=== PATIENT | female | born 1945 ===

== ENCOUNTER 2022-04-18 11:50 | Inpatient (IN) | payer MEDICARE ==
[~2022-04-18] VITALS: Ht 147.3 cm; Wt 54.6 kg
[2022-04-18] MEDS: polyethylene glycoL POWDER 17 GM (MIRALAX) PACK PO SCH ×3 (09:00→21:00)
[2022-04-18 11:50] VITALS: BP 166/75
[~2022-04-18 11:50] MED LIST: ACET-2840 PO; ACETAMINOPHEN 325 MG TABLET PO PRN; ALPRAZolam 0.25 MG (XANAX) TAB PO PRN; ASPI-1238 PO; BETH25TA2 PO; BISACODYL 10 MG SUPP (DULCOLAX) PR PRN; CALCIUM CARBONATE 500 MG (TUMS) TAB.CHEW PO PRN; CHOL20002 PO; DOCUSATE SODIUM 100 MG (COLACE) CAP PO PRN; DOCUSATE SODIUM 100 MG (COLACE) CAP PO SCH; FLEET ENEMA ADULT 1 EA BTL PR PRN; LACTULOSE SYRUP 10GM/15ML (ENULOSE) 30ML UDC PO PRN; LISI20TA26 PO; LOPERAMIDE 2 MG (IMODIUM) TABLET PO PRN; MELATONIN 3 MG TABLET PO PRN; MELO7.5T46 PO; NALO4SPR3 NS; ONDANSETRON 4 MG (ZOFRAN) ORAL DISSOLVE TAB PO PRN; OXYC1TAB87 PO; PANT40TA52 PO; SPIR25TA5 PO; SULF-221 PO; TMSL.4C PO; TRAM50TA3 PO; diphenhydrAMINE 25 MG TAB (BENADRYL) PO PRN; guaiFENesin/CODEINE (ROBITUSSIN AC) 10ML UDC PO PRN
--- NOTE | 2022-04-18 12:26 | Physical Therapy Evaluation ---
PT Evaluation-General Medical Diagnosis Admission Date Apr 18, 2022 at 11:50 Medical Diagnosis: Left BALDEMAR Onset Date: Apr 15, 2022 Therapy Diagnosis Therapy Diagnosis: Gait deficit Precautions Precautions/Isolations: Fall Prevention Weight Bear Status Right Lower Extremity: Right Full Weight Bearing Left Lower Extremity: Left Weight Bearing/Tolerated Referral Physician: Dr. Toro Reason for Referral: Evaluation/Treatment Medical History Reviewed History: Yes Social History Home: Single Level Current Living Status: Children Entry Into Home: Ramp PT Steps Into Home: 0 Prior Prior Level of Function SCALE: Activities may be completed with or without assistive devices. 2-Pvwkcjbbrv-bjnpwjm completes the activity by him/herself with no assistance from a helper. 5-Set-up or Clean-up Assistance-helper sets up or cleans up; patient completes activity. [place] assists only prior to or following the activity. 4-Supervision or Touching Assistance-helper provides verbal cues and/or touching/steadying and/or contact guard assistance as patient completes activity. Assistance may be provided throughout the activity or intermittently. 3-Partial/Moderate Assistance-helper does LESS THAN HALF the effort. [place] lifts, holds or supports trunk or limbs, but provides less than half the effort. 2-Substantial/Maximal Assistance-helper does MORE THAN HALF the effort. [place] lifts or holds trunk or limbs and provides more than half the effort. 2-Jyhulzrnp-qvnktb does ALL the effort. Patient does none of the effort to complete the activity. Or, the assistance of 2 or more helpers is required for the patient to complete the activity. If activity was not attempted, code reason: 7-Patient Refused. 9-Not Applicable-not attempted and the patient did not perform the activity before the current illness, exacerbation or injury. 10-Not Attempted due to Environmental Limitations-(lack of equipment, weather restraints, etc.). 88-Not Attempted due to Medical Conditions or Safety Concerns. Bed Mobility: 6 Transfers (B,C,W/C): 6 Gait: 6 Stairs: 6 Indoor Mobility (Ambulation): Independent Stairs: Independent Prior Devices Use: Walker PT Evaluation-Current Subjective Patient arrives in passenger seat of car driven by granddaughter. Reports pain at 8/10 in left hip. Pain Section J - Health Conditions 1. Rarely or not at all 2. Occasionally 3. Frequently 4. Almost constantly 8. Unable to answer Pain Effect on Sleep: 6 Pain Interference with Therapy: 8 Pain Interference w/Day-to-Day: 6 Objective Patient Orientation: Person, Place, Time, Situation Attachments: Way Catheter ROM/Strength ROM Lower Extremities Left hip and knee limited ~ 50% in all planes. Right LE WFLs all planes. Strength Lower Extremities Right LE- 4-/5 all planes; Left LE - Hip 3-/5 all planes, knee 3-/5 all planes, ankle 4/5 all planes Sensory Vision: Functional Hearing: Functional Sensation Right Lower Extremit: Intact Sensation Left Lower Extremity: Intact Transfers Roll Left & Right (QC): 3 Sit to Lying (QC): 3 Lying to Sitting/Side of Bed(Q: 3 Sit to Stand (QC): 3 Chair/Qlr-px-Gwbjh Xfer(QC): 3 Toilet Transfer (QC): 3 Car Transfer (QC): 3 Gait Does the Patient Walk?: Yes Mode of Locomotion: Walk Anticipated Mode of Locomotion: Walk Walk 10 feet (QC): 3 Walk 50 ft with 2 Turns(QC): 3 Walk 150 ft (QC): 3 Walking 10ft/uneven surface-QC: 88 Distance: 30 feet Gait Assistive Device: FWW Wheelchair Training Does the Pt Use a Wheelchair?: Yes Distance: 50 feet Wheel 50 ft with 2 turns (QC): 4 Wheel 150 ft (QC): 88 Type of Wheelchair: Manual Stairs #of Steps: 0 1 Step (curb) (QC): 88 4 Steps (QC): 88 12 Steps (QC): 88 Balance Sitting Static: Fair Sitting Dynamic: Fair Standing Static: Fair Standing Dynamic: Poor Picking up an Object (QC): 88 Assessment/Needs Patient performs all observed transfers and bed mobility with mod A. She propels the w/c 50 feet with BUEs and minimally with the right LE. Requires frequent verbal cues to stay on task and to avoid obstacles. Patient ambulates 30 feet with FWW, with min/mod A and verbal cues for safety, progression, posture, and motivation. Patient ambulates with forward trunk posture, rounded shoulders, decreased stance time on left LE, narrow JASON and shortened stride length bilaterally with right limited > left. Patient in w/c post treatment with all needs met, nursing notified, call light in reach and family in the room. Rehab Potential: Good Equipment Needs BSC or toilet riser, grab bars in the bathroom, w/c possibly PT Senior Care Goals Federal Aid Coordinator Goals PT Federal Aid Coordinator Goals Time Frame: May 31, 2022 Scoring Section J - Health Conditions 1. Rarely or not at all 2. Occasionally 3. Frequently 4. Almost constantly 8. Unable to answer Pain Effect on Sleep: 2 Pain Interference with Therapy: 2 Pain Interference w/Day-to-Day: 2 Roll Left to Right (QC): 6 Sit to Lying (QC): 6 Lying-Sitting on Side/Bed(QC): 6 Sit to Stand (QC): 6 Chair/Ajj-ol-Utntj Xfer(QC): 6 Car Transfer (QC): 6 Does the Patient Walk: Yes Walk 10 feet (QC): 6 Walk 10ft-Uneven Surface(QC): 6 Walk 50ft with 2 Turns (QC): 4 Walk 150 ft (QC): 4 Gait Assistive Device: FWW Does the Pt use WC or Scooter?: Yes Wheelchair (FIM): 6 Wheel 50 feet with 2 turns (QC: 6 # of Steps: 12 1 Step (curb) (QC): 4 4 Steps (QC): 4 12 Steps (QC): 4 Picking up an Object (QC): 6 Toilet transfer with Galliano W/C 150 feet with Galliano PT Plan Problem List Problem List: Activity Tolerance, Functional Strength, Safety, Balance, Gait, Transfer, Bed Mobility, ROM Treatment/Plan Treatment Plan: Continue Plan of Care Treatment Plan: Bed Mobility, Education, Functional Activity Emma, Functional Strength, Group Therapy, Gait, Safety, Therapeutic Exercise, Transfers Treatment Duration: Jun 01, 2022 Frequency: At least 5 of 7 days/Wk (IRF) Estimated Hrs Per Day: 1.5 hours per day Patient and/or Family Agrees t: Yes Safety Risks/Education Patient Education: Gait Training, Transfer Techniques Teaching Recipient: Patient Teaching Methods: Demonstration, Discussion Response to Teaching: Verbalize Understanding, Return Demonstration Time/GCodes Time In: 1150 Time Out: 1220 Total Billed Treatment Time: 30 Total Billed Treatment Visit, EVm (10), Gait (20) AXEL ORLANDO PT Apr 18, 2022 12:26
--- NOTE | 2022-04-18 12:32 | PM&R Post Admission Assessment ---
PM&R HP Date of Visit: Apr 18, 2022 Time of Visit: 12:40 History of Present Illness CC: Debility following a revision left total hip arthroplasty uncomplicated by Dr Fernandez HPI: This is a 76yoAAF who presents from [facility] following an uncomplicated left hip replacement revision by Dr Fernandez who has had BP elevations since surgery and urinary retention. Currently her daughter, granddaughter and great granddaughter are present in the room. Pain is controlled. No BM since before surgery. Laxatives will be given. Eating and drinking well. PLOF was independent in ADL's and ambulation. Liliana Escobar 76 y/o Female 1945 CC: Rehab after L total hip arthroplasty HPI: Had a L total hip arthroplasty done on 04/16/2022 at [facility]. She states she believes the procedure went well from what she was told. She states she had fractured her hip about 22 years ago and thus they had to have a longer terra placement to replace her femur. She denies any significant pain after her surgery. She has had flatus but has not had a bowel movement yet. She has no questions or concerns for her hip. She did want us to know that she has neck pain and an inability to turn her neck with any range of motion. 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 Because of her neck pain, she is unable to lay flat on her back and requires pillows to help prop up her neck. PMH: HTN Past surg hx: R knee arthroplasty x2, cholestectomy FHx: HTN Allergies: NKDA Meds: Lisinopril 20mg daily, Spironolactone 25mg daily, Meloxican 7.5mg daily, Protonix 40mg daily, Tamusolin 0.4mg BID, Bethanecol Chloride 25mg TID, ASA 81mg daily. Social Hx: 14 children. Lives with a son and his grandson. Denies EtOh, Tobacco use, or other recreational drug use Objective: Vitals T: 36.9 HR: 100 BP: 166/75 RR: 20 SpO2: 96% Labs pending Physical exam: Gen: alert, oriented x4, cooperative, no apparent distress Cardiovascular: tachycardic, normal S1, S2, no murmurs, gallops, or rubs Pulm: LTAB GI: normal active bowel sounds, no tenderness on palpation Extremities: 2+ pitting edema bilateral lower extremities Psych: normal mood and affect Neuro: no gross abnormalities on exam Assessment: Ms. Liliana Escobar is a 76 y/o female with PMH of HTN who presented to the acute rehab unit on 04/18/22 after L total hip arthroplasty on 04/16/22. Plan: 1. s/p L hip arthroplasty > PT/OT ordered > Pain control - Tramadol 50mg q4 PRN for mild pain, Percocet 5/325 q4 hours PRN for mod to sev pain > Silverman catheter present, will maintain for now, on Bactrim DS BID while silverman remains in place 2. Neck pain > PT/OT > Cont Meloxicam 7.5mg daily 3. Hypertension > continue home meds of Lisinopril 20mg daily and SPL 25mg daily Code: Full code Diet: regular diet Dispo: Continue acute rehab unit Pt seen and discussed with Dr. Menjivar. Ty Gaona MS4 Past Ppgddpn-Mcunrk-Jcveox Hx Past Med/Social Hx: Reviewed Nursing Past Med/Soc Hx, Reviewed and Corrections made Patient Social History Marrital Status: single Employed/Student: retired Smoking Status: Never a Smoker Past Medical History Surgeries: Orthopedic Cardiac: High Cholesterol, Hypertension Genitourinary: Bladder Infection Musculoskeletal: Arthritis Prior Level of Function Bed Mobility: 6 Transfers: 6 Gait: 6 Stairs: 6 Indoor Mobility (Ambulation): Independent Stairs: Independent Prior Devices Use: Walker PM&R Allergy/Meds/Data Review Allergies Coded Allergies: No Known Allergies (Verified Allergy, Unknown, 04/18/22) Home Medications Scheduled Aspirin (Aspirin EC), 81 MG PO DAILY, (Reported) Bethanechol Chloride (Bethanechol Chloride), 25 MG PO TIDAC, (Reported) Cholecalciferol (Vitamin D3) (Vitamin D3), 50 MCG PO DAILY, (Reported) Lisinopril (Lisinopril), 20 MG PO DAILY, (Reported) Meloxicam (Meloxicam), 7.5 MG PO DAILY, (Reported) Pantoprazole Sodium (Pantoprazole Sodium), 40 MG PO DAILY, (Reported) Spironolactone (Spironolactone), 25 MG PO DAILY, (Reported) Sulfamethoxazole/Trimethoprim (Bactrim Ds Tablet), 1 EACH PO BID, (Reported) Tamsulosin HCl (Flomax), 0.4 MG PO Q12H, (Reported) Scheduled PRN Acetaminophen (Tylenol 8 Hour), 1,300 MG PO Q6H PRN for PAIN-MILD (1-4), (Reported) Naloxone HCl (Naloxone HCl), 4 MG NS UD PRN for OPOID OVERDOSE, (Reported) Oxycodone HCl/Acetaminophen (Percocet 5-325 mg Tablet), 1 TAB PO Q4H PRN for PAIN-MODERATE (5-7), (Reported) Tramadol HCl (Tramadol HCl), 50 MG PO Q4H PRN for PAIN-MILD (1-4), (Reported) Current Medications Current Medications Reviewed Review of Systems Constitutional: see HPI, malaise, weakness EENTM: no symptoms reported Respiratory: no symptoms reported Cardiovascular: no symptoms reported Gastrointestinal: constipation Genitourinary: other (retention) Musculoskeletal: back pain, joint pain Skin: no symptoms reported Psychiatric/Neurological: No Symptoms Reported All Other Systems Reviewed Negative Unless Noted: Yes Physical Exam Physical Exam Vital Signs Capillary Refill : Height, Weight, BMI Height: '" Weight: lbs. oz. kg; BMI Method: General Appearance: No Apparent Distress, WD/WN, Chronically ill Eyes: Bilateral Eye Normal Inspection, Bilateral Eye PERRL HEENT: PERRL/EOMI, Normal ENT Inspection, Pharynx Normal Neck: Full Range of Motion, Normal Inspection, Non Tender, Supple, Carotid Bruit Respiratory: Chest Non Tender, Lungs Clear, Normal Breath Sounds, No Accessory Muscle Use, No Respiratory Distress Cardiovascular: Regular Rate, Rhythm, No Edema, No Gallop, No JVD, No Murmur, Normal Peripheral Pulses Gastrointestinal: Normal Bowel Sounds, No Organomegaly, No Pulsatile Mass, Non Tender, Soft Back: Normal Inspection, No CVA Tenderness, No Vertebral Tenderness Extremity: Normal Capillary Refill, Normal Inspection, Normal Range of Motion (except left leg), Non Tender, No Calf Tenderness, No Pedal Edema Neurologic/Psychiatric: Alert, Oriented x3, Normal Mood/Affect, pointer helper II-XII Norm as Tested, Abnormal Gait, Motor Weakness (bilateral legs) Skin: Normal Color, Warm/Dry Lymphatic: No Adenopathy PM&R Medical Assessment & Plan REHAB/MEDICAL ASSESSMENT AND PLAN: REHAB IMPAIRMENT GROUP: Right hip replacement revision ETIOLOGIC DIAGNOSIS: Right hip replacement revision The comorbidities that impact the patients function and/or functional outcome by: labile HTN, urinary retention, limited ROM left leg REHAB PLAN: The patient is being admitted to our comprehensive inpatient rehabilitation facility and can tolerate the intensity of service consisting of at least: 180 minutes of therapy a day, 5 out of 7 days a week Rehab treatment will consist of: PT OT will focus on regaining ambulatory skills with use of AD and increase independence in ADL's in order to return home to live alone The patient/family has a good understanding of our discharge process and will benefit from an interdisciplinary inpatient rehabilitation program. The patient has potential to make improvement and is in need of at least two of the following multidisciplinary therapies including but not limited to physical, occupational, speech, and prosthetics and orthotics. Additionally the patient will need services from respiratory, nutritional services, wound care, psychology, etc. (Customize this to each patient). Given the patients complex condition and risk of further medical complications, rehabilitation services cannot be safely or effectively provided at a lower level of care such as a assisted facility. BARRIERS TO DISCHARGE: Pain left leg ESTIMATED LOS: 7 days DISPOSITION: Home RELEVANT CHANGES SINCE PREADMISSION SCREENING: I have compared the patients medical and functional status at the time of the preadmission screening and there are: no changes PROGNOSIS: Good REHABILITATION GOALS: 1. PT OT will focus on regaining ambulatory skills with use of AD and increase independence in ADL's in order to return home to live alone All the above goals were reviewed with the patient and he/she is in agreement. By signing this document, I acknowledge that I have personally performed a full physical examination on this patient within 24 hours of admission to this inpatient rehabilitation facility and have determined the patient to be able to tolerate the above course of treatment at an intensive level for a reasonable period of time. I will be completing a detailed individualized Plan of Care for this patient by day #4 of the patients stay based upon the Preadmission Screen, the Post-Admission Evaluation, and the therapy evaluations. Admission Dx/Comorbidities: (1) S/P total left hip arthroplasty ICD Codes: Z96.642 - Presence of left artificial hip joint Assessment/Plan Assessment and Plan Assess & Plan/Chief Complaint Assessment: s/p uncomplicated left hip arthroplasty by Dr Fernandez HTN labile status Urinary retention Fall risk Plan: Monitor pain Urinary retention management Fall risk Aggressive PT OT NATIVIDAD MENJIVAR DO Apr 18, 2022 12:32
[2022-04-18] MEDS ORDERED: TAMSULOSIN 0.4 MG (FLOMAX) CAP PO SCH (12:45)
--- NOTE | 2022-04-18 13:24 | Occupational Therapy Eval ---
OT Evaluation-General/PLF Medical Diagnosis Admission Date Apr 18, 2022 at 11:50 Medical Diagnosis: Left BALDEMAR Onset Date: Apr 15, 2022 Therapy Diagnosis Therapy Diagnosis: decreased ADL status Precautions Precautions/Isolations: Fall Prevention Comments Direct Lateral hip precautions. No straight leg raises. Pt may shower without covering Aquacel dressing. No submerging incision under water until healed. WBAT Weight Bear Status Weight Bearing Restriction: Weight Bearing/Tolerated Referral Physician: Dr. Toro Referral Reason: Evaluation/Treatment Medical History Additional Medical History HTN, arthritis, L hip surgery, knee replacement. Current History 04/15/22 revision of L femoral terra to total arthroplasty (lateral approach) Social History Home: Single Level Current Living Status: Children Entry Into Home: Ramp Steps Into Home: 0 ADL-Prior Level of Function SCALE: Activities may be completed with or without assistive devices. 9-Aldhbsgpwq-ebyejvp completes the activity by him/herself with no assistance from a helper. 5-Set-up or Clean-up Assistance-helper sets up or cleans up; patient completes activity. [place] assists only prior to or following the activity. 4-Supervision or Touching Assistance-helper provides verbal cues and/or touching/steadying and/or contact guard assistance as patient completes activi ty. Assistance may be provided throughout the activity or intermittently. 3-Partial/Moderate Assistance-helper does LESS THAN HALF the effort. [place] lifts, holds or supports trunk or limbs, but provides less than half the effort. 2-Substantial/Maximal Assistance-helper does MORE THAN HALF the effort. [place] lifts or holds trunk or limbs and provides more than half the effort. 6-Unwxngiwv-okihku does ALL the effort. Patient does none of the effort to complete the activity. Or, the assistance of 2 or more helpers is required for the patient to complete the activity. If activity was not attempted, code reason: 7-Patient Refused. 9-Not Applicable-not attempted and the patient did not perform the activity before the current illness, exacerbation or injury. 10-Not Attempted due to Environmental Limitations-(lack of equipment, weather restraints, etc.). 88-Not Attempted due to Medical Conditions or Safety Concerns. ADL PLOF Comments Pt reports IND with ADLs and functional mobility at PLOF, using walker. She sleeps in a recliner at home, she is unable to lay flat due to limited ROM/pain in her neck. She has an adjustable bed, but she prefers a recliner. She had difficulty with socks at baseline, but opts to wear slip on shoes that she can do herself. She has a walk in shower, no SC. Family indicates pt has a BSC that they can use as a SC at home. Self Care: Independent Functional Cognition: Independent DME/Equipment: Shower OT Current Status Subjective Pt in w/c, agreeable to OT Tx. Pt's daughter, granddaughter and 1 y.o great granddaughter present at start of tx. Family reports pt has limited ROM in neck unable to lay flat in bed (she typically sleeps in recliner). Pt typically rates pain 3/10 but is in more pain, so a visual pain scale is more accurate (facial expressions and hand shakiness). Current Dentures/Partials: Yes Hand Dominance: Right Upper Extremity ROM WFL, RUE shoulder flexion to approx 130 degrees, LUE to approx 110 degrees. WFL at elbow/wrist/hand. Upper Extremity Coordination WFL Upper Extremity Sensation Pt denies tingling/numbness BUEs,. Upper Extremity Strength grossly 4/5 BUEs ADL-Treatment Eating (QC): 5 (set up with lunch, assist opening containers.) Oral Hygiene (QC): 5 (per pt report.) Shower/Bathe Self (QC): 7 (Pt deferred shower until tomorrow) Upper Body Dressing (QC): 7 (Pt deferred dressing until tomorrow) Lower Body Dressing (QC): 7 (Pt deferred dressing until tomorrow) On/Off Footwear (QC): 1 (total assist due to hip precautions.) Toileting Hygiene (QC): 10 (Not tested due to time limitation.) Other Treatments [id number]: OT evaluation complete. Pt decided what meal she would like to eat for lunch and family assisted pt with ordering. Pt participated in BIMs/CAMs, and participated in UE screen. Pt and family educated on rehab process/expectations. Pt educated on hip precautions. Pt's lunch arrived, pt required set up assistance with opening containers and placing butter on potato. Post tx, pt in recliner, call light in reach and all needs met. [id number]: OT/PT cotreat due to skill of 2 clinicians required that a wildlife rehabilitator could not perform in order to coordinate UE/LEs, decrease fall risk, higher level balance tasks, and due to pt's limitations in strength, activity tolerance, pain, mobility/transfers. OT focused on UE placement, cues for sequencing and safety and ADLs, PT focused on LE placement, gross overall movement, transfers/mobility, and balance. Pt seated in w/c, taken to hallway. Pt used FWW to perform functional mobility in [place], and up/down 1 step. Pt had a slow pace. Post tx, pt seated in w/c, all needs met, PT present for continued tx. Mod A with mobility/transfers. Education OT Patient Education: Correct positioning, Energy conservation, Modified ADL techniques, Progress toward Goal/Update tx plan, Purpose of tx/functional activities, Reviewed precautions, Rehab process Teaching Recipient: Patient Teaching Methods: Discussion Response to Teaching: Verbalize Understanding BIMS CAM BIMS Expression of Ideas and Wants: Without Difficulty Understanding Verbal Content: Understands Brief Interview/Mental Status: Yes IRF ELIZABETH BIMS: IRF ELIZABETH BIMS Response (Comments) Value Repitition of Three Words Three 3 Recalls Socks Yes, No Cue Required 2 Recalls Blue Yes, No Cue Required 2 Recalls Bed Yes, No Cue Required 2 Year Correct 3 Month Accurate Within 5 Days 2 Day Correct 1 Total 15 [address] Ass[address] Mental [address] No CAM Mental Status Change/Baseline: 0 Inattention: 0 Disorganized thinkin Altered level of consciousness: 0 OT Short Term Goals Short Term Goals Time Frame: May 01, 2022 Toileting hygiene: 3 Lower body dressin Putting on/taking off footwear: 3 OT Programs Assistant Goals Group Home Goals Time Frame: May 10, 2022 Acute change in mental status: 0 Inattention: 0 Disorganized thinkin Altered level of consciousness: 0 Eating (QC): 6 Oral Hygiene (QC): 6 Toileting Hygiene (QC): 6 Shower/Bathe Self (QC): 5 Upper Body Dressing (QC): 5 Lower Body Dressing (QC): 5 On/Off Footwear (QC): 5 Additional Goals: 1-Demonstrate ADL Tasks, 2-Verbalize Understanding, 3- ImproveStrength/Emma 1=Demonstrate adherence to instructed precautions during ADL tasks. 2=Patient will verbalize/demonstrate understanding of assistive devices/modifications for ADL. 3=Patient will improve strength/tolerance for activity to enable patient to perform ADL's. OT Education/Plan Problem List/Assessment Assessment: Decreased Activ Tolerance, Decreased UE Strength, Impaired Funct Balance, Impaired I ADL's, Impaired Self-Care Skills Discharge Recommendations Plan/Recommendations: Continue POC Equpiment Recommendations-D/C: Bath Chair, Hip Kit Treatment Plan/Plan of Care Patient would benefit from OT for education, treatment and training to promote independence in ADL's, mobility, safety and/or upper extremity function for ADL's. Plan of Care: ADL Retraining, Functional Mobility, Group Exercise/Act as Ind, UE Funct Exercise/Act Treatment Duration: May 10, 2022 Frequency: At least 5 of 7 days/Wk (IRF) Estimated Hrs Per Day: 1.5 hours per day Agreement: Yes Rehab Potential: Good Time/GCodes Start Time: 12:30 ([id number]) Stop Time: 14:15 ([id number]) Total Time Billed (hr/min): 75 Billed Treatment Time [id number] OT eval/tx, [id number] Cotreat 1, EVM (20'), ADL 3 (40') 1, FA (15') DEIRDRE OWEN OT Apr 18, 2022 13:24
--- NOTE | 2022-04-18 13:41 | Progress Note ---
TARI HERRERA 04/18/22 1341: Progress Note Liliana Escobar 76 y/o Female 1945 CC: Rehab after L total hip arthroplasty HPI: Had a L total hip arthroplasty done on 04/16/2022 at [facility]. She states she believes the procedure went well from what she was told. She states she had fractured her hip about 22 years ago and thus they had to have a longer terra placement to replace her femur. She denies any significant pain after her surgery. She has had flatus but has not had a bowel movement yet. She has no questions or concerns for her hip. She did want us to know that she has neck pain and an inability to turn her neck with any range of motion. 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 Because of her neck pain, she is unable to lay flat on her back and requires pillows to help prop up her neck. PMH: HTN Past surg hx: R knee arthroplasty x2, cholestectomy FHx: HTN Allergies: NKDA Meds: Lisinopril 20mg daily, Spironolactone 25mg daily, Meloxican 7.5mg daily, Protonix 40mg daily, Tamusolin 0.4mg BID, Bethanecol Chloride 25mg TID, ASA 81mg daily. Social Hx: 14 children. Lives with a son and his grandson. Denies EtOh, Tobacco use, or other recreational drug use Objective: Vitals T: 36.9 HR: 100 BP: 166/75 RR: 20 SpO2: 96% Labs pending Physical exam: Gen: alert, oriented x4, cooperative, no apparent distress Cardiovascular: tachycardic, normal S1, S2, no murmurs, gallops, or rubs Pulm: LTAB GI: normal active bowel sounds, no tenderness on palpation Extremities: 2+ pitting edema bilateral lower extremities Psych: normal mood and affect Neuro: no gross abnormalities on exam Assessment: Ms. Liliana Escobar is a 76 y/o female with PMH of HTN who presented to the acute rehab unit on 04/18/22 after L total hip arthroplasty on 04/16/22. Plan: 1. s/p L hip arthroplasty > PT/OT ordered > Pain control - Tramadol 50mg q4 PRN for mild pain, Percocet 5/325 q4 hours PRN for mod to sev pain > Silverman catheter present, will maintain for now, on Bactrim DS BID while silverman remains in place 2. Neck pain > PT/OT > Cont Meloxicam 7.5mg daily 3. Hypertension > continue home meds of Lisinopril 20mg daily and SPL 25mg daily Code: Full code Diet: regular diet Dispo: Continue acute rehab unit Pt seen and discussed with Dr. Menjivar. Tari Herrera MS4 AMANDA MENJIVAR DO 04/18/222028: Supervisory-Addendum Brief Verification & Attestation Participated in pt care: history, MDM, physical Personally performed: exam, history, MDM, supervision of care Care discussed with: Medical Student Procedures: n/a Results interpretation: Verified all documentation Verification and Attestation of Medical Student E/M Service A medical student performed and documented this service in my presence. I reviewed and verified all information documented by the medical student and made modifications to such information, when appropriate. I personally performed the physical exam and medical decision making. Amanda Menjivar, Apr 18, 2022,20:28 TARI HERRERA Apr 18, 2022 13:41 AMANDA MENJIVAR DO Apr 18, 2022 20:29
--- NOTE | 2022-04-18 14:01 | ST Cognitive Linguistic Eval ---
Speech Evaluation-General Medical Diagnosis Left BALDEMAR Onset Date: Apr 15, 2022 Therapy Diagnosis Therapy Diagnosis: Intact Cognition Precautions Precautions: Fall, Pressure Ulcer, Hip Precautions/Isolations: Fall Prevention, Standard Precautions, Pressure Ulcer Referral Referring Physician: Dr. Toro Reason for Referral: Evaluation/Treatment Medical History Current History The patient is a 76 year-old female with a past medical history of HTN and arthritis, who presented to ARU on 04/15/22 following a revision of L femoral terra to total arthroplasty (lateral approach). Reviewed History: Yes Social History Current Living Status: Children Speech PLF-Current Status Prior Level of Function The patient denied prior challenges or concerns with her speech, language, or cognition. Subjective The patient was seated upright in her recliner, awake and alert, upon entrance to her room by the clinician. The patient greeted the clinician appropriately and was agreeable to participation in the cognitive linguistic assessment. Language Eval: Auditory Comprehends Simple Yes/No Ques: Functional Indent/Objects Multiple Garay: Functional Ident/Pics in Multiple Garay: Functional Follows 1-Step Commands: Functional Follows General Conversations: Functional Language Eval: Verbal Language Completes Spontaneous Greeting: Functional Produces Auto, Serial Info: Functional Imitates Simple Words/Phrases: Functional Word Finding: Functional Requests Basic Needs: Functional States Basic Personal Info: Functional Language Evaluation: Reading Follows Simple Written Direct: Functional Language Evaluation: Writing Writes to Simple Dictation: Functional Cognitive Patient Orientation The patient was independently oriented to self, location, month, day of the week, date, and year. Objective Cognitive Domain Attention: WNL Memory: WNL Problem Solving: Functional Executive Functions: WNL Visuospatial Skills: WNL Composite Severity Rating: WNL Clock Drawing Severity Rating: WNL Objective Formal/Standardized Tests [facility] Mental Status Exam ([facility]) Results The patient demonstrated a result of +27/30 on the SLUMS correlating to a result of within normal limits. Oral Motor/Speech Production The patient does not demonstrate dysarthria or apraxia of speech. Impression The patient demonstrates cognitive linguistic functions within normal limits. Speech Patient Assess Expression of Ideas/Wants: Expression (4) Understanding Verbal Content: Understands (4) Brief Interview-Mental Status: Yes Repetition of Three Words: Three (3) Temporal Orientation: Year: Correct (3) Temporal Orientation: Month: Accurate within 5 days(2) Temporal Orientation: Day: Correct (1) Recall : Wear to say "Sock": Yes, no cue required (2) Recall : Color: Yes, no cue required (2) Recall : Bed: Yes,after cueing (1) Memory/Recall Ability: Current season, That he or she is in a hsp/hsp unit Speech-Plan Treatment Plan Speech Therapy Treatment Plan: Discontinue ST Treatment Duration: Apr 18, 2022 Frequency: 1 time per week Estimated Hrs Per Day: .5 hour per day Rehab Potential: Good Safety Risks/Education Teaching Recipient: Patient Teaching Methods: Discussion Response to Teaching: Verbalize Understanding Education Topics Provided: Results, Recommendations Time Speech Therapy Time In: 13:30 Speech Therapy Time Out: 14:00 Total Billed Time: 30 Billed Treatment Time 1, ARJUN INGRAM ELIZABETH ST Apr 18, 2022 14:01
[2022-04-18] MEDS: oxyCODONE/APAP 5/325MG (PERCOCET 5) TABLET PO PRN (14:12)
--- NOTE | 2022-04-18 14:54 | Physical Therapy Daily Note ---
PT Daily Note-Current Subjective Patient agrees to PT. Patient educated on importance of pain medication intake to reap the benefit of rehab to return to home. Patient voices understanding and requests a pain pill. RN issued. Pain Numeric Pain Scale: 7 Location: Left Location Body Site: Hip Pain Description: Acute Section J - Health Conditions 1. Rarely or not at all 2. Occasionally 3. Frequently 4. Almost constantly 8. Unable to answer Pain Effect on Sleep: 2 Pain Interference with Therapy: 2 Pain Interference w/Day-to-Day: 2 Mental Status Patient Orientation: Normal For Age Transfers SCALE: Activities may be completed with or without assistive devices. 8-Ciuknctwzq-lmakjxv completes the activity by him/herself with no assistance from a helper. 5-Set-up or Clean-up Assistance-helper sets up or cleans up; patient completes activity. Douglas assists only prior to or following the activity. 4-Supervision or Touching Assistance-helper provides verbal cues and/or touching /steadying and/or contact guard assistance as patient completes activity. Assistance may be provided throughout the activity or intermittently. 3-Partial/Moderate Assistance-helper does LESS THAN HALF the effort. Douglas lifts, holds or supports trunk or limbs, but provides less than half the effort. 2-Substantial/Maximal Assistance-helper does MORE THAN HALF the effort. Douglas lifts or holds trunk or limbs and provides more than half the effort. 2-Yfklzzvcv-buxmzr does ALL the effort. Patient does none of the effort to complete the activity. Or, the assistance of 2 or more helpers is required for the patient to complete the activity. If activity was not attempted, code reason: 7-Patient Refused. 9-Not Applicable-not attempted and the patient did not perform the activity before the current illness, exacerbation or injury. 10-Not Attempted due to Environmental Limitations-(lack of equipment, weather restraints, etc.). 88-Not Attempted due to Medical Conditions or Safety Concerns. Sit to Lying (QC): 2 Sit to Stand (QC): 2 Chair/Cqb-gt-Ixxpf Xfer(QC): 3 Weight Bearing Right Lower Extremity: Right Full Weight Bearing Left Lower Extremity: Left Weight Bearing/Tolerated Gait Training Distance: 40' Walk 10 feet (QC): 4 Gait Assistive Device: FWW very slow, antalgic gait sequence Wheelchair Training Does the Pt Use a Wheelchair?: Yes Wheel 50 ft with 2 turns (QC): 4 Wheel 150 ft (QC): 88 Type of Wheelchair: Manual Stair Training Stair Training: Handrails/: uses walker #of Steps: 1 1 Step (curb) (QC): 3 4 Steps (QC): 9 12 Steps (QC): 9 Stairs: Pattern: Step to Balance Picking up an Object (QC): 88 Exercises Supine Ex: Ankle pumps, Quad Set, Glut sets, Heel Slides Supine Reps: 12 (AAROM left LE) Seated Therapy Exercises: Long arc quads Seated Reps: 12 (AAROM left) Assessment Patient requires recovery periods due to fatigue and weakness. Patient tolerated treatment and is in bed with 4 rails up. Patient required max assist with sit to stand transfers and sit to supine this p.m. PT Skilled Nursing Goals Skilled Nursing Goals PT Colorist Goals Time Frame: May 31, 2022 Roll Left & Right (QC): 6 Sit to Lying (QC): 6 Lying-Sitting on Side/Bed(QC): 6 Sit to Stand (QC): 6 Chair/Vca-pd-Eqwea Xfer(QC): 6 Toilet Transfer (QC): 6 Car Transfer (QC): 6 Does the Patient Walk: Yes Walk 10 feet (QC): 6 Walk 50ft with 2 Turns (QC): 4 Walk 150 ft (QC): 4 Walking 10ft on Uneven Surface: 6 1 Step (curb) (QC): 4 4 Steps (QC): 4 12 Steps (QC): 4 Picking up an Object (QC): 6 Does the Pt use WC or Scooter?: Yes Wheel 50 feet with 2 turns (QC: 6 Type: Manual Wheel 150 feet: 6 Type: Manual PT Plan Treatment/Plan Treatment Plan: Continue Plan of Care Treatment Plan: Bed Mobility, Education, Functional Activity Emma, Functional Strength, Group Therapy, Gait, Safety, Therapeutic Exercise, Transfers Treatment Duration: Jun 01, 2022 Frequency: At least 5 of 7 days/Wk (IRF) Estimated Hrs Per Day: 1.5 hours per day Patient and/or Family Agrees t: Yes Time/GCodes Time In: 1400 Time Out: 1445 Total Billed Treatment Time: 45 Total Billed Treatment 1 visit GT 15 min WCH 15 min EX 15 min FABIAN IZAGUIRRE PT Apr 18, 2022 14:54
[2022-04-18] MEDS: TRIM/SULFAMETH 160/800 (SEPTRA DS) TAB PO SCH (17:32)
[2022-04-18] MEDS: BETHANECHOL 25 MG (URECHOLINE) TAB PO SCH (17:32)
[2022-04-18 20:00] VITALS: BP 128/69
[2022-04-18] MEDS ORDERED: cloNIDine 0.1 MG (CATAPRES) TAB PO PRN (20:30)
[2022-04-18] MEDS: DOCUSATE SODIUM 100 MG (COLACE) CAP PO SCH (20:56)
[2022-04-18] MEDS: SENNA W/DOCUSATE (SENOKOT S) TABLET PO SCH (21:00)
[2022-04-18] MEDS: TAMSULOSIN 0.4 MG (FLOMAX) CAP PO SCH (21:33)
[2022-04-19 05:28] LABS: BASOPHILS % (AUTO) 0 % (0-10); EOSINOPHILS # (AUTO) 0.4 10^3/uL (0.0-0.3); EOSINOPHILS % (AUTO) 7 % (0-10); HEMATOCRIT 24 % (35-52); HEMOGLOBIN 7.7 g/dL (11.5-16.0); LYMPHOCYTES # (AUTO) 0.6 10^3/uL (1.0-4.0); LYMPHOCYTES % (AUTO) 11 % (12-44); MEAN CORPUSCULAR HEMOGLOBIN 30 pg (25-34); MEAN CORPUSCULAR HGB CONC 32 g/dL (32-36); MEAN CORPUSCULAR VOLUME 95 fL (80-99); MEAN PLATELET VOLUME 9.2 fL (9.0-12.2); MONOCYTES # (AUTO) 0.6 10^3/uL (0.0-1.0); MONOCYTES % (AUTO) 11 % (0-12); NEUTROPHILS # (AUTO) 3.9 10^3/uL (1.8-7.8); NEUTROPHILS % (AUTO) 70 % (42-75); PLATELET COUNT 242 10^3/uL (130-400); WHITE BLOOD COUNT 5.5 10^3/uL (4.3-11.0)
[2022-04-19 05:36] LABS: ALBUMIN 2.8 GM/DL (3.2-4.5)
[2022-04-19 05:37] LABS: POTASSIUM 4.7 MMOL/L (3.6-5.0)
[2022-04-19 05:38] LABS: CALCIUM 8.6 MG/DL (8.5-10.1)
[2022-04-19 05:39] LABS: TOTAL PROTEIN 6.2 GM/DL (6.4-8.2)
[2022-04-19 05:41] LABS: BILIRUBIN,TOTAL 0.4 MG/DL (0.1-1.0)
[2022-04-19 05:43] LABS: CREATININE SERUM 1.26 MG/DL (0.60-1.30)
--- NOTE | 2022-04-19 06:15 | Individualized Plan of Care ---
Individualized Plan of Care Rehab Nursing IPOC Order Admission Date Apr 18, 2022 at 11:50 Current Orders Orders Admission Order(Inpt,Obs,Sdc) (04/18/22 05:45) Vital Signs: Per Unit Policy ( 08,16,00 (04/18/22 05:45) Tiburcio Garcia 09,21 (04/18/22 05:45) Sequential Compression Device (04/18/22 05:45) Carpenter-Inpt Rehab Con (04/18/22 05:45) Rehab Nursing Orders-Ipoc (04/18/22 05:45) Physical Therapy Rehab Orders (04/18/22 05:45) Occupational Therapy Rehab Ord (04/18/22 05:45) Speech Therapy Rehab Orders (04/18/22 05:45) Cbc With Automated Diff (04/19/22 06:00) Comprehensive Metabolic Panel (04/19/22 06:00) Precautions (Aru) (04/18/22 05:45) Weekly Weight WEEK (04/18/22 05:45) Rehab-Intensity Of Therapy (04/18/22 05:45) Initiate Admission Nursing Pro .admission (04/18/22 05:45) Alprazolam Tablet (Xanax Tablet) (04/18/22 05:45) Calcium Carbonate Chew Tablet (Antacid C (04/18/22 05:45) Diphenhydramine Tablet (Benadryl Tablet) (04/18/22 05:45) Docusate Sodium Capsule (Colace Capsule) (04/18/22 09:00) Docusate Sodium Capsule (Colace Capsule) (04/18/22 05:45) Bisacodyl Suppository (Dulcolax Supposit (04/18/22 05:45) Lactulose Oral Solution (Enulose Oral So (04/18/22 05:45) Na Phos/Na Biphos Enema (Fleet Enema Jesus (04/18/22 05:45) Guaifenesin/Codeine Syrup (Robitussin Ac (04/18/22 05:45) Loperamide Tablet (Imodium Tablet) (04/18/22 05:45) Melatonin Tablet (Melatonin Tablet) (04/18/22 05:45) Polyethylene Glycol Powder Pkt (Miralax (04/18/22 09:00) Ondansetron Oral Dissolve Tab (Zofran (04/18/22 05:45) Senna S Tablet (Senokot S Tablet) (04/18/22 21:00) Acetaminophen Tablet/Caplet (Tylenol T (04/18/22 05:45) Code/Resuscitation (04/18/22 05:45) Initiate Admission Nursing Pro .admission (04/18/22 05:45) Catheter(Urinary) Insert & Ass 03,15 (04/18/22 10:13) Nursing Communication (Order) (04/18/22 10:13) Request Pt Additional Orders (04/18/22 10:13) Request Ot Additional Orders (04/18/22 10:13) Nursing Communication (Order) (04/18/22 10:13) Follow-Up Appointment D/C (04/18/22 10:13) Admission Arrival Bed Request (04/18/22 12:07) General/Regular (04/18/22 Lunch) Docusate Sodium Capsule (Colace Capsule) (04/18/22 21:00) Acetaminophen Arthritis (Tylenol Arthrit (04/18/22 12:45) Aspirin Enteric Coated Tablet (Ecotrin T (04/19/22 09:00) Bethanechol Tablet (Urecholine Tablet) (04/18/22 17:00) Lisinopril Tablet (Zestril Tablet) (04/19/22 09:00) Meloxicam Tablet (Mobic Tablet) (04/19/22 09:00) Oxycodone/Apap 5/325mg Tablet (Percocet (04/18/22 12:45) Pantoprazole Tablet (Protonix Tablet) (04/19/22 09:00) Spironolactone Tablet (Aldactone Tablet) (04/19/22 09:00) Sulfamethoxazole/Trimet Ds Tab (Bactrim (04/18/22 18:00) Tamsulosin Capsule (Flomax Capsule) (04/18/22 12:45) Rx-Tramadol Hcl (Rx-Ultram) (04/18/22 12:45) (Nf) Cholecalciferol (Vitamin D3) (Vitam (04/19/22 09:00) Cholecalciferol Capsule/Tablet (Vitamin (04/19/22 09:00) Tramadol Tablet (Ultram Tablet) (04/18/22 13:00) Tamsulosin Capsule (Flomax Capsule) (04/18/22 20:00) Patient Visit (04/18/22 ) Speech Sound Lang Comp (04/18/22 ) Treat. Speech/Lang/Voice (04/18/22 ) Clonidine Tablet (Catapres Tablet) (04/18/22 20:30) Patient Visit (04/18/22 ) Pt Eval Moderate Complexity (04/18/22 ) Gait Training, Ea 15 Min (04/18/22 ) Soap Suds Enema Until Clear (04/19/22 11:53) Iron Test (Fe) (04/19/22 11:53) Vitamin B 12 (04/19/22 11:53) Patient Visit (04/19/22 ) Functional Activities, Ea 15 (04/19/22 ) Exercise Therap, Ea 15 Min (04/19/22 ) Gait Training, Ea 15 Min (04/19/22 ) Rehab Nursing Orders: Ongoing Assess. of Function Status, Bladder Management, Bladder Scan, Bladder Training, Bowel Management, Bowel Training, Disease Rina gement & Educaiton, DVT Prophylaxis, Fall Prevention, Fluid/Electrolyte/Nutrition Mgmt, Infection Prevention, Medication Management & Education, Management of Risks & Complications, Management of Skin Intergrity, Nutrition Management, Pain Management, Patient/Family Support, Safety Management, Wound Management Intensity of Therapy to be met Patient to be seen: Min.3h per day/5 of 7d PT IPOC Problem List: Activity Tolerance, Functional Strength, Safety, Balance, Gait, Transfer, Bed Mobility, ROM Treatment Plan: Continue Plan of Care Bed Mobility, Education, Functional Activity Emma, Functional Strength, Group Therapy, Gait, Safety, Therapeutic Exercise, Transfers Treatment Duration: Jun 01, 2022 Frequency: At least 5 of 7 days/Wk (IRF) Estimated Hrs Per Day: 1.5 hours per day OT IPOC Problems: Decreased Activ Tolerance, Decreased UE Strength, Impaired Funct Balance, Impaired I ADL's, Impaired Self-Care Skills OT Treatment, Training and Edu: Yes Plan of Care: ADL Retraining, Functional Mobility, Group Exercise/Act as Ind, UE Funct Exercise/Act Treatment Duration: May 10, 2022 Frequency: At least 5 of 7 days/Wk (IRF) Estimated Hrs Per Day: 1.[address] IPOC Speech Therapy Treatment Plan: Discontinue ST Treatment Duration: Apr 18, 2022 Frequency: 1 time per week Estimated Hrs Per Day: .5 hour per day Carpenter/Case Mgmt Carpenter/Case Managemen: Discharge Planning Dietitian/Right Of Way Man Dietitian/Right Of Way Man to monitor nutritional status and make changes and/or recommendations as needed and work with speech pathology on dietary upgrades as the occur. Physician IPOC Medical Issues being managed closely and that require the 24 hour availability of a physician: Recent revision of hip with post op HTN OOC and urinary retention will require close monitoring of clinical status especially urinary system due to high risk for UTI Medical Issues: Bowel/Bladder Function, DVT Prophylaxis, Falls Precautions, Fluid/Electrolyte/Nutrition Balance, Infection Protection, Pain Management, Wound Care Brief Synthesis of Preadmission Screen, Post-Admission Evaluation, and Therapy Evaluations: PT OT will focus on regaining function with use of AD in order to return home to independent living and help prevent falls Medical Prognosis: Good Anticipated Length of Stay: 7 days NATIVIDAD MENJIVAR DO Apr 19, 2022 06:15
--- NOTE | 2022-04-19 06:15 | PM&R Progress Note ---
Subjective HPI/CC On Admission Date Seen by Provider: Apr 19, 2022 Time Seen by Provider: 12:00 Subjective/Events-last exam 04/19/2022: No major issues Talking on phone during exam No BM yet so ordered SSE if no production after supp Pain controlled BP stable Silverman cath in place Review of Systems General: Fatigue, Malaise Genitourinary: Retention Musculoskeletal: leg pain Objective Exam Vital Signs Vital Signs Date Time Temp Pulse Resp B/P (MAP) Pulse Ox O2 Delivery O2 Flow Rate FiO2 04/19/22 19:39 37.1 93 16 150/67 (94) 96 Room Air Capillary Refill : General Appearance: No Apparent Distress, WD/WN, Chronically ill HEENT: PERRL/EOMI, Normal ENT Inspection, Pharynx Normal Neck: Full Range of Motion, Normal Inspection, Non Tender, Supple, Carotid Bruit Respiratory: Chest Non Tender, Lungs Clear, Normal Breath Sounds, No Accessory Muscle Use, No Respiratory Distress Cardiovascular: Regular Rate, Rhythm, No Edema, No Gallop, No JVD, No Murmur, Normal Peripheral Pulses Gastrointestinal: Normal Bowel Sounds, No Organomegaly, No Pulsatile Mass, Non Tender, Soft Back: Normal Inspection, No CVA Tenderness, No Vertebral Tenderness Extremity: Normal Capillary Refill, Normal Inspection, Normal Range of Motion (except left leg), Non Tender, No Calf Tenderness, No Pedal Edema Neurologic/Psychiatric: Alert, Oriented x3, Normal Mood/Affect, sand caster apprentice II-XII Norm as Tested, Abnormal Gait, Motor Weakness (bilateral legs) Skin: Normal Color, Warm/Dry Lymphatic: No Adenopathy Results/Procedures Lab Laboratory Tests 04/19/22 05:09 Patient resulted labs reviewed. FIM Transfers Therapy Code Descriptions/Definitions Functional Bradley Measure: 0=Not Assessed/NA 4=Minimal Assistance 1=Total Assistance 5=Supervision or Setup 2=Maximal Assistance 6=Modified Bradley 3=Moderate Assistance 7=Complete IndependenceSCALE: Activities may be completed with or without assistive devices. 9-Qushqlutds-cahhgwr completes the activity by him/herself with no assistance from a helper. 5-Set-up or Clean-up Assistance-helper sets up or cleans up; patient completes activity. Hadley assists only prior to or following the activity. 4-Supervision or Touching Assistance-helper provides verbal cues and/or touching/steadying and/or contact guard assistance as patient completes activity. Assistance may be provided throughout the activity or intermittently. 3-Partial/Moderate Assistance-helper does LESS THAN HALF the effort. Hadley lifts, holds or supports trunk or limbs, but provides less than half the effort. 2-Substantial/Maximal Assistance-helper does MORE THAN HALF the effort. Hadley lifts or holds trunk or limbs and provides more than half the effort. 7-Ncqmqsafr-gvkeiv does ALL the effort. Patient does none of the effort to complete the activity. Or, the assistance of 2 or more helpers is required for the patient to complete the activity. If activity was not attempted, code reason: 7-Patient Refused. 9-Not Applicable-not attempted and the patient did not perform the activity before the current illness, exacerbation or injury. 10-Not Attempted due to Environmental Limitations-(lack of equipment, weather restraints, etc.). 88-Not Attempted due to Medical Conditions or Safety Concerns. Roll Left to Right (QC): 3 Sit to Lying (QC): 2 Sit to Stand (QC): 2 Chair/Qhm-kr-Hurhi Xfer(QC): 3 Car Transfer (QC): 3 Gait Training Does the Patient Walk?: Yes Distance: 40' Walk 10 feet (QC): 4 Walk 50 ft with 2 Turns(QC): 3 Walk 150 ft (QC): 3 Walking 10ft/uneven surface-QC: 88 Gait Assistive Device: FWW Wheelchair Training Does the Pt Use a Wheelchair?: Yes Distance: 50 feet Wheel 50 ft with 2 turns (QC): 4 Wheel 150 ft (QC): 88 Type of Wheelchair: Manual Stair Training Stair Training: Handrails/: uses walker #of Steps: 1 1 Step (curb) (QC): 3 4 Steps (QC): 9 12 Steps (QC): 9 Stairs: Pattern: Step to Balance Picking up an Object (QC): 88 ADL-Treatment Eating (QC): 5 (set up with lunch, assist opening containers.) Oral Hygiene (QC): 5 (per pt report.) Shower/Bathe Self (QC): 7 (Pt deferred shower until tomorrow) Upper Body Dressing (QC): 7 (Pt deferred dressing until tomorrow) Lower Body Dressing (QC): 7 (Pt deferred dressing until tomorrow) On/Off Footwear (QC): 1 (total assist due to hip precautions.) Toileting Hygiene (QC): 10 (Not tested due to time limitation.) Assessment/Plan Assessment and Plan Assess & Plan/Chief Complaint Assessment: s/p uncomplicated left hip arthroplasty revision by Dr Fernandez due to pain from hardware placed during hip fracture repair 10 years ago HTN labile status Urinary retention requiring Silverman cath Fall risk Plan: Monitor pain Urinary retention management Fall risk Aggressive PT OT 04/19/2022: Maintain silverman Pain control BM regimen (1) S/P total left hip arthroplasty NATIVIDAD MENJIVAR DO Apr 19, 2022 06:15
[2022-04-19] MEDS: BETHANECHOL 25 MG (URECHOLINE) TAB PO SCH ×3 (06:38→17:35)
[2022-04-19] MEDS: oxyCODONE/APAP 5/325MG (PERCOCET 5) TABLET PO PRN (06:39)
[2022-04-19 07:10] VITALS: BP 118/59
[2022-04-19] MEDS ORDERED: NON-FORMULARY MEDICATION 1 EA EA (Cholecalciferol (Vitamin D3) (Vitamin D3) 50 MCG) PO SCH (09:00)
[2022-04-19] MEDS: ASPIRIN E.C. 81 MG (ECOTRIN) TAB PO SCH (09:51)
[2022-04-19] MEDS: MELOXICAM 7.5 MG (MOBIC) TABLET PO SCH (09:51)
[2022-04-19] MEDS: TRIM/SULFAMETH 160/800 (SEPTRA DS) TAB PO SCH ×2 (09:51→17:35)
[2022-04-19] MEDS: TAMSULOSIN 0.4 MG (FLOMAX) CAP PO SCH ×2 (09:51→21:19)
[2022-04-19] MEDS: SENNA W/DOCUSATE (SENOKOT S) TABLET PO SCH ×2 (09:51→21:30)
[2022-04-19] MEDS: SPIRONOLACTONE 25 MG (ALDACTONE) TAB PO SCH (09:51)
[2022-04-19] MEDS: PANTOPRAZOLE 40 MG (PROTONIX) TAB PO SCH (09:51)
[2022-04-19] MEDS: VITAMIN D3 25 MCG (1,000 UNITS) TABLET PO SCH (09:51)
[2022-04-19] MEDS: lisINopril 20 MG (PRINIVIL) TABLET PO SCH (09:52)
[2022-04-19] MEDS: polyethylene glycoL POWDER 17 GM (MIRALAX) PACK PO SCH ×2 (09:52→21:30)
[2022-04-19] MEDS: DOCUSATE SODIUM 100 MG (COLACE) CAP PO SCH ×2 (09:52→21:19)
--- NOTE | 2022-04-19 09:57 | Occupational Ther Daily Note ---
OT Current Status-Daily Note Subjective Pt in recliner, agreeable to OT Tx. Pt did not verbalize pain rating, but did have facial grimaces during transfers. Mental Status/Objective Patient Orientation: Person, Place, Time, Situation ADL-Treatment Therapy Code Descriptions/Definitions Functional [place] Measure: 0=Not Assessed/NA 4=Minimal Assistance 1=Total Assistance 5=Supervision or Setup 2=Maximal Assistance 6=Modified [place] 3=Moderate Assistance 7=Complete IndependenceSCALE: Activities may be completed with or without assistive devices. 3-Txrcanlhpr-ubrspei completes the activity by him/herself with no assistance from a helper. 5-Set-up or Clean-up Assistance-helper sets up or cleans up; patient completes activity. [place] assists only prior to or following the activity. 4-Supervision or Touching Assistance-helper provides verbal cues and/or touching/steadying and/or contact guard assistance as patient completes activity. Assistance may be provided throughout the activity or intermittently. 3-Partial/Moderate Assistance-helper does LESS THAN HALF the effort. [place] lifts, holds or supports trunk or limbs, but provides less than half the effort. 2-Substantial/Maximal Assistance-helper does MORE THAN HALF the effort. [place] lifts or holds trunk or limbs and provides more than half the effort. 5-Elbzdjlno-zefbvf does ALL the effort. Patient does none of the effort to complete the activity. Or, the assistance of 2 or more helpers is required for the patient to complete the activity. If activity was not attempted, code reason: 7-Patient Refused. 9-Not Applicable-not attempted and the patient did not perform the activity before the current illness, exacerbation or injury. 10-Not Attempted due to Environmental Limitations-(lack of equipment, weather restraints, etc.). 88-Not Attempted due to Medical Conditions or Safety Concerns. Eating (QC): 6 (IND per pt report with breakfast) Oral Hygiene (QC): 5 (set up seated at sink.) Shower/Bathe Self (QC): 3 (Pt able to wash upperbody, periarea/buttocks, t highs. Assist with lower legs/feet.) Upper Body Dressing (QC): 3 (Min A managing shirt down in back.) Lower Body Dressing (QC): 2 (Max A with threading feet. Pt able to perform pant hike) On/Off Footwear: 1 (Total assist donning/doffing gripper socks.) Toileting Hygiene (QC): 3 (Pt requires assistance in stand, pt able to manage clothing and hygiene) Other Treatment Pt in recliner, completed sponge bath and dressing. Pt transferred to w/c, completed oral care at sink, then taken to therapy gym. Pt educated on dressing stick and sock aide, demo'd ability to complete R gripper sock with min A. Pt then completed arm bike, x8 mins, minimal resistance in order to increase BUE Strength and activity tolerance. Pt propelled w/c ~40' using BUEs for increasing functional mobility and UE strength. Pt taken back to room, transferred to recliner. Post tx, pt in recliner, call light in reach and all needs met. Min-Mod A sit to stand transfers, then CGA once standing. Education OT Patient Education: Correct positioning, Energy conservation, Exercise program, Modified ADL techniques, Progress toward Goal/Update tx plan, Purpose of tx/functional activities, Rehab process Teaching Recipient: Patient Teaching Methods: Discussion Response to Teaching: Verbalize Understanding OT Short Term Goals Short Term Goals Time Frame: May 01, 2022 Toileting hygiene: 3 Lower body dressin Putting on/taking off footwear: 3 OT Environmental Inspector Goals Environmental Inspector Goals Time Frame: May 10, 2022 Eating (QC): 6 Oral Hygiene (QC): 6 Toileting Hygiene (QC): 6 Shower/Bathe Self (QC): 5 Upper Body Dressing (QC): 5 Lower Body Dressing (QC): 5 On/Off Footwear (QC): 5 Additional Goals: 1-Demonstrate ADL Tasks, 2-Verbalize Understanding, 3- ImproveStrength/Emma 1=Demonstrate adherence to instructed precautions during ADL tasks. 2=Patient will verbalize/demonstrate understanding of assistive devices/modifications for ADL. 3=Patient will improve strength/tolerance for activity to enable patient to perform ADL's. OT Education/Plan Problem List/Assessment Assessment: Decreased Activ Tolerance, Decreased UE Strength, Impaired Funct Balance, Impaired I ADL's, Impaired Self-Care Skills Discharge Recommendations Plan/Recommendations: Continue POC Treatment Plan/Plan of Care Patient would benefit from OT for education, treatment and training to promote independence in ADL's, mobility, safety and/or upper extremity function for ADL's. Plan of Care: ADL Retraining, Functional Mobility, Group Exercise/Act as Ind, UE Funct Exercise/Act Treatment Duration: May 10, 2022 Frequency: At least 5 of 7 days/Wk (IRF) Estimated Hrs Per Day: 1.5 hours per day Agreement: Yes Rehab Potential: Good Time/GCodes Start Time: 08:45 Stop Time: 10:15 Total Time Billed (hr/min): 90 Billed Treatment Time 1, ADL 5 (80'), EX (10') DEIRDRE OWEN OT Apr 19, 2022 09:57
--- NOTE | 2022-04-19 12:08 | Physical Therapy Daily Note ---
PT Daily Note-Current Subjective Pt. agrees to Rx. Explains her medical history and pertinence to this situation, no c/o pain Pain Location: No Pain Reported Section J - Health Conditions 1. Rarely or not at all 2. Occasionally 3. Frequently 4. Almost constantly 8. Unable to answer Pain Effect on Sleep: 2 Pain Interference with Therapy: 2 Pain Interference w/Day-to-Day: 2 Mental Status Patient Orientation: Normal For Age Transfers SCALE: Activities may be completed with or without assistive devices. 2-Kftqyepcpf-vybnzad completes the activity by him/herself with no assistance from a helper. 5-Set-up or Clean-up Assistance-helper sets up or cleans up; patient completes activity. [place] assists only prior to or following the activity. 4-Supervision or Touching Assistance-helper provides verbal cues and/or touching/steadying and/or contact guard assistance as patient completes activity. Assistance may be provided throughout the activity or intermittently. 3-Partial/Moderate Assistance-helper does LESS THAN HALF the effort. [place] lifts, holds or supports trunk or limbs, but provides less than half the effort. 2-Substantial/Maximal Assistance-helper does MORE THAN HALF the effort. [place] lifts or holds trunk or limbs and provides more than half the effort. 0-Tswzccxbl-xahzrd does ALL the effort. Patient does none of the effort to complete the activity. Or, the assistance of 2 or more helpers is required for the patient to complete the activity. If activity was not attempted, code reason: 7-Patient Refused. 9-Not Applicable-not attempted and the patient did not perform the activity before the current illness, exacerbation or injury. 10-Not Attempted due to Environmental Limitations-(lack of equipment, weather restraints, etc.). 88-Not Attempted due to Medical Conditions or Safety Concerns. Sit to Stand (QC): 4 Chair/Ilk-op-Acpyj Xfer(QC): 4 seat height elevated further with cushioning which assisted pts standing mobility and indep Weight Bearing Right Lower Extremity: Right Full Weight Bearing Left Lower Extremity: Left Weight Bearing/Tolerated Gait Training Does the Patient Walk?: Yes Walk 10 feet (QC): 4 Gait Persons Needed: 1 Gait Assistive Device: FWW 30ft x 3 FWW slow, carefull CGA no LOB, heavy wt bearing on FWW Exercises Supine Ex: Ankle pumps, Quad Set, Glut sets, Heel Slides, Short Arc Quads, Scooting (up in chair), Hip abd/add Supine Reps: 15 Seated Therapy Exercises: Ankle pumps, Sit to stand, Long arc quads, Hip flexion (right only), Hip abd/add Seated Reps: 15 Treatments TRFs, gait, sit to stands, therex, reclined and sit Assessment Current Status: Good Progress gives full effort PT Sales Support Advisor Goals Sales Support Advisor Goals PT Jail Goals Time Frame: May 31, 2022 Roll Left & Right (QC): 6 Sit to Lying (QC): 6 Lying-Sitting on Side/Bed(QC): 6 Sit to Stand (QC): 6 Chair/Zpe-lg-Winbq Xfer(QC): 6 Toilet Transfer (QC): 6 Car Transfer (QC): 6 Does the Patient Walk: Yes Walk 10 feet (QC): 6 Walk 50ft with 2 Turns (QC): 4 Walk 150 ft (QC): 4 Walking 10ft on Uneven Surface: 6 1 Step (curb) (QC): 4 4 Steps (QC): 4 12 Steps (QC): 4 Picking up an Object (QC): 6 Does the Pt use WC or Scooter?: Yes Wheel 50 feet with 2 turns (QC: 6 Type: Manual Wheel 150 feet: 6 Type: Manual PT Plan Treatment/Plan Treatment Plan: Continue Plan of Care Treatment Plan: Bed Mobility, Education, Functional Activity Emma, Functional Strength, Group Therapy, Gait, Safety, Therapeutic Exercise, Transfers Treatment Duration: Jun 01, 2022 Frequency: At least 5 of 7 days/Wk (IRF) Estimated Hrs Per Day: 1.5 hours per day Patient and/or Family Agrees t: Yes Safety Risks/Education Patient Education: Gait Training, Transfer Techniques, Correct Positioning, Disease Process, Safety Issues Teaching Recipient: Patient Teaching Methods: Demonstration, Discussion Response to Teaching: Verbalize Understanding, Return Demonstration, Reinforcement Needed Time/GCodes Time In: 1110 Time Out: 1210 Total Billed Treatment Time: 60 Total Billed Treatment 1,GT20m,FA25m,EX15m NIKOLAS IBARRA PTA Apr 19, 2022 12:08
--- NOTE | 2022-04-19 14:15 | Physical Therapy Daily Note ---
PT Daily Note-Current Subjective Pt. agrees to Rx with encouragement. 5 family members in the room at time of Rx, all supportive and helpful Pain Location: No Pain Reported Section J - Health Conditions 1. Rarely or not at all 2. Occasionally 3. Frequently 4. Almost constantly 8. Unable to answer Pain Effect on Sleep: 2 Pain Interference with Therapy: 2 Pain Interference w/Day-to-Day: 2 Mental Status Patient Orientation: Normal For Age Attachments: Way Catheter Transfers SCALE: Activities may be completed with or without assistive devices. 9-Ynwlqrksbn-yqvjiot completes the activity by him/herself with no assistance from a helper. 5-Set-up or Clean-up Assistance-helper sets up or cleans up; patient completes activity. [place] assists only prior to or following the activity. 4-Supervision or Touching Assistance-helper provides verbal cues and/or touching/steadying and/or contact guard assistance as patient completes activity. Assistance may be provided throughout the activity or intermittently. 3-Partial/Moderate Assistance-helper does LESS THAN HALF the effort. [place] lifts, holds or supports trunk or limbs, but provides less than half the effort. 2-Substantial/Maximal Assistance-helper does MORE THAN HALF the effort. [place] lifts or holds trunk or limbs and provides more than half the effort. 2-Uumrggcis-dnpbvu does ALL the effort. Patient does none of the effort to complete the activity. Or, the assistance of 2 or more helpers is required for the patient to complete the activity. If activity was not attempted, code reason: 7-Patient Refused. 9-Not Applicable-not attempted and the patient did not perform the activity before the current illness, exacerbation or injury. 10-Not Attempted due to Environmental Limitations-(lack of equipment, weather restraints, etc.). 88-Not Attempted due to Medical Conditions or Safety Concerns. Roll Left & Right (QC): 3 Sit to Lying (QC): 3 Sit to Stand (QC): 4 Chair/Prs-tn-Eszjx Xfer(QC): 4 sit to supine TRF slow requiring mod to max assist RLE and assist to scoot to left side , pt. fatigued and needed rest breaks Weight Bearing Right Lower Extremity: Right Full Weight Bearing Left Lower Extremity: Left Weight Bearing/Tolerated Gait Training Does the Patient Walk?: Yes Walk 50 ft with 2 Turns(QC): 4 Gait Persons Needed: 1 Gait Assistive Device: FWW very slow, flexed at trunk, heavy wt bearing on FWW, standing rest breaks occas Exercises Supine Ex: Ankle pumps, Quad Set, Rolling, Glut sets Supine Reps: 8 Seated Therapy Exercises: Ankle pumps, Sit to stand, Long arc quads Seated Reps: 10 Treatments TRFs, gait, therex Assessment Current Status: Good Progress PT Automatic Gluing Machine Operator Goals Automatic Gluing Machine Operator Goals PT [facility]dc Goals Time Frame: May 31, 2022 Roll Left & Right (QC): 6 Sit to Lying (QC): 6 Lying-Sitting on Side/Bed(QC): 6 Sit to Stand (QC): 6 Chair/Dka-qo-Yzcvp Xfer(QC): 6 Toilet Transfer (QC): 6 Car Transfer (QC): 6 Does the Patient Walk: Yes Walk 10 feet (QC): 6 Walk 50ft with 2 Turns (QC): 4 Walk 150 ft (QC): 4 Walking 10ft on Uneven Surface: 6 1 Step (curb) (QC): 4 4 Steps (QC): 4 12 Steps (QC): 4 Picking up an Object (QC): 6 Does the Pt use WC or Scooter?: Yes Wheel 50 feet with 2 turns (QC: 6 Type: Manual Wheel 150 feet: 6 Type: Manual PT Plan Treatment/Plan Treatment Plan: Continue Plan of Care Treatment Plan: Bed Mobility, Education, Functional Activity Emma, Functional Strength, Group Therapy, Gait, Safety, Therapeutic Exercise, Transfers Treatment Duration: Jun 01, 2022 Frequency: At least 5 of 7 days/Wk (IRF) Estimated Hrs Per Day: 1.5 hours per day Patient and/or Family Agrees t: Yes Safety Risks/Education Patient Education: Gait Training, Transfer Techniques, Reviewed Precautions, Correct Positioning, Disease Process, Safety Issues Teaching Recipient: Patient Teaching Methods: Demonstration, Discussion Response to Teaching: Verbalize Understanding, Return Demonstration, Reinforcement Needed Time/GCodes Time In: 1340 Time Out: 1410 Total Billed Treatment Time: 30 Total Billed Treatment 1,GT20m,FA10m NIKOLAS IBARRA WALLBOARD WORKER Apr 19, 2022 14:15
[2022-04-19 19:39] VITALS: BP 150/67
--- NOTE | 2022-04-20 05:30 | PM&R Progress Note ---
Subjective HPI/CC On Admission Date Seen by Provider: Apr 20, 2022 Time Seen by Provider: 09:00 Subjective/Events-last exam 04/20/2022: Doing well Bowels moved after SSE No pain issues when she isn't moving No falls 04/19/2022: No major issues Talking on phone during exam No BM yet so ordered SSE if no production after supp Pain controlled BP stable Silverman cath in place Review of Systems General: Fatigue, Malaise Objective Exam Vital Signs Vital Signs Date Time Temp Pulse Resp B/P (MAP) Pulse Ox O2 Delivery O2 Flow Rate FiO2 04/20/22 09:42 Room Air 04/20/22 07:20 37.0 84 16 144/77 (99) 96 Capillary Refill : General Appearance: No Apparent Distress, WD/WN, Chronically ill HEENT: PERRL/EOMI, Normal ENT Inspection, Pharynx Normal Neck: Full Range of Motion, Normal Inspection, Non Tender, Supple, Carotid Bruit Respiratory: Chest Non Tender, Lungs Clear, Normal Breath Sounds, No Accessory Muscle Use, No Respiratory Distress Cardiovascular: Regular Rate, Rhythm, No Edema, No Gallop, No JVD, No Murmur, Normal Peripheral Pulses Gastrointestinal: Normal Bowel Sounds, No Organomegaly, No Pulsatile Mass, Non Tender, Soft Back: Normal Inspection, No CVA Tenderness, No Vertebral Tenderness Extremity: Normal Capillary Refill, Normal Inspection, Normal Range of Motion (except left leg), Non Tender, No Calf Tenderness, No Pedal Edema Neurologic/Psychiatric: Alert, Oriented x3, Normal Mood/Affect, handle bar assembler II-XII Norm as Tested, Abnormal Gait, Motor Weakness (bilateral legs) Skin: Normal Color, Warm/Dry Lymphatic: No Adenopathy Results/Procedures Lab Patient resulted labs reviewed. [facility]IM Transfers Therapy Code Descriptions/Definitions Functional [place] Measure: 0=Not Assessed/NA 4=Minimal Assistance 1=Total Assistance 5=Supervision or Setup 2=Maximal Assistance 6=Modified [place] 3=Moderate Assistance 7=Complete IndependenceSCALE: Activities may be completed with or without assistive devices. 3-Vxmltmkivo-cpgwwcz completes the activity by him/herself with no assistance from a helper. 5-Set-up or Clean-up Assistance-helper sets up or cleans up; patient completes a ctivity. [place] assists only prior to or following the activity. 4-Supervision or Touching Assistance-helper provides verbal cues and/or touching/steadying and/or contact guard assistance as patient completes activity. Assistance may be provided throughout the activity or intermittently. 3-Partial/Moderate Assistance-helper does LESS THAN HALF the effort. [place] lifts, holds or supports trunk or limbs, but provides less than half the effort. 2-Substantial/Maximal Assistance-helper does MORE THAN HALF the effort. [place] lifts or holds trunk or limbs and provides more than half the effort. 3-Ifgzdiltv-motizs does ALL the effort. Patient does none of the effort to complete the activity. Or, the assistance of 2 or more helpers is required for the patient to complete the activity. If activity was not attempted, code reason: 7-Patient Refused. 9-Not Applicable-not attempted and the patient did not perform the activity before the current illness, exacerbation or injury. 10-Not Attempted due to Environmental Limitations-(lack of equipment, weather restraints, etc.). 88-Not Attempted due to Medical Conditions or Safety Concerns. Roll Left to Right (QC): 3 Sit to Lying (QC): 3 Sit to Stand (QC): 4 Chair/Oty-wz-Ecddp Xfer(QC): 4 Car Transfer (QC): 3 Gait Training Does the Patient Walk?: Yes Distance: 40' Walk 10 feet (QC): 4 Walk 50 ft with 2 Turns(QC): 4 Walk 150 ft (QC): 3 Walking 10ft/uneven surface-QC: 88 Gait Persons Needed: 1 Gait Assistive Device: FWW Wheelchair Training Does the Pt Use a Wheelchair?: Yes Distance: 50 feet Wheel 50 ft with 2 turns (QC): 4 Wheel 150 ft (QC): 88 Type of Wheelchair: Manual Stair Training Stair Training: Handrails/: uses walker #of Steps: 1 1 Step (curb) (QC): 3 4 Steps (QC): 9 12 Steps (QC): 9 Stairs: Pattern: Step to Balance Picking up an Object (QC): 88 ADL-Treatment Eating (QC): 6 (IND per pt report with breakfast) Oral Hygiene (QC): 5 (set up seated at sink.) Shower/Bathe Self (QC): 3 (Pt able to wash upperbody, periarea/buttocks, thighs. Assist with lower legs/feet.) Upper Body Dressing (QC): 3 (Min A managing shirt down in back.) Lower Body Dressing (QC): 2 (Max A with threading feet. Pt able to perform pant hike) On/Off Footwear (QC): 1 (Total assist donning/doffing gripper socks.) Toileting Hygiene (QC): 3 (Pt requires assistance in stand, pt able to manage clothing and hygiene) Assessment/Plan Assessment and Plan Assess & Plan/Chief Complaint Assessment: s/p uncomplicated left hip arthroplasty revision by Dr Fernandez due to pain from hardware placed during hip fracture repair 10 years ago HTN labile status Urinary retention requiring Silverman cath Fall risk Plan: Monitor pain Urinary retention management Fall risk Aggressive PT OT 04/19/2022: Maintain silverman Pain control BM regimen 04/20/2022: Monitor closely BM regimen (1) S/P total left hip arthroplasty NATIVIDAD MENJIVAR DO Apr 20, 2022 05:30
[2022-04-20] MEDS: BETHANECHOL 25 MG (URECHOLINE) TAB PO SCH ×3 (06:43→17:05)
[2022-04-20] MEDS: ACETAMINOPHEN ER 650 MG (TYLENOL ARTHRITIS) PO PRN (06:44)
[2022-04-20 07:20] VITALS: BP 144/77
[2022-04-20] MEDS: MELOXICAM 7.5 MG (MOBIC) TABLET PO SCH (08:44)
[2022-04-20] MEDS: lisINopril 20 MG (PRINIVIL) TABLET PO SCH (08:44)
[2022-04-20] MEDS: SENNA W/DOCUSATE (SENOKOT S) TABLET PO SCH ×2 (08:44→20:47)
[2022-04-20] MEDS: ASPIRIN E.C. 81 MG (ECOTRIN) TAB PO SCH (08:44)
[2022-04-20] MEDS: DOCUSATE SODIUM 100 MG (COLACE) CAP PO SCH ×2 (08:44→20:47)
[2022-04-20] MEDS: TRIM/SULFAMETH 160/800 (SEPTRA DS) TAB PO SCH ×2 (08:45→17:05)
[2022-04-20] MEDS: PANTOPRAZOLE 40 MG (PROTONIX) TAB PO SCH (08:45)
[2022-04-20] MEDS: polyethylene glycoL POWDER 17 GM (MIRALAX) PACK PO SCH ×2 (08:46→20:54)
[2022-04-20] MEDS: SPIRONOLACTONE 25 MG (ALDACTONE) TAB PO SCH (08:46)
[2022-04-20] MEDS: VITAMIN D3 25 MCG (1,000 UNITS) TABLET PO SCH (08:46)
[2022-04-20] MEDS: TAMSULOSIN 0.4 MG (FLOMAX) CAP PO SCH ×2 (08:46→20:48)
[2022-04-20] MEDS ORDERED: CYANOCOBALAMIN INJ 1000 MCG/ML IM ONE (09:15)
[2022-04-20] MEDS: IRON SUCROSE 200 MG/10 ML (VENOFER) VIAL IV SCH (09:41)
--- NOTE | 2022-04-20 10:52 | Physical Therapy Daily Note ---
PT Daily Note-Current Subjective Pt in bed upon arrival and agrees to PT. Reports having a little pain but does not rate. Pain Section J - Health Conditions 1. Rarely or not at all 2. Occasionally 3. Frequently 4. Almost constantly 8. Unable to answer Pain Effect on Sleep: 2 Pain Interference with Therapy: 2 Pain Interference w/Day-to-Day: 2 Mental Status Patient Orientation: Person, Place, Time Attachments: Way Catheter Transfers SCALE: Activities may be completed with or without assistive devices. 2-Krziavobtu-cyqcqpi completes the activity by him/herself with no assistance from a helper. 5-Set-up or Clean-up Assistance-helper sets up or cleans up; patient completes activity. [place] assists only prior to or following the activity. 4-Supervision or Touching Assistance-helper provides verbal cues and/or touching/steadying and/or contact guard assistance as patient completes activity. Assistance may be provided throughout the activity or intermittently. 3-Partial/Moderate Assistance-helper does LESS THAN HALF the effort. [place] lifts, holds or supports trunk or limbs, but provides less than half the effort. 2-Substantial/Maximal Assistance-helper does MORE THAN HALF the effort. [place] lifts or holds trunk or limbs and provides more than half the effort. 5-Vwmxqvuhn-tdqonm does ALL the effort. Patient does none of the effort to complete the activity. Or, the assistance of 2 or more helpers is required for the patient to complete the activity. If activity was not attempted, code reason: 7-Patient Refused. 9-Not Applicable-not attempted and the patient did not perform the activity before the current illness, exacerbation or injury. 10-Not Attempted due to Environmental Limitations-(lack of equipment, weather restraints, etc.). 88-Not Attempted due to Medical Conditions or Safety Concerns. Roll Left & Right (QC): 4 Lying to Sitting/Side of Bed(Q: 3 Sit to Stand (QC): 3 Weight Bearing Right Lower Extremity: Right Full Weight Bearing Left Lower Extremity: Left Weight Bearing/Tolerated Gait Training Does the Patient Walk?: Yes Distance: 30' x 3 50' x 1 Walk 10 feet (QC): 4 Walk 50 ft with 2 Turns(QC): 4 Gait Assistive Device: FWW slow antalgic Treatments Pt TFs from bed and amb into [place] then requires rest break. Then amb again and needs another rest break. Pt then amb back to room and TFs to recliner. All needs met and call light nearby as PT departs. Assessment Current Status: Good Progress Pt required cues for hand and foot placement during TFs. PT [facility] Goals [facility] Goals PT Cotton Expert Goals Time Frame: May 31, 2022 Roll Left & Right (QC): 6 Sit to Lying (QC): 6 Lying-Sitting on Side/Bed(QC): 6 Sit to Stand (QC): 6 Chair/Erl-te-Xkuot Xfer(QC): 6 Toilet Transfer (QC): 6 Car Transfer (QC): 6 Does the Patient Walk: Yes Walk 10 feet (QC): 6 Walk 50ft with 2 Turns (QC): 4 Walk 150 ft (QC): 4 Walking 10ft on Uneven Surface: 6 1 Step (curb) (QC): 4 4 Steps (QC): 4 12 Steps (QC): 4 Picking up an Object (QC): 6 Does the Pt use WC or Scooter?: Yes Wheel 50 feet with 2 turns (QC: 6 Type: Manual Wheel 150 feet: 6 Type: Manual PT Plan Problem List Problem List: Activity Tolerance, Functional Strength, Safety Treatment/Plan Treatment Plan: Continue Plan of Care Treatment Plan: Bed Mobility, Education, Functional Activity Emma, Functional Strength, Group Therapy, Gait, Safety, Therapeutic Exercise, Transfers Treatment Duration: Jun 01, 2022 Frequency: 5 times per week Estimated Hrs Per Day: 1.5 hours per day Patient and/or Family Agrees t: Yes Time/GCodes Time In: 1000 Time Out: 1015 Total Billed Treatment Time: 15 Total Billed Treatment 1, Gt TREVOR OLIVAREZ BARNWORKER GROOM Apr 20, 2022 10:52
[2022-04-20] MEDS ORDERED: CATHETER FLUSH 10 ML SYR IVP PRN (11:30)
[2022-04-20] MEDS: CATHETER FLUSH 10 ML SYR IVP SCH ×2 (14:09→20:47)
[2022-04-20 20:20] VITALS: BP 159/71
[2022-04-21] MEDS: CATHETER FLUSH 10 ML SYR IVP SCH ×3 (06:22→22:42)
[2022-04-21] MEDS: BETHANECHOL 25 MG (URECHOLINE) TAB PO SCH ×3 (06:22→17:22)
--- NOTE | 2022-04-21 07:48 | PM&R Progress Note ---
Subjective HPI/CC On Admission Date Seen by Provider: Apr 21, 2022 Time Seen by Provider: 12:00 Subjective/Events-last exam 04/21/2022: Improved status just slow Eating well No BM today Monitoring BP 04/20/2022: Doing well Bowels moved after SSE No pain issues when she isn't moving No falls 04/19/2022: No major issues Talking on phone during exam No BM yet so ordered SSE if no production after supp Pain controlled BP stable Silverman cath in place Review of Systems General: Fatigue, Malaise Objective Exam Vital Signs Vital Signs Date Time Temp Pulse Resp B/P (MAP) Pulse Ox O2 Delivery O2 Flow Rate FiO2 04/21/22 19:46 36.7 83 20 159/64 (95) 100 Room Air Capillary Refill : General Appearance: No Apparent Distress, WD/WN, Chronically ill HEENT: PERRL/EOMI, Normal ENT Inspection, Pharynx Normal Neck: Full Range of Motion, Normal Inspection, Non Tender, Supple, Carotid Bruit Respiratory: Chest Non Tender, Lungs Clear, Normal Breath Sounds, No Accessory Muscle Use, No Respiratory Distress Cardiovascular: Regular Rate, Rhythm, No Edema, No Gallop, No JVD, No Murmur, Normal Peripheral Pulses Gastrointestinal: Normal Bowel Sounds, No Organomegaly, No Pulsatile Mass, Non Tender, Soft Back: Normal Inspection, No CVA Tenderness, No Vertebral Tenderness Extremity: Normal Capillary Refill, Normal Inspection, Normal Range of Motion (except left leg), Non Tender, No Calf Tenderness, No Pedal Edema Neurologic/Psychiatric: Alert, Oriented x3, Normal Mood/Affect, almond roaster II-XII Norm as Tested, Abnormal Gait, Motor Weakness (bilateral legs) Skin: Normal Color, Warm/Dry Lymphatic: No Adenopathy Results/Procedures Lab Patient resulted labs reviewed. FIM Transfers Therapy Code Descriptions/Definitions Functional [place] Measure: 0=Not Assessed/NA 4=Minimal Assistance 1=Total Assistance 5=Supervision or Setup 2=Maximal Assistance 6=Modified [place] 3=Moderate Assistance 7=Complete IndependenceSCALE: Activities may be completed with or without assistive devices. 5-Noifssswkm-jkeykmx completes the activity by him/herself with no assistance from a helper. 5-Set-up or Clean-up Assistance-helper sets up or cleans up; patient completes activity. [place] assists only prior to or following the activity. 4-Supervision or Touching Assistance-helper provides verbal cues and/or touching/steadying and/or contact guard assistance as patient completes activity. Assistance may be provided throughout the activity or intermittently. 3-Partial/Moderate Assistance-helper does LESS THAN HALF the effort. [place] lifts, holds or supports trunk or limbs, but provides less than half the effort. 2-Substantial/Maximal Assistance-helper does MORE THAN HALF the effort. [place] lifts or holds trunk or limbs and provides more than half the effort. 0-Bfgtqszls-nijefq does ALL the effort. Patient does none of the effort to complete the activity. Or, the assistance of 2 or more helpers is required for the patient to complete the activity. If activity was not attempted, code reason: 7-Patient Refused. 9-Not Applicable-not attempted and the patient did not perform the activity before the current illness, exacerbation or injury. 10-Not Attempted due to Environmental Limitations-(lack of equipment, weather restraints, etc.). 88-Not Attempted due to Medical Conditions or Safety Concerns. Roll Left to Right (QC): 4 Sit to Lying (QC): 3 Sit to Stand (QC): 3 Chair/Gvq-aq-Soowv Xfer(QC): 4 Car Transfer (QC): 3 Gait Training Does the Patient Walk?: Yes Distance: 30' x 3 50' x 1 Walk 10 feet (QC): 4 Walk 50 ft with 2 Turns(QC): 4 Walk 150 ft (QC): 3 Walking 10ft/uneven surface-QC: 88 Gait Persons Needed: 1 Gait Assistive Device: FWW Wheelchair Training Does the Pt Use a Wheelchair?: Yes Distance: 50 feet Wheel 50 ft with 2 turns (QC): 4 Wheel 150 ft (QC): 88 Type of Wheelchair: Manual Stair Training Stair Training: Handrails/: uses walker #of Steps: 1 1 Step (curb) (QC): 3 4 Steps (QC): 9 12 Steps (QC): 9 Stairs: Pattern: Step to Balance Picking up an Object (QC): 88 ADL-Treatment Eating (QC): 6 (IND per pt report with breakfast) Oral Hygiene (QC): 5 (set up seated at sink.) Shower/Bathe Self (QC): 3 (Pt able to wash upperbody, periarea/buttocks, thighs. Assist with lower legs/feet.) Upper Body Dressing (QC): 3 (Min A managing shirt down in back.) Lower Body Dressing (QC): 2 (Max A with threading feet. Pt able to perform pant hike) On/Off Footwear (QC): 1 (Total assist donning/doffing gripper socks.) Toileting Hygiene (QC): 3 (Pt requires assistance in stand, pt able to manage clothing and hygiene) Assessment/Plan Assessment and Plan Assess & Plan/Chief Complaint Assessment: s/p uncomplicated left hip arthroplasty revision by Dr Fernandez due to pain from hardware placed during hip fracture repair 10 years ago HTN labile status Urinary retention requiring Silverman cath Fall risk Plan: Monitor pain Urinary retention management Fall risk Aggressive PT OT 04/19/2022: Maintain silverman Pain control BM regimen 04/20/2022: Monitor closely BM regimen 04/21/2022: Monitor closely Fall risk (1) S/P total left hip arthroplasty NATIVIDAD MENJIVAR DO Apr 21, 2022 07:48
[2022-04-21] MEDS: TRIM/SULFAMETH 160/800 (SEPTRA DS) TAB PO SCH ×2 (08:17→17:22)
[2022-04-21] MEDS: DOCUSATE SODIUM 100 MG (COLACE) CAP PO SCH ×2 (08:17→20:28)
[2022-04-21] MEDS: TAMSULOSIN 0.4 MG (FLOMAX) CAP PO SCH ×2 (08:18→20:27)
[2022-04-21] MEDS: SPIRONOLACTONE 25 MG (ALDACTONE) TAB PO SCH (08:18)
[2022-04-21] MEDS: MELOXICAM 7.5 MG (MOBIC) TABLET PO SCH (08:18)
[2022-04-21] MEDS: VITAMIN D3 25 MCG (1,000 UNITS) TABLET PO SCH (08:18)
[2022-04-21] MEDS: ASPIRIN E.C. 81 MG (ECOTRIN) TAB PO SCH (08:18)
[2022-04-21] MEDS: PANTOPRAZOLE 40 MG (PROTONIX) TAB PO SCH (08:18)
[2022-04-21] MEDS: SENNA W/DOCUSATE (SENOKOT S) TABLET PO SCH ×2 (08:18→20:27)
[2022-04-21] MEDS: lisINopril 20 MG (PRINIVIL) TABLET PO SCH (08:18)
[2022-04-21] MEDS: polyethylene glycoL POWDER 17 GM (MIRALAX) PACK PO SCH ×2 (08:20→21:00)
[2022-04-21 08:22] VITALS: BP 158/73
[2022-04-21 19:46] VITALS: BP 159/64
[2022-04-22] MEDS: CATHETER FLUSH 10 ML SYR IVP SCH ×3 (06:33→20:13)
[2022-04-22] MEDS: BETHANECHOL 25 MG (URECHOLINE) TAB PO SCH ×3 (06:33→16:56)
[2022-04-22 07:26] VITALS: BP 178/79
[2022-04-22] MEDS: PANTOPRAZOLE 40 MG (PROTONIX) TAB PO SCH (07:57)
[2022-04-22] MEDS: TAMSULOSIN 0.4 MG (FLOMAX) CAP PO SCH ×2 (07:58→20:10)
[2022-04-22] MEDS: ASPIRIN E.C. 81 MG (ECOTRIN) TAB PO SCH (07:58)
[2022-04-22] MEDS: SENNA W/DOCUSATE (SENOKOT S) TABLET PO SCH ×2 (07:58→20:10)
[2022-04-22] MEDS: DOCUSATE SODIUM 100 MG (COLACE) CAP PO SCH ×2 (07:58→20:10)
[2022-04-22] MEDS: TRIM/SULFAMETH 160/800 (SEPTRA DS) TAB PO SCH ×2 (07:58→18:19)
[2022-04-22] MEDS: MELOXICAM 7.5 MG (MOBIC) TABLET PO SCH (07:58)
[2022-04-22] MEDS: VITAMIN D3 25 MCG (1,000 UNITS) TABLET PO SCH (07:58)
[2022-04-22] MEDS: SPIRONOLACTONE 25 MG (ALDACTONE) TAB PO SCH (07:58)
[2022-04-22] MEDS: IRON SUCROSE 200 MG/10 ML (VENOFER) VIAL IV SCH (07:58)
[2022-04-22] MEDS: lisINopril 20 MG (PRINIVIL) TABLET PO SCH (07:59)
[2022-04-22] MEDS: oxyCODONE/APAP 5/325MG (PERCOCET 5) TABLET PO PRN ×2 (08:01→15:33)
[2022-04-22] MEDS: polyethylene glycoL POWDER 17 GM (MIRALAX) PACK PO SCH ×2 (08:01→20:10)
--- NOTE | 2022-04-22 09:34 | Occupational Ther Daily Note ---
OT Current Status-Daily Note Subjective Pt getting up to EOB with nursing, agreeable to OT Tx. Pt requests to defer shower until tomorrow Mental Status/Objective Patient Orientation: Normal For Age ADL-Treatment Therapy Code Descriptions/Definitions Functional [place] Measure: 0=Not Assessed/NA 4=Minimal Assistance 1=Total Assistance 5=Supervision or Setup 2=Maximal Assistance 6=Modified [place] 3=Moderate Assistance 7=Complete IndependenceSCALE: Activities may be completed with or without assistive devices. 2-Vyqvfgwozf-mpoponj completes the activity by him/herself with no assistance from a helper. 5-Set-up or Clean-up Assistance-helper sets up or cleans up; patient completes activity. [place] assists only prior to or following the activity. 4-Supervision or Touching Assistance-helper provides verbal cues and/or touch ing/steadying and/or contact guard assistance as patient completes activity. Assistance may be provided throughout the activity or intermittently. 3-Partial/Moderate Assistance-helper does LESS THAN HALF the effort. [place] lifts, holds or supports trunk or limbs, but provides less than half the effort. 2-Substantial/Maximal Assistance-helper does MORE THAN HALF the effort. [place] lifts or holds trunk or limbs and provides more than half the effort. 6-Nfvbepxgf-yibjmq does ALL the effort. Patient does none of the effort to complete the activity. Or, the assistance of 2 or more helpers is required for the patient to complete the activity. If activity was not attempted, code reason: 7-Patient Refused. 9-Not Applicable-not attempted and the patient did not perform the activity before the current illness, exacerbation or injury. 10-Not Attempted due to Environmental Limitations-(lack of equipment, weather restraints, etc.). 88-Not Attempted due to Medical Conditions or Safety Concerns. Other Treatment Pt in bed, just got to EOB with nursing staff. Min A sit to stand then CGA SPT to w/c. Pt propelled w/c to therapy gym. OT Tx focused on increasing BUE Strength and activity tolerance. Pt completed x10 mins on arm bike, minimall resistance. She then placed/removed 1" pegs from foam pegboard, alternating hands. 1lb wrist weight BUEs. Pt completed x100 pegs. Pt then propelled w/c around [facility]/2nd floor, requiring min A with turns and through doorways. Pt propelled w/c back to her room, sit to stand from w/c, mod A, then min A SPT to recliner using FWW. Post tx, pt in recliner, call light in reach and all needs met. Education OT Patient Education: Correct positioning, Energy conservation, Modified ADL techniques, Progress toward Goal/Update tx plan, Purpose of tx/functional activities, Rehab process Teaching Recipient: Patient Teaching Methods: Discussion Response to Teaching: Verbalize Understanding OT Short Term Goals Short Term Goals Time Frame: May 01, 2022 Toileting hygiene: 3 Lower body dressin Putting on/taking off footwear: 3 OT Frame Catcher Goals Jail Goals Time Frame: May 10, 2022 Acute change in mental status: 0 Inattention: 0 Disorganized thinkin Altered level of consciousness: 0 Eating (QC): 6 Oral Hygiene (QC): 6 Toileting Hygiene (QC): 6 Shower/Bathe Self (QC): 5 Upper Body Dressing (QC): 5 Lower Body Dressing (QC): 5 On/Off Footwear (QC): 5 Additional Goals: 1-Demonstrate ADL Tasks, 2-Verbalize Understanding, 3- ImproveStrength/Emma 1=Demonstrate adherence to instructed precautions during ADL tasks. 2=Patient will verbalize/demonstrate understanding of assistive devices/mo difications for ADL. 3=Patient will improve strength/tolerance for activity to enable patient to perform ADL's. OT Education/Plan Problem List/Assessment Assessment: Decreased Activ Tolerance, Decreased UE Strength, Impaired Funct Balance, Impaired I ADL's, Impaired Self-Care Skills Discharge Recommendations Plan/Recommendations: Continue POC Treatment Plan/Plan of Care Patient would benefit from OT for education, treatment and training to promote independence in ADL's, mobility, safety and/or upper extremity function for ADL's. Plan of Care: ADL Retraining, Functional Mobility, Group Exercise/Act as Ind, UE Funct Exercise/Act Treatment Duration: May 10, 2022 Frequency: At least 5 of 7 days/Wk (IRF) Estimated Hrs Per Day: 1.5 hours per day Agreement: Yes Rehab Potential: Good Time/GCodes Start Time: 09:00 Stop Time: 10:30 Total Time Billed (hr/min): 90 Billed Treatment Time 1, EX (10'), FA 5 (80') DEIRDRE OWEN OT Apr 22, 2022 09:34
--- NOTE | 2022-04-22 10:50 | PM&R Progress Note ---
Subjective HPI/CC On Admission Date Seen by Provider: Apr 22, 2022 Time Seen by Provider: 11:00 Subjective/Events-last exam 04/22/2022: Patient doing well Flat affect continues Bladder training will be performed at family request DC catheter soon BP stable 04/21/2022: Improved status just slow Eating well No BM today Monitoring BP 04/20/2022: Doing well Bowels moved after SSE No pain issues when she isn't moving No falls 04/19/2022: No major issues Talking on phone during exam No BM yet so ordered SSE if no production after supp Pain controlled BP stable Silverman cath in place Review of Systems General: Fatigue, Malaise Neurological: Weakness Objective Exam Vital Signs Vital Signs Date Time Temp Pulse Resp B/P (MAP) Pulse Ox O2 Delivery O2 Flow Rate FiO2 04/22/22 21:30 96 Room Air 04/22/22 20:10 36.5 80 22 151/67 (95) Capillary Refill : General Appearance: No Apparent Distress, WD/WN, Chronically ill HEENT: PERRL/EOMI, Normal ENT Inspection, Pharynx Normal Neck: Full Range of Motion, Normal Inspection, Non Tender, Supple, Carotid Bruit Respiratory: Chest Non Tender, Lungs Clear, Normal Breath Sounds, No Accessory Muscle Use, No Respiratory Distress Cardiovascular: Regular Rate, Rhythm, No Edema, No Gallop, No JVD, No Murmur, Normal Peripheral Pulses Gastrointestinal: Normal Bowel Sounds, No Organomegaly, No Pulsatile Mass, Non Tender, Soft Back: Normal Inspection, No CVA Tenderness, No Vertebral Tenderness Extremity: Normal Capillary Refill, Normal Inspection, Normal Range of Motion (except left leg), Non Tender, No Calf Tenderness, No Pedal Edema Neurologic/Psychiatric: Alert, Oriented x3, Normal Mood/Affect, environmental services project manager II-XII Norm as Tested, Abnormal Gait, Motor Weakness (bilateral legs) Skin: Normal Color, Warm/Dry Lymphatic: No Adenopathy Results/Procedures Lab Patient resulted labs reviewed. FIM Transfers Therapy Code Descriptions/Definitions Functional [place] Measure: 0=Not Assessed/NA 4=Minimal Assistance 1=Total Assistance 5=Supervision or Setup 2=Maximal Assistance 6=Modified [place] 3=Moderate Assistance 7=Complete IndependenceSCALE: Activities may be completed with or without assistive devices. 0-Mclehwieav-nindnxp completes the activity by him/herself with no assistance from a helper. 5-Set-up or Clean-up Assistance-helper sets up or cleans up; patient completes activity. [place] assists only prior to or following the activity. 4-Supervision or Touching Assistance-helper provides verbal cues and/or touching/steadying and/or contact guard assistance as patient completes activity. Assistance may be provided throughout the activity or intermittently. 3-Partial/Moderate Assistance-helper does LESS THAN HALF the effort. [place] lif ts, holds or supports trunk or limbs, but provides less than half the effort. 2-Substantial/Maximal Assistance-helper does MORE THAN HALF the effort. [place] lifts or holds trunk or limbs and provides more than half the effort. 0-Unuvvnmuw-qkdeih does ALL the effort. Patient does none of the effort to complete the activity. Or, the assistance of 2 or more helpers is required for the patient to complete the activity. If activity was not attempted, code reason: 7-Patient Refused. 9-Not Applicable-not attempted and the patient did not perform the activity before the current illness, exacerbation or injury. 10-Not Attempted due to Environmental Limitations-(lack of equipment, weather restraints, etc.). 88-Not Attempted due to Medical Conditions or Safety Concerns. Roll Left to Right (QC): 4 Sit to Lying (QC): 3 Sit to Stand (QC): 3 Chair/Hpe-ln-Gtnbn Xfer(QC): 4 Car Transfer (QC): 3 Gait Training Does the Patient Walk?: Yes Distance: 30' x 3 50' x 1 Walk 10 feet (QC): 4 Walk 50 ft with 2 Turns(QC): 4 Walk 150 ft (QC): 3 Walking 10ft/uneven surface-QC: 88 Gait Persons Needed: 1 Gait Assistive Device: FWW Wheelchair Training Does the Pt Use a Wheelchair?: Yes Distance: 50 feet Wheel 50 ft with 2 turns (QC): 4 Wheel 150 ft (QC): 88 Type of Wheelchair: Manual Stair Training Stair Training: Handrails/: uses walker #of Steps: 1 1 Step (curb) (QC): 3 4 Steps (QC): 9 12 Steps (QC): 9 Stairs: Pattern: Step to Balance Picking up an Object (QC): 88 ADL-Treatment Eating (QC): 6 (IND per pt report with breakfast) Oral Hygiene (QC): 5 (set up seated at sink.) Shower/Bathe Self (QC): 3 (Pt able to wash upperbody, periarea/buttocks, thighs. Assist with lower legs/feet.) Upper Body Dressing (QC): 3 (Min A managing shirt down in back.) Lower Body Dressing (QC): 2 (Max A with threading feet. Pt able to perform pant hike) On/Off Footwear (QC): 1 (Total assist donning/doffing gripper socks.) Toileting Hygiene (QC): 3 (Pt requires assistance in stand, pt able to manage clothing and hygiene) Assessment/Plan Assessment and Plan Assess & Plan/Chief Complaint Assessment: s/p uncomplicated left hip arthroplasty revision by Dr Fernandez due to pain from hardware placed during hip fracture repair 10 years ago HTN labile status Urinary retention requiring Silverman cath Fall risk Plan: Monitor pain Urinary retention management Fall risk Aggressive PT OT 04/19/2022: Maintain silverman Pain control BM regimen 04/20/2022: Monitor closely BM regimen 04/21/2022: Monitor closely Fall risk 04/22/2022: Monitor closely DC cath soon (1) S/P total left hip arthroplasty NATIVIDAD MENJIVAR DO Apr 22, 2022 10:50
--- NOTE | 2022-04-22 12:05 | Physical Therapy Daily Note ---
PT Daily Note-Current Subjective Pt sitting in recliner on the phone talking about work upon arrival. Pt agrees to PT. Pain Location Body Site: Knee Pain Description: Ache Comment: Reported but not rated & improved during tx w/movement Section J - Health Conditions 1. Rarely or not at all 2. Occasionally 3. Frequently 4. Almost constantly 8. Unable to answer Pain Effect on Sleep: 2 Pain Interference with Therapy: 2 Pain Interference w/Day-to-Day: 2 Mental Status Patient Orientation: Person, Place, Time, Situation Transfers SCALE: Activities may be completed with or without assistive devices. 3-Ziczrikzzt-hpcvybc completes the activity by him/herself with no assistance from a helper. 5-Set-up or Clean-up Assistance-helper sets up or cleans up; patient completes activity. [place] assists only prior to or following the activity. 4-Supervision or Touching Assistance-helper provides verbal cues and/or touching/steadying and/or contact guard assistance as patient completes activity. Assistance may be provided throughout the activity or intermittently. 3-Partial/Moderate Assistance-helper does LESS THAN HALF the effort. [place] lifts, holds or supports trunk or limbs, but provides less than half the effort. 2-Substantial/Maximal Assistance-helper does MORE THAN HALF the effort. [place] lifts or holds trunk or limbs and provides more than half the effort. 8-Qtltpdaco-yjhwyd does ALL the effort. Patient does none of the effort to complete the activity. Or, the assistance of 2 or more helpers is required for the patient to complete the activity. If activity was not attempted, code reason: 7-Patient Refused. 9-Not Applicable-not attempted and the patient did not perform the activity before the current illness, exacerbation or injury. 10-Not Attempted due to Environmental Limitations-(lack of equipment, weather restraints, etc.). 88-Not Attempted due to Medical Conditions or Safety Concerns. Sit to Stand (QC): 5 Weight Bearing Right Lower Extremity: Right Full Weight Bearing Left Lower Extremity: Left Weight Bearing/Tolerated Gait Training Does the Patient Walk?: Yes Distance: 40', 80' Walk 10 feet (QC): 4 Walk 50 ft with 2 Turns(QC): 4 Gait Persons Needed: 1 Gait Assistive Device: FWW Exercises Seated Therapy Exercises: Ankle pumps, Long arc quads, Hip flexion, Hip abd/add, Glut set Seated Reps: 15 Treatments After pt is finished with work phone call, pt had questions regarding progress and how long until d/c, when bandage removal will occur, etc. Pt TF to standing and amb. in hallway. Pt takes RB then completes Seated EX to build up strength and help create mobility. TF to standing and amb. in hallway before returning to room to rest in recliner. Pt resting in recliner awaiting lunch with all needs met, call light in hand. Assessment Current Status: Good Progress Pt is stiff to start tx but as pt moves stiffness somewhat subsides. Pt reports trouble initiating movement though. PT Penitentiary Goals Penitentiary Goals PT Mail Processor Goals Time Frame: May 31, 2022 Roll Left & Right (QC): 6 Sit to Lying (QC): 6 Lying-Sitting on Side/Bed(QC): 6 Sit to Stand (QC): 6 Chair/Hls-yh-Xopno Xfer(QC): 6 Toilet Transfer (QC): 6 Car Transfer (QC): 6 Does the Patient Walk: Yes Walk 10 feet (QC): 6 Walk 50ft with 2 Turns (QC): 4 Walk 150 ft (QC): 4 Walking 10ft on Uneven Surface: 6 1 Step (curb) (QC): 4 4 Steps (QC): 4 12 Steps (QC): 4 Picking up an Object (QC): 6 Does the Pt use WC or Scooter?: Yes Wheel 50 feet with 2 turns (QC: 6 Type: Manual Wheel 150 feet: 6 Type: Manual PT Plan Problem List Problem List: Activity Tolerance, Functional Strength Treatment/Plan Treatment Plan: Continue Plan of Care Treatment Plan: Bed Mobility, Education, Functional Activity Emma, Functional Strength, Group Therapy, Gait, Safety, Therapeutic Exercise, Transfers Treatment Duration: Jun 01, 2022 Frequency: 5 times per week Estimated Hrs Per Day: 1.5 hours per day Patient and/or Family Agrees t: Yes Safety Risks/Education Patient Education: Gait Training, Transfer Techniques, Correct Positioning, S afety Issues Teaching Recipient: Patient Teaching Methods: Discussion Response to Teaching: Verbalize Understanding Time/GCodes Time In: 1100 Time Out: 1200 Total Billed Treatment Time: 60 Total Billed Treatment 1, FA (15m), EX x2 (25m) & GT (20m) JUAN ANTONIO BROWN CLEANING MACHINE OPERATOR Apr 22, 2022 12:05
--- NOTE | 2022-04-22 14:40 | Physical Therapy Daily Note ---
PT Daily Note-Current Subjective Pt sitting in recliner upon arrival. Pt agree to PT. Pain Location: Left Location Body Site: Knee Pain Description: Ache, Tightness Comment: Reported but not rated Section J - Health Conditions 1. Rarely or not at all 2. Occasionally 3. Frequently 4. Almost constantly 8. Unable to answer Pain Effect on Sleep: 2 Pain Interference with Therapy: 2 Pain Interference w/Day-to-Day: 2 Mental Status Patient Orientation: Person, Place, Time, Situation Transfers SCALE: Activities may be completed with or without assistive devices. 2-Qakajfjrcl-lyipmom completes the activity by him/herself with no assistance from a helper. 5-Set-up or Clean-up Assistance-helper sets up or cleans up; patient completes a ctivity. [place] assists only prior to or following the activity. 4-Supervision or Touching Assistance-helper provides verbal cues and/or touching/steadying and/or contact guard assistance as patient completes activity. Assistance may be provided throughout the activity or intermittently. 3-Partial/Moderate Assistance-helper does LESS THAN HALF the effort. [place] lifts, holds or supports trunk or limbs, but provides less than half the effort. 2-Substantial/Maximal Assistance-helper does MORE THAN HALF the effort. [place] lifts or holds trunk or limbs and provides more than half the effort. 3-[place]-lfipdj does ALL the effort. Patient does none of the effort to complete the activity. Or, the assistance of 2 or more helpers is required for the patient to complete the activity. If activity was not attempted, code reason: 7-Patient Refused. 9-Not Applicable-not attempted and the patient did not perform the activity before the current illness, exacerbation or injury. 10-Not Attempted due to Environmental Limitations-(lack of equipment, weather restraints, etc.). 88-Not Attempted due to Medical Conditions or Safety Concerns. Sit to Lying (QC): 3 Sit to Stand (QC): 4 Weight Bearing Right Lower Extremity: Right Full Weight Bearing Left Lower Extremity: Left Weight Bearing/Tolerated Gait Training Does the Patient Walk?: Yes Distance: 20' Walk 10 feet (QC): 5 Gait Assistive Device: FWW Exercises Supine Ex: Ankle pumps, Quad Set, Glut sets, Heel Slides, Straight leg raise, Hip abd/add Supine Reps: 10 Seated Therapy Exercises: Ankle pumps, Long arc quads, Hip flexion, Glut set Seated Reps: 10 Treatments Pt completes Seated Ex then TF to standing. Pt amb. in room and returns to bed to rest. Pt needs assistance getting B LE into bed. Pt issued and reviews written HEP for Supine & Seated Ex. Pt resting at end of tx with all needs met, call light in hand. Assessment Current Status: Fair Progress Pt is fatigued this afternoon but moves better after short walk as pt starts off stiff. PT Senior Care Goals Freight And Passenger Agent Goals PT Freight And Passenger Agent Goals Time Frame: May 31, 2022 Roll Left & Right (QC): 6 Sit to Lying (QC): 6 Lying-Sitting on Side/Bed(QC): 6 Sit to Stand (QC): 6 Chair/Yql-nj-Kiqud Xfer(QC): 6 Toilet Transfer (QC): 6 Car Transfer (QC): 6 Does the Patient Walk: Yes Walk 10 feet (QC): 6 Walk 50ft with 2 Turns (QC): 4 Walk 150 ft (QC): 4 Walking 10ft on Uneven Surface: 6 1 Step (curb) (QC): 4 4 Steps (QC): 4 12 Steps (QC): 4 Picking up an Object (QC): 6 Does the Pt use WC or Scooter?: Yes Wheel 50 feet with 2 turns (QC: 6 Type: Manual Wheel 150 feet: 6 Type: Manual PT Plan Problem List Problem List: Activity Tolerance, Functional Strength, Gait Treatment/Plan Treatment Plan: Continue Plan of Care Treatment Plan: Bed Mobility, Education, Functional Activity Emma, Functional Strength, Group Therapy, Gait, Safety, Therapeutic Exercise, Transfers Treatment Duration: Jun 01, 2022 Frequency: 5 times per week Estimated Hrs Per Day: 1.5 hours per day Patient and/or Family Agrees t: Yes Safety Risks/Education Patient Education: Gait Training, Issued Written HEP Teaching Recipient: Patient Teaching Methods: Discussion Response to Teaching: Verbalize Understanding Time/GCodes Time In: 1330 Time Out: 1400 Total Billed Treatment Time: 30 Total Billed Treatment 1, EX x2 (30m) JUAN ANTONIO BROWN ASTROPHYSICS TEACHER Apr 22, 2022 14:40
--- NOTE | 2022-04-22 16:49 | Podiatry Progress Note ---
Standard Progress Note Progress Notes/Assess & Plan Date Seen by a Provider: Apr 22, 2022 Time Seen by a Provider: 16:48 Progress/Assessment & Plan Consultation dictated. Foot care given. Final Diagnosis Onychomycosis, Neuropathy DARIEN WESTFALL DPM Apr 22, 2022 16:49
[2022-04-22 20:10] VITALS: BP 151/67
--- NOTE | 2022-04-22 21:26 | CONSULTATION REPORT ---
DATE OF SERVICE: 04/22/2022 REASON FOR CONSULTATION: Foot care. HISTORY OF PRESENT ILLNESS: This 76-year-old female is on the second floor of the [facility] for rehabilitation of left hip replacement surgery. She has had difficulty with the activities of daily living and is therefore admitted for rehabilitation services. Due to her hip fracture and other orthopedic issues, she is unable to reach for and care for her feet. She is currently complaining of long painful toenails. PAST MEDICAL HISTORY: Includes hypertension, right knee arthroplasty, cholecystectomy and the above-mentioned hip fracture and procedures. ALLERGIES: She has no known drug allergies. CURRENT MEDICATIONS: Listed on the patient's chart. SOCIAL HISTORY: The patient denies tobacco, alcohol or illicit drug use. PHYSICAL EXAMINATION: LOWER EXTREMITY: The patient has 2/4 dorsalis pedis pulse on the right, 1/4 on the left, 0/4 posterior tibial pulse bilaterally. Cap refill time is less than 3 seconds to the hallux bilaterally. Pitting edema noted bilaterally. NEUROLOGIC: The patient has intact protective sensation with 10 gram monofilament wire examination bilaterally. Diminished vibratory sensation to the forefoot bilaterally. Deep tendon reflexes to the Achilles tendon are diminished bilaterally. INTEGUMENTARY: The patient has thick yellow dystrophic toenail with subungual debris R1, 2, 5, L1, 2, 3, 4, and 5 digits. MUSCULOSKELETAL FINDINGS: The patient has 4/5 muscle strength to the four major quadrants of the foot bilaterally. ASSESSMENT: 1. Atherosclerosis. 2. Idiopathic neuropathy. 3. Onychomycosis. PLAN: Various treatment options were discussed with the patient today. Her toenails were debrided manually mechanically. Betadine applied including R1, 2, 5, L1, 2, 3, 4 and 5 digits. The patient noted good reduction of symptoms with debridement. She is welcome to follow up in our office upon discharge. We also talked about appropriate shoe gear and fit. We will see her back as necessary. Job ID: [id number] DocumentID: [id number] Dictated Date: 04/22/2022 16:54:40 Electricity Trading Analyst Date: 04/22/2022 21:26:39 Dictated By: DARIEN WESTFALL DPM
--- NOTE | 2022-04-23 06:24 | PM&R Progress Note ---
Subjective HPI/CC On Admission Date Seen by Provider: Apr 23, 2022 Time Seen by Provider: 08:30 Subjective/Events-last exam 04/23/2022: Patient doing well No pain is reported Discontinue catheter today If retention occurs we will consult urology 04/22/2022: Patient doing well Flat affect continues Bladder training will be performed at family request DC catheter soon BP stable 04/21/2022: Improved status just slow Eating well No BM today Monitoring BP 04/20/2022: Doing well Bowels moved after SSE No pain issues when she isn't moving No falls 04/19/2022: No major issues Talking on phone during exam No BM yet so ordered SSE if no production after supp Pain controlled BP stable Silverman cath in place Review of Systems General: Fatigue, Malaise Musculoskeletal: leg pain Objective Exam Vital Signs Vital Signs Date Time Temp Pulse Resp B/P (MAP) Pulse Ox O2 Delivery O2 Flow Rate FiO2 04/23/22 21:45 Room Air 04/23/22 19:33 37.2 88 20 157/67 (97) 98 Capillary Refill : General Appearance: No Apparent Distress, WD/WN, Chronically ill HEENT: PERRL/EOMI, Normal ENT Inspection, Pharynx Normal Neck: Full Range of Motion, Normal Inspection, Non Tender, Supple, Carotid Bruit Respiratory: Chest Non Tender, Lungs Clear, Normal Breath Sounds, No Accessory Muscle Use, No Respiratory Distress Cardiovascular: Regular Rate, Rhythm, No Edema, No Gallop, No JVD, No Murmur, Normal Peripheral Pulses Gastrointestinal: Normal Bowel Sounds, No Organomegaly, No Pulsatile Mass, Non Tender, Soft Back: Normal Inspection, No CVA Tenderness, No Vertebral Tenderness Extremity: Normal Capillary Refill, Normal Inspection, Normal Range of Motion (except left leg), Non Tender, No Calf Tenderness, No Pedal Edema Neurologic/Psychiatric: Alert, Oriented x3, Normal Mood/Affect, job training supervisor II-XII Norm as Tested, Abnormal Gait, Motor Weakness (bilateral legs) Skin: Normal Color, Warm/Dry Lymphatic: No Adenopathy Results/Procedures Lab Patient resulted labs reviewed. FIM Transfers Therapy Code Descriptions/Definitions Functional [place] Measure: 0=Not Assessed/NA 4=Minimal Assistance 1=Total Assistance 5=Supervision or Setup 2=Maximal Assistance 6=Modified [place] 3=Moderate Assistance 7=Complete IndependenceSCALE: Activities may be completed with or without assistive devices. 0-Ssnjfpohli-ftptuvi completes the activity by him/herself with no assistance from a helper. 5-Set-up or Clean-up Assistance-helper sets up or cleans up; patient completes activity. [place] assists only prior to or following the activity. 4-Supervision or Touching Assistance-helper provides verbal cues and/or touching/steadying and/or contact guard assistance as patient completes activity. Assistance may be provided throughout the activity or intermittently. 3-Partial/Moderate Assistance-helper does LESS THAN HALF the effort. [place] lift s, holds or supports trunk or limbs, but provides less than half the effort. 2-Substantial/Maximal Assistance-helper does MORE THAN HALF the effort. [place] lifts or holds trunk or limbs and provides more than half the effort. 6-Iultjznor-gdyjnc does ALL the effort. Patient does none of the effort to complete the activity. Or, the assistance of 2 or more helpers is required for the patient to complete the activity. If activity was not attempted, code reason: 7-Patient Refused. 9-Not Applicable-not attempted and the patient did not perform the activity before the current illness, exacerbation or injury. 10-Not Attempted due to Environmental Limitations-(lack of equipment, weather restraints, etc.). 88-Not Attempted due to Medical Conditions or Safety Concerns. Roll Left to Right (QC): 4 Sit to Lying (QC): 3 Sit to Stand (QC): 4 Chair/Hws-hx-Mhrlg Xfer(QC): 4 Car Transfer (QC): 3 Gait Training Does the Patient Walk?: Yes Distance: 20' Walk 10 feet (QC): 5 Walk 50 ft with 2 Turns(QC): 4 Walk 150 ft (QC): 3 Walking 10ft/uneven surface-QC: 88 Gait Persons Needed: 1 Gait Assistive Device: FWW Wheelchair Training Does the Pt Use a Wheelchair?: Yes Distance: 50 feet Wheel 50 ft with 2 turns (QC): 4 Wheel 150 ft (QC): 88 Type of Wheelchair: Manual Stair Training Stair Training: Handrails/: uses walker #of Steps: 1 1 Step (curb) (QC): 3 4 Steps (QC): 9 12 Steps (QC): 9 Stairs: Pattern: Step to Balance Picking up an Object (QC): 88 ADL-Treatment Eating (QC): 6 (IND per pt report with breakfast) Oral Hygiene (QC): 5 (set up seated at sink.) Shower/Bathe Self (QC): 3 (Pt able to wash upperbody, periarea/buttocks, thighs. Assist with lower legs/feet.) Upper Body Dressing (QC): 3 (Min A managing shirt down in back.) Lower Body Dressing (QC): 2 (Max A with threading feet. Pt able to perform pant hike) On/Off Footwear (QC): 1 (Total assist donning/doffing gripper socks.) Toileting Hygiene (QC): 3 (Pt requires assistance in stand, pt able to manage clothing and hygiene) Assessment/Plan Assessment and Plan Assess & Plan/Chief Complaint Assessment: s/p uncomplicated left hip arthroplasty revision by Dr Fernandez due to pain from hardware placed during hip fracture repair 10 years ago HTN labile status Urinary retention requiring Silverman cath Fall risk Plan: Monitor pain Urinary retention management Fall risk Aggressive PT OT 04/19/2022: Maintain silverman Pain control BM regimen 04/20/2022: Monitor closely BM regimen 04/21/2022: Monitor closely Fall risk 04/22/2022: Monitor closely DC cath soon 04/23/2022: Discontinue catheter Monitor closely (1) S/P total left hip arthroplasty NATIVIDAD MENJIVAR DO Apr 23, 2022 06:24
[2022-04-23] MEDS: BETHANECHOL 25 MG (URECHOLINE) TAB PO SCH ×3 (06:43→17:21)
[2022-04-23] MEDS: CATHETER FLUSH 10 ML SYR IVP SCH ×3 (06:44→23:02)
[2022-04-23 07:15] VITALS: BP 161/73
--- NOTE | 2022-04-23 08:55 | Occupational Ther Daily Note ---
OT Current Status-Daily Note Subjective Pt in recliner, agreeable to OT Tx. Mental Status/Objective Patient Orientation: Normal For Age Attachments: Way Catheter ADL-Treatment Therapy Code Descriptions/Definitions Functional [place] Measure: 0=Not Assessed/NA 4=Minimal Assistance 1=Total Assistance 5=Supervision or Setup 2=Maximal Assistance 6=Modified [place] 3=Moderate Assistance 7=Complete IndependenceSCALE: Activities may be completed with or without assistive devices. 7-Zkrtnbiaxr-wnjlpfb completes the activity by him/herself with no assistance from a helper. 5-Set-up or Clean-up Assistance-helper sets up or cleans up; patient completes activity. [place] assists only prior to or following the activity. 4-Supervision or Touching Assistance-helper provides verbal cues and/or touching/steadying and/or contact guard assistance as patient completes activity. Assistance may be provided throughout the activity or intermittently. 3-Partial/Moderate Assistance-helper does LESS THAN HALF the effort. [place] lifts, holds or supports trunk or limbs, but provides less than half the effort. 2-Substantial/Maximal Assistance-helper does MORE THAN HALF the effort. [place] lifts or holds trunk or limbs and provides more than half the effort. 6-Ihemvaubi-dqjdyj does ALL the effort. Patient does none of the effort to complete the activity. Or, the assistance of 2 or more helpers is required for the patient to complete the activity. If activity was not attempted, code reason: 7-Patient Refused. 9-Not Applicable-not attempted and the patient did not perform the activity before the current illness, exacerbation or injury. 10-Not Attempted due to Environmental Limitations-(lack of equipment, weather restraints, etc.). 88-Not Attempted due to Medical Conditions or Safety Concerns. Shower/Bathe Self (QC): 3 (Assist with buttocks) Upper Body Dressing (QC): 3 (Min A with managing shirt down trunk) Lower Body Dressing (QC): 2 (doffing: pt able to manage pants down hip, assist over feet due to incontinence.Donning: mod A. assist threading feet using AE and slight assist pant hike.) On/Off Footwear: 3 (Min A with AE.) Toileting Hygiene (QC): 3 (Mod A, assist with hygiene for thoroughness, min A pant hike.) Other Treatment Pt in recliner, sit to stand CGA, then CGA using FWW to toilet. Pt completed toileting, transferred to w/c to complete sponge bath at sink, then dressing at w/c. Education provided on AE for LE dressing. Pt propelled w/c to therapy gym, min A with turns and through doorways. In order to increase BUE strength and activity tolerance, pt completed x10 mins on arm bike, minimal resistance, 2 rest breaks. Pt propelled w/c back to room, transferred to recliner with FWW, min A. Post tx, pt in recliner, call light in reach and all needs met. Education OT Patient Education: Correct positioning, Energy conservation, Modified ADL techniques, Progress toward Goal/Update tx plan, Purpose of tx/functional activities, Rehab process Teaching Recipient: Patient Teaching Methods: Discussion Response to Teaching: Verbalize Understanding OT Short Term Goals Short Term Goals Time Frame: May 01, 2022 Toileting hygiene: 3 Lower body dressin Putting on/taking off footwear: 3 OT Melting Furnace Skimmer Goals Alf Goals Time Frame: May 10, 2022 Acute change in mental status: 0 Inattention: 0 Disorganized thinkin Altered level of consciousness: 0 Eating (QC): 6 Oral Hygiene (QC): 6 Toileting Hygiene (QC): 6 Shower/Bathe Self (QC): 5 Upper Body Dressing (QC): 5 Lower Body Dressing (QC): 5 On/Off Footwear (QC): 5 Additional Goals: 1-Demonstrate ADL Tasks, 2-Verbalize Understanding, 3- ImproveStrength/Emma 1=Demonstrate adherence to instructed precautions during ADL tasks. 2=Patient will verbalize/demonstrate understanding of assistive devices/modifications for ADL. 3=Patient will improve strength/tolerance for activity to enable patient to perform ADL's. OT Education/Plan Problem List/Assessment Assessment: Decreased Activ Tolerance, Decreased UE Strength, Impaired Funct Balance, Impaired I ADL's, Impaired Self-Care Skills Discharge Recommendations Plan/Recommendations: Continue POC Treatment Plan/Plan of Care Patient would benefit from OT for education, treatment and training to promote independence in ADL's, mobility, safety and/or upper extremity function for ADL's. Plan of Care: ADL Retraining, Functional Mobility, Group Exercise/Act as Ind, UE Funct Exercise/Act Treatment Duration: May 10, 2022 Frequency: At least 5 of 7 days/Wk (IRF) Estimated Hrs Per Day: 1.5 hours per day Agreement: Yes Rehab Potential: Good Time/GCodes Start Time: 07:45 Stop Time: 09:15 Total Time Billed (hr/min): 90 Billed Treatment Time 1, ADL 4 (65'), EX (15), FA (10') DEIRDRE OWEN OT Apr 23, 2022 08:55
[2022-04-23] MEDS: PANTOPRAZOLE 40 MG (PROTONIX) TAB PO SCH (09:29)
[2022-04-23] MEDS: SPIRONOLACTONE 25 MG (ALDACTONE) TAB PO SCH (09:30)
[2022-04-23] MEDS: MELOXICAM 7.5 MG (MOBIC) TABLET PO SCH (09:30)
[2022-04-23] MEDS: lisINopril 20 MG (PRINIVIL) TABLET PO SCH (09:30)
[2022-04-23] MEDS: ASPIRIN E.C. 81 MG (ECOTRIN) TAB PO SCH (09:30)
[2022-04-23] MEDS: VITAMIN D3 25 MCG (1,000 UNITS) TABLET PO SCH (09:30)
[2022-04-23] MEDS: TRIM/SULFAMETH 160/800 (SEPTRA DS) TAB PO SCH ×2 (09:30→17:21)
[2022-04-23] MEDS: DOCUSATE SODIUM 100 MG (COLACE) CAP PO SCH ×2 (09:30→23:10)
[2022-04-23] MEDS: SENNA W/DOCUSATE (SENOKOT S) TABLET PO SCH ×2 (09:30→23:10)
[2022-04-23] MEDS: TAMSULOSIN 0.4 MG (FLOMAX) CAP PO SCH ×2 (09:30→23:02)
[2022-04-23] MEDS: polyethylene glycoL POWDER 17 GM (MIRALAX) PACK PO SCH ×2 (09:33→23:10)
--- NOTE | 2022-04-23 11:11 | Physical Therapy Daily Note ---
PT Daily Note-Current Subjective Pt sitting in recliner upon arrival. Pt agrees to PT. Pain Location: Left Location Body Site: Hip Pain Description: Ache, Tightness Comment: Reports but doesn't rate Section J - Health Conditions 1. Rarely or not at all 2. Occasionally 3. Frequently 4. Almost constantly 8. Unable to answer Pain Effect on Sleep: 2 Pain Interference with Therapy: 2 Pain Interference w/Day-to-Day: 2 Mental Status Patient Orientation: Person, Place, Time, Situation Transfers SCALE: Activities may be completed with or without assistive devices. 8-Grkqnaklij-fllfrkc completes the activity by him/herself with no assistance from a helper. 5-Set-up or Clean-up Assistance-helper sets up or cleans up; patient completes activity. [place] assists only prior to or following the activity. 4-Supervision or Touching Assistance-helper provides verbal cues and/or touching/steadying and/or contact guard assistance as patient completes activity. Assistance may be provided throughout the activity or intermittently. 3-Partial/Moderate Assistance-helper does LESS THAN HALF the effort. [place] lift s, holds or supports trunk or limbs, but provides less than half the effort. 2-Substantial/Maximal Assistance-helper does MORE THAN HALF the effort. [place] lifts or holds trunk or limbs and provides more than half the effort. 8-Cqlvwrooj-mvvxra does ALL the effort. Patient does none of the effort to complete the activity. Or, the assistance of 2 or more helpers is required for the patient to complete the activity. If activity was not attempted, code reason: 7-Patient Refused. 9-Not Applicable-not attempted and the patient did not perform the activity before the current illness, exacerbation or injury. 10-Not Attempted due to Environmental Limitations-(lack of equipment, weather restraints, etc.). 88-Not Attempted due to Medical Conditions or Safety Concerns. Sit to Stand (QC): 4 Toilet Transfer (QC): 4 Weight Bearing Right Lower Extremity: Right Full Weight Bearing Left Lower Extremity: Left Weight Bearing/Tolerated Gait Training Does the Patient Walk?: Yes Distance: 150' x2 Walk 10 feet (QC): 4 Walk 50 ft with 2 Turns(QC): 4 Walk 150 ft (QC): 4 Gait Persons Needed: 1 Exercises Seated Therapy Exercises: Ankle pumps, Long arc quads, Hip flexion, Hip abd/add, Glut set Seated Reps: 15 NuStep Minutes: 2 NuStep Workload: 3 Treatments TF to standing and declines need for BR. Pt amb. in hallway then takes RB. Pt completes Seated EX before TF to NuStep. Pt completes 2m on NuStep before needing to amb. back to room for BR. Pt has blowout on the way and returns to BR. MANUFACTURING MACHINE OPERATOR assists pt w/clean up & doffing/donning clothes. Pt is able to complete pericare. Pt returns to EOB then MANUFACTURING MACHINE OPERATOR assists with lifting B LE into bed. Pt resting at end of tx w/all needs met, call light in hand. Assessment Current Status: Good Progress Pt is able to amb. farther today but is very fatigued. Pt is limited by fatigue and incontinence today. PT Fci Goals Fci Goals PT Fci Goals Time Frame: May 31, 2022 Roll Left & Right (QC): 6 Sit to Lying (QC): 6 Lying-Sitting on Side/Bed(QC): 6 Sit to Stand (QC): 6 Chair/Lee-zg-Hfgyw Xfer(QC): 6 Toilet Transfer (QC): 6 Car Transfer (QC): 6 Does the Patient Walk: Yes Walk 10 feet (QC): 6 Walk 50ft with 2 Turns (QC): 4 Walk 150 ft (QC): 4 Walking 10ft on Uneven Surface: 6 1 Step (curb) (QC): 4 4 Steps (QC): 4 12 Steps (QC): 4 Picking up an Object (QC): 6 Does the Pt use WC or Scooter?: Yes Wheel 50 feet with 2 turns (QC: 6 Type: Manual Wheel 150 feet: 6 Type: Manual PT Plan Problem List Problem List: Activity Tolerance, Functional Strength Treatment/Plan Treatment Plan: Continue Plan of Care Treatment Plan: Bed Mobility, Education, Functional Activity Emma, Functional Strength, Group Therapy, Gait, Safety, Therapeutic Exercise, Transfers Treatment Duration: Jun 01, 2022 Frequency: 5 times per week Estimated Hrs Per Day: 1.5 hours per day Patient and/or Family Agrees t: Yes Safety Risks/Education Patient Education: Gait Training, Transfer Techniques, Correct Positioning, Safety Issues Teaching Recipient: Patient Teaching Methods: Discussion Response to Teaching: Verbalize Understanding Time/GCodes Time In: 930 Time Out: 1100 Total Billed Treatment Time: 90 Total Billed Treatment 1, GT x2 (30m), FA x3 (40m) & EX (20m) JUAN ANTONIO BROWN MANUFACTURING MACHINE OPERATOR Apr 23, 2022 11:11
[2022-04-23 19:33] VITALS: BP 157/67
[2022-04-24] MEDS: CATHETER FLUSH 10 ML SYR IVP SCH ×3 (06:25→20:55)
[2022-04-24] MEDS: BETHANECHOL 25 MG (URECHOLINE) TAB PO SCH ×3 (06:25→17:10)
--- NOTE | 2022-04-24 07:10 | PM&R Progress Note ---
Subjective HPI/CC On Admission Date Seen by Provider: Apr 24, 2022 Time Seen by Provider: 08:30 Subjective/Events-last exam 04/24/2022: Doing well Voiding well since catheter removed Bladder meds maintained 04/23/2022: Patient doing well No pain is reported Discontinue catheter today If retention occurs we will consult urology 04/22/2022: Patient doing well Flat affect continues Bladder training will be performed at family request DC catheter soon BP stable 04/21/2022: Improved status just slow Eating well No BM today Monitoring BP 04/20/2022: Doing well Bowels moved after SSE No pain issues when she isn't moving No falls 04/19/2022: No major issues Talking on phone during exam No BM yet so ordered SSE if no production after supp Pain controlled BP stable Silverman cath in place Review of Systems General: Fatigue, Malaise Objective Exam Vital Signs Vital Signs Date Time Temp Pulse Resp B/P (MAP) Pulse Ox O2 Delivery O2 Flow Rate FiO2 04/24/22 09:35 Room Air 04/24/22 07:38 36.6 69 16 145/65 (91) 95 Capillary Refill : General Appearance: No Apparent Distress, WD/WN, Chronically ill HEENT: PERRL/EOMI, Normal ENT Inspection, Pharynx Normal Neck: Full Range of Motion, Normal Inspection, Non Tender, Supple, Carotid Bruit Respiratory: Chest Non Tender, Lungs Clear, Normal Breath Sounds, No Accessory Muscle Use, No Respiratory Distress Cardiovascular: Regular Rate, Rhythm, No Edema, No Gallop, No JVD, No Murmur, Normal Peripheral Pulses Gastrointestinal: Normal Bowel Sounds, No Organomegaly, No Pulsatile Mass, Non Tender, Soft Back: Normal Inspection, No CVA Tenderness, No Vertebral Tenderness Extremity: Normal Capillary Refill, Normal Inspection, Normal Range of Motion (except left leg), Non Tender, No Calf Tenderness, No Pedal Edema Neurologic/Psychiatric: Alert, Oriented x3, Normal Mood/Affect, aviation medicine specialist II-XII Norm as Tested, Abnormal Gait, Motor Weakness (bilateral legs) Skin: Normal Color, Warm/Dry Lymphatic: No Adenopathy Results/Procedures Lab Patient resulted labs reviewed. FIM Transfers Therapy Code Descriptions/Definitions Functional [place] Measure: 0=Not Assessed/NA 4=Minimal Assistance 1=Total Assistance 5=Supervision or Setup 2=Maximal Assistance 6=Modified [place] 3=Moderate Assistance 7=Complete IndependenceSCALE: Activities may be completed with or without assistive devices. 6-Afvuxxxmsx-eijmvvx completes the activity by him/herself with no assistance from a helper. 5-Set-up or Clean-up Assistance-helper sets up or cleans up; patient completes activity. [place] assists only prior to or following the activity. 4-Supervision or Touching Assistance-helper provides verbal cues and/or touching/steadying and/or contact guard assistance as patient completes ac tivity. Assistance may be provided throughout the activity or intermittently. 3-Partial/Moderate Assistance-helper does LESS THAN HALF the effort. [place] lifts, holds or supports trunk or limbs, but provides less than half the effort. 2-Substantial/Maximal Assistance-helper does MORE THAN HALF the effort. [place] lifts or holds trunk or limbs and provides more than half the effort. 2-Ntmkxiqlc-veqmtf does ALL the effort. Patient does none of the effort to complete the activity. Or, the assistance of 2 or more helpers is required for the patient to complete the activity. If activity was not attempted, code reason: 7-Patient Refused. 9-Not Applicable-not attempted and the patient did not perform the activity before the current illness, exacerbation or injury. 10-Not Attempted due to Environmental Limitations-(lack of equipment, weather restraints, etc.). 88-Not Attempted due to Medical Conditions or Safety Concerns. Roll Left to Right (QC): 4 Sit to Lying (QC): 3 Sit to Stand (QC): 4 Chair/Uth-wc-Zejfy Xfer(QC): 4 Car Transfer (QC): 3 Gait Training Does the Patient Walk?: Yes Distance: 150' x2 Walk 10 feet (QC): 4 Walk 50 ft with 2 Turns(QC): 4 Walk 150 ft (QC): 4 Walking 10ft/uneven surface-QC: 88 Gait Persons Needed: 1 Gait Assistive Device: FWW Wheelchair Training Does the Pt Use a Wheelchair?: Yes Distance: 50 feet Wheel 50 ft with 2 turns (QC): 4 Wheel 150 ft (QC): 88 Type of Wheelchair: Manual Stair Training Stair Training: Handrails/: uses walker #of Steps: 1 1 Step (curb) (QC): 3 4 Steps (QC): 9 12 Steps (QC): 9 Stairs: Pattern: Step to Balance Picking up an Object (QC): 88 ADL-Treatment Eating (QC): 6 (IND per pt report with breakfast) Oral Hygiene (QC): 5 (set up seated at sink.) Shower/Bathe Self (QC): 3 (Assist with buttocks) Upper Body Dressing (QC): 3 (Min A with managing shirt down trunk) Lower Body Dressing (QC): 2 (doffing: pt able to manage pants down hip, assist over feet due to incontinence.Donning: mod A. assist threading feet using AE and slight assist pant hike.) On/Off Footwear (QC): 3 (Min A with AE.) Toileting Hygiene (QC): 3 (Mod A, assist with hygiene for thoroughness, min A pant hike.) Assessment/Plan Assessment and Plan Assess & Plan/Chief Complaint Assessment: s/p uncomplicated left hip arthroplasty revision by Dr Fernandez due to pain from hardware placed during hip fracture repair 10 years ago HTN labile status Urinary retention requiring Silverman cath now DC and voiding well Fall risk Plan: Monitor pain Urinary retention management Fall risk Aggressive PT OT 04/19/2022: Maintain silverman Pain control BM regimen 04/20/2022: Monitor closely BM regimen 04/21/2022: Monitor closely Fall risk 04/22/2022: Monitor closely DC cath soon 04/23/2022: Discontinue catheter Monitor closely 04/24/2022: Voiding well since DC catheter (1) S/P total left hip arthroplasty NATIVIDAD MENJIVAR DO Apr 24, 2022 07:10
[2022-04-24 07:38] VITALS: BP 145/65
[2022-04-24] MEDS: IRON SUCROSE 200 MG/10 ML (VENOFER) VIAL IV SCH (08:57)
[2022-04-24] MEDS: TRIM/SULFAMETH 160/800 (SEPTRA DS) TAB PO SCH (08:58)
[2022-04-24] MEDS: VITAMIN D3 25 MCG (1,000 UNITS) TABLET PO SCH (08:58)
[2022-04-24] MEDS: lisINopril 20 MG (PRINIVIL) TABLET PO SCH (08:58)
[2022-04-24] MEDS: SPIRONOLACTONE 25 MG (ALDACTONE) TAB PO SCH (08:58)
[2022-04-24] MEDS: TAMSULOSIN 0.4 MG (FLOMAX) CAP PO SCH ×2 (08:58→20:55)
[2022-04-24] MEDS: ASPIRIN E.C. 81 MG (ECOTRIN) TAB PO SCH (08:58)
[2022-04-24] MEDS: MELOXICAM 7.5 MG (MOBIC) TABLET PO SCH (08:58)
[2022-04-24] MEDS: DOCUSATE SODIUM 100 MG (COLACE) CAP PO SCH ×2 (08:59→21:00)
[2022-04-24] MEDS: polyethylene glycoL POWDER 17 GM (MIRALAX) PACK PO SCH ×2 (08:59→21:00)
[2022-04-24] MEDS: SENNA W/DOCUSATE (SENOKOT S) TABLET PO SCH ×2 (08:59→21:00)
[2022-04-24] MEDS: PANTOPRAZOLE 40 MG (PROTONIX) TAB PO SCH (09:05)
--- NOTE | 2022-04-24 09:58 | Occupational Ther Daily Note ---
OT Current Status-Daily Note Subjective Pt up in recliner, son present. Son educated on assistance level required with ADLs. Pt states she has family available to assist her at home if needed with ADLS. Mental Status/Objective Patient Orientation: Person, Place, Time, Situation ADL-Treatment Therapy Code Descriptions/Definitions Functional [place] Measure: 0=Not Assessed/NA 4=Minimal Assistance 1=Total Assistance 5=Supervision or Setup 2=Maximal Assistance 6=Modified [place] 3=Moderate Assistance 7=Complete IndependenceSCALE: Activities may be completed with or without assistive devices. 5-Evinqpbfxb-ommnmxj completes the activity by him/herself with no assistance from a helper. 5-Set-up or Clean-up Assistance-helper sets up or cleans up; patient completes activity. [place] assists only prior to or following the activity. 4-Supervision or Touching Assistance-helper provides verbal cues and/or touching/steadying and/or contact guard assistance as patient completes activity. Assistance may be provided throughout the activity or intermittently. 3-Partial/Moderate Assistance-helper does LESS THAN HALF the effort. [place] lifts, holds or supports trunk or limbs, but provides less than half the effort. 2-Substantial/Maximal Assistance-helper does MORE THAN HALF the effort. [place] lifts or holds trunk or limbs and provides more than half the effort. 4-Rprsfykre-tihrny does ALL the effort. Patient does none of the effort to complete the activity. Or, the assistance of 2 or more helpers is required for the patient to complete the activity. If activity was not attempted, code reason: 7-Patient Refused. 9-Not Applicable-not attempted and the patient did not perform the activity before the current illness, exacerbation or injury. 10-Not Attempted due to Environmental Limitations-(lack of equipment, weather restraints, etc.). 88-Not Attempted due to Medical Conditions or Safety Concerns. On/Off Footwear: 3 (Min A L gripper sock using AE.) Toileting Hygiene (QC): 4 Toilet Transfer (QC): 4 Other Treatment Pt in recliner, nurse present providing medications. Pt able to take medications independently. Sit to stand from recliner, SBA, then CGA transfer to [facility] over toilet, CGA. Pt completed toileting, stood from [facility] over toilet with SBA. Pt transferred to w/c, performed w/c mobility to therapy gym, min A with turns and through doorways. Pt's son educated on AE for LE dressing/footwear, pt and son verbalize understanding of AE. Pt demo'd ability to doff/don L gripper sock with min A. Post tx, pt in therapy gym, son present and PT present for continued tx. Education OT Patient Education: Correct positioning, Energy conservation, Progress toward Goal/Update tx plan, Purpose of tx/functional activities, Rehab process, Use of adapted equipment Teaching Recipient: Patient Teaching Methods: Discussion Response to Teaching: Verbalize Understanding OT Short Term Goals Short Term Goals Time Frame: May 01, 2022 Toileting hygiene: 3 Lower body dressin Putting on/taking off footwear: 3 OT Half-Way Goals Half-Way Goals Time Frame: May 10, 2022 Acute change in mental status: 0 Inattention: 0 Disorganized thinkin Altered level of consciousness: 0 Eating (QC): 6 Oral Hygiene (QC): 6 Toileting Hygiene (QC): 6 Shower/Bathe Self (QC): 5 Upper Body Dressing (QC): 5 Lower Body Dressing (QC): 5 On/Off Footwear (QC): 5 Additional Goals: 1-Demonstrate ADL Tasks, 2-Verbalize Understanding, 3- ImproveStrength/Emma 1=Demonstrate adherence to instructed precautions during ADL tasks. 2=Patient will verbalize/demonstrate understanding of assistive devices/modifications for ADL. 3=Patient will improve strength/tolerance for activity to enable patient to perform ADL's. OT Education/Plan Problem List/Assessment Assessment: Decreased Activ Tolerance, Decreased UE Strength, Impaired I ADL's, Impaired Self-Care Skills Discharge Recommendations Plan/Recommendations: Continue POC Treatment Plan/Plan of Care Patient would benefit from OT for education, treatment and training to promote independence in ADL's, mobility, safety and/or upper extremity function for ADL's. Plan of Care: ADL Retraining, Functional Mobility, Group Exercise/Act as Ind, UE Funct Exercise/Act Treatment Duration: May 10, 2022 Frequency: At least 5 of 7 days/Wk (IRF) Estimated Hrs Per Day: 1.5 hours per day Agreement: Yes Rehab Potential: Good Time/GCodes Start Time: 09:00 Stop Time: 09:30 Total Time Billed (hr/min): 30 Billed Treatment Time 1, ADL 2 DEIRDRE OWEN OT Apr 24, 2022 09:58
[2022-04-24] MEDS ORDERED: PATIENT MAY USE OWN MED,SINGLE MED PO SCH (10:45)
--- NOTE | 2022-04-24 10:51 | Physical Therapy Daily Note ---
PT Daily Note-Current Subjective Pt sitting in [facility] in Therapy Gym just finishing w/OT upon arrival. Pt agrees to PT. Pain Numeric Pain Scale: 5-Moderate Pain Location: Left Location Body Site: Knee Pain Description: Ache, Tightness Section J - Health Conditions 1. Rarely or not at all 2. Occasionally 3. Frequently 4. Almost constantly 8. Unable to answer Pain Effect on Sleep: 2 Pain Interference with Therapy: 2 Pain Interference w/Day-to-Day: 2 Mental Status Patient Orientation: Person, Place, Situation Transfers SCALE: Activities may be completed with or without assistive devices. 1-Mmxjjfkyjs-uhaxhvf completes the activity by him/herself with no assistance from a helper. 5-Set-up or Clean-up Assistance-helper sets up or cleans up; patient completes activity. [place] assists only prior to or following the activity. 4-Supervision or Touching Assistance-helper provides verbal cues and/or touching/steadying and/or contact guard assistance as patient completes activity. Assistance may be provided throughout the activity or intermittently. 3-Partial/Moderate Assistance-helper does LESS THAN HALF the effort. [place] lifts, holds or supports trunk or limbs, but provides less than half the effort. 2-Substantial/Maximal Assistance-helper does MORE THAN HALF the effort. [place] lifts or holds trunk or limbs and provides more than half the effort. 7-Pffimxqqd-qkljrn does ALL the effort. Patient does none of the effort to complete the activity. Or, the assistance of 2 or more helpers is required for the patient to complete the activity. If activity was not attempted, code reason: 7-Patient Refused. 9-Not Applicable-not attempted and the patient did not perform the activity before the current illness, exacerbation or injury. 10-Not Attempted due to Environmental Limitations-(lack of equipment, weather restraints, etc.). 88-Not Attempted due to Medical Conditions or Safety Concerns. Sit to Stand (QC): 4 Weight Bearing Right Lower Extremity: Right Full Weight Bearing Left Lower Extremity: Left Weight Bearing/Tolerated Wheelchair Training Does the Pt Use a Wheelchair?: Yes Wheel 50 ft with 2 turns (QC): 3 Wheel 150 ft (QC): 3 Type of Wheelchair: Manual Exercises Seated Therapy Exercises: Ankle pumps, Long arc quads, Hip flexion, Hip abd/add, Glut set Seated Reps: 15 Treatments Pt completes Seated EX as well as two rounds of 10 leg presses. Pt propels WCH in hallway with instruction for proper turns and returns to room to rest before OT. Pt resting in WCH w/all needs met,call light in hand. Assessment Current Status: Fair Progress Pt fatigues easily and needs motivation at times to encourage pushing self for progress. PT Manager Club Goals Correction Goals PT Manager Club Goals Time Frame: May 31, 2022 Roll Left & Right (QC): 6 Sit to Lying (QC): 6 Lying-Sitting on Side/Bed(QC): 6 Sit to Stand (QC): 6 Chair/Ttw-ug-Xodbs Xfer(QC): 6 Toilet Transfer (QC): 6 Car Transfer (QC): 6 Does the Patient Walk: Yes Walk 10 feet (QC): 6 Walk 50ft with 2 Turns (QC): 4 Walk 150 ft (QC): 4 Walking 10ft on Uneven Surface: 6 1 Step (curb) (QC): 4 4 Steps (QC): 4 12 Steps (QC): 4 Picking up an Object (QC): 6 Does the Pt use WC or Scooter?: Yes Wheel 50 feet with 2 turns (QC: 6 Type: Manual Wheel 150 feet: 6 Type: Manual PT Plan Problem List Problem List: Activity Tolerance Treatment/Plan Treatment Plan: Continue Plan of Care Treatment Plan: Bed Mobility, Education, Functional Activity Emma, Functional Strength, Group Therapy, Gait, Safety, Therapeutic Exercise, Transfers Treatment Duration: Jun 01, 2022 Frequency: 5 times per week Estimated Hrs Per Day: 1.5 hours per day Patient and/or Family Agrees t: Yes Safety Risks/Education Patient Education: Transfer Techniques, Correct Positioning Teaching Recipient: Patient, Family Teaching Methods: Discussion Response to Teaching: Verbalize Understanding Time/GCodes Time In: 930 Time Out: 1030 Total Billed Treatment Time: 60 Total Billed Treatment 1, EX x2 (30m), WCH (20m) & FA (10m) JUAN ANTONIO BROWN ED CASE MANAGER Apr 24, 2022 10:51
[2022-04-24] MEDS: LIDOCAINE 4% (SALONPAS) PATCH TOP SCH (11:29)
--- NOTE | 2022-04-24 11:50 | Physical Therapy Daily Note ---
PT Daily Note-Current Subjective Pt working w/Ot in Therapy Gym upon arrival. Pt agrees to PT/OT co-treat due to continued pain L knee and fatigue. Pain Numeric Pain Scale: 4 Location: Left Location Body Site: Knee Pain Description: Ache, Tightness Comment: Pt is able to use Liocaine patch from home per Dr oTro for pain Section J - Health Conditions 1. Rarely or not at all 2. Occasionally 3. Frequently 4. Almost constantly 8. Unable to answer Pain Effect on Sleep: 2 Pain Interference with Therapy: 2 Pain Interference w/Day-to-Day: 2 Mental Status Patient Orientation: Person, Place, Situation Transfers SCALE: Activities may be completed with or without assistive devices. 7-Uzaauxuuwt-uyqiqyj completes the activity by him/herself with no assistance from a helper. 5-Set-up or Clean-up Assistance-helper sets up or cleans up; patient completes activity. [place] assists only prior to or following the activity. 4-Supervision or Touching Assistance-helper provides verbal cues and/or touching/steadying and/or contact guard assistance as patient completes activity. Assistance may be provided throughout the activity or intermittently. 3-Partial/Moderate Assistance-helper does LESS THAN HALF the effort. [place] lifts, holds or supports trunk or limbs, but provides less than half the effort. 2-Substantial/Maximal Assistance-helper does MORE THAN HALF the effort. [place] lifts or holds trunk or limbs and provides more than half the effort. 7-Gyokxdpyg-bjtkxf does ALL the effort. Patient does none of the effort to complete the activity. Or, the assistance of 2 or more helpers is required for the patient to complete the activity. If activity was not attempted, code reason: 7-Patient Refused. 9-Not Applicable-not attempted and the patient did not perform the activity before the current illness, exacerbation or injury. 10-Not Attempted due to Environmental Limitations-(lack of equipment, weather restraints, etc.). 88-Not Attempted due to Medical Conditions or Safety Concerns. Sit to Stand (QC): 4 Toilet Transfer (QC): 4 Weight Bearing Right Lower Extremity: Right Full Weight Bearing Left Lower Extremity: Left Weight Bearing/Tolerated Gait Training Does the Patient Walk?: Yes Distance: 10' Walk 10 feet (QC): 4 Gait Persons Needed: 1 Gait Assistive Device: FWW Pain in L knee limits ambulation. Wheelchair Training Does the Pt Use a Wheelchair?: Yes Wheel 50 ft with 2 turns (QC): 5 Type of Wheelchair: Manual Treatments PT joins OT tx as pt is finishing arm bike. OT/PT co-treat due to skill of 2 clinicians required which a Time Study Statistician could not perform in order to coordinate UE/LEs, decrease fall risk, and due to pt's limitations in fatigue, activity tolerance, strength and mobility/transfers. OT focused on UE placement, cues for sequencing and safety and ADLs. PT focused on LE placement, gross overall movement, transfers/mobility. Pt agreeable to completing car transfer, used FWW to perform functional mobility towards car transfer machine, but only made it 10' prior to needing seated rest break. Pt requests to rest and not attempt transfer today. Pt taken to her room, transferred to [facility] [place] toilet using GBs, skilled verbal cues required for hand placement with transfer. Pt completed toileting, transferred to [facility], then from w/c to recliner. Post tx, pt in recliner, call light in reach and all needs met. Assessment Current Status: Fair Progress Pain and stiff limited completion of tasks today. Pt took more and extended RB. PT Sales Service Representative Goals Sales Service Representative Goals PT Sales Service Representative Goals Time Frame: May 31, 2022 Roll Left & Right (QC): 6 Sit to Lying (QC): 6 Lying-Sitting on Side/Bed(QC): 6 Sit to Stand (QC): 6 Chair/Uyd-bb-Arvhz Xfer(QC): 6 Toilet Transfer (QC): 6 Car Transfer (QC): 6 Does the Patient Walk: Yes Walk 10 feet (QC): 6 Walk 50ft with 2 Turns (QC): 4 Walk 150 ft (QC): 4 Walking 10ft on Uneven Surface: 6 1 Step (curb) (QC): 4 4 Steps (QC): 4 12 Steps (QC): 4 Picking up an Object (QC): 6 Does the Pt use WC or Scooter?: Yes Wheel 50 feet with 2 turns (QC: 6 Type: Manual Wheel 150 feet: 6 Type: Manual PT Plan Problem List Problem List: Activity Tolerance Treatment/Plan Treatment Plan: Continue Plan of Care Treatment Plan: Bed Mobility, Education, Functional Activity Emma, Functional Strength, Group Therapy, Gait, Safety, Therapeutic Exercise, Transfers Treatment Duration: Jun 01, 2022 Frequency: 5 times per week Estimated Hrs Per Day: 1.5 hours per day Patient and/or Family Agrees t: Yes Safety Risks/Education Patient Education: Gait Training, Transfer Techniques, Correct Positioning, W/C Management, Safety Issues Teaching Recipient: Patient, Family Teaching Methods: Discussion Response to Teaching: Verbalize Understanding Time/GCodes Time In: 1100 Time Out: 1140 Total Billed Treatment Time: 40 Total Billed Treatment Co-treat w/OT for 40m 1, GT (10m), WCH (15m) & FA (15m) JUAN ANTONIO BROWN TURNING MACHINE OPERATOR HELPER Apr 24, 2022 11:50
--- NOTE | 2022-04-24 13:21 | Occupational Ther Daily Note ---
OT Current Status-Daily Note Subjective Pt up in w/c, son present. Mental Status/Objective Patient Orientation: Normal For Age ADL-Treatment Therapy Code Descriptions/Definitions Functional [place] Measure: 0=Not Assessed/NA 4=Minimal Assistance 1=Total Assistance 5=Supervision or Setup 2=Maximal Assistance 6=Modified [place] 3=Moderate Assistance 7=Complete IndependenceSCALE: Activities may be completed with or without assistive devices. 5-Oodbkuikne-fdpvrbe completes the activity by him/herself with no assistance from a helper. 5-Set-up or Clean-up Assistance-helper sets up or cleans up; patient completes activity. [place] assists only prior to or following the activity. 4-Supervision or Touching Assistance-helper provides verbal cues and/or touching/steadying and/or contact guard assistance as patient completes acti vity. Assistance may be provided throughout the activity or intermittently. 3-Partial/Moderate Assistance-helper does LESS THAN HALF the effort. [place] lifts, holds or supports trunk or limbs, but provides less than half the effort. 2-Substantial/Maximal Assistance-helper does MORE THAN HALF the effort. [place] lifts or holds trunk or limbs and provides more than half the effort. 0-Crdnssfsz-rauklz does ALL the effort. Patient does none of the effort to complete the activity. Or, the assistance of 2 or more helpers is required for the patient to complete the activity. If activity was not attempted, code reason: 7-Patient Refused. 9-Not Applicable-not attempted and the patient did not perform the activity before the current illness, exacerbation or injury. 10-Not Attempted due to Environmental Limitations-(lack of equipment, weather restraints, etc.). 88-Not Attempted due to Medical Conditions or Safety Concerns. Toileting Hygiene (QC): 3 (Min A for clothing mangement) Toilet Transfer (QC): 4 Other Treatment Pt in w/c, performed w/c mobility to therapy gym. In order to increase UE strength and activity tolerance, pt educated on theraband exercises, using light resistance yellow theraband. Pt completed 5/5 exercises, x10 reps each. Printed HEP and band left in pt's room. Pt then completed arm bike x8 mins, minimal resistance, 3 rest breaks. OT/PT cotreat due to skill of 2 clinicians required which a wildlife rehabilitator could not perform in order to coordinate UE/LEs, decrease fall risk, and due to pt's limitations in fatigue, activity tolerance, strength and mobility/transfers. OT focused on UE placement, cues for sequencing and safety and ADLs. PT focused on LE placement, gross overall movement, transfers/mobility. Pt agreeable to completing car transfer, used FWW to perform functional mobility towards car transfer machine, but only made it 10' prior to needing seated rest break. Pt requests to rest and not attempt transfer today. Pt taken to her room, transferred to [facility] over toilet using GBs, skilled verbal cues required for hand placement with transfer. Pt completed toileting, transferred to w/c, then from w/c to recliner. Post tx, pt in recliner, call light in reach and all needs met. Education OT Patient Education: Correct positioning, Energy conservation, Exercise program, Modified ADL techniques, Progress toward Goal/Update tx plan, Purpose of tx/functional activities, Rehab process Teaching Recipient: Patient Teaching Methods: Discussion Response to Teaching: Verbalize Understanding OT Short Term Goals Short Term Goals Time Frame: May 01, 2022 Toileting hygiene: 3 Lower body dressin Putting on/taking off footwear: 3 OT Salesperson [employer] Goals Salesperson [employer] Goals Time Frame: May 10, 2022 Acute change in mental status: 0 Inattention: 0 Disorganized thinkin Altered level of consciousness: 0 Eating (QC): 6 Oral Hygiene (QC): 6 Toileting Hygiene (QC): 6 Shower/Bathe Self (QC): 5 Upper Body Dressing (QC): 5 Lower Body Dressing (QC): 5 On/Off Footwear (QC): 5 Additional Goals: 1-Demonstrate ADL Tasks, 2-Verbalize Understanding, 3- ImproveStrength/Emma 1=Demonstrate adherence to instructed precautions during ADL tasks. 2=Patient will verbalize/demonstrate understanding of assistive devices/modific ations for ADL. 3=Patient will improve strength/tolerance for activity to enable patient to perform ADL's. OT Education/Plan Problem List/Assessment Assessment: Decreased Activ Tolerance, Decreased UE Strength, Impaired Funct Balance, Impaired I ADL's, Impaired Self-Care Skills Discharge Recommendations Plan/Recommendations: Continue POC Treatment Plan/Plan of Care Patient would benefit from OT for education, treatment and training to promote independence in ADL's, mobility, safety and/or upper extremity function for ADL's. Plan of Care: ADL Retraining, Functional Mobility, Group Exercise/Act as Ind, UE Funct Exercise/Act Treatment Duration: May 10, 2022 Frequency: At least 5 of 7 days/Wk (IRF) Estimated Hrs Per Day: 1.5 hours per day Agreement: Yes Rehab Potential: Good Time/GCodes Start Time: 10:30 Stop Time: 11:40 Total Time Billed (hr/min): 70 Billed Treatment Time OT tx [id number], cotreat [id number] 1, EX 2 (30'), ADL (15'), FA 2 (25') DEIRDRE OWEN OT Apr 24, 2022 13:21
[2022-04-24 20:30] VITALS: BP 168/75
[2022-04-24] MEDS: LIDOCAINE PATCH REMOVAL TP SCH (21:30)
--- NOTE | 2022-04-25 05:47 | PM&R Progress Note ---
Subjective HPI/CC On Admission Date Seen by Provider: Apr 25, 2022 Time Seen by Provider: 12:00 Subjective/Events-last exam 04/25/2022: Patient doing pretty well Slow moving which is baseline Complaining of left knee pain so will initiate diclofenac gel Voiding well 04/24/2022: Doing well Voiding well since catheter removed Bladder meds maintained 04/23/2022: Patient doing well No pain is reported Discontinue catheter today If retention occurs we will consult urology 04/22/2022: Patient doing well Flat affect continues Bladder training will be performed at family request DC catheter soon BP stable 04/21/2022: Improved status just slow Eating well No BM today Monitoring BP 04/20/2022: Doing well Bowels moved after SSE No pain issues when she isn't moving No falls 04/19/2022: No major issues Talking on phone during exam No BM yet so ordered SSE if no production after supp Pain controlled BP stable Silverman cath in place Review of Systems General: Fatigue, Malaise Musculoskeletal: leg pain Objective Exam Vital Signs Vital Signs Date Time Temp Pulse Resp B/P (MAP) Pulse Ox O2 Delivery O2 Flow Rate FiO2 04/25/22 20:10 Room Air 04/25/22 20:00 36.7 73 18 125/62 (83) 97 Capillary Refill : General Appearance: No Apparent Distress, WD/WN, Chronically ill HEENT: PERRL/EOMI, Normal ENT Inspection, Pharynx Normal Neck: Full Range of Motion, Normal Inspection, Non Tender, Supple, Carotid Bruit Respiratory: Chest Non Tender, Lungs Clear, Normal Breath Sounds, No Accessory Muscle Use, No Respiratory Distress Cardiovascular: Regular Rate, Rhythm, No Edema, No Gallop, No JVD, No Murmur, Normal Peripheral Pulses Gastrointestinal: Normal Bowel Sounds, No Organomegaly, No Pulsatile Mass, Non Tender, Soft Back: Normal Inspection, No CVA Tenderness, No Vertebral Tenderness Extremity: Normal Capillary Refill, Normal Inspection, Normal Range of Motion (except left leg), Non Tender, No Calf Tenderness, No Pedal Edema Neurologic/Psychiatric: Alert, Oriented x3, Normal Mood/Affect, qualitative field coordinator II-XII Norm as Tested, Abnormal Gait, Motor Weakness (bilateral legs) Skin: Normal Color, Warm/Dry Lymphatic: No Adenopathy Results/Procedures Lab Laboratory Tests 04/25/22 07:15 Patient resulted labs reviewed. FIM Transfers Therapy Code Descriptions/Definitions Functional [place] Measure: 0=Not Assessed/NA 4=Minimal Assistance 1=Total Assistance 5=Supervision or Setup 2=Maximal Assistance 6=Modified [place] 3=Moderate Assistance 7=Complete IndependenceSCALE: Activities may be completed with or without assistive devices. 7-Ertwqjgdtz-nitlyjb completes the activity by him/herself with no assistance from a helper. 5-Set-up or Clean-up Assistance-helper sets up or cleans up; patient completes activity. [place] assists only prior to or following the activity. 4-Supervision or Touching Assistance-helper provides verbal cues and/or touching/steadying and/or contact guard assistance as patient completes activity. Assistance may be provided throughout the activity or intermittently. 3-Partial/Moderate Assistance-helper does LESS THAN HALF the effort. [place] lifts, holds or supports trunk or limbs, but provides less than half the effort. 2-Substantial/Maximal Assistance-helper does MORE THAN HALF the effort. [place] lifts or holds trunk or limbs and provides more than half the effort. 5-Oxqnpnsoh-bntzwp does ALL the effort. Patient does none of the effort to complete the activity. Or, the assistance of 2 or more helpers is required for the patient to complete the activity. If activity was not attempted, code reason: 7-Patient Refused. 9-Not Applicable-not attempted and the patient did not perform the activity before the current illness, exacerbation or injury. 10-Not Attempted due to Environmental Limitations-(lack of equipment, weather restraints, etc.). 88-Not Attempted due to Medical Conditions or Safety Concerns. Roll Left to Right (QC): 4 Sit to Lying (QC): 3 Sit to Stand (QC): 4 Chair/Rit-ou-Nsonj Xfer(QC): 4 Car Transfer (QC): 3 Gait Training Does the Patient Walk?: Yes Distance: 10' Walk 10 feet (QC): 4 Walk 50 ft with 2 Turns(QC): 4 Walk 150 ft (QC): 4 Walking 10ft/uneven surface-QC: 88 Gait Persons Needed: 1 Gait Assistive Device: FWW Wheelchair Training Does the Pt Use a Wheelchair?: Yes Distance: 50 feet Wheel 50 ft with 2 turns (QC): 5 Wheel 150 ft (QC): 3 Type of Wheelchair: Manual Stair Training Stair Training: Handrails/: uses walker #of Steps: 1 1 Step (curb) (QC): 3 4 Steps (QC): 9 12 Steps (QC): 9 Stairs: Pattern: Step to Balance Picking up an Object (QC): 88 ADL-Treatment Eating (QC): 6 (IND per pt report with breakfast) Oral Hygiene (QC): 5 (set up seated at sink.) Shower/Bathe Self (QC): 3 (Assist with buttocks) Upper Body Dressing (QC): 3 (Min A with managing shirt down trunk) Lower Body Dressing (QC): 2 (doffing: pt able to manage pants down hip, assist over feet due to incontinence.Donning: mod A. assist threading feet using AE and slight assist pant hike.) On/Off Footwear (QC): 3 (Min A L gripper sock using AE.) Toileting Hygiene (QC): 3 (Min A for clothing mangement) Toilet Transfer (QC): 4 Assessment/Plan Assessment and Plan Assess & Plan/Chief Complaint Assessment: s/p uncomplicated left hip arthroplasty revision by Dr Fernandez due to pain from hardware placed during hip fracture repair 10 years ago HTN labile status Urinary retention requiring Silverman cath now DC and voiding well Fall risk Left knee pain Plan: Monitor pain Urinary retention management Fall risk Aggressive PT OT 04/19/2022: Maintain silverman Pain control BM regimen 04/20/2022: Monitor closely BM regimen 04/21/2022: Monitor closely Fall risk 04/22/2022: Monitor closely DC cath soon 04/23/2022: Discontinue catheter Monitor closely 04/24/2022: Voiding well since DC catheter 04/25/2022: Diclofenac gel left knee (1) S/P total left hip arthroplasty NATIVIDAD MENJIVAR DO Apr 25, 2022 05:47
[2022-04-25] MEDS: CATHETER FLUSH 10 ML SYR IVP SCH ×3 (06:34→20:33)
[2022-04-25] MEDS: BETHANECHOL 25 MG (URECHOLINE) TAB PO SCH ×3 (06:34→18:17)
[2022-04-25 07:25] LABS: BASOPHILS % (AUTO) 0 % (0-10); EOSINOPHILS # (AUTO) 0.6 10^3/uL (0.0-0.3); EOSINOPHILS % (AUTO) 13 % (0-10); HEMATOCRIT 23 % (35-52); LYMPHOCYTES # (AUTO) 0.6 10^3/uL (1.0-4.0); LYMPHOCYTES % (AUTO) 12 % (12-44); MEAN CORPUSCULAR HEMOGLOBIN 31 pg (25-34); MEAN CORPUSCULAR HGB CONC 31 g/dL (32-36); MEAN CORPUSCULAR VOLUME 99 fL (80-99); MEAN PLATELET VOLUME 8.9 fL (9.0-12.2); MONOCYTES # (AUTO) 0.6 10^3/uL (0.0-1.0); MONOCYTES % (AUTO) 12 % (0-12); NEUTROPHILS % (AUTO) 59 % (42-75); PLATELET COUNT 327 10^3/uL (130-400); WHITE BLOOD COUNT 5.1 10^3/uL (4.3-11.0)
[2022-04-25 07:46] LABS: ALBUMIN 2.9 GM/DL (3.2-4.5)
[2022-04-25 07:47] LABS: POTASSIUM 5.1 MMOL/L (3.6-5.0)
[2022-04-25 07:48] LABS: CALCIUM 8.7 MG/DL (8.5-10.1)
[2022-04-25 07:49] LABS: TOTAL PROTEIN 6.3 GM/DL (6.4-8.2)
[2022-04-25 07:51] LABS: BILIRUBIN,TOTAL 0.4 MG/DL (0.1-1.0)
[2022-04-25 07:53] LABS: CREATININE SERUM 1.46 MG/DL (0.60-1.30)
[2022-04-25 07:57] VITALS: BP 128/61
[2022-04-25 08:26] LABS: ANISOCYTOSIS SLIGHT; BAND NEUTROPHILS 3 %; BASOPHILS % (MANUAL) 0 %; EOSINOPHILS % (MANUAL) 12 %; LYMPHOCYTES % (MANUAL) 10 %; MONOCYTES % (MANUAL) 10 %; NEUTROPHILS % (MANUAL) 65 %
[2022-04-25] MEDS: LIDOCAINE 4% (SALONPAS) PATCH TOP SCH (08:54)
[2022-04-25] MEDS: PANTOPRAZOLE 40 MG (PROTONIX) TAB PO SCH (08:55)
[2022-04-25] MEDS: SPIRONOLACTONE 25 MG (ALDACTONE) TAB PO SCH (08:55)
[2022-04-25] MEDS: VITAMIN D3 25 MCG (1,000 UNITS) TABLET PO SCH (08:55)
[2022-04-25] MEDS: ASPIRIN E.C. 81 MG (ECOTRIN) TAB PO SCH (08:55)
[2022-04-25] MEDS: MELOXICAM 7.5 MG (MOBIC) TABLET PO SCH (08:55)
[2022-04-25] MEDS: lisINopril 20 MG (PRINIVIL) TABLET PO SCH (08:55)
[2022-04-25] MEDS: TAMSULOSIN 0.4 MG (FLOMAX) CAP PO SCH ×2 (08:55→20:33)
[2022-04-25] MEDS: polyethylene glycoL POWDER 17 GM (MIRALAX) PACK PO SCH ×2 (10:22→19:54)
[2022-04-25] MEDS: SENNA W/DOCUSATE (SENOKOT S) TABLET PO SCH ×2 (10:22→19:54)
[2022-04-25] MEDS: DOCUSATE SODIUM 100 MG (COLACE) CAP PO SCH ×2 (10:22→19:53)
--- NOTE | 2022-04-25 10:55 | Physical Therapy Daily Note ---
PT Daily Note-Current Subjective Pt. and son in room. Pt. reluctantly agrees to Rx as she c/o she is having increased pain in left knee/hip, pt. keeps eyes closed most of time and very quiet. Moving extremely slow and takes many rest breaks. c/ also of fatigue Pain Numeric Pain Scale: 6 Location: Left Location Body Site: Knee (and hip) Pain Description: Ache Section J - Health Conditions 1. Rarely or not at all 2. Occasionally 3. Frequently 4. Almost constantly 8. Unable to answer Pain Effect on Sleep: 2 Pain Interference with Therapy: 3 Pain Interference w/Day-to-Day: 3 Appearance see above Transfers SCALE: Activities may be completed with or without assistive devices. 4-Viqxatruij-tbvemjj completes the activity by him/herself with no assistance from a helper. 5-Set-up or Clean-up Assistance-helper sets up or cleans up; patient completes activity. [place] assists only prior to or following the activity. 4-Supervision or Touching Assistance-helper provides verbal cues and/or touchin g/steadying and/or contact guard assistance as patient completes activity. Assistance may be provided throughout the activity or intermittently. 3-Partial/Moderate Assistance-helper does LESS THAN HALF the effort. [place] lifts, holds or supports trunk or limbs, but provides less than half the effort. 2-Substantial/Maximal Assistance-helper does MORE THAN HALF the effort. [place] lifts or holds trunk or limbs and provides more than half the effort. 9-Tetvelwwb-lprktn does ALL the effort. Patient does none of the effort to complete the activity. Or, the assistance of 2 or more helpers is required for the patient to complete the activity. If activity was not attempted, code reason: 7-Patient Refused. 9-Not Applicable-not attempted and the patient did not perform the activity before the current illness, exacerbation or injury. 10-Not Attempted due to Environmental Limitations-(lack of equipment, weather restraints, etc.). 88-Not Attempted due to Medical Conditions or Safety Concerns. Roll Left & Right (QC): 3 Sit to Lying (QC): 3 Lying to Sitting/Side of Bed(Q: 3 Sit to Stand (QC): 4 Chair/Ths-to-Khjar Xfer(QC): 4 needed seat heights raised for comfort , pain in left knee limits sit to stand Weight Bearing Right Lower Extremity: Right Full Weight Bearing Left Lower Extremity: Left Weight Bearing/Tolerated Gait Training Does the Patient Walk?: Yes Walk 10 feet (QC): 4 Walk 50 ft with 2 Turns(QC): 4 Gait Persons Needed: 1 (and w/c f/u) Gait Assistive Device: FWW very very slow pace, much difficulty st shifting, heavy wt bearing on FWW Exercises Supine Ex: Ankle pumps, Quad Set, Glut sets, Heel Slides (*), Short Arc Quads, Scooting (*), Hip abd/add (*) Supine Reps: 15 (assisted *) Seated Therapy Exercises: Ankle pumps, Sit to stand, Long arc quads Seated Reps: 15 Treatments TRFs chair and bed , seated and sup left hip ex, gait, Assessment Current Status: Fair Progress pt. not seen by this [employer]OOSE END FINDER for several days and has made no progress, moving slower and experiencing increased pain in left hip/knee area PT Residential Goals Coding Compliance Auditor Goals PT Coding Compliance Auditor Goals Time Frame: May 31, 2022 Roll Left & Right (QC): 6 Sit to Lying (QC): 6 Lying-Sitting on Side/Bed(QC): 6 Sit to Stand (QC): 6 Chair/Heh-nr-Fcxiy Xfer(QC): 6 Toilet Transfer (QC): 6 Car Transfer (QC): 6 Does the Patient Walk: Yes Walk 10 feet (QC): 6 Walk 50ft with 2 Turns (QC): 4 Walk 150 ft (QC): 4 Walking 10ft on Uneven Surface: 6 1 Step (curb) (QC): 4 4 Steps (QC): 4 12 Steps (QC): 4 Picking up an Object (QC): 6 Does the Pt use WC or Scooter?: Yes Wheel 50 feet with 2 turns (QC: 6 Type: Manual Wheel 150 feet: 6 Type: Manual PT Plan Treatment/Plan Treatment Plan: Continue Plan of Care Treatment Plan: Bed Mobility, Education, Functional Activity Emma, Functional Strength, Group Therapy, Gait, Safety, Therapeutic Exercise, Transfers Treatment Duration: Jun 01, 2022 Frequency: 5 times per week Estimated Hrs Per Day: 1.5 hours per day Patient and/or Family Agrees t: Yes Safety Risks/Education Patient Education: Gait Training, Transfer Techniques, Reviewed Precautions, Correct Positioning, Disease Process, Safety Issues Teaching Recipient: Patient Teaching Methods: Demonstration, Discussion Response to Teaching: Verbalize Understanding, Return Demonstration, R einforcement Needed Time/GCodes Time In: 900 Time Out: 1000 Total Billed Treatment Time: 60 Total Billed Treatment 1,GT20m,EX15m,FA25m NIKOLAS IBARRA [employer] F[employer]ER Apr 25, 2022 10:55
--- NOTE | 2022-04-25 11:32 | Occupational Ther Daily Note ---
OT Current Status-Daily Note Subjective Pt just returned to bed following PT tx, agreeable to OT tx. Pt's son present throughout session. Mental Status/Objective Patient Orientation: Person, Place, Situation ADL-Treatment Therapy Code Descriptions/Definitions Functional [place] Measure: 0=Not Assessed/NA 4=Minimal Assistance 1=Total Assistance 5=Supervision or Setup 2=Maximal Assistance 6=Modified [place] 3=Moderate Assistance 7=Complete IndependenceSCALE: Activities may be completed with or without assistive devices. 1-Vytqehuusl-noclnid completes the activity by him/herself with no assistance from a helper. 5-Set-up or Clean-up Assistance-helper sets up or cleans up; patient completes activity. [place] assists only prior to or following the activity. 4-Supervision or Touching Assistance-helper provides verbal cues and/or touching/steadying and/or contact guard assistance as patient completes activity. Assistance may be provided throughout the activity or intermittently. 3-Partial/Moderate Assistance-helper does LESS THAN HALF the effort. [place] lifts, holds or supports trunk or limbs, but provides less than half the effort. 2-Substantial/Maximal Assistance-helper does MORE THAN HALF the effort. [place] lifts or holds trunk or limbs and provides more than half the effort. 7-Hantqwqdq-qgjkdj does ALL the effort. Patient does none of the effort to complete the activity. Or, the assistance of 2 or more helpers is required for the patient to complete the activity. If activity was not attempted, code reason: 7-Patient Refused. 9-Not Applicable-not attempted and the patient did not perform the activity before the current illness, exacerbation or injury. 10-Not Attempted due to Environmental Limitations-(lack of equipment, weather restraints, etc.). 88-Not Attempted due to Medical Conditions or Safety Concerns. Eating (QC): 6 Oral Hygiene (QC): 6 Shower/Bathe Self (QC): 4 (SBA, min VCs to maintain hip precautions.) Upper Body Dressing (QC): 4 (SBA, 1 VC to pull shirt down in back.) Lower Body Dressing (QC): 3 (Min A with AE for threading LEs. Mod VCs required with donning to use AE and maintain hip precautions.) On/Off Footwear: 3 (Pt able to doff using AE, min A with donning) Toileting Hygiene (QC): 3 (Min A with managing pants down. Pt able to complete hygiene and pant hike with VCs.) Toilet Transfer (QC): 4 (SBA-CGA on/off BSC over toilet. ) Pt required increased time with ADLs, and skilled VCs for hip precautions and using AE. Other Treatment Pt in bed. In order to increase BUE strength and activity tolerance, pt completed x15 reps, 5/5 theraband exercises using light resistance theraband. Pt required minimal skilled verbal cues with technique. Pt transferred supine to sit EOB, max A. Pt used FWW to transfer into bathroom and onto BSC over toilet. Pt completed toileting, dressing, and sponge bath, stood at sink for oral care, then used FWW to transfer to recliner. Education OT Patient Education: Correct positioning, Modified ADL techniques, Progress toward Goal/Update tx plan, Purpose of tx/functional activities, Rehab process Teaching Recipient: Patient Teaching Methods: Discussion Response to Teaching: Verbalize Understanding, Reinforcement Needed OT Short Term Goals Short Term Goals Time Frame: May 01, 2022 Toileting hygiene: 3 Lower body dressin Putting on/taking off footwear: 3 OT Usp Goals Usp Goals Time Frame: May 10, 2022 Acute change in mental status: 0 Inattention: 0 Disorganized thinkin Altered level of consciousness: 0 Eating (QC): 6 Oral Hygiene (QC): 6 Toileting Hygiene (QC): 6 Shower/Bathe Self (QC): 5 Upper Body Dressing (QC): 5 Lower Body Dressing (QC): 5 On/Off Footwear (QC): 5 Additional Goals: 1-Demonstrate ADL Tasks, 2-Verbalize Understanding, 3- ImproveStrength/Emma 1=Demonstrate adherence to instructed precautions during ADL tasks. 2=Patient will verbalize/demonstrate understanding of assistive devices/modifications for ADL. 3=Patient will improve strength/tolerance for activity to enable patient to perform ADL's. OT Education/Plan Problem List/Assessment Assessment: Decreased Activ Tolerance, Decreased UE Strength, Impaired Funct B alance, Impaired I ADL's, Impaired Self-Care Skills Discharge Recommendations Plan/Recommendations: Continue POC Treatment Plan/Plan of Care Patient would benefit from OT for education, treatment and training to promote independence in ADL's, mobility, safety and/or upper extremity function for ADL's. Plan of Care: ADL Retraining, Functional Mobility, Group Exercise/Act as Ind, UE Funct Exercise/Act Treatment Duration: May 10, 2022 Frequency: At least 5 of 7 days/Wk (IRF) Estimated Hrs Per Day: 1.5 hours per day Agreement: Yes Rehab Potential: Good Time/GCodes Start Time: 10:00 Stop Time: 11:30 Total Time Billed (hr/min): 90 Billed Treatment Time 1, EX 2 (30'), ADL 4 (60') DEIRDRE OWEN OT Apr 25, 2022 11:32
[2022-04-25] MEDS: oxyCODONE/APAP 5/325MG (PERCOCET 5) TABLET PO PRN (13:38)
[2022-04-25] MEDS: DICLOFENAC 1% GEL 100 GM (VOLTAREN) TUBE TOP SCH ×4 (13:44→20:42)
--- NOTE | 2022-04-25 14:38 | Physical Therapy Daily Note ---
PT Daily Note-Current Subjective Pt. sleeping upon arrival. Pt. half heartedly agrees to therex right hip in bed. Pt. c/o pain in right hip zackery with movement at 10. Pt. states " I just cant get off that hip, I keep trying " After repositioning pt. on right side with 3 pillows between her knees/legs pt. states she has gained significant relief with with position. Pain Numeric Pain Scale: 7 Location: Left Location Body Site: Hip Pain Description: Ache Section J - Health Conditions 1. Rarely or not at all 2. Occasionally 3. Frequently 4. Almost constantly 8. Unable to answer Pain Effect on Sleep: 2 Pain Interference with Therapy: 4 Pain Interference w/Day-to-Day: 4 Appearance whincing and furrowed brow, keeps eyes closed , appears in pain Mental Status Patient Orientation: Normal For Age Transfers SCALE: Activities may be completed with or without assistive devices. 4-Qahzqdqqlp-dbrulja completes the activity by him/herself with no assistance from a helper. 5-Set-up or Clean-up Assistance-helper sets up or cleans up; patient completes activity. [place] assists only prior to or following the activity. 4-Supervision or Touching Assistance-helper provides verbal cues and/or touching/steadying and/or contact guard assistance as patient completes activity. Assistance may be provided throughout the activity or intermittently. 3-Partial/Moderate Assistance-helper does LESS THAN HALF the effort. [place] lifts, holds or supports trunk or limbs, but provides less than half the effort. 2-Substantial/Maximal Assistance-helper does MORE THAN HALF the effort. [place] lifts or holds trunk or limbs and provides more than half the effort. 3-Jbjgliiyy-qgsebn does ALL the effort. Patient does none of the effort to co mplete the activity. Or, the assistance of 2 or more helpers is required for the patient to complete the activity. If activity was not attempted, code reason: 7-Patient Refused. 9-Not Applicable-not attempted and the patient did not perform the activity before the current illness, exacerbation or injury. 10-Not Attempted due to Environmental Limitations-(lack of equipment, weather restraints, etc.). 88-Not Attempted due to Medical Conditions or Safety Concerns. Roll Left & Right (QC): 2 2 max ro sccot to left side of bed and to roll to right side to position with pillows between LEs Weight Bearing Right Lower Extremity: Right Full Weight Bearing Left Lower Extremity: Left Weight Bearing/Tolerated Exercises Supine Ex: Ankle pumps, Quad Set, Rolling, Heel Slides, Hip abd/add Supine Reps: 12 Treatments left hip ex A/AA/PROM, positioning for pain reduction Assessment Current Status: Fair Progress continues limited by pain in left hip PT Shank Pinner Goals Shank Pinner Goals PT Snf Goals Time Frame: May 31, 2022 Roll Left & Right (QC): 6 Sit to Lying (QC): 6 Lying-Sitting on Side/Bed(QC): 6 Sit to Stand (QC): 6 Chair/Bak-xm-Tutgx Xfer(QC): 6 Toilet Transfer (QC): 6 Car Transfer (QC): 6 Does the Patient Walk: Yes Walk 10 feet (QC): 6 Walk 50ft with 2 Turns (QC): 4 Walk 150 ft (QC): 4 Walking 10ft on Uneven Surface: 6 1 Step (curb) (QC): 4 4 Steps (QC): 4 12 Steps (QC): 4 Picking up an Object (QC): 6 Does the Pt use WC or Scooter?: Yes Wheel 50 feet with 2 turns (QC: 6 Type: Manual Wheel 150 feet: 6 Type: Manual PT Plan Treatment/Plan Treatment Plan: Continue Plan of Care Treatment Plan: Bed Mobility, Education, Functional Activity Emma, Functional Strength, Group Therapy, Gait, Safety, Therapeutic Exercise, Transfers Treatment Duration: Jun 01, 2022 Frequency: 5 times per week Estimated Hrs Per Day: 1.5 hours per day Patient and/or Family Agrees t: Yes Safety Risks/Education Patient Education: Correct Positioning Teaching Recipient: Patient Response to Teaching: Reinforcement Needed Time/GCodes Time In: 1410 Time Out: 1440 Total Billed Treatment Time: 30 Total Billed Treatment 1,ex10m,FA20m NIKOLAS IBARRA FILBERT GROWER Apr 25, 2022 14:38
[2022-04-25 20:00] VITALS: BP 125/62
[2022-04-25] MEDS: LIDOCAINE PATCH REMOVAL TP SCH (20:33)
--- NOTE | 2022-04-26 06:17 | PM&R Progress Note ---
Subjective HPI/CC On Admission Date Seen by Provider: Apr 26, 2022 Time Seen by Provider: 12:30 Subjective/Events-last exam 04/26/2022: Patient doing pretty well Complaining of left knee pain at times Very slow recovery Voiding some small blood clots but no retention noted 04/25/2022: Patient doing pretty well Slow moving which is baseline Complaining of left knee pain so will initiate diclofenac gel Voiding well 04/24/2022: Doing well Voiding well since catheter removed Bladder meds maintained 04/23/2022: Patient doing well No pain is reported Discontinue catheter today If retention occurs we will consult urology 04/22/2022: Patient doing well Flat affect continues Bladder training will be performed at family request DC catheter soon BP stable 04/21/2022: Improved status just slow Eating well No BM today Monitoring BP 04/20/2022: Doing well Bowels moved after SSE No pain issues when she isn't moving No falls 04/19/2022: No major issues Talking on phone during exam No BM yet so ordered SSE if no production after supp Pain controlled BP stable Silverman cath in place Review of Systems General: Fatigue, Malaise Musculoskeletal: leg pain Objective Exam Vital Signs Vital Signs Date Time Temp Pulse Resp B/P (MAP) Pulse Ox O2 Delivery O2 Flow Rate FiO2 04/26/22 20:48 Room Air 04/26/22 20:16 36.5 78 20 129/66 (87) 100 Capillary Refill : General Appearance: No Apparent Distress, WD/WN, Chronically ill HEENT: PERRL/EOMI, Normal ENT Inspection, Pharynx Normal Neck: Full Range of Motion, Normal Inspection, Non Tender, Supple, Carotid Bruit Respiratory: Chest Non Tender, Lungs Clear, Normal Breath Sounds, No Accessory Muscle Use, No Respiratory Distress Cardiovascular: Regular Rate, Rhythm, No Edema, No Gallop, No JVD, No Murmur, Normal Peripheral Pulses Gastrointestinal: Normal Bowel Sounds, No Organomegaly, No Pulsatile Mass, Non Tender, Soft Back: Normal Inspection, No CVA Tenderness, No Vertebral Tenderness Extremity: Normal Capillary Refill, Normal Inspection, Normal Range of Motion (except left leg), Non Tender, No Calf Tenderness, No Pedal Edema Neurologic/Psychiatric: Alert, Oriented x3, Normal Mood/Affect, construction scheduler II-XII Norm as Tested, Abnormal Gait, Motor Weakness (bilateral legs) Skin: Normal Color, Warm/Dry Lymphatic: No Adenopathy Results/Procedures Lab Patient resulted labs reviewed. FIM Transfers Therapy Code Descriptions/Definitions Functional [place] Measure: 0=Not Assessed/NA 4=Minimal Assistance 1=Total Assistance 5=Supervision or Setup 2=Maximal Assistance 6=Modified [place] 3=Moderate Assistance 7=Complete IndependenceSCALE: Activities may be completed with or without assistive devices. 1-Ngwsxxygad-gkgvngs completes the activity by him/herself with no assistance from a helper. 5-Set-up or Clean-up Assistance-helper sets up or cleans up; patient completes activity. [place] assists only prior to or following the activity. 4-Supervision or Touching Assistance-helper provides verbal cues and/or touching/steadying and/or contact guard assistance as patient completes activity. Assistance may be provided throughout the activity or intermittently. 3-Partial/Moderate Assistance-helper does LESS THAN HALF the effort. [place] lifts, holds or supports trunk or limbs, but provides less than half the effort. 2-Substantial/Maximal Assistance-helper does MORE THAN HALF the effort. [place] lifts or holds trunk or limbs and provides more than half the effort. 7-Hbrhosbex-lmcjes does ALL the effort. Patient does none of the effort to complete the activity. Or, the assistance of 2 or more helpers is required for the patient to complete the activity. If activity was not attempted, code reason: 7-Patient Refused. 9-Not Applicable-not attempted and the patient did not perform the activity before the current illness, exacerbation or injury. 10-Not Attempted due to Environmental Limitations-(lack of equipment, weather restraints, etc.). 88-Not Attempted due to Medical Conditions or Safety Concerns. Roll Left to Right (QC): 2 Sit to Lying (QC): 3 Sit to Stand (QC): 4 Chair/Xxf-pg-Chqrq Xfer(QC): 4 Car Transfer (QC): 3 Gait Training Does the Patient Walk?: Yes Distance: 10' Walk 10 feet (QC): 4 Walk 50 ft with 2 Turns(QC): 4 Walk 150 ft (QC): 4 Walking 10ft/uneven surface-QC: 88 Gait Persons Needed: 1 (and w/c f/u) Gait Assistive Device: FWW Wheelchair Training Does the Pt Use a Wheelchair?: Yes Distance: 50 feet Wheel 50 ft with 2 turns (QC): 5 Wheel 150 ft (QC): 3 Type of Wheelchair: Manual Stair Training Stair Training: Handrails/: uses walker #of Steps: 1 1 Step (curb) (QC): 3 4 Steps (QC): 9 12 Steps (QC): 9 Stairs: Pattern: Step to Balance Picking up an Object (QC): 88 ADL-Treatment Eating (QC): 6 Oral Hygiene (QC): 6 Shower/Bathe Self (QC): 4 (SBA, min VCs to maintain hip precautions.) Upper Body Dressing (QC): 4 (SBA, 1 VC to pull shirt down in back.) Lower Body Dressing (QC): 3 (Min A with AE for threading LEs. Mod VCs required with donning to use AE and maintain hip precautions.) On/Off Footwear (QC): 3 (Pt able to doff using AE, min A with donning) Toileting Hygiene (QC): 3 (Min A with managing pants down. Pt able to complete hygiene and pant hike with VCs.) Toilet Transfer (QC): 4 (SBA-CGA on/off BSC over toilet. ) Assessment/Plan Assessment and Plan Assess & Plan/Chief Complaint Assessment: s/p uncomplicated left hip arthroplasty revision by Dr Fernandez due to pain from hardware placed during hip fracture repair 10 years ago HTN labile status Urinary retention requiring Silverman cath now DC and voiding well Fall risk Left knee pain Plan: Monitor pain Urinary retention management Fall risk Aggressive PT OT 04/19/2022: Maintain silverman Pain control BM regimen 04/20/2022: Monitor closely BM regimen 04/21/2022: Monitor closely Fall risk 04/22/2022: Monitor closely DC cath soon 04/23/2022: Discontinue catheter Monitor closely 04/24/2022: Voiding well since DC catheter 04/25/2022: Diclofenac gel left knee 04/26/2022: Monitor blood clots in urine (1) S/P total left hip arthroplasty NATIVIDAD MENJIVAR DO Apr 26, 2022 06:17
[2022-04-26] MEDS: BETHANECHOL 25 MG (URECHOLINE) TAB PO SCH ×3 (06:35→17:57)
[2022-04-26] MEDS: CATHETER FLUSH 10 ML SYR IVP SCH ×3 (06:44→20:39)
[2022-04-26 07:27] VITALS: BP 159/71
[2022-04-26] MEDS: SPIRONOLACTONE 25 MG (ALDACTONE) TAB PO SCH (08:55)
[2022-04-26] MEDS: VITAMIN D3 25 MCG (1,000 UNITS) TABLET PO SCH (09:27)
[2022-04-26] MEDS: IRON SUCROSE 200 MG/10 ML (VENOFER) VIAL IV SCH (09:27)
[2022-04-26] MEDS: TAMSULOSIN 0.4 MG (FLOMAX) CAP PO SCH ×2 (09:27→20:38)
[2022-04-26] MEDS: lisINopril 20 MG (PRINIVIL) TABLET PO SCH (09:28)
[2022-04-26] MEDS: ASPIRIN E.C. 81 MG (ECOTRIN) TAB PO SCH (09:28)
[2022-04-26] MEDS: MELOXICAM 7.5 MG (MOBIC) TABLET PO SCH (09:28)
[2022-04-26] MEDS: LIDOCAINE 4% (SALONPAS) PATCH TOP SCH (09:29)
[2022-04-26] MEDS: polyethylene glycoL POWDER 17 GM (MIRALAX) PACK PO SCH ×2 (09:46→19:50)
[2022-04-26] MEDS: SENNA W/DOCUSATE (SENOKOT S) TABLET PO SCH ×2 (09:46→19:50)
[2022-04-26] MEDS: DOCUSATE SODIUM 100 MG (COLACE) CAP PO SCH ×3 (09:46→20:39)
[2022-04-26] MEDS: PANTOPRAZOLE 40 MG (PROTONIX) TAB PO SCH ×2 (09:47→12:14)
--- NOTE | 2022-04-26 10:00 | Occupational Ther Daily Note ---
OT Current Status-Daily Note Subjective Pt up in recliner, son present. Pt agreeable to OT Tx. ADL-Treatment Therapy Code Descriptions/Definitions Functional [place] Measure: 0=Not Assessed/NA 4=Minimal Assistance 1=Total Assistance 5=Supervision or Setup 2=Maximal Assistance 6=Modified [place] 3=Moderate Assistance 7=Complete IndependenceSCALE: Activities may be completed with or without assistive devices. 3-Ruoxsaipuc-klwcrnz completes the activity by him/herself with no assistance from a helper. 5-Set-up or Clean-up Assistance-helper sets up or cleans up; patient completes activity. [place] assists only prior to or following the activity. 4-Supervision or Touching Assistance-helper provides verbal cues and/or touching/steadying and/or contact guard assistance as patient completes activity. Assistance may be provided throughout the activity or intermittently. 3-Partial/Moderate Assistance-helper does LESS THAN HALF the effort. [place] lifts, holds or supports trunk or limbs, but provides less than half the effort. 2-Substantial/Maximal Assistance-helper does MORE THAN HALF the effort. [place] lifts or holds trunk or limbs and provides more than half the effort. 7-Siysnvdca-mjkubp does ALL the effort. Patient does none of the effort to complete the activity. Or, the assistance of 2 or more helpers is required for the patient to complete the activity. If activity was not attempted, code reason: 7-Patient Refused. 9-Not Applicable-not attempted and the patient did not perform the activity before the current illness, exacerbation or injury. 10-Not Attempted due to Environmental Limitations-(lack of equipment, weather restraints, etc.). 88-Not Attempted due to Medical Conditions or Safety Concerns. Toileting Hygiene (QC): 3 (Pt able to manage hygiene and majority of clothing management. Min A with pants.) Toilet Transfer (QC): 4 (CGA-SBA on/off BSC over toilet.) Other Treatment Pt in recliner, used FWW to transfer into bathroom and onto BSC over toilet, CGA-SBA. Pt completed toileting, then transferred to w/c. Pt declined ADLs on this date. Pt propelled w/c to therapy gym. OT Tx focused on increasing BUE strength and activity tolerance, and fine motor strength/coordination. Pt completed x12 mins on arm bike, 20 Watt resistance, 3 rest breaks. Pt then removed beads from moderate-heavy resistance theraputty (green), she was able to locate all beads with 1 VC. Pt completed 2x15 reps of the following dowel exercises, 2lb weight: shoulder flexion, front punch and bicep curl. Pt propelled w/c around [facility] common area/2nd floor, then back to her room. Pt used FWW to transfer from w/c to recliner, CGA with very slow pace. Post tx, pt in recliner, call light in reach and all needs met. son present. Education OT Patient Education: Correct positioning, Energy conservation, Modified ADL techniques, Progress toward Goal/Update tx plan, Purpose of tx/functional activities, Rehab process Teaching Recipient: Patient Teaching Methods: Discussion Response to Teaching: Verbalize Understanding OT Short Term Goals Short Term Goals Time Frame: May 01, 2022 Toileting hygiene: 3 Lower body dressin Putting on/taking off footwear: 3 OT Senior Internal Auditor Goals Half-Way Goals Time Frame: May 10, 2022 Acute change in mental status: 0 Inattention: 0 Disorganized thinkin Altered level of consciousness: 0 Eating (QC): 6 Oral Hygiene (QC): 6 Toileting Hygiene (QC): 6 Shower/Bathe Self (QC): 5 Upper Body Dressing (QC): 5 Lower Body Dressing (QC): 5 On/Off Footwear (QC): 5 Additional Goals: 1-Demonstrate ADL Tasks, 2-Verbalize Understanding, 3- ImproveStrength/Emma 1=Demonstrate adherence to instructed precautions during ADL tasks. 2=Patient will verbalize/demonstrate understanding of assistive devices/modifications for ADL. 3=Patient will improve strength/tolerance for activity to enable patient to perform ADL's. OT Education/Plan Problem List/Assessment Assessment: Decreased Activ Tolerance, Decreased UE Strength, Impaired Funct Balance, Impaired I ADL's, Impaired Self-Care Skills Discharge Recommendations Plan/Recommendations: Continue POC Treatment Plan/Plan of Care Patient would benefit from OT for education, treatment and training to promote independence in ADL's, mobility, safety and/or upper extremity function for ADL's. Plan of Care: ADL Retraining, Functional Mobility, Group Exercise/Act as Ind, UE Funct Exercise/Act Treatment Duration: May 10, 2022 Frequency: At least 5 of 7 days/Wk (IRF) Estimated Hrs Per Day: 1.5 hours per day Agreement: Yes Rehab Potential: Good Time/GCodes Start Time: 09:15 Stop Time: 10:45 Total Time Billed (hr/min): 90 Billed Treatment Time 1, ADL (15'), FA 2 (30'), EX 3 (45') DEIRDRE OWEN OT Apr 26, 2022 10:00
--- NOTE | 2022-04-26 12:10 | Physical Therapy Daily Note ---
PT Daily Note-Current Subjective Pt. agrees to Rx, feeling better today, son present again and states he feels she and he should share that the patient does not sleep in the bed at home , she sleeps in the lift recline chair 90% of time. Pt. denies any pain this date. Pain Location: No Pain Reported Section J - Health Conditions 1. Rarely or not at all 2. Occasionally 3. Frequently 4. Almost constantly 8. Unable to answer Pain Effect on Sleep: 2 Pain Interference with Therapy: 1 Pain Interference w/Day-to-Day: 2 Mental Status Patient Orientation: Normal For Age Attachments: Other-See Comments (savanna wrap to left knee) Transfers SCALE: Activities may be completed with or without assistive devices. 5-Nvjjyhdbdu-yxblbol completes the activity by him/herself with no assistance from a helper. 5-Set-up or Clean-up Assistance-helper sets up or cleans up; patient completes activity. [place] assists only prior to or following the activity. 4-Supervision or Touching Assistance-helper provides verbal cues and/or touching/steadying and/or contact guard assistance as patient completes activity. Assistance may be provided throughout the activity or intermittently. 3-Partial/Moderate Assistance-helper does LESS THAN HALF the effort. [place] lifts, holds or supports trunk or limbs, but provides less than half the effort. 2-Substantial/Maximal Assistance-helper does MORE THAN HALF the effort. [place] lifts or holds trunk or limbs and provides more than half the effort. 9-Ugcqmseny-giuxnm does ALL the effort. Patient does none of the effort to complete the activity. Or, the assistance of 2 or more helpers is required for the patient to complete the activity. If activity was not attempted, code reason: 7-Patient Refused. 9-Not Applicable-not attempted and the patient did not perform the activity before the current illness, exacerbation or injury. 10-Not Attempted due to Environmental Limitations-(lack of equipment, weather restraints, etc.). 88-Not Attempted due to Medical Conditions or Safety Concerns. Sit to Stand (QC): 6 Chair/Ggw-cx-Dnjjf Xfer(QC): 6 Toilet Transfer (QC): 6 Car Transfer (QC): 4 pt. needed assist to get left LE in car as space was limited and pts left hip and left knee both restrict her flexibility Weight Bearing Right Lower Extremity: Right Full Weight Bearing Left Lower Extremity: Left Weight Bearing/Tolerated Gait Training Walk 10 feet (QC): 4 Walk 50 ft with 2 Turns(QC): 4 Walk 150 ft (QC): 4 Gait Persons Needed: 1 Gait Assistive Device: FWW slow but much better velocity than yesterday. good pattern, needs SBA only, 165 ft x 1, 75 ft x 2 Exercises Seated Therapy Exercises: Ankle pumps, Sit to stand, Long arc quads, Hip flexion (right only), Hip abd/add Seated Reps: 15 Treatments TRFs sit to stand and car, gait FWW, LE seated ex Assessment Current Status: Good Progress marked progress, greatly decreased pain , greatly increased funct mob for gait and distance, SBA for TRFs toilet and chair PT Destination Coordinator Goals Destination Coordinator Goals PT Destination Coordinator Goals Time Frame: May 31, 2022 Roll Left & Right (QC): 6 Sit to Lying (QC): 6 Lying-Sitting on Side/Bed(QC): 6 Sit to Stand (QC): 6 Chair/Cdp-hk-Ecmvy Xfer(QC): 6 Toilet Transfer (QC): 6 Car Transfer (QC): 6 Does the Patient Walk: Yes Walk 10 feet (QC): 6 Walk 50ft with 2 Turns (QC): 4 Walk 150 ft (QC): 4 Walking 10ft on Uneven Surface: 6 1 Step (curb) (QC): 4 4 Steps (QC): 4 12 Steps (QC): 4 Picking up an Object (QC): 6 Does the Pt use WC or Scooter?: Yes Wheel 50 feet with 2 turns (QC: 6 Type: Manual Wheel 150 feet: 6 Type: Manual PT Plan Treatment/Plan Treatment Plan: Continue Plan of Care Treatment Plan: Bed Mobility, Education, Functional Activity Emma, Functional Strength, Group Therapy, Gait, Safety, Therapeutic Exercise, Transfers Treatment Duration: Jun 01, 2022 Frequency: 5 times per week Estimated Hrs Per Day: 1.5 hours per day Patient and/or Family Agrees t: Yes Safety Risks/Education Patient Education: Gait Training, Transfer Techniques, Reviewed Precautions, Correct Positioning, Disease Process, Safety Issues Teaching Recipient: Patient Teaching Methods: Demonstration, Discussion Response to Teaching: Verbalize Understanding, Return Demonstration, Reinforcement Needed Time/GCodes Time In: 1100 Time Out: 1200 Total Billed Treatment Time: 60 Total Billed Treatment 1,GT25m,FA15m,EX20m NIKOLAS IBARRA CATERING TRUCK OPERATOR Apr 26, 2022 12:10
[2022-04-26] MEDS: ACETAMINOPHEN ER 650 MG (TYLENOL ARTHRITIS) PO PRN (12:14)
--- NOTE | 2022-04-26 13:49 | Physical Therapy Daily Note ---
PT Daily Note-Current Subjective Agrees to Rx, denies any pain. Son and grandson present and want to take pt outside after rx. Pain Location: No Pain Reported Section J - Health Conditions 1. Rarely or not at all 2. Occasionally 3. Frequently 4. Almost constantly 8. Unable to answer Pain Effect on Sleep: 2 Pain Interference with Therapy: 1 Pain Interference w/Day-to-Day: 2 Appearance pt. urinated into hat at toilet with blood tinged urine and minute clots noted, nursing notified Mental Status Patient Orientation: Normal For Age Attachments: Other-See Comments (savanna wrap left knee) Transfers SCALE: Activities may be completed with or without assistive devices. 4-Jojlvghqkh-oshebfe completes the activity by him/herself with no assistance from a helper. 5-Set-up or Clean-up Assistance-helper sets up or cleans up; patient completes activity. [place] assists only prior to or following the activity. 4-Supervision or Touching Assistance-helper provides verbal cues and/or touching/steadying and/or contact guard assistance as patient completes activity. Assistance may be provided throughout the activity or intermittently. 3-Partial/Moderate Assistance-helper does LESS THAN HALF the effort. [place] lifts, holds or supports trunk or limbs, but provides less than half the effort. 2-Substantial/Maximal Assistance-helper does MORE THAN HALF the effort. [place] lifts or holds trunk or limbs and provides more than half the effort. 4-Ghxaewtnu-omsinb does ALL the effort. Patient does none of the effort to complete the activity. Or, the assistance of 2 or more helpers is required for the patient to complete the activity. If activity was not attempted, code reason: 7-Patient Refused. 9-Not Applicable-not attempted and the patient did not perform the activity bef ore the current illness, exacerbation or injury. 10-Not Attempted due to Environmental Limitations-(lack of equipment, weather r estraints, etc.). 88-Not Attempted due to Medical Conditions or Safety Concerns. Sit to Stand (QC): 6 Chair/Nhf-rq-Jfgow Xfer(QC): 6 Toilet Transfer (QC): 6 Weight Bearing Right Lower Extremity: Right Full Weight Bearing Left Lower Extremity: Left Weight Bearing/Tolerated Gait Training Does the Patient Walk?: Yes Walk 10 feet (QC): 6 Walk 50 ft with 2 Turns(QC): 6 Walk 150 ft (QC): 6 Gait Persons Needed: 1 Gait Assistive Device: FWW SBA only, no LOB, good safe habits noted, pt. ambulated from her room to the elevators approx 160 ft with son behind her with w/c. pt. to go outside after Rx, pt and son assisted onto elevator with pt in w/c Exercises Seated Therapy Exercises: Ankle pumps, Sit to stand, Long arc quads Seated Reps: 10 Treatments during toileting pt. had dropped 2 folded envelopes of what appeared to be money on the floor that had been in a pocket in her slacks, pt. was in process of using her lead maintenance technician to retrieve them when this CARGO MATE entered [facility], Pt. was assisted with this, pt. was instructed as well in safety to prevent bending over during toileting , pt instructed to pull briefs and elastic top slacks up as high as possible before standing to attempt to prevent them from falling to floor bc then she would not be able to reach down to pick them up. pt. followed all direction well and indicated she understood why. TRFs, toileting, gait, LE ex Assessment Current Status: Good Progress progress conts , decreased pain c/o, increased indep and function PT Usp Goals Usp Goals PT Solder Technician Goals Time Frame: May 31, 2022 Roll Left & Right (QC): 6 Sit to Lying (QC): 6 Lying-Sitting on Side/Bed(QC): 6 Sit to Stand (QC): 6 Chair/Hay-el-Lmkcy Xfer(QC): 6 Toilet Transfer (QC): 6 Car Transfer (QC): 6 Does the Patient Walk: Yes Walk 10 feet (QC): 6 Walk 50ft with 2 Turns (QC): 4 Walk 150 ft (QC): 4 Walking 10ft on Uneven Surface: 6 1 Step (curb) (QC): 4 4 Steps (QC): 4 12 Steps (QC): 4 Picking up an Object (QC): 6 Does the Pt use WC or Scooter?: Yes Wheel 50 feet with 2 turns (QC: 6 Type: Manual Wheel 150 feet: 6 Type: Manual PT Plan Treatment/Plan Treatment Plan: Continue Plan of Care Treatment Plan: Bed Mobility, Education, Functional Activity Emma, Functional Strength, Group Therapy, Gait, Safety, Therapeutic Exercise, Transfers Treatment Duration: Jun 01, 2022 Frequency: 5 times per week Estimated Hrs Per Day: 1.5 hours per day Patient and/or Family Agrees t: Yes Safety Risks/Education Patient Education: Gait Training, Transfer Techniques, Reviewed Precautions, Correct Positioning, Disease Process, Safety Issues Teaching Recipient: Patient Teaching Methods: Demonstration, Discussion Response to Teaching: Verbalize Understanding, Return Demonstration, Reinforcement Needed Time/GCodes Time In: 1320 Time Out: 1350 Total Billed Treatment Time: 30 Total Billed Treatment 1,FA13m,GT17m NIKOLAS IBARRA CARGO MATE Apr 26, 2022 13:49
[2022-04-26] MEDS: DICLOFENAC 1% GEL 100 GM (VOLTAREN) TUBE TOP SCH ×3 (14:00→19:51)
[2022-04-26 20:16] VITALS: BP 129/66
[2022-04-26] MEDS: LIDOCAINE PATCH REMOVAL TP SCH (20:46)
[2022-04-27] MEDS: CATHETER FLUSH 10 ML SYR IVP SCH ×3 (05:43→21:08)
[2022-04-27] MEDS: BETHANECHOL 25 MG (URECHOLINE) TAB PO SCH ×3 (05:43→17:11)
--- NOTE | 2022-04-27 05:52 | PM&R Progress Note ---
Subjective HPI/CC On Admission Date Seen by Provider: Apr 27, 2022 Time Seen by Provider: 12:30 Subjective/Events-last exam 04/27/2022: Patient doing well Wants to go home on Friday Pain is pretty well controlled Urinating well 04/26/2022: Patient doing pretty well Complaining of left knee pain at times Very slow recovery Voiding some small blood clots but no retention noted 04/25/2022: Patient doing pretty well Slow moving which is baseline Complaining of left knee pain so will initiate diclofenac gel Voiding well 04/24/2022: Doing well Voiding well since catheter removed Bladder meds maintained 04/23/2022: Patient doing well No pain is reported Discontinue catheter today If retention occurs we will consult urology 04/22/2022: Patient doing well Flat affect continues Bladder training will be performed at family request DC catheter soon BP stable 04/21/2022: Improved status just slow Eating well No BM today Monitoring BP 04/20/2022: Doing well Bowels moved after SSE No pain issues when she isn't moving No falls 04/19/2022: No major issues Talking on phone during exam No BM yet so ordered SSE if no production after supp Pain controlled BP stable Silverman cath in place Review of Systems General: Fatigue, Malaise Objective Exam Vital Signs Vital Signs Date Time Temp Pulse Resp B/P (MAP) Pulse Ox O2 Delivery O2 Flow Rate FiO2 04/27/22 20:02 37.1 68 16 129/72 (91) 99 Room Air Capillary Refill : General Appearance: No Apparent Distress, WD/WN, Chronically ill HEENT: PERRL/EOMI, Normal ENT Inspection, Pharynx Normal Neck: Full Range of Motion, Normal Inspection, Non Tender, Supple, Carotid Bruit Respiratory: Chest Non Tender, Lungs Clear, Normal Breath Sounds, No Accessory Muscle Use, No Respiratory Distress Cardiovascular: Regular Rate, Rhythm, No Edema, No Gallop, No JVD, No Murmur, Normal Peripheral Pulses Gastrointestinal: Normal Bowel Sounds, No Organomegaly, No Pulsatile Mass, Non Tender, Soft Back: Normal Inspection, No CVA Tenderness, No Vertebral Tenderness Extremity: Normal Capillary Refill, Normal Inspection, Normal Range of Motion (except left leg), Non Tender, No Calf Tenderness, No Pedal Edema Neurologic/Psychiatric: Alert, Oriented x3, Normal Mood/Affect, personnel monitor II-XII Norm as Tested, Abnormal Gait, Motor Weakness (bilateral legs) Skin: Normal Color, Warm/Dry Lymphatic: No Adenopathy Results/Procedures Lab Patient resulted labs reviewed. FIM Transfers Therapy Code Descriptions/Definitions Functional [place] Measure: 0=Not Assessed/NA 4=Minimal Assistance 1=Total Assistance 5=Supervision or Setup 2=Maximal Assistance 6=Modified [place] 3=Moderate Assistance 7=Complete IndependenceSCALE: Activities may be completed with or without assistive devices. 0-Xiqufsngvg-gjjamwy completes the activity by him/herself with no assistance from a helper. 5-Set-up or Clean-up Assistance-helper sets up or cleans up; patient completes activity. [place] assists only prior to or following the activity. 4-Supervision or Touching Assistance-helper provides verbal cues and/or touching/steadying and/or contact guard assistance as patient completes activity . Assistance may be provided throughout the activity or intermittently. 3-Partial/Moderate Assistance-helper does LESS THAN HALF the effort. [place] lifts, holds or supports trunk or limbs, but provides less than half the effort. 2-Substantial/Maximal Assistance-helper does MORE THAN HALF the effort. [place] lifts or holds trunk or limbs and provides more than half the effort. 9-Apejcrmdx-ymuhlg does ALL the effort. Patient does none of the effort to complete the activity. Or, the assistance of 2 or more helpers is required for the patient to complete the activity. If activity was not attempted, code reason: 7-Patient Refused. 9-Not Applicable-not attempted and the patient did not perform the activity before the current illness, exacerbation or injury. 10-Not Attempted due to Environmental Limitations-(lack of equipment, weather restraints, etc.). 88-Not Attempted due to Medical Conditions or Safety Concerns. Roll Left to Right (QC): 2 Sit to Lying (QC): 3 Sit to Stand (QC): 6 Chair/Rwq-zr-Olyik Xfer(QC): 6 Car Transfer (QC): 4 Gait Training Does the Patient Walk?: Yes Distance: 10' Walk 10 feet (QC): 6 Walk 50 ft with 2 Turns(QC): 6 Walk 150 ft (QC): 6 Walking 10ft/uneven surface-QC: 88 Gait Persons Needed: 1 Gait Assistive Device: FWW Wheelchair Training Does the Pt Use a Wheelchair?: Yes Distance: 50 feet Wheel 50 ft with 2 turns (QC): 5 Wheel 150 ft (QC): 3 Type of Wheelchair: Manual Stair Training Stair Training: Handrails/: uses walker #of Steps: 1 1 Step (curb) (QC): 3 4 Steps (QC): 9 12 Steps (QC): 9 Stairs: Pattern: Step to Balance Picking up an Object (QC): 88 ADL-Treatment Eating (QC): 6 Oral Hygiene (QC): 6 Shower/Bathe Self (QC): 4 (SBA, min VCs to maintain hip precautions.) Upper Body Dressing (QC): 4 (SBA, 1 VC to pull shirt down in back.) Lower Body Dressing (QC): 3 (Min A with AE for threading LEs. Mod VCs required with donning to use AE and maintain hip precautions.) On/Off Footwear (QC): 3 (Pt able to doff using AE, min A with donning) Toileting Hygiene (QC): 3 (Pt able to manage hygiene and majority of clothing management. Min A with pants.) Toilet Transfer (QC): 4 (CGA-SBA on/off BSC over toilet.) Assessment/Plan Assessment and Plan Assess & Plan/Chief Complaint Assessment: s/p uncomplicated left hip arthroplasty revision by Dr Fernandez due to pain from hardware placed during hip fracture repair 10 years ago HTN labile status Urinary retention requiring Silverman cath now DC and voiding well Fall risk Left knee pain Plan: Monitor pain Urinary retention management Fall risk Aggressive PT OT 04/19/2022: Maintain silverman Pain control BM regimen 04/20/2022: Monitor closely BM regimen 04/21/2022: Monitor closely Fall risk 04/22/2022: Monitor closely DC cath soon 04/23/2022: Discontinue catheter Monitor closely 04/24/2022: Voiding well since DC catheter 04/25/2022: Diclofenac gel left knee 04/26/2022: Monitor blood clots in urine 04/27/2022: Pain control (1) S/P total left hip arthroplasty NATIVIDAD MENJIVAR DO Apr 27, 2022 05:52
[2022-04-27 07:30] VITALS: BP 146/71
[2022-04-27] MEDS: DOCUSATE SODIUM 100 MG (COLACE) CAP PO SCH ×2 (09:32→21:23)
[2022-04-27] MEDS: TAMSULOSIN 0.4 MG (FLOMAX) CAP PO SCH ×2 (09:32→21:08)
[2022-04-27] MEDS: ASPIRIN E.C. 81 MG (ECOTRIN) TAB PO SCH (09:33)
[2022-04-27] MEDS: lisINopril 20 MG (PRINIVIL) TABLET PO SCH (09:33)
[2022-04-27] MEDS: MELOXICAM 7.5 MG (MOBIC) TABLET PO SCH (09:33)
[2022-04-27] MEDS: VITAMIN D3 25 MCG (1,000 UNITS) TABLET PO SCH (09:34)
[2022-04-27] MEDS: polyethylene glycoL POWDER 17 GM (MIRALAX) PACK PO SCH ×2 (09:34→21:23)
[2022-04-27] MEDS: SENNA W/DOCUSATE (SENOKOT S) TABLET PO SCH ×2 (09:34→21:24)
[2022-04-27] MEDS: DICLOFENAC 1% GEL 100 GM (VOLTAREN) TUBE TOP SCH ×4 (09:35→21:10)
[2022-04-27] MEDS: SPIRONOLACTONE 25 MG (ALDACTONE) TAB PO SCH (09:35)
[2022-04-27] MEDS: LIDOCAINE 4% (SALONPAS) PATCH TOP SCH (09:35)
[2022-04-27] MEDS: PANTOPRAZOLE 40 MG (PROTONIX) TAB PO SCH (10:52)
--- NOTE | 2022-04-27 10:53 | Physical Therapy Daily Note ---
PT Daily Note-Current Subjective Pt sitting in recliner upon arrival. Pt reluctantly agrees to PT. Pt reports tired. Pain Numeric Pain Scale: 4 Location: Left Location Body Site: Knee Pain Description: Ache, Tightness Section J - Health Conditions 1. Rarely or not at all 2. Occasionally 3. Frequently 4. Almost constantly 8. Unable to answer Pain Effect on Sleep: 2 Pain Interference with Therapy: 1 Pain Interference w/Day-to-Day: 2 Mental Status Patient Orientation: Person, Place, Time, Situation Transfers SCALE: Activities may be completed with or without assistive devices. 4-Fsqkmyjgen-barofvg completes the activity by him/herself with no assistance from a helper. 5-Set-up or Clean-up Assistance-helper sets up or cleans up; patient completes activity. [place] assists only prior to or following the activity. 4-Supervision or Touching Assistance-helper provides verbal cues and/or touching/steadying and/or contact guard assistance as patient completes activity. Assistance may be provided throughout the activity or intermittently. 3-Partial/Moderate Assistance-helper does LESS THAN HALF the effort. [place] lifts, holds or supports trunk or limbs, but provides less than half the effort. 2-Substantial/Maximal Assistance-helper does MORE THAN HALF the effort. [place] lifts or holds trunk or limbs and provides more than half the effort. 5-Egiidjzmo-bsnkro does ALL the effort. Patient does none of the effort to complete the activity. Or, the assistance of 2 or more helpers is required for the patient to complete the activity. If activity was not attempted, code reason: 7-Patient Refused. 9-Not Applicable-not attempted and the patient did not perform the activity before the current illness, exacerbation or injury. 10-Not Attempted due to Environmental Limitations-(lack of equipment, weather restraints, etc.). 88-Not Attempted due to Medical Conditions or Safety Concerns. Sit to Stand (QC): 5 Toilet Transfer (QC): 5 Weight Bearing Right Lower Extremity: Right Full Weight Bearing Left Lower Extremity: Left Weight Bearing/Tolerated Gait Training Does the Patient Walk?: Yes Distance: 10' x2 Walk 10 feet (QC): 5 Gait Persons Needed: 1 Gait Assistive Device: FWW Exercises Supine Ex: Ankle pumps, Quad Set, Glut sets Supine Reps: 10 Seated Therapy Exercises: Long arc quads, Hip flexion Seated Reps: 10 Treatments Pt completes Ex at recliner before TF to stand and amb. to BR. Pt returns to recliner sighting fatigue. Pt's son & grandson are present and all needs met, call light in hand. Assessment Current Status: Fair Progress Pt self limits at times due to fatigue and pain. PT Gut Sorter Goals Gut Sorter Goals PT [facility] Goals Time Frame: May 31, 2022 Roll Left & Right (QC): 6 Sit to Lying (QC): 6 Lying-Sitting on Side/Bed(QC): 6 Sit to Stand (QC): 6 Chair/Kxo-ao-Iipmw Xfer(QC): 6 Toilet Transfer (QC): 6 Car Transfer (QC): 6 Does the Patient Walk: Yes Walk 10 feet (QC): 6 Walk 50ft with 2 Turns (QC): 4 Walk 150 ft (QC): 4 Walking 10ft on Uneven Surface: 6 1 Step (curb) (QC): 4 4 Steps (QC): 4 12 Steps (QC): 4 Picking up an Object (QC): 6 Does the Pt use WC or Scooter?: Yes Wheel 50 feet with 2 turns (QC: 6 Type: Manual Wheel 150 feet: 6 Type: Manual PT Plan Problem List Problem List: Activity Tolerance Treatment/Plan Treatment Plan: Continue Plan of Care Treatment Plan: Bed Mobility, Education, Functional Activity Emma, Functional Strength, Group Therapy, Gait, Safety, Therapeutic Exercise, Transfers Treatment Duration: Jun 01, 2022 Frequency: 5 times per week Estimated Hrs Per Day: 1.5 hours per day Patient and/or Family Agrees t: Yes Safety Risks/Education Patient Education: Transfer Techniques, Correct Positioning Teaching Recipient: Patient Teaching Methods: Discussion Response to Teaching: Verbalize Understanding Time/GCodes Time In: 1015 Time Out: 1045 Total Billed Treatment Time: 30 Total Billed Treatment 1, EX (15m) & FA (15m) JUAN ANTONIO BROWN ALARM INSTALLER Apr 27, 2022 10:53
[2022-04-27 20:02] VITALS: BP 129/72
[2022-04-27] MEDS: ACETAMINOPHEN ER 650 MG (TYLENOL ARTHRITIS) PO PRN (21:07)
[2022-04-27] MEDS: LIDOCAINE PATCH REMOVAL TP SCH (21:10)
--- NOTE | 2022-04-28 05:40 | PM&R Progress Note ---
Subjective HPI/CC On Admission Date Seen by Provider: Apr 28, 2022 Time Seen by Provider: 13:00 Subjective/Events-last exam 04/28/2022: Patient doing well Hemoglobin 6.7 so we will transfuse 1 unit Updated patient and son 04/27/2022: Patient doing well Wants to go home on Friday Pain is pretty well controlled Urinating well 04/26/2022: Patient doing pretty well Complaining of left knee pain at times Very slow recovery Voiding some small blood clots but no retention noted 04/25/2022: Patient doing pretty well Slow moving which is baseline Complaining of left knee pain so will initiate diclofenac gel Voiding well 04/24/2022: Doing well Voiding well since catheter removed Bladder meds maintained 04/23/2022: Patient doing well No pain is reported Discontinue catheter today If retention occurs we will consult urology 04/22/2022: Patient doing well Flat affect continues Bladder training will be performed at family request DC catheter soon BP stable 04/21/2022: Improved status just slow Eating well No BM today Monitoring BP 04/20/2022: Doing well Bowels moved after SSE No pain issues when she isn't moving No falls 04/19/2022: No major issues Talking on phone during exam No BM yet so ordered SSE if no production after supp Pain controlled BP stable Silverman cath in place Review of Systems General: Fatigue, Malaise Musculoskeletal: leg pain Objective Exam Vital Signs Vital Signs Date Time Temp Pulse Resp B/P (MAP) Pulse Ox O2 Delivery O2 Flow Rate FiO2 04/28/22 14:15 36.6 66 16 166/79 100 Room Air Capillary Refill : General Appearance: No Apparent Distress, WD/WN, Chronically ill HEENT: PERRL/EOMI, Normal ENT Inspection, Pharynx Normal Neck: Full Range of Motion, Normal Inspection, Non Tender, Supple, Carotid Bruit Respiratory: Chest Non Tender, Lungs Clear, Normal Breath Sounds, No Accessory Muscle Use, No Respiratory Distress Cardiovascular: Regular Rate, Rhythm, No Edema, No Gallop, No JVD, No Murmur, Normal Peripheral Pulses Gastrointestinal: Normal Bowel Sounds, No Organomegaly, No Pulsatile Mass, Non Tender, Soft Back: Normal Inspection, No CVA Tenderness, No Vertebral Tenderness Extremity: Normal Capillary Refill, Normal Inspection, Normal Range of Motion ( except left leg), Non Tender, No Calf Tenderness, No Pedal Edema Neurologic/Psychiatric: Alert, Oriented x3, Normal Mood/Affect, telemetry nurse II-XII Norm as Tested, Abnormal Gait, Motor Weakness (bilateral legs) Skin: Normal Color, Warm/Dry Lymphatic: No Adenopathy Results/Procedures Lab Laboratory Tests 04/28/22 06:23 Patient resulted labs reviewed. FIM Transfers Therapy Code Descriptions/Definitions Functional [place] Measure: 0=Not Assessed/NA 4=Minimal Assistance 1=Total Assistance 5=Supervision or Setup 2=Maximal Assistance 6=Modified [place] 3=Moderate Assistance 7=Complete IndependenceSCALE: Activities may be completed with or without assistive devices. 0-Jcqlcoqwyo-elgcwea completes the activity by him/herself with no assistance from a helper. 5-Set-up or Clean-up Assistance-helper sets up or cleans up; patient completes activity. [place] assists only prior to or following the activity. 4-Supervision or Touching Assistance-helper provides verbal cues and/or touching/steadying and/or contact guard assistance as patient completes activ ity. Assistance may be provided throughout the activity or intermittently. 3-Partial/Moderate Assistance-helper does LESS THAN HALF the effort. [place] lifts, holds or supports trunk or limbs, but provides less than half the effort. 2-Substantial/Maximal Assistance-helper does MORE THAN HALF the effort. [place] lifts or holds trunk or limbs and provides more than half the effort. 3-Wfzomrazq-qtokdw does ALL the effort. Patient does none of the effort to complete the activity. Or, the assistance of 2 or more helpers is required for the patient to complete the activity. If activity was not attempted, code reason: 7-Patient Refused. 9-Not Applicable-not attempted and the patient did not perform the activity before the current illness, exacerbation or injury. 10-Not Attempted due to Environmental Limitations-(lack of equipment, weather restraints, etc.). 88-Not Attempted due to Medical Conditions or Safety Concerns. Roll Left to Right (QC): 2 Sit to Lying (QC): 3 Sit to Stand (QC): 5 Chair/Ysa-lv-Djkjl Xfer(QC): 6 Car Transfer (QC): 4 Gait Training Does the Patient Walk?: Yes Distance: 10' x2 Walk 10 feet (QC): 5 Walk 50 ft with 2 Turns(QC): 6 Walk 150 ft (QC): 6 Walking 10ft/uneven surface-QC: 88 Gait Persons Needed: 1 Gait Assistive Device: FWW Wheelchair Training Does the Pt Use a Wheelchair?: Yes Distance: 50 feet Wheel 50 ft with 2 turns (QC): 5 Wheel 150 ft (QC): 3 Type of Wheelchair: Manual Stair Training Stair Training: Handrails/: uses walker #of Steps: 1 1 Step (curb) (QC): 3 4 Steps (QC): 9 12 Steps (QC): 9 Stairs: Pattern: Step to Balance Picking up an Object (QC): 88 ADL-Treatment Eating (QC): 6 Oral Hygiene (QC): 6 Shower/Bathe Self (QC): 4 (SBA, min VCs to maintain hip precautions.) Upper Body Dressing (QC): 4 (SBA, 1 VC to pull shirt down in back.) Lower Body Dressing (QC): 3 (Min A with AE for threading LEs. Mod VCs required with donning to use AE and maintain hip precautions.) On/Off Footwear (QC): 3 (Pt able to doff using AE, min A with donning) Toileting Hygiene (QC): 3 (Pt able to manage hygiene and majority of clothing management. Min A with pants.) Toilet Transfer (QC): 4 (CGA-SBA on/off BSC over toilet.) Assessment/Plan Assessment and Plan Assess & Plan/Chief Complaint Assessment: s/p uncomplicated left hip arthroplasty revision by Dr Fernandez due to pain from hardware placed during hip fracture repair 10 years ago HTN labile status Urinary retention requiring Silverman cath now DC and voiding well Fall risk Left knee pain Anemia iron deficiency status post iron infusions Transfusion of 1 unit required 04/28/2022 Plan: Monitor pain Urinary retention management Fall risk Aggressive PT OT 04/19/2022: Maintain silverman Pain control BM regimen 04/20/2022: Monitor closely BM regimen 04/21/2022: Monitor closely Fall risk 04/22/2022: Monitor closely DC cath soon 04/23/2022: Discontinue catheter Monitor closely 04/24/2022: Voiding well since DC catheter 04/25/2022: Diclofenac gel left knee 04/26/2022: Monitor blood clots in urine 04/27/2022: Pain control 04/28/2022: Transfuse 1 unit of blood (1) S/P total left hip arthroplasty NATIVIDAD MENJIVAR DO Apr 28, 2022 05:39
[2022-04-28] MEDS: CATHETER FLUSH 10 ML SYR IVP SCH ×3 (06:26→20:07)
[2022-04-28] MEDS: BETHANECHOL 25 MG (URECHOLINE) TAB PO SCH ×3 (06:26→16:20)
[2022-04-28 06:39] LABS: BASOPHILS % (AUTO) 1 % (0-10); EOSINOPHILS % (AUTO) 22 % (0-10); HEMATOCRIT 23 % (35-52); LYMPHOCYTES # (AUTO) 1.2 10^3/uL (1.0-4.0); LYMPHOCYTES % (AUTO) 26 % (12-44); MEAN CORPUSCULAR HGB CONC 30 g/dL (32-36); MEAN CORPUSCULAR VOLUME 102 fL (80-99); MONOCYTES # (AUTO) 0.3 10^3/uL (0.0-1.0); MONOCYTES % (AUTO) 7 % (0-12); NEUTROPHILS % (AUTO) 43 % (42-75); PLATELET COUNT 281 10^3/uL (130-400); WHITE BLOOD COUNT 4.6 10^3/uL (4.3-11.0)
[2022-04-28 06:43] LABS: HEMOGLOBIN 6.8 g/dL (11.5-16.0); MEAN CORPUSCULAR HEMOGLOBIN 30 pg (25-34)
[2022-04-28 06:58] LABS: ALBUMIN 2.9 GM/DL (3.2-4.5); POTASSIUM 4.7 MMOL/L (3.6-5.0)
[2022-04-28 06:59] LABS: CALCIUM 8.6 MG/DL (8.5-10.1)
[2022-04-28 07:01] LABS: TOTAL PROTEIN 6.3 GM/DL (6.4-8.2)
[2022-04-28 07:02] LABS: BILIRUBIN,TOTAL 0.4 MG/DL (0.1-1.0)
[2022-04-28 07:04] LABS: CREATININE SERUM 1.25 MG/DL (0.60-1.30)
[2022-04-28 08:07] VITALS: BP 153/73
[2022-04-28] MEDS: polyethylene glycoL POWDER 17 GM (MIRALAX) PACK PO SCH ×2 (09:43→19:30)
[2022-04-28] MEDS: IRON SUCROSE 200 MG/10 ML (VENOFER) VIAL IV SCH (09:56)
[2022-04-28] MEDS: VITAMIN D3 25 MCG (1,000 UNITS) TABLET PO SCH (09:56)
[2022-04-28] MEDS: SPIRONOLACTONE 25 MG (ALDACTONE) TAB PO SCH (09:57)
[2022-04-28] MEDS: ASPIRIN E.C. 81 MG (ECOTRIN) TAB PO SCH (09:57)
[2022-04-28] MEDS: MELOXICAM 7.5 MG (MOBIC) TABLET PO SCH (09:57)
[2022-04-28] MEDS: PANTOPRAZOLE 40 MG (PROTONIX) TAB PO SCH (09:57)
[2022-04-28] MEDS: TAMSULOSIN 0.4 MG (FLOMAX) CAP PO SCH ×2 (09:57→20:07)
[2022-04-28] MEDS: SENNA W/DOCUSATE (SENOKOT S) TABLET PO SCH ×2 (09:57→20:10)
[2022-04-28] MEDS: lisINopril 20 MG (PRINIVIL) TABLET PO SCH (09:57)
[2022-04-28] MEDS: DOCUSATE SODIUM 100 MG (COLACE) CAP PO SCH ×2 (09:57→20:10)
[2022-04-28] MEDS: DICLOFENAC 1% GEL 100 GM (VOLTAREN) TUBE TOP SCH ×4 (09:58→22:36)
[2022-04-28] MEDS: LIDOCAINE 4% (SALONPAS) PATCH TOP SCH (09:58)
[2022-04-28] MEDS ORDERED: NS IV 500 ML 500 ML IV SCH ×2 (11:30)
[2022-04-28 11:45] LABS: RETICULOCYTE % 3.36 % (0.50-2.40)
[2022-04-28] MEDS ORDERED: NS (IVPB) 250 ML ONE (12:54)
[2022-04-28 13:55] VITALS: BP 136/67
[2022-04-28 14:15] VITALS: BP 166/79
[2022-04-28] MEDS: ACETAMINOPHEN ER 650 MG (TYLENOL ARTHRITIS) PO PRN (15:20)
[2022-04-28 16:18] VITALS: BP 156/69
[2022-04-28 20:10] VITALS: BP 148/69
[2022-04-28] MEDS: LIDOCAINE PATCH REMOVAL TP SCH (22:36)
[2022-04-29] MEDS: CATHETER FLUSH 10 ML SYR IVP SCH (05:03)
[2022-04-29] MEDS: BETHANECHOL 25 MG (URECHOLINE) TAB PO SCH ×2 (05:03→11:45)
--- NOTE | 2022-04-29 06:51 | PM&R Progress Note ---
Subjective HPI/CC On Admission Date Seen by Provider: Apr 29, 2022 Time Seen by Provider: 09:00 Subjective/Events-last exam 04/29/2022: 04/28/2022: Patient doing well Hemoglobin 6.7 so we will transfuse 1 unit Updated patient and son 04/27/2022: Patient doing well Wants to go home on Friday Pain is pretty well controlled Urinating well 04/26/2022: Patient doing pretty well Complaining of left knee pain at times Very slow recovery Voiding some small blood clots but no retention noted 04/25/2022: Patient doing pretty well Slow moving which is baseline Complaining of left knee pain so will initiate diclofenac gel Voiding well 04/24/2022: Doing well Voiding well since catheter removed Bladder meds maintained 04/23/2022: Patient doing well No pain is reported Discontinue catheter today If retention occurs we will consult urology 04/22/2022: Patient doing well Flat affect continues Bladder training will be performed at family request DC catheter soon BP stable 04/21/2022: Improved status just slow Eating well No BM today Monitoring BP 04/20/2022: Doing well Bowels moved after SSE No pain issues when she isn't moving No falls 04/19/2022: No major issues Talking on phone during exam No BM yet so ordered SSE if no production after supp Pain controlled BP stable Silverman cath in place Review of Systems General: Fatigue, Malaise Objective Exam Vital Signs Vital Signs Date Time Temp Pulse Resp B/P (MAP) Pulse Ox O2 Delivery O2 Flow Rate FiO2 04/29/22 08:30 Room Air 04/29/22 07:44 36.7 64 18 186/86 (119) 97 Capillary Refill : General Appearance: No Apparent Distress, WD/WN, Chronically ill HEENT: PERRL/EOMI, Normal ENT Inspection, Pharynx Normal Neck: Full Range of Motion, Normal Inspection, Non Tender, Supple, Carotid Bruit Respiratory: Chest Non Tender, Lungs Clear, Normal Breath Sounds, No Accessory Muscle Use, No Respiratory Distress Cardiovascular: Regular Rate, Rhythm, No Edema, No Gallop, No JVD, No Murmur, Normal Peripheral Pulses Gastrointestinal: Normal Bowel Sounds, No Organomegaly, No Pulsatile Mass, Non Tender, Soft Back: Normal Inspection, No CVA Tenderness, No Vertebral Tenderness Extremity: Normal Capillary Refill, Normal Inspection, Normal Range of Motion (except left leg), Non Tender, No Calf Tenderness, No Pedal Edema Neurologic/Psychiatric: Alert, Oriented x3, Normal Mood/Affect, tire inspector II-XII Norm as Tested, Abnormal Gait, Motor Weakness (bilateral legs) Skin: Normal Color, Warm/Dry Lymphatic: No Adenopathy Results/Procedures Lab Laboratory Tests 04/29/22 07:03 Patient resulted labs reviewed. FIM Transfers Therapy Code Descriptions/Definitions Functional [place] Measure: 0=Not Assessed/NA 4=Minimal Assistance 1=Total Assistance 5=Supervision or Setup 2=Maximal Assistance 6=Modified [place] 3=Moderate Assistance 7=Complete IndependenceSCALE: Activities may be completed with or without assistive devices. 8-Xorkmomulj-usoricl completes the activity by him/herself with no assistance from a helper. 5-Set-up or Clean-up Assistance-helper sets up or cleans up; patient completes activity. [place] assists only prior to or following the activity. 4-Supervision or Touching Assistance-helper provides verbal cues and/or touching/steadying and/or contact guard assistance as patient completes activity. Assistance may be provided throughout the activity or intermittently. 3-Partial/Moderate Assistance-helper does LESS THAN HALF the effort. [place] lifts, holds or supports trunk or limbs, but provides less than half the effort. 2-Substantial/Maximal Assistance-helper does MORE THAN HALF the effort. [place] lifts or holds trunk or limbs and provides more than half the effort. 1-Valciugtp-vqhzgg does ALL the effort. Patient does none of the effort to complete the activity. Or, the assistance of 2 or more helpers is required for the patient to complete the activity. If activity was not attempted, code reason: 7-Patient Refused. 9-Not Applicable-not attempted and the patient did not perform the activity before the current illness, exacerbation or injury. 10-Not Attempted due to Environmental Limitations-(lack of equipment, weather restraints, etc.). 88-Not Attempted due to Medical Conditions or Safety Concerns. Roll Left to Right (QC): 2 Sit to Lying (QC): 3 Sit to Stand (QC): 5 Chair/Ypd-dw-Kpkpx Xfer(QC): 6 Car Transfer (QC): 4 Gait Training Does the Patient Walk?: Yes Distance: 10' x2 Walk 10 feet (QC): 5 Walk 50 ft with 2 Turns(QC): 6 Walk 150 ft (QC): 6 Walking 10ft/uneven surface-QC: 88 Gait Persons Needed: 1 Gait Assistive Device: FWW Wheelchair Training Does the Pt Use a Wheelchair?: Yes Distance: 50 feet Wheel 50 ft with 2 turns (QC): 5 Wheel 150 ft (QC): 3 Type of Wheelchair: Manual Stair Training Stair Training: Handrails/: uses walker #of Steps: 1 1 Step (curb) (QC): 3 4 Steps (QC): 9 12 Steps (QC): 9 Stairs: Pattern: Step to Balance Picking up an Object (QC): 88 ADL-Treatment Eating (QC): 6 Oral Hygiene (QC): 6 Shower/Bathe Self (QC): 4 (SBA, min VCs to maintain hip precautions.) Upper Body Dressing (QC): 4 (SBA, 1 VC to pull shirt down in back.) Lower Body Dressing (QC): 3 (Min A with AE for threading LEs. Mod VCs required with donning to use AE and maintain hip precautions.) On/Off Footwear (QC): 3 (Pt able to doff using AE, min A with donning) Toileting Hygiene (QC): 3 (Pt able to manage hygiene and majority of clothing management. Min A with pants.) Toilet Transfer (QC): 4 (CGA-SBA on/off BSC over toilet.) Assessment/Plan Assessment and Plan Assess & Plan/Chief Complaint Assessment: s/p uncomplicated left hip arthroplasty revision by Dr Fernandez due to pain from hardware placed during hip fracture repair 10 years ago HTN labile status Urinary retention requiring Silverman cath now DC and voiding well Fall risk Left knee pain Anemia iron deficiency status post iron infusions Transfusion of 1 unit required 04/28/2022 Plan: Monitor pain Urinary retention management Fall risk Aggressive PT OT 04/19/2022: Maintain silverman Pain control BM regimen 04/20/2022: Monitor closely BM regimen 04/21/2022: Monitor closely Fall risk 04/22/2022: Monitor closely DC cath soon 04/23/2022: Discontinue catheter Monitor closely 04/24/2022: Voiding well since DC catheter 04/25/2022: Diclofenac gel left knee 04/26/2022: Monitor blood clots in urine 04/27/2022: Pain control 04/28/2022: Transfuse 1 unit of blood 04/29/2022: (1) S/P total left hip arthroplasty NATIVIDAD MENJIVAR DO Apr 29, 2022 06:51
[2022-04-29 07:08] LABS: BASOPHILS # (AUTO) 0.1 10^3/uL (0.0-0.1); BASOPHILS % (AUTO) 1 % (0-10); EOSINOPHILS # (AUTO) 0.7 10^3/uL (0.0-0.3); EOSINOPHILS % (AUTO) 17 % (0-10); HEMATOCRIT 28 % (35-52); LYMPHOCYTES # (AUTO) 1.1 10^3/uL (1.0-4.0); LYMPHOCYTES % (AUTO) 27 % (12-44); MEAN CORPUSCULAR HEMOGLOBIN 30 pg (25-34); MEAN CORPUSCULAR HGB CONC 31 g/dL (32-36); MEAN CORPUSCULAR VOLUME 99 fL (80-99); MONOCYTES # (AUTO) 0.3 10^3/uL (0.0-1.0); MONOCYTES % (AUTO) 7 % (0-12); NEUTROPHILS % (AUTO) 46 % (42-75); PLATELET COUNT 294 10^3/uL (130-400); WHITE BLOOD COUNT 4.3 10^3/uL (4.3-11.0)
[2022-04-29 07:11] LABS: HEMOGLOBIN 8.6 g/dL (11.5-16.0)
[2022-04-29 07:24] LABS: POTASSIUM 4.5 MMOL/L (3.6-5.0)
[2022-04-29 07:25] LABS: CALCIUM 8.7 MG/DL (8.5-10.1)
[2022-04-29 07:27] LABS: TOTAL PROTEIN 6.5 GM/DL (6.4-8.2)
[2022-04-29 07:28] LABS: BILIRUBIN,TOTAL 0.4 MG/DL (0.1-1.0)
[2022-04-29 07:30] LABS: CREATININE SERUM 0.98 MG/DL (0.60-1.30)
[2022-04-29 07:44] VITALS: BP 186/86
[2022-04-29] MEDS: ASPIRIN E.C. 81 MG (ECOTRIN) TAB PO SCH (08:18)
[2022-04-29] MEDS: SPIRONOLACTONE 25 MG (ALDACTONE) TAB PO SCH (08:18)
[2022-04-29] MEDS: MELOXICAM 7.5 MG (MOBIC) TABLET PO SCH (08:18)
[2022-04-29] MEDS: PANTOPRAZOLE 40 MG (PROTONIX) TAB PO SCH (08:19)
[2022-04-29] MEDS: VITAMIN D3 25 MCG (1,000 UNITS) TABLET PO SCH (08:19)
[2022-04-29] MEDS: LIDOCAINE 4% (SALONPAS) PATCH TOP SCH (08:19)
[2022-04-29] MEDS: lisINopril 20 MG (PRINIVIL) TABLET PO SCH (08:19)
[2022-04-29] MEDS: TAMSULOSIN 0.4 MG (FLOMAX) CAP PO SCH (08:20)
[2022-04-29] MEDS: DOCUSATE SODIUM 100 MG (COLACE) CAP PO SCH (08:21)
[2022-04-29] MEDS: polyethylene glycoL POWDER 17 GM (MIRALAX) PACK PO SCH (08:22)
[2022-04-29] MEDS: SENNA W/DOCUSATE (SENOKOT S) TABLET PO SCH (08:22)
--- NOTE | 2022-04-29 09:35 | Occupational Ther Daily Note ---
OT Current Status-Daily Note Subjective Pt in recliner, pt and family state pt wants to discharge home today. Family and pt feel comfortable with ability to complete ADLs upon returning home and family is available to assist as needed. Mental Status/Objective Patient Orientation: Normal For Age ADL-Treatment Therapy Code Descriptions/Definitions Functional [place] Measure: 0=Not Assessed/NA 4=Minimal Assistance 1=Total Assistance 5=Supervision or Setup 2=Maximal Assistance 6=Modified [place] 3=Moderate Assistance 7=Complete IndependenceSCALE: Activities may be completed with or without assistive devices. 5-Rrywmgbwdx-tayfxba completes the activity by him/herself with no assistance from a helper. 5-Set-up or Clean-up Assistance-helper sets up or cleans up; patient completes activity. [place] assists only prior to or following the activity. 4-Supervision or Touching Assistance-helper provides verbal cues and/or touching/steadying and/or contact guard assistance as patient completes activity. Assistance may be provided throughout the activity or intermittently. 3-Partial/Moderate Assistance-helper does LESS THAN HALF the effort. [place] lifts, holds or supports trunk or limbs, but provides less than half the effort. 2-Substantial/Maximal Assistance-helper does MORE THAN HALF the effort. [place] lifts or holds trunk or limbs and provides more than half the effort. 0-Dpstktcym-huztop does ALL the effort. Patient does none of the effort to complete the activity. Or, the assistance of 2 or more helpers is required for the patient to complete the activity. If activity was not attempted, code reason: 7-Patient Refused. 9-Not Applicable-not attempted and the patient did not perform the activity b efore the current illness, exacerbation or injury. 10-Not Attempted due to Environmental Limitations-(lack of equipment, weather restraints, etc.). 88-Not Attempted due to Medical Conditions or Safety Concerns. Eating (QC): 6 Oral Hygiene (QC): 6 Shower/Bathe Self (QC): 4 (SBA for safety in stand and to maintain hip precautions) Upper Body Dressing (QC): 3 (Min A with clasp of bra, min A with tshirt down trunk.) Lower Body Dressing (QC): 3 (Min A with pant hike.) On/Off Footwear: 3 (Min A with gripper socks, total assist with TedHose) Toileting Hygiene (QC): 4 (SBA) Toilet Transfer (QC): 4 (SBA on/off BSC over toilet.) Other Treatment Pt in recliner, used FWW to transfer into bathroom and onto BSC over toilet, SBA. Pt completed toileting, dressing and shower. Pt indicates she already completed oral care this AM independently. OT tx focused on increasing BUE Strength and activity tolerance. Pt propelled w/c to therapy gym. Pt completed x15 mins on arm bike, x20 Watt resistance, 3 rest breaks. Pt propelled w/c back to her room, used FWW to transfer to BSC over toilet, completed toileting, then transferred to recliner, A. Post tx, pt in recliner, call light in reach and all needs met. Education OT Patient Education: Correct positioning, Energy conservation, Modified ADL techniques, Progress toward Goal/Update tx plan, Purpose of tx/functional activities, Rehab process Teaching Recipient: Patient Teaching Methods: Discussion Response to Teaching: Verbalize Understanding BIMS CAM BIMS Expression of Ideas and Wants: Without Difficulty Understanding Verbal Content: Understands Brief Interview/Mental Status: Yes IRF ELIZABETH BIMS: IRF ELIZABETH BIMS Response (Comments) Value Repitition of Three Words Three 3 Recalls Socks Yes, No Cue Required 2 Recalls Blue Yes, No Cue Required 2 Recalls Bed Yes, No Cue Required 2 Year Correct 3 Month Accurate Within 5 Days 2 Day Correct 1 Total 15 CAM Mental Status Change/Baseline: 0 Inattention: 0 Disorganized thinkin Altered level of consciousness: 0 OT Short Term Goals Short Term Goals Time Frame: May 01, 2022 Toileting hygiene: 3 Lower body dressin Putting on/taking off footwear: 3 OT Fdc Goals Fdc Goals Time Frame: May 10, 2022 Acute change in mental status: 0 Inattention: 0 Disorganized thinkin Altered level of consciousness: 0 Eating (QC): 6 (met) Oral Hygiene (QC): 6 (met) Toileting Hygiene (QC): 6 (not met) Shower/Bathe Self (QC): 5 (not met) Upper Body Dressing (QC): 5 (not met) Lower Body Dressing (QC): 5 (not met) On/Off Footwear (QC): 5 (not met) Additional Goals: 1-Demonstrate ADL Tasks, 2-Verbalize Understanding, 3- ImproveStrength/Emma 1=Demonstrate adherence to instructed precautions during ADL tasks. 2=Patient will verbalize/demonstrate understanding of assistive devices/modifications for ADL. 3=Patient will improve strength/tolerance for activity to enable patient to perform ADL's. OT Education/Plan Problem List/Assessment Assessment: Decreased Activ Tolerance, Decreased UE Strength, Impaired Funct Balance, Impaired I ADL's, Impaired Self-Care Skills Discharge Recommendations Plan/Recommendations: Continue POC Treatment Plan/Plan of Care Patient would benefit from OT for education, treatment and training to promote independence in ADL's, mobility, safety and/or upper extremity function for ADL's. Plan of Care: ADL Retraining, Functional Mobility, Group Exercise/Act as Ind, UE Funct Exercise/Act Treatment Duration: May 10, 2022 Frequency: At least 5 of 7 days/Wk (IRF) Estimated Hrs Per Day: 1.5 hours per day Agreement: Yes Rehab Potential: Good Time/GCodes Start Time: 08:30 Stop Time: 10:00 Total Time Billed (hr/min): 90 Billed Treatment Time 1, ADL 5 (70'), EX (20') DEIRDRE OWEN OT Apr 29, 2022 09:35
[2022-04-29] MEDS: DICLOFENAC 1% GEL 100 GM (VOLTAREN) TUBE TOP SCH (09:40)
[2022-04-29] MEDS ORDERED: BETH25TA2 PO ×2 (10:20→10:35)
[2022-04-29] MEDS ORDERED: TMSL.4C PO ×2 (10:20→10:35)
[2022-04-29] MEDS ORDERED: TRAM50TA3 PO ×2 (10:20→10:35)
[2022-04-29 11:22] VITALS: BP 186/86
[2022-04-29] MEDS: ACETAMINOPHEN ER 650 MG (TYLENOL ARTHRITIS) PO PRN (11:45)
--- NOTE | 2022-04-29 11:55 | Physical Therapy Daily Note ---
PT Daily Note-Current Subjective Pt sitting in recliner in room upon arrival. Pt agrees to PT for QC scoring. Pain Numeric Pain Scale: 5-Moderate Pain Location: Left Location Body Site: Knee Pain Description: Ache Section J - Health Conditions 1. Rarely or not at all 2. Occasionally 3. Frequently 4. Almost constantly 8. Unable to answer Pain Effect on Sleep: 2 Pain Interference with Therapy: 1 Pain Interference w/Day-to-Day: 2 Mental Status Patient Orientation: Person, Place, Time, Situation Transfers SCALE: Activities may be completed with or without assistive devices. 0-Xacwpstkzd-ugaaays completes the activity by him/herself with no assistance from a helper. 5-Set-up or Clean-up Assistance-helper sets up or cleans up; patient completes activity. [place] assists only prior to or following the activity. 4-Supervision or Touching Assistance-helper provides verbal cues and/or touching/steadying and/or contact guard assistance as patient completes activity. Assistance may be provided throughout the activity or intermittently. 3-Partial/Moderate Assistance-helper does LESS THAN HALF the effort. [place] lifts, holds or supports trunk or limbs, but provides less than half the effort. 2-Substantial/Maximal Assistance-helper does MORE THAN HALF the effort. [place] lifts or holds trunk or limbs and provides more than half the effort. 7-Yozojvyrm-evdwzy does ALL the effort. Patient does none of the effort to complete the activity. Or, the assistance of 2 or more helpers is required for the patient to complete the activity. If activity was not attempted, code reason: 7-Patient Refused. 9-Not Applicable-not attempted and the patient did not perform the activity before the current illness, exacerbation or injury. 10-Not Attempted due to Environmental Limitations-(lack of equipment, weather restraints, etc.). 88-Not Attempted due to Medical Conditions or Safety Concerns. Roll Left & Right (QC): 6 Sit to Lying (QC): 5 Lying to Sitting/Side of Bed(Q: 5 Sit to Stand (QC): 6 Chair/Xwk-no-Hxjxd Xfer(QC): 6 Toilet Transfer (QC): 6 Pt will not be sleeping in bed at home. Pt typically sleeps in recliner and will return to this at home. Weight Bearing Right Lower Extremity: Right Full Weight Bearing Left Lower Extremity: Left Weight Bearing/Tolerated Gait Training Does the Patient Walk?: Yes Distance: 150' Walk 10 feet (QC): 5 Walk 50 ft with 2 Turns(QC): 5 Walk 150 ft (QC): 5 Walking 10ft/uneven surface-QC: 5 Gait Assistive Device: FWW Wheelchair Training Does the Pt Use a Wheelchair?: No Stair Training 1 Step (curb) (QC): 88 4 Steps (QC): 88 12 Steps (QC): 88 Balance Picking up an Object (QC): 88 Special Test Comments Hip Precautions Treatments Pt completes QC scoring items listed above. Pt returns to room to use BR & rest at end of tx. All needs met, call light in hand. Assessment Current Status: Good Progress Pt has gained strength and activity tolerance although sometimes needs pushed to motivate to complete task. PT Retirement Goals Retirement Goals PT Retirement Goals Time Frame: May 31, 2022 Roll Left & Right (QC): 6 Sit to Lying (QC): 6 Lying-Sitting on Side/Bed(QC): 6 Sit to Stand (QC): 6 Chair/Ubk-qp-Hlyob Xfer(QC): 6 Toilet Transfer (QC): 6 Car Transfer (QC): 6 Does the Patient Walk: Yes Walk 10 feet (QC): 6 Walk 50ft with 2 Turns (QC): 4 Walk 150 ft (QC): 4 Walking 10ft on Uneven Surface: 6 1 Step (curb) (QC): 4 4 Steps (QC): 4 12 Steps (QC): 4 Picking up an Object (QC): 6 Does the Pt use WC or Scooter?: Yes Wheel 50 feet with 2 turns (QC: 6 Type: Manual Wheel 150 feet: 6 Type: Manual PT Plan Treatment/Plan Treatment Plan: Continue Plan of Care Treatment Plan: Bed Mobility, Education, Functional Activity Emma, Functional Strength, Group Therapy, Gait, Safety, Therapeutic Exercise, Transfers Treatment Duration: Jun 01, 2022 Frequency: 5 times per week Estimated Hrs Per Day: 1.5 hours per day Patient and/or Family Agrees t: Yes Time/GCodes Time In: 1100 Time Out: 1145 Total Billed Treatment Time: 45 Total Billed Treatment 1, GT (20m) & FA x2 (25m) JUAN ANTONIO BROWN BRAZING MACHINE FEEDER Apr 29, 2022 11:55
--- NOTE | 2022-04-29 12:00 | Therapy Team Discharge Summary ---
Therapy Discharge Summary Discharge Recommendations Date of Discharge Physical Therapy Roll Left to Right (QC): 2 Sit to Lying (QC): 3 Lying to Sitting/Side of Bed(Q: 3 Sit to Stand (QC): 5 Chair/Tly-qf-Thhqz Xfer(QC): 6 Toilet Transfer (QC): 5 Car Transfer (QC): 4 Does the Patient Walk: Yes Mode of Locomotion: Walk Anticipated Mode of Locomotion: Walk Walk 10 feet (QC): 5 Walk 50 ft with 2 Turns(QC): 6 Walk 150 ft (QC): 6 Walking 10ft on uneven surface: 88 Distance: 30 feet Gait Assistive Device: FWW Does the Pt Use a Wheelchair: Yes Wheelchair Distance: 50 feet Wheel 50 ft with 2 turns (QC): 5 Wheel 150 ft (QC): 3 Type of Wheelchair: Manual #of Steps: 1 1 Step (curb) (QC): 3 4 Steps (QC): 9 12 Steps (QC): 9 Balance Sitting Static: Fair Balance Sitting Dynamic: Fair Balance-Standing Static: Fair Picking up an Object (QC): 88 Occupational Therapy Pt admitted to [facility] s/p L [facility]. At [facility], pt was independent with ADLs and functional mobility using a walker. Upon initial evaluation, pt required set up with eating and oral care, total assist footwear, max A LE dressing, and min A with showering, UE dressing and toileting. OT tx focused on increasing safety and independence with ADLS and funcitonal mobility, education on AE for LE dressing, and increasing BUE strength and activity tolerance. Pt made functional progress towards goals, but only attained IND level for eating and oral care. OT recommendations include hip kit, and SC. Pt to discharge home with family support, d/c from OT Decreased Activ Tolerance, Decreased UE Strength, Impaired Funct Balance, Impaired I ADL's, Impaired Self-Care Skills Eating (QC): 6 Oral Hygiene (QC): 6 Shower/Bathe Self (QC): 4 (SBA for safety in stand and to maintain hip precautions) Upper Body Dressing (QC): 3 (Min A with clasp of bra, min A with tshirt down trunk.) Lower Body Dressing (QC): 3 (Min A with pant hike.) On/Off Footwear (QC): 3 (Min A with gripper socks, total assist with TedHose) Toileting Hygiene (QC): 4 (SBA) PT Legal Adviser Goals Snf Goals PT Snf Goals Time Frame: May 31, 2022 PT OT Pain Eval : Comment: Pt is able to use Liocaine patch from home per Dr Toro for pain Scoring Section J - Health Conditions 1. Rarely or not at all 2. Occasionally 3. Frequently 4. Almost constantly 8. Unable to answer Pain Effect on Sleep: 2 Pain Interference with Therapy: 2 Pain Interference w/Day-to-Day: 2 Roll Left to Right (QC): 6 Sit to Lying (QC): 6 Lying-Sitting on Side/Bed(QC): 6 Sit to Stand (QC): 6 Chair/Zxh-yt-Ydofd Xfer(QC): 6 Toilet/Commode Transfer (QC): 6 Car Transfer (QC): 6 Does the Patient Walk: Yes Walk 10 feet (QC): 6 Walk 10ft-Uneven Surface(QC): 6 Walk 50ft with 2 Turns (QC): 4 Walk 150 ft (QC): 4 Gait Assistive Device: FWW Does the Pt use WC or Scooter?: Yes Wheel 50 feet with 2 turns (QC: 6 1 Step (curb) (QC): 4 4 Steps (QC): 4 12 Steps (QC): 4 Picking up an Object (QC): 6 OT Legal Adviser Goals Snf Goals Time Frame: May 10, 2022 Acute change in mental status: 0 Inattention: 0 Disorganized thinkin Altered level of consciousness: 0 Eating (QC): 6 (met) Oral Hygiene (QC): 6 (met) Toileting Hygiene (QC): 6 (not met) Shower/Bathe Self (QC): 5 (not met) Upper Body Dressing (QC): 5 (not met) Lower Body Dressing (QC): 5 (not met) On/Off Footwear (QC): 5 (not met) Additional Goals: 1-Demonstrate ADL Tasks, 2-Verbalize Understanding, 3-ImproveStrength/Emma 1=Demonstrate adherence to instructed precautions during ADL tasks. 2=Patient will verbalize/demonstrate understanding of assistive devices/modifications for ADL. 3=Patient will improve strength/tolerance for activity to enable patient to perform ADL's. DEIRDRE OWEN OT Apr 29, 2022 12:00
--- NOTE | 2022-04-29 14:36 | Therapy Team Discharge Summary ---
Therapy Discharge Summary Discharge Recommendations Date of Discharge Apr 29, 2022 at 12:20 Physical Therapy Patient came to rehab post left [facility]. Upon evaluation patient performed rolling and supine <-> sit with min/mod assist, sit <-> stand and transfers with min/mod assist, car transfer min/mod assist, ambulated 30' with a rolling walker with min/mod assist, and propelled a manual WC 50' with CGA/SBA. Patient has been performing bed mobility and transfer training, balance and endurance training, functional strengthening, stair training, gait training, and education. Patient has made some progress and has met all of her long term care pharmacist goals for rolling, and ambulation except for ambulating 10' over an uneven surface. Now, patient performs rolling with independence, supine <-> sit with setup, sit <-> stand and transfers with independence, ambulated at least 150' with a rolling walker with setup (including 50' with at least 2 turns of 90 degrees and 10' over an uneven surface). Patient has been discharged from this facility today and will be discharged from PT at this time. Roll Left to Right (QC): 6 Sit to Lying (QC): 5 Lying to Sitting/Side of Bed(Q: 5 Sit to Stand (QC): 6 Chair/Gri-tk-Hkqzf Xfer(QC): 6 Toilet Transfer (QC): 6 Car Transfer (QC): 4 Does the Patient Walk: Yes Mode of Locomotion: Walk Anticipated Mode of Locomotion: Walk Walk 10 feet (QC): 5 Walk 50 ft with 2 Turns(QC): 5 Walk 150 ft (QC): 5 Walking 10ft on uneven surface: 5 Distance: 30 feet Gait Assistive Device: FWW Does the Pt Use a Wheelchair: No Wheelchair Distance: 50 feet Wheel 50 ft with 2 turns (QC): 5 Wheel 150 ft (QC): 3 Type of Wheelchair: Manual #of Steps: 1 1 Step (curb) (QC): 88 4 Steps (QC): 88 12 Steps (QC): 88 Balance Sitting Static: Fair Balance Sitting Dynamic: Fair Balance-Standing Static: Fair Picking up an Object (QC): 88 Occupational Therapy Decreased Activ Tolerance, Decreased UE Strength, Impaired Funct Balance, Impaired I ADL's, Impaired Self-Care Skills Eating (QC): 6 Oral Hygiene (QC): 6 Shower/Bathe Self (QC): 4 (SBA for safety in stand and to maintain hip precautions) Upper Body Dressing (QC): 3 (Min A with clasp of bra, min A with tshirt down trunk.) Lower Body Dressing (QC): 3 (Min A with pant hike.) On/Off Footwear (QC): 3 (Min A with gripper socks, total assist with TedHose) Toileting Hygiene (QC): 4 (SBA) PT Dining Room Busser Goals Usp Goals PT Usp Goals Time Frame: May 31, 2022 PT OT Pain Eval : Comment: Pt is able to use Liocaine patch from home per Dr Toro for pain Scoring Section J - Health Conditions 1. Rarely or not at all 2. Occasionally 3. Frequently 4. Almost constantly 8. Unable to answer Pain Effect on Sleep: 2 Pain Interference with Therapy: 2 Pain Interference w/Day-to-Day: 2 Roll Left to Right (QC): 6 Sit to Lying (QC): 6 Lying-Sitting on Side/Bed(QC): 6 Sit to Stand (QC): 6 Chair/Oms-lk-Nimyr Xfer(QC): 6 Toilet/Commode Transfer (QC): 6 Car Transfer (QC): 6 Does the Patient Walk: Yes Walk 10 feet (QC): 6 Walk 10ft-Uneven Surface(QC): 6 Walk 50ft with 2 Turns (QC): 4 Walk 150 ft (QC): 4 Gait Assistive Device: FWW Does the Pt use WC or Scooter?: Yes Wheel 50 feet with 2 turns (QC: 6 1 Step (curb) (QC): 4 4 Steps (QC): 4 12 Steps (QC): 4 Picking up an Object (QC): 6 OT Dining Room Busser Goals Usp Goals Time Frame: May 10, 2022 Acute change in mental status: 0 Inattention: 0 Disorganized thinkin Altered level of consciousness: 0 Eating (QC): 6 (met) Oral Hygiene (QC): 6 (met) Toileting Hygiene (QC): 6 (not met) Shower/Bathe Self (QC): 5 (not met) Upper Body Dressing (QC): 5 (not met) Lower Body Dressing (QC): 5 (not met) On/Off Footwear (QC): 5 (not met) Additional Goals: 1-Demonstrate ADL Tasks, 2-Verbalize Understanding, 3- ImproveStrength/Emma 1=Demonstrate adherence to instructed precautions during ADL tasks. 2=Patient will verbalize/demonstrate understanding of assistive devices/modifications for ADL. 3=Patient will improve strength/tolerance for activity to enable patient to perform ADL's. CAMMIE CALDERÓN PT Apr 29, 2022 14:35
== END 2022-04-29 12:20 | disposition home or self-care (01) | DRG 950 ==
PROVIDERS: ADMIT Internal Medicine; ATTEND Internal Medicine
DX: T84.84XD Pain due to internal orthopedic prosthetic devices, implants and grafts, subsequent encounter (principal); R33.9 Retention of urine, unspecified; I10 Essential (primary) hypertension; E78.00 Pure hypercholesterolemia, unspecified; M54.2 Cervicalgia; Z91.81 History of falling; B35.1 Tinea unguium; G60.9 Hereditary and idiopathic neuropathy, unspecified
CPT/HCPCS: 36415; 80053; 82607; 83540; 85007; 85025; 85027; 85045; 86850; 86900; 86901; 86920

== ENCOUNTER 2022-09-12 13:14 | Inpatient (IN) | payer MEDICARE ==
[~2022-09-12] VITALS: Ht 160.2 cm; Wt 79.1 kg
[~2022-09-12 13:14] MED LIST changes: -ACETAMINOPHEN 325 MG TABLET PO PRN; -ALPRAZolam 0.25 MG (XANAX) TAB PO PRN; -BISACODYL 10 MG SUPP (DULCOLAX) PR PRN; -CALCIUM CARBONATE 500 MG (TUMS) TAB.CHEW PO PRN; -DOCUSATE SODIUM 100 MG (COLACE) CAP PO PRN; -DOCUSATE SODIUM 100 MG (COLACE) CAP PO SCH; -FLEET ENEMA ADULT 1 EA BTL PR PRN; -LACTULOSE SYRUP 10GM/15ML (ENULOSE) 30ML UDC PO PRN; -LOPERAMIDE 2 MG (IMODIUM) TABLET PO PRN; -MELATONIN 3 MG TABLET PO PRN; -ONDANSETRON 4 MG (ZOFRAN) ORAL DISSOLVE TAB PO PRN; -diphenhydrAMINE 25 MG TAB (BENADRYL) PO PRN; -guaiFENesin/CODEINE (ROBITUSSIN AC) 10ML UDC PO PRN
[2022-09-12] MEDS ORDERED: NALO4SPR (13:34)
[2022-09-12] MEDS ORDERED: LACT1CAP39 PO (13:34)
[2022-09-12] MEDS ORDERED: CEPH500T PO (13:34)
[2022-09-12] MEDS ORDERED: CHOL20002 PO (13:34)
[2022-09-12] MEDS ORDERED: TRM50T PO (13:34)
[2022-09-12] MEDS ORDERED: TMSL.4C PO (13:34)
[2022-09-12] MEDS ORDERED: BETH25TA2 PO (13:34)
[2022-09-12] MEDS ORDERED: LEVE500T6 PO (13:34)
[2022-09-12] MEDS ORDERED: ATOR40TA70 PO (13:34)
[2022-09-12] MEDS ORDERED: SPIR25TA PO (13:41)
[2022-09-12 14:50] VITALS: BP 128/60
--- NOTE | 2022-09-12 15:06 | Occupational Therapy Eval ---
OT Evaluation-General/PLF Medical Diagnosis Admission Date Medical Diagnosis: seizure; chronic R parietal infarct Onset Date: Sep 09, 2022 Therapy Diagnosis Therapy Diagnosis: decreased ADL Status Referral Physician: Muna Referral Reason: Evaluation/Treatment Medical History Additional Medical History inflammatory arthritis, HTN, femur fx, L THR (04/2022) Current History 09/09/22 ED c/o L side weakness and numbness, seizure like activity in ED. Dx with CVA (R parietal Lobe) Social History Home: Single Level Current Living Status: Children (son and grandson) Entry Into Home: Ramp ADL-Prior Level of Function SCALE: Activities may be completed with or without assistive devices. 5-Ihpmgtipkr-abovclg completes the activity by him/herself with no assistance from a helper. 5-Set-up or Clean-up Assistance-helper sets up or cleans up; patient completes activity. [place] assists only prior to or following the activity. 4-Supervision or Touching Assistance-helper provides verbal cues and/or touching/steadying and/or contact guard assistance as patient completes activity. Assistance may be provided throughout the activity or intermittently. 3-Partial/Moderate Assistance-helper does LESS THAN HALF the effort. [place] lifts, holds or supports trunk or limbs, but provides less than half the effort. 2-Substantial/Maximal Assistance-helper does MORE THAN HALF the effort. [place] lifts or holds trunk or limbs and provides more than half the effort. 5-Rzlwexfrf-bruzdf does ALL the effort. Patient does none of the effort to complete the activity. Or, the assistance of 2 or more helpers is required for the patient to complete the activity. If activity was not attempted, code reason: 7-Patient Refused. 9-Not Applicable-not attempted and the patient did not perform the activity before the current illness, exacerbation or injury. 10-Not Attempted due to Environmental Limitations-(lack of equipment, weather restraints, etc.). 88-Not Attempted due to Medical Conditions or Safety Concerns. ADL PLOF Comments Pt initially reports IND with ADLs and functional mobility, using FWW. With further discussion, pt revealed she has difficulty with footwear requiring assistance. Pt has a walk in shower, no SC. She has a BSC over toilet. Pt uses a LH sponge in bathroom to wash LEs. Pt doesn't sleep in a bed at home, sleeping in a recliner instead. Self Care: Needed Some Help Functional Cognition: Independent DME/Equipment: Bedside Commode, Reachers, Shower OT Current Status Subjective Pt agreeable to OT eval followed by cotreatment with PT. Pt required some VCs for sequencing and processing of instructions throughout tx, pt appears to have slight L neglect/L visual deficit. Mental Status/Objective Patient Orientation: Person, Place, Time, Situation Current Glasses/Contacts: Yes Hearing Aids: No Dentures/Partials: Yes Hand Dominance: Right Upper Extremity ROM WFL, BUE shoulder flexion to approx 130 degrees Upper Extremity Coordination WFL Upper Extremity Sensation WFL Upper Extremity Strength grossly 3+/5 ADL-Treatment Eating (QC): 5 Oral Hygiene (QC): 4 (SBA) Shower/Bathe Self (QC): 3 (Assistance with BLEs lower legs/feet.) Upper Body Dressing (QC): 3 Lower Body Dressing (QC): 2 (Assist to thread LEs, some assist with pant hike) On/Off Footwear (QC): 2 (pt able to doff/don slip on shoes, total assist with gripper socks.) Toileting Hygiene (QC): 3 Other Treatments [id number]:OT evaluation complete, [id number]:OT/PT cotreat due to skill of 2 cl inicians required which a rehabilitation counsellor could not perform in order to coordinate UE/LEs, decrease fall risk, focus on higher level balance tasks, and due to pt's limitations in strength, activity tolerance, mobility/transfers, and standing tolerance. OT focused on UE placement, cues for sequencing and safety and ADLS, PT focused on LE placement, gross overall movement, transfers/mobility. Pt completed functional mobility/transfers including car transfer, mobility using FWW, and bed mobility. Pt declined ADLs as she had just completed at OSH prior to admission to ARU, pt provided information on level of assistance required with bathing/dressing at OSH, and pt attempted to complete footwear (max A). Pt used FWW to transfer to therapy gym into parallel bars. Pt completed UE standing activity, removing clothespins from posterior aspect of thighs/waist band of pants in order to simulate LE dressing, pt required VCs to locate all clothespins on L side of body. Pt then stood for UE reaching task, placing 1" pegs into foam pegboard located on L side of visual field, pt required VCs to place pegs in whole located on far L side of board. Pt able to place x25 pegs. Pt returned to room using FWW, VCs for direction and guidance of walker. Pt transferred to bed, then supine. Post tx, pt in bed, call light in reach and all needs met, bed alarm activated. Min A with rolling, max A sit to supine, mod A Supine to sit, mod A sit to/from stand, min A transfers, mod A car transfer. Frequent cues reuqired for hand placement and positioning, pt appears to have some L neglect which makes proper positioning more difficult for pt. Pt can perform functional mobility 120' with FWW (min A), needs assistance with guiding walker when turning and cues for direction. Pt appeared slightly confused with some transfers, instructed to sit on side of bed, but pt proceeded to walk to foot of bed, and when pt was instructed to sit in chair behind her pt would walk forward with walker requiring correction from therapists. Education OT Patient Education: Correct positioning, Energy conservation, Modified ADL techniques, Progress toward Goal/Update tx plan, Purpose of tx/functional activities, Rehab process Teaching Recipient: Patient Teaching Methods: Discussion Response to Teaching: Verbalize Understanding BIMS CAM BIMS Expression of Ideas and Wants: Without Difficulty Understanding Verbal Content: Understands Brief Interview/Mental Status: Yes IRF ELIZABETH BIMS: IRF ELIZABETH BIMS Response (Comments) Value Repitition of Three Words Three 3 Recalls Socks Yes, No Cue Required 2 Recalls Blue Yes, No Cue Required 2 Recalls Bed Yes, No Cue Required 2 Year Correct 3 Month Accurate Within 5 Days 2 Day Correct 1 Total 15 Should Staff Asses. Mental St.: No CAM Mental Status Change/Baseline: 0 Inattention: 0 Disorganized thinkin Altered level of consciousness: 0 OT Short Term Goals Short Term Goals Time Frame: Sep 27, 2022 Toileting hygiene: 4 Shower/bathe self: 4 Upper body dressin Lower body dressin Putting on/taking off footwear: 4 OT Assistant Center Director Goals Assistant Center Director Goals Time Frame: Oct 04, 2022 Eating (QC): 6 Oral Hygiene (QC): 6 Toileting Hygiene (QC): 6 Shower/Bathe Self (QC): 6 Upper Body Dressing (QC): 6 Lower Body Dressing (QC): 6 On/Off Footwear (QC): 6 Additional Goals: 1-Demonstrate ADL Tasks, 2-Verbalize Understanding, 3- ImproveStrength/Emma 1=Demonstrate adherence to instructed precautions during ADL tasks. 2=Patient will verbalize/demonstrate understanding of assistive devices/modifications for ADL. 3=Patient will improve strength/tolerance for activity to enable patient to perform ADL's. OT Education/Plan Problem List/Assessment Assessment: Decreased Activ Tolerance, Decreased UE Strength, Impaired Funct Balance, Impaired I ADL's, Impaired Self-Care Skills Discharge Recommendations Plan/Recommendations: Continue POC Therapy Discharge Recommendati: Scheduled Assistance, Home & Family, Post Acute OT Treatment Plan/Plan of Care Patient would benefit from OT for education, treatment and training to promote independence in ADL's, mobility, safety and/or upper extremity function for ADL's. Plan of Care: ADL Retraining, Functional Mobility, Group Exercise/Act as Ind, UE Funct Exercise/Act Treatment Duration: Oct 04, 2022 Frequency: At least 5 of 7 days/Wk (IRF) Estimated Hrs Per Day: 1.5 hours per day Agreement: Yes Rehab Potential: Fair Time Start Time: 15:00 Stop Time: 16:30 DATE: Sep 12, 2022 Total Time Billed (hr/min): 90 Billed Treatment Time OT eval [id number], Cotreat [id number] 1, EVM (10'), ADL (20'), FA 4 (60') DEIRDRE OWEN OT Sep 12, 2022 15:06
[2022-09-12] MEDS ORDERED: ACETAMINOPHEN 325 MG TABLET PO PRN (15:45)
[2022-09-12] MEDS ORDERED: CALCIUM CARBONATE 500 MG (TUMS) TAB.CHEW PO PRN (15:45)
[2022-09-12] MEDS ORDERED: DOCUSATE SODIUM 100 MG (COLACE) CAP PO PRN (15:45)
[2022-09-12] MEDS ORDERED: guaiFENesin/CODEINE (ROBITUSSIN AC) 10ML UDC PO PRN (15:45)
[2022-09-12] MEDS ORDERED: MELATONIN 3 MG TABLET PO PRN (15:45)
[2022-09-12] MEDS ORDERED: ONDANSETRON 4 MG (ZOFRAN) ORAL DISSOLVE TAB PO PRN (15:45)
[2022-09-12] MEDS ORDERED: FLEET ENEMA ADULT 1 EA BTL PR PRN (15:45)
[2022-09-12] MEDS ORDERED: BISACODYL 10 MG SUPP (DULCOLAX) PR PRN (15:45)
[2022-09-12] MEDS ORDERED: LACTULOSE SYRUP 10GM/15ML (ENULOSE) 30ML UDC PO PRN (15:45)
[2022-09-12] MEDS ORDERED: diphenhydrAMINE 25 MG TAB (BENADRYL) PO PRN (15:45)
[2022-09-12] MEDS ORDERED: LOPERAMIDE 2 MG (IMODIUM) TABLET PO PRN (15:45)
[2022-09-12] MEDS ORDERED: ALPRAZolam 0.25 MG (XANAX) TAB PO PRN (15:45)
[2022-09-12] MEDS ORDERED: ACETAMINOPHEN ER 650 MG (TYLENOL ARTHRITIS) PO PRN (15:45)
--- NOTE | 2022-09-12 16:14 | Physical Therapy Evaluation ---
PT Evaluation-General Medical Diagnosis Admission Date Sep 12, 2022 at 14:50 Medical Diagnosis: seizure; chronic R parietal infarct Onset Date: Sep 09, 2022 Therapy Diagnosis Therapy Diagnosis: impaired mobility, coordination, endurance Referral Physician: Amanda Toro DO Reason for Referral: Evaluation/Treatment Medical History Additional Medical History inflammatory arthritis, HTN, femur fx, L THR (04/2022) Reviewed History: Yes Social History Home: Single Level Current Living Status: Children Entry Into Home: Ramp Prior Prior Level of Function SCALE: Activities may be completed with or without assistive devices. 9-Fcspamwoyy-dtbvvsb completes the activity by him/herself with no assistance from a helper. 5-Set-up or Clean-up Assistance-helper sets up or cleans up; patient completes a ctivity. [place] assists only prior to or following the activity. 4-Supervision or Touching Assistance-helper provides verbal cues and/or touching/steadying and/or contact guard assistance as patient completes activity. Assistance may be provided throughout the activity or intermittently. 3-Partial/Moderate Assistance-helper does LESS THAN HALF the effort. [place] lifts, holds or supports trunk or limbs, but provides less than half the effort. 2-Substantial/Maximal Assistance-helper does MORE THAN HALF the effort. [place] lifts or holds trunk or limbs and provides more than half the effort. 8-Cebfrrxxu-evjxeq does ALL the effort. Patient does none of the effort to complete the activity. Or, the assistance of 2 or more helpers is required for the patient to complete the activity. If activity was not attempted, code reason: 7-Patient Refused. 9-Not Applicable-not attempted and the patient did not perform the activity before the current illness, exacerbation or injury. 10-Not Attempted due to Environmental Limitations-(lack of equipment, weather restraints, etc.). 88-Not Attempted due to Medical Conditions or Safety Concerns. Bed Mobility: 6 Transfers (B,C,W/C): 6 Gait: 6 Indoor Mobility (Ambulation): Independent Prior Devices Use: Walker PT Evaluation-Current Subjective Patient comes to rehab via family vehicle, has no pain at rest but states she has a bad left knee and has pain with activity from that, agrees to PT. Will be co-treating with OT for part of tx due to poor patient mobility, strength, endurance, severe debility, coordinate UE and LE during activity, safety and reduce risk of falls. Pain Section J - Health Conditions 1. Rarely or not at all 2. Occasionally 3. Frequently 4. Almost constantly 8. Unable to answer Pain Effect on Sleep: 2 Pain Interference with Therapy: 2 Pain Interference w/Day-to-Day: 2 Pt/Family Goals to be independent at home Objective Patient Orientation: Person, Place, Situation ROM/Strength ROM Lower Extremities WNL but left knee not tested due to pain Strength Lower Extremities LLE (hip flexion 3-/5, dorsiflexion 5/5), RLE (hip flexion 3+/5, knee flexion 4/5, knee extension 4/5, dorsiflexion 5/5), left knee not tested due to pain. Neuromuscular (Tone, Coordination, Reflexes) Patient has left neglect, impaired coordination in LUE and LLE, impaired peripheral vision on the left side as well as tracking Sensory Vision: Hearing: Functional Hand Dominance: Right Sensation Right Lower Extremit: Intact Sensation Left Lower Extremity: Intact Transfers Roll Left & Right (QC): 3 Sit to Lying (QC): 2 Lying to Sitting/Side of Bed(Q: 3 Sit to Stand (QC): 3 Chair/Oba-mc-Pkuns Xfer(QC): 3 Toilet Transfer (QC): 3 Car Transfer (QC): 3 Patient performs rolling with min assist, supine to sit mod assist, sit to supine max assist, sit <-> stand mod assist, transfers min assist, car transfer mod assist. Patient needs frequent cues for hand placement and positioning, has left neglect which makes proper positioning difficult. Gait Does the Patient Walk?: Yes Mode of Locomotion: Walk Anticipated Mode of Locomotion: Walk Walk 10 feet (QC): 3 Walk 50 ft with 2 Turns(QC): 3 Walk 150 ft (QC): 88 Walking 10ft/uneven surface-QC: 3 Distance: 120'x3 Gait Assistive Device: FWW Comments/Gait Description Patient can ambulate 120' with a rolling walker with min assist (including 50' with at least 2 turns of 90 degrees and 10' over an uneven surface), gait is very slow, takes short steps, needs assist guiding walker when turning Wheelchair Training Wheel 50 ft with 2 turns (QC): 9 Wheel 150 ft (QC): 9 Stairs 1 Step (curb) (QC): 88 4 Steps (QC): 88 12 Steps (QC): 88 Steps not tested due to safety concerns, patient has too much difficulty with positioning and safety due to her neglect and visual impairments Balance Sitting Static: Normal Sitting Dynamic: Normal Standing Static: Fair Standing Dynamic: Fair Picking up an Object (QC): 4 (CGA using a fingerprint expert) Treatment Patient also performed two different standing exercises involving reaching and one placing pegs on the left side to work on her neglect, as well as her standing balance and endurance. PT performed bed mobility and transfers, ambulation, standing and balance during reaching and peg activity, OT performed reaching and peg activity, dressing, UE positioning and safety during activity. Assessment/Needs Patient in bed post tx with nurse call, phone, tray, all needs met, bed alarm on. Patient has impaired mobility, strength, endurance, coordination, neglect. Patient needs significant assist with bed mobility and sit to stand, needs a ssist guiding walker during ambulation and careful cues for positioning. Rehab Potential: Fair PT [facility] Goals Fuse Coiler Goals PT Fuse Coiler Goals Time Frame: Sep 26, 2022 Roll Left to Right (QC): 4 (SBA) Sit to Lying (QC): 4 (SBA) Lying-Sitting on Side/Bed(QC): 4 (SBA) Sit to Stand (QC): 4 (SBA) Chair/Awm-jt-Mifum Xfer(QC): 4 (CGA) Toilet/Commode Transfer (QC): 4 (CGA) Car Transfer (QC): 4 (CGA) Does the Patient Walk: Yes Walk 10 feet (QC): 4 (CGA) Walk 10ft-Uneven Surface(QC): 4 (CGA) Walk 50ft with 2 Turns (QC): 4 (CGA) Walk 150 ft (QC): 4 (CGA) Wheel 50 feet with 2 turns (QC: 9 Wheel 150 feet: 9 1 Step (curb) (QC): 4 (CGA) 4 Steps (QC): 4 (CGA) 12 Steps (QC): 88 Picking up an Object (QC): 4 (SBA) PT Plan Problem List Problem List: Activity Tolerance, Functional Strength, Safety, Balance, Gait, Transfer, Bed Mobility, ROM Treatment/Plan Treatment Plan: Continue Plan of Care Treatment Plan: Bed Mobility, Education, Functional Activity Emma, Functional Strength, Group Therapy, Gait, Safety, Therapeutic Exercise, Transfers Treatment Duration: Sep 26, 2022 Frequency: At least 5 of 7 days/Wk (IRF) Estimated Hrs Per Day: 1.5 hours per day Patient and/or Family Agrees t: Yes Safety Risks/Education Patient Education: Gait Training, Transfer Techniques, Correct Positioning, Safety Issues Teaching Recipient: Patient Teaching Methods: Demonstration, Discussion Response to Teaching: Reinforcement Needed Discharge Recommendations Plan Patient will perform bed mobility and transfer training, balance and endurance training, functional strengthening, stair training, gait training, and education, to improve functional mobility and independence at home. Therapy Discharge Recommendati: Scheduled Assistance, Home & Family, Post Acute PT Time Time In: 1450 Time Out: 1630 DATE: Sep 12, 2022 Total Billed Treatment Time: 90 Total Billed Treatment 1 visit EVM 10' EX 25' FA 55' PT eval from [id number], OT eval from [id number], co-treat from [id number] CAMMIE CALDERÓN PT Sep 12, 2022 16:14
[2022-09-12] MEDS ORDERED: NON-FORMULARY MEDICATION 1 EA EA (Cephalexin 500 MG) PO SCH (17:00)
[2022-09-12] MEDS ORDERED: HYDROcodone/APAP 5 MG/325 MG (LORTAB) TAB PO PRN (18:30)
[2022-09-12] MEDS ORDERED: APAP 300 MG/CODEINE 30 MG (TYLENOL #3) TAB PO PRN (18:30)
[2022-09-12] MEDS: CEPHALEXIN 250 MG (KEFLEX) CAP PO SCH ×2 (18:46→21:45)
[2022-09-12] MEDS: BETHANECHOL 25 MG (URECHOLINE) TAB PO SCH (18:46)
[2022-09-12] MEDS: TAMSULOSIN 0.4 MG (FLOMAX) CAP PO SCH (18:46)
[2022-09-12 20:58] VITALS: BP 142/67
[2022-09-12] MEDS ORDERED: NON-FORMULARY MEDICATION 1 EA EA (Lactobacillus Rhamnosus GG (Culturelle) 1 EACH) PO SCH (21:00)
--- NOTE | 2022-09-12 21:13 | PM&R Post Admission Assessment ---
PM&R Date of Visit: Sep 12, 2022 Time of Visit: 18:30 History of Present Illness CC: CVA complicated with seizure HPI: This is a 76yoAAF known to me from prior admit 04/2022 who presents from [facility] following a CVA complicated with seizure in need of recovery. See below details from [facility] notes. Currently she is having generalized pain. Family at bedside. Patient will remain on seizure precautions. Constipation +. [facility] summary: Liliana Rivera a 76 y.o.femalewho was admitted to [facility] on 09[facility]09[facility]2022nd found to have a principle diagnosis of concern for CVA. Patient chief complaint of weakness altered mental status and left-sided numbness as well as seizure activity just prior to admission. The patient states that the symptoms started at 5 PM yesterday prior to the time the patient was walking and did not have any focal deficits. She was found to have a old infarct right parietal region. Believes that her seizure was related to a reaction to this area. She was started on Keppra and had no further seizure activity. She did have some postictal symptoms. She had some mild confusion but overall she improved greatly. Work-up for stroke was basically negative. She was evaluated physical therapy who felt she would benefit from inpatient rehab. She was transitioned to inpatient rehab for continued treatment and care. Discharge instructions medications and follow-up discussed the patient she voiced understanding was discharged in stable condition. Liliana Rivera a very pleasant 76-year-old -[place] female with a past medical history of inflammatory arthritis, hypertension, and other medical conditions. The patient presented to the ER with a chief complaint of left- sided weakness, associated with left-sided numbness. Our assessment of the patient is as follows: Foci of encephalomalacia in the right parietal lobe Subacute/chronic infarct in right parietal lobe HLD verus non-fasting lab? Inflammatory arthritis DMII? HTN Plan: 1. Bilateral carotid ultrasound, echocardiogram with PFO assessment, permissive hypertension,PT/OT/ST consultations, case management/social work consultation, and supportive care. 2. HbA1c, sliding scale insulin, Accu-Cheks, and 1800-calorie ADA diet once the patient passes her swallow evaluation. 3. Of note, the patient has been followed by Dr. Ruperto Banwartorthopedic surgeon, with plans to undergo left knee surgery, soon. Given the patient's recent CVA, affecting her strength on her left side, we have asked the orthopedic team to see the patient for evaluation for possible left knee surgery, prior to the patient's discharge to rehab. This would allow the patient to have [facility] for both left knee surgery and for CVA. I am concerned that the patient may not tolerate rehab for CVA, due to weakness, increase in the risks of worsening the patient's left knee pain.I have consulted our on-call orthopedic surgeon, Dr. Dhaliwal,who has agreed to see the patient by consultation. 4. Our on-call Teleneurologist has recommended an EEG, followed by the initiation of anti-epileptic tx. . 5.Of note, the patient's daughter has expressed interest in a rehab facility [facility] in [facility]. We will continue the patient's home medication regimen for herother chronic medical conditions, unless, otherwise, noted. DVT ppx:Lovenox subcut CODE STATUS:FULL CODE Past Zzdswqi-Niugdd-Lqmyki Hx Past Med/Social Hx: Reviewed Nursing Past Med/Soc Hx, Reviewed and Corrections made Patient Social History Marrital Status: single Employed/Student: retired Alcohol Use: Denies Use Smoking Status: Never a Smoker Past Medical History Surgeries: Orthopedic Cardiac: High Cholesterol, Hypertension Genitourinary: Bladder Infection Musculoskeletal: Arthritis Prior Level of Function Bed Mobility: 6 Transfers: 6 Gait: 6 Indoor Mobility (Ambulation): Independent Prior Devices Use: Walker Self Care: Needed Some Help Functional Cognition: Independent Current Level of Fuctioning Roll Left to Right: 3 Sit to Lyin Lying to Sitting/Side of Bed: 3 Sit to Stand: 3 Chair/Uhm-ug-Rpuia Xfer: 3 Car Transfer: 3 Does the Patient Walk: Yes Mode of Locomotion: Walk Anticipated Mode of Locomotion: Walk Walk 10 feet: 3 Walk 50 ft with 2 Turns: 3 Walk 150 ft: 88 Walking 10ft on uneven surface: 3 Gait Assistive Device: FWW Wheel 50 ft with 2 turns: 9 Wheel 150 ft: 9 1 Step (curb): 88 4 Steps: 88 12 Steps: 88 Picking up an Object: 4 (CGA using a desulfurizer hand) Eatin Oral Hygiene: 4 (SBA) Shower/Bathe Self: 3 (Assistance with BLEs lower legs/feet.) Upper Body Dressin Lower Body Dressin (Assist to thread LEs, some assist with pant hike) On/Off Footwear: 2 (pt able to doff/don slip on shoes, total assist with public relations player per socks.) Toileting Hygiene: 3 PM&R Allergy/Meds/Data Review Allergies Coded Allergies: diphenhydramine (Verified Allergy, Unknown, 09/12/22) tramadol (Verified Allergy, Unknown, 09/12/22) Home Medications Scheduled Aspirin (Aspirin EC), 81 MG PO DAILY, (Reported) Atorvastatin Calcium (Atorvastatin Calcium), 40 MG PO HS, (Reported) Bethanechol Chloride (Bethanechol Chloride), 25 MG PO TIDAC, (Reported) Cephalexin (Cephalexin), 500 MG PO QID, (Reported) Cholecalciferol (Vitamin D3) (Vitamin D3), 50 MCG PO DAILY, (Reported) Lactobacillus Rhamnosus GG (Culturelle), 1 EACH PO BID, (Reported) Levetiracetam (Levetiracetam), 500 MG PO BID, (Reported) Lisinopril (Lisinopril), 20 MG PO DAILY, (Reported) Pantoprazole Sodium (Pantoprazole Sodium), 40 MG PO DAILY, (Reported) Spironolactone (Aldactone), 25 MG PO DAILY, (Reported) Tamsulosin HCl (Flomax), 0.4 MG PO Q12H, (Reported) Scheduled PRN Acetaminophen (Tylenol 8 Hour), 1,300 MG PO Q6H PRN for PAIN-MILD (1-4), (Reported) Naloxone HCl (Narcan), 1 SPRAY NA UD PRN for OPIOID OVERDOSE, (Reported) Tramadol HCl (Tramadol HCl), 50 MG PO Q4H PRN for PAIN-MODERATE (5-7), (Reported) Discontinued Medications Bethanechol Chloride (Bethanechol Chloride), 25 MG PO TIDAC Discontinued Reason: Duplicate Order Cholecalciferol (Vitamin D3) (Vitamin D3), 50 MCG PO DAILY, (Reported) Discontinued Reason: Duplicate Order Meloxicam (Meloxicam), 7.5 MG PO DAILY, (Reported) Discontinued Reason: Duplicate Order Spironolactone (Spironolactone), 25 MG PO DAILY, (Reported) Discontinued Reason: Duplicate Order Tamsulosin HCl (Flomax), 0.4 MG PO Q12H Discontinued Reason: Duplicate Order Tramadol HCl (Tramadol HCl), 50 MG PO Q4H PRN for PAIN-MILD (1-4) Discontinued Reason: Duplicate Order Current Medications Current Medications Reviewed Review of Systems Constitutional: see HPI, malaise, weakness EENTM: no symptoms reported Respiratory: no symptoms reported Cardiovascular: no symptoms reported Gastrointestinal: constipation Genitourinary: no symptoms reported Musculoskeletal: back pain, joint pain Skin: no symptoms reported Psychiatric/Neurological: Anxiety, Depressed All Other Systems Reviewed Negative Unless Noted: Yes Physical Exam Physical Exam Vital Signs Vital Signs - First Documented 09/12/22 14:50 Temp 36.4 Pulse 76 Resp 18 B/P (MAP) 128/60 (82) Pulse Ox 96 O2 Delivery Room Air Capillary Refill : Height, Weight, BMI Height: '" Weight: lbs. oz. kg; 30.97 BMI Method: General Appearance: No Apparent Distress, WD/WN, Chronically ill Eyes: Bilateral Eye Normal Inspection, Bilateral Eye PERRL HEENT: PERRL/EOMI, Normal ENT Inspection, Pharynx Normal Neck: Full Range of Motion, Normal Inspection, Non Tender, Supple, Carotid Bruit Respiratory: Chest Non Tender, Lungs Clear, Normal Breath Sounds, No Accessory Muscle Use, No Respiratory Distress Cardiovascular: Regular Rate, Rhythm, No Edema, No Gallop, No JVD, No Murmur, N ormal Peripheral Pulses Gastrointestinal: Normal Bowel Sounds, No Organomegaly, No Pulsatile Mass, Non Tender, Soft Back: Normal Inspection, No CVA Tenderness, No Vertebral Tenderness Extremity: Normal Capillary Refill, Normal Inspection, Normal Range of Motion, Non Tender, No Calf Tenderness, No Pedal Edema Neurologic/Psychiatric: Alert, Oriented x3, shrimp cleaner II-XII Norm as Tested, Abnormal Gait, Depressed Affect, Motor Weakness (generalized) Skin: Normal Color, Warm/Dry Lymphatic: No Adenopathy PM&R Medical Assessment & Plan REHAB/MEDICAL ASSESSMENT AND PLAN: REHAB IMPAIRMENT GROUP: CVA with seizure ETIOLOGIC DIAGNOSIS: CVA with seizure The comorbidities that impact the patients function and/or functional outcome by: CVA, HTN labile, recurrent UTI, CKD, slow recovery, fall risk REHAB PLAN: The patient is being admitted to our comprehensive inpatient rehabilitation facility and can tolerate the intensity of service consisting of at least: 180 minutes of therapy a day, 5 out of 7 days a week Rehab treatment will consist of: PT OT will focus on regaining function with use of AD in order to increase ambulatory stamina along with ADL independence The patient/family has a good understanding of our discharge process and will benefit from an interdisciplinary inpatient rehabilitation program. The patient has potential to make improvement and is in need of at least two of the following multidisciplinary therapies including but not limited to physical, occupational, speech, and prosthetics and orthotics. Additionally the patient will need services from respiratory, nutritional services, wound care, psychology, etc. (Customize this to each patient). Given the patients complex condition and risk of further medical complications, rehabilitation services cannot be safely or effectively provided at a lower level of care such as a usp facility. BARRIERS TO DISCHARGE: Slow recovery with seizures ESTIMATED LOS: 10 days DISPOSITION: Home with family RELEVANT CHANGES SINCE PREADMISSION SCREENING: I have compared the patients medical and functional status at the time of the preadmission screening and there are: no changes PROGNOSIS: Fair REHABILITATION GOALS: 1. PT OT will focus on regaining function with use of AD in order to increase ambulatory stamina along with ADL independence All the above goals were reviewed with the patient and he/she is in agreement. By signing this document, I acknowledge that I have personally performed a full physical examination on this patient within 24 hours of admission to this inpatient rehabilitation facility and have determined the patient to be able to tolerate the above course of treatment at an intensive level for a reasonable period of time. I will be completing a detailed individualized Plan of Care for this patient by day #4 of the patients stay based upon the Preadmission Screen, the Post-Admission Evaluation, and the therapy evaluations. 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
[2022-09-12] MEDS: LACTOBACILLUS ACIDOPHILUS (PROBIOTIC) CAPSULE PO SCH (21:45)
[2022-09-12] MEDS: DOCUSATE SODIUM 100 MG (COLACE) CAP PO SCH (21:46)
[2022-09-12] MEDS: polyethylene glycoL POWDER 17 GM (MIRALAX) PACK PO SCH (21:46)
[2022-09-12] MEDS: SENNA W/DOCUSATE (SENOKOT S) TABLET PO SCH (21:46)
[2022-09-13 06:11] LABS: BASOPHILS % (AUTO) 1 % (0-10); EOSINOPHILS # (AUTO) 0.2 10^3/uL (0.0-0.3); EOSINOPHILS % (AUTO) 6 % (0-10); HEMATOCRIT 35 % (35-52); HEMOGLOBIN 11.1 g/dL (11.5-16.0); LYMPHOCYTES # (AUTO) 0.8 10^3/uL (1.0-4.0); LYMPHOCYTES % (AUTO) 24 % (12-44); MEAN CORPUSCULAR HEMOGLOBIN 31 pg (25-34); MEAN CORPUSCULAR HGB CONC 32 g/dL (32-36); MEAN CORPUSCULAR VOLUME 98 fL (80-99); MEAN PLATELET VOLUME 9.6 fL (9.0-12.2); MONOCYTES # (AUTO) 0.3 10^3/uL (0.0-1.0); MONOCYTES % (AUTO) 10 % (0-12); NEUTROPHILS # (AUTO) 2.1 10^3/uL (1.8-7.8); NEUTROPHILS % (AUTO) 60 % (42-75); PLATELET COUNT 260 10^3/uL (130-400); WHITE BLOOD COUNT 3.5 10^3/uL (4.3-11.0)
[2022-09-13] MEDS: TAMSULOSIN 0.4 MG (FLOMAX) CAP PO SCH ×2 (06:14→17:54)
[2022-09-13] MEDS: BETHANECHOL 25 MG (URECHOLINE) TAB PO SCH ×3 (06:14→17:53)
[2022-09-13 06:20] LABS: ALBUMIN 3.6 GM/DL (3.2-4.5)
[2022-09-13 06:21] LABS: POTASSIUM 3.9 MMOL/L (3.6-5.0)
[2022-09-13 06:22] LABS: CALCIUM 9.6 MG/DL (8.5-10.1)
[2022-09-13 06:23] LABS: TOTAL PROTEIN 7.4 GM/DL (6.4-8.2)
[2022-09-13 06:25] LABS: BILIRUBIN,TOTAL 0.4 MG/DL (0.1-1.0)
[2022-09-13 06:27] LABS: CREATININE SERUM 0.97 MG/DL (0.60-1.30)
--- NOTE | 2022-09-13 06:46 | PM&R Progress Note ---
Subjective HPI/CC On Admission Date Seen by Provider: Sep 13, 2022 Time Seen by Provider: 12:00 Subjective/Events-last exam 09/13/2022: Patient doing well Pain improved Labs stable No major issues Checked meds Review of Systems General: Fatigue, Malaise Neurological: Weakness, Incoordination Objective Exam Vital Signs Vital Signs Date Time Temp Pulse Resp B/P (MAP) Pulse Ox O2 Delivery O2 Flow Rate FiO2 09/13/22 21:00 96 Room Air 09/13/22 20:00 36.4 69 20 143/68 (93) Capillary Refill : General Appearance: No Apparent Distress, WD/WN, Chronically ill HEENT: PERRL/EOMI, Normal ENT Inspection, Pharynx Normal Neck: Full Range of Motion, Normal Inspection, Non Tender, Supple, Carotid Bruit Respiratory: Chest Non Tender, Lungs Clear, Normal Breath Sounds, No Accessory Muscle Use, No Respiratory Distress Cardiovascular: Regular Rate, Rhythm, No Edema, No Gallop, No JVD, No Murmur, Normal Peripheral Pulses Gastrointestinal: Normal Bowel Sounds, No Organomegaly, No Pulsatile Mass, Non Tender, Soft Back: Normal Inspection, No CVA Tenderness, No Vertebral Tenderness Extremity: Normal Capillary Refill, Normal Inspection, Normal Range of Motion, Non Tender, No Calf Tenderness, No Pedal Edema Neurologic/Psychiatric: Alert, Oriented x3, new accounts representative II-XII Norm as Tested, Abnormal Gait, Depressed Affect, Motor Weakness (generalized) Skin: Normal Color, Warm/Dry Lymphatic: No Adenopathy Results/Procedures Lab Laboratory Tests 09/13/22 06:00 Patient resulted labs reviewed. FIM Transfers Therapy Code Descriptions/Definitions Functional [place] Measure: 0=Not Assessed/NA 4=Minimal Assistance 1=Total Assistance 5=Supervision or Setup 2=Maximal Assistance 6=Modified [place] 3=Moderate Assistance 7=Complete IndependenceSCALE: Activities may be completed with or without assistive devices. 9-Zqavqvsfxo-oorprmx completes the activity by him/herself with no assistance from a helper. 5-Set-up or Clean-up Assistance-helper sets up or cleans up; patient completes activity. [place] assists only prior to or following the activity. 4-Supervision or Touching Assistance-helper provides verbal cues and/or touching/steadying and/or contact guard assistance as patient completes activity. Assistance may be provided throughout the activity or intermittently. 3-Partial/Moderate Assistance-helper does LESS THAN HALF the effort. [place] lifts, holds or supports trunk or limbs, but provides less than half the effort. 2-Substantial/Maximal Assistance-helper does MORE THAN HALF the effort. [place] lifts or holds trunk or limbs and provides more than half the effort. 4-Illogthqg-pzkvmb does ALL the effort. Patient does none of the effort to complete the activity. Or, the assistance of 2 or more helpers is required for the patient to complete the activity. If activity was not attempted, code reason: 7-Patient Refused. 9-Not Applicable-not attempted and the patient did not perform the activity before the current illness, exacerbation or injury. 10-Not Attempted due to Environmental Limitations-(lack of equipment, weather restraints, etc.). 88-Not Attempted due to Medical Conditions or Safety Concerns. Roll Left to Right (QC): 3 Sit to Lying (QC): 2 Sit to Stand (QC): 3 Chair/Psv-oi-Dpzff Xfer(QC): 3 Car Transfer (QC): 3 Gait Training Does the Patient Walk?: Yes Walk 10 feet (QC): 3 Walk 50 ft with 2 Turns(QC): 3 Walk 150 ft (QC): 88 Walking 10ft/uneven surface-QC: 3 Gait Assistive Device: FWW Wheelchair Training Wheel 50 ft with 2 turns (QC): 9 Wheel 150 ft (QC): 9 Stair Training 1 Step (curb) (QC): 88 4 Steps (QC): 88 12 Steps (QC): 88 Balance Picking up an Object (QC): 4 (CGA using a auto servicer) ADL-Treatment Eating (QC): 5 Oral Hygiene (QC): 4 (SBA) Shower/Bathe Self (QC): 3 (Assistance with BLEs lower legs/feet.) Upper Body Dressing (QC): 3 Lower Body Dressing (QC): 2 (Assist to thread LEs, some assist with pant hike) On/Off Footwear (QC): 2 (pt able to doff/don slip on shoes, total assist with gripper socks.) Toileting Hygiene (QC): 3 Assessment/Plan Assessment and Plan Assess & Plan/Chief Complaint Assessment: s/p CVA s/p Seizure due to CVA s/p uncomplicated left hip arthroplasty revision by Dr Fernandez 04/2022 due to pain from hardware placed during hip fracture repair 10 years ago HTN labile status Urinary retention hx Fall risk Left knee pain chronic h/o Anemia iron deficiency status post iron infusions and blood transfusions Plan: PT OT Monitor function Fall risk Seizure precautions 09/13/2022: Monitor closely Seizure precautions (1) Infarction of parietal lobe NATIVIDAD MENJIVAR DO Sep 13, 2022 06:46
--- NOTE | 2022-09-13 06:46 | Individualized Plan of Care ---
Individualized Plan of Care Rehab Nursing IPOC Order Admission Date Sep 12, 2022 at 14:50 Current Orders Orders Admission Arrival Bed Request (09/12/22 14:52) Admission Order(Inpt,Obs,Sdc) (09/12/22 15:31) Vital Signs: Per Unit Policy ( 08,16,00 (09/12/22 15:31) Tiburcio Garcia 09,21 (09/12/22 15:31) Sequential Compression Device (09/12/22 15:31) Refiner Operator-Inpt Rehab Con (09/12/22 15:31) Rehab Nursing Orders-Ipoc (09/12/22 15:31) Physical Therapy Rehab Orders (09/12/22 15:31) Occupational Therapy Rehab Ord (09/12/22 15:31) Speech Therapy Rehab Orders (09/12/22 15:31) Cbc With Automated Diff (09/13/22 06:00) Comprehensive Metabolic Panel (09/13/22 06:00) Precautions (Aru) (09/12/22 15:31) Weekly Weight WEEK (09/12/22 15:31) Rehab-Intensity Of Therapy (09/12/22 15:31) Initiate Admission Nursing Pro .admission (09/12/22 15:31) Alprazolam Tablet (Xanax Tablet) (09/12/22 15:45) Calcium Carbonate Chew Tablet (Antacid C (09/12/22 15:45) Diphenhydramine Tablet (Benadryl Tablet) (09/12/22 15:45) Docusate Sodium Capsule (Colace Capsule) (09/12/22 21:00) Docusate Sodium Capsule (Colace Capsule) (09/12/22 15:45) Bisacodyl Suppository (Dulcolax Supposit (09/12/22 15:45) Lactulose Oral Solution (Enulose Oral So (09/12/22 15:45) Na Phos/Na Biphos Enema (Fleet Enema Jesus (09/12/22 15:45) Guaifenesin/Codeine Syrup (Robitussin Ac (09/12/22 15:45) Loperamide Tablet (Imodium Tablet) (09/12/22 15:45) Melatonin Tablet (Melatonin Tablet) (09/12/22 15:45) Polyethylene Glycol Powder Pkt (Miralax (09/12/22 21:00) Ondansetron Oral Dissolve Tab (Zofran (09/12/22 15:45) Senna S Tablet (Senokot S Tablet) (09/12/22 21:00) Acetaminophen Tablet/Caplet (Tylenol T (09/12/22 15:45) Code/Resuscitation (09/12/22 15:31) Acetaminophen Arthritis (Tylenol Arthrit (09/12/22 15:45) Aspirin Enteric Coated Tablet (Ecotrin T (09/13/22 09:00) Atorvastatin Tablet (Lipitor Tablet) (09/12/22 21:00) Bethanechol Tablet (Urecholine Tablet) (09/12/22 17:00) Levetiracetam Tablet (Keppra Tablet) (09/12/22 21:00) Lisinopril Tablet (Zestril Tablet) (09/13/22 09:00) Pantoprazole Tablet (Protonix Tablet) (09/13/22 09:00) Spironolactone Tablet (Aldactone Tablet) (09/13/22 09:00) Tamsulosin Capsule (Flomax Capsule) (09/12/22 19:00) (Nf) Cephalexin (09/12/22 17:00) (Nf) Cholecalciferol (Vitamin D3) (Vitam (09/13/22 09:00) (Nf) Lactobacillus Rhamnosus Gg (Culture (09/12/22 21:00) Lactobacillus Acidophilus Cap (Acidophil (09/12/22 21:00) Cholecalciferol Capsule/Tablet (Vitamin (09/13/22 09:00) Cephalexin Capsule (Keflex Capsule) (09/12/22 17:00) Hydrocodone/Apap 5/325 Tablet (Lortab 5 (09/12/22 18:30) Acetaminophen/Codeine Tablet (Tylenol W/ (09/12/22 18:30) Oxycodone Immediate Rel Tablet (Oxyir Ta (09/12/22 18:30) Enoxaparin Injection (Lovenox Injection) (09/13/22 09:00) General/Regular (09/13/22 Breakfast) Patient Visit (09/12/22 ) Pt Eval Moderate Complexity (09/12/22 ) Exercise Therap, Ea 15 Min (09/12/22 ) Functional Activities, Ea 15 (09/12/22 ) Patient Visit (09/13/22 ) Diclofenac 1% Gel (Voltaren 1% Gel) (09/13/22 13:00) Patient Visit (09/13/22 ) Gait Training, Ea 15 Min (09/13/22 ) Functional Activities, Ea 15 (09/13/22 ) Exercise Therap, Ea 15 Min (09/13/22 ) Patient Visit (09/13/22 ) Gait Training, Ea 15 Min (09/13/22 ) Exercise Therap, Ea 15 Min (09/13/22 ) Rehab Nursing Orders: Ongoing Assess. of Function Status, Bladder Management, Bladder Scan, Bladder Training, Bowel Management, Bowel Training, Disease Management & Educaiton, DVT Prophylaxis, Fall Prevention, Fl uid/Electrolyte/Nutrition Mgmt, Infection Prevention, Medication Management & Education, Management of Risks & Complications, Nutrition Management, Pain Management, Patient/Family Support, Safety Management Intensity of Therapy to be met Patient to be seen: Min.3h per day/5 of 7d PT IPOC Problem List: Activity Tolerance, Functional Strength, Safety, Balance, Gait, Transfer, Bed Mobility, ROM Treatment Plan: Continue Plan of Care Bed Mobility, Education, Functional Activity Emma, Functional Strength, Group Therapy, Gait, Safety, Therapeutic Exercise, Transfers Treatment Duration: Sep 26, 2022 Frequency: At least 5 of 7 days/Wk (IRF) Estimated Hrs Per Day: 1.5 hours per day OT IPOC Problems: Decreased Activ Tolerance, Decreased UE Strength, Impaired Funct Balance, Impaired I ADL's, Impaired Self-Care Skills OT Treatment, Training and Edu: Yes Plan of Care: ADL Retraining, Functional Mobility, Group Exercise/Act as Ind, UE Funct Exercise/Act Treatment Duration: Oct 04, 2022 Frequency: At least 5 of 7 days/Wk (IRF) Estimated Hrs Per Day: 1.[address] IPOC Speech Therapy Treatment Plan: Continue Plan of Care Treatment Duration: Sep 13, 2022 Frequency: Modified Program (IRF) Estimated Hrs Per Day: Other Refiner Operator/Case Mgmt Refiner Operator/Case Managemen: Discharge Planning Dietitian/Diesel Powerplant Mechanic Helper Dietitian/Diesel Powerplant Mechanic Helper to monitor nutritional status and make changes and/or recommendations as needed and work with speech pathology on dietary upgrades as the occur. Physician IPOC Medical Issues being managed closely and that require the 24 hour availability of a physician: Recent CVA with seizure will require close monitoring for any medication side effects and recurrent seizures Medical Issues: Bowel/Bladder Function, DVT Prophylaxis, Falls Precautions, Fluid/Electrolyte/Nutrition Balance, Infection Protection, Pain Management Brief Synthesis of Preadmission Screen, Post-Admission Evaluation, and Therapy Evaluations: PT OT ST will all focus on regaining function with use of AD in order to regain function with increased independent ADL's in order to go home. Medical Prognosis: Good Anticipated Length of Stay: 7 days NATIVIDAD MENJIVAR DO Sep 13, 2022 06:46
[2022-09-13 08:00] VITALS: BP 160/84
--- NOTE | 2022-09-13 08:41 | Speech Therapy Progress Note ---
Therapy Progress Note 0835: The clinician received cognitive linguistic evaluation orders and reviewed the patient's chart. On this date, the clinician visited with the patient and her family member present at bedside regarding her current/prior speech, language, cognition, and swallowing skills. Per patient and present family member, the patient is currently performing at baseline in the above areas. The patient denied s/s of suspected aspiration with her current diet consistency and P.O. intake. Additionally, the patient denied difficulty or acute changes/concerns with word-finding, memory, sequencing, problem solving, and/or speech production. The patient participated appropriately in structured conversation and displayed appropriate orientation skills. At this time, skilled speech pathology services will not be provided and do not appear warranted. The patient was encouraged to contact any staff members should areas of speech pathology concerns arise. MARGARET HONG Sep 13, 2022 08:41
[2022-09-13] MEDS ORDERED: NON-FORMULARY MEDICATION 1 EA EA (Cholecalciferol (Vitamin D3) (Vitamin D3) 50 MCG) PO SCH (09:00)
[2022-09-13] MEDS: LACTOBACILLUS ACIDOPHILUS (PROBIOTIC) CAPSULE PO SCH ×2 (09:28→21:12)
[2022-09-13] MEDS: PANTOPRAZOLE 40 MG (PROTONIX) TAB PO SCH (09:28)
[2022-09-13] MEDS: ASPIRIN E.C. 81 MG (ECOTRIN) TAB PO SCH (09:28)
[2022-09-13] MEDS: SENNA W/DOCUSATE (SENOKOT S) TABLET PO SCH ×2 (09:28→21:12)
[2022-09-13] MEDS: SPIRONOLACTONE 25 MG (ALDACTONE) TAB PO SCH (09:28)
[2022-09-13] MEDS: lisINopril 20 MG (PRINIVIL) TABLET PO SCH (09:28)
[2022-09-13] MEDS: CEPHALEXIN 250 MG (KEFLEX) CAP PO SCH ×4 (09:29→21:11)
[2022-09-13] MEDS: ENOXAPARIN 40 MG/0.4 ML (LOVENOX) SYR SC SCH (09:29)
[2022-09-13] MEDS: DOCUSATE SODIUM 100 MG (COLACE) CAP PO SCH ×2 (09:29→21:12)
[2022-09-13] MEDS: polyethylene glycoL POWDER 17 GM (MIRALAX) PACK PO SCH ×2 (09:29→21:14)
[2022-09-13] MEDS: VITAMIN D3 25 MCG (1,000 UNITS) TABLET PO SCH (09:29)
--- NOTE | 2022-09-13 09:36 | Occupational Ther Daily Note ---
OT Current Status-Daily Note Subjective Pt at EOB eating breakfast, agreeable to OT Tx. ADL-Treatment Therapy Code Descriptions/Definitions Functional [place] Measure: 0=Not Assessed/NA 4=Minimal Assistance 1=Total Assistance 5=Supervision or Setup 2=Maximal Assistance 6=Modified [place] 3=Moderate Assistance 7=Complete IndependenceSCALE: Activities may be completed with or without assistive devices. 9-Osheqlfnpz-glvdnjz completes the activity by him/herself with no assistance from a helper. 5-Set-up or Clean-up Assistance-helper sets up or cleans up; patient completes activity. [place] assists only prior to or following the activity. 4-Supervision or Touching Assistance-helper provides verbal cues and/or touching/steadying and/or contact guard assistance as patient completes activity. Assistance may be provided throughout the activity or intermittently. 3-Partial/Moderate Assistance-helper does LESS THAN HALF the effort. [place] lifts, holds or supports trunk or limbs, but provides less than half the effort. 2-Substantial/Maximal Assistance-helper does MORE THAN HALF the effort. [place] lifts or holds trunk or limbs and provides more than half the effort. 8-Eqlmaxbyq-gupulw does ALL the effort. Patient does none of the effort to complete the activity. Or, the assistance of 2 or more helpers is required for the patient to complete the activity. If activity was not attempted, code reason: 7-Patient Refused. 9-Not Applicable-not attempted and the patient did not perform the activity before the current illness, exacerbation or injury. 10-Not Attempted due to Environmental Limitations-(lack of equipment, weather restraints, etc.). 88-Not Attempted due to Medical Conditions or Safety Concerns. Eating (QC): 6 Lower Body Dressing (QC): 2 (Max A overall.) On/Off Footwear: 2 (total assist gripper socks, some assist with slip on shoes.) Other Treatment Pt at EOB, finished breakfast IND. Pt able to perform IADL task of calling her bank and paying a bill, assistance only to dial bank number which pt was able to recall from memory. Pt donned pants, max A overall, these were too small on pt, so pt doffed pants with mod A, then donned a larger size pants Mod A. Min A with sit to stands from EOB during task. Pt declined further ADLs. Pt used FWW to perform functional mobility to therapy gym, SBA. In order to increase BUE Strength and activity tolerance, pt completed arm bike, x10 mins, 15 Watt resistance. Pt returned to her room using FWW, SBA, transferring to EOB. Post tx, pt EOB, call light in reach and all needs met. Education OT Patient Education: Correct positioning, Energy conservation, Modified ADL techniques, Progress toward Goal/Update tx plan, Purpose of tx/functional activities, Rehab process Teaching Recipient: Patient Teaching Methods: Discussion Response to Teaching: Verbalize Understanding OT Short Term Goals Short Term Goals Time Frame: Sep 27, 2022 Toileting hygiene: 4 Shower/bathe self: 4 Upper body dressin Lower body dressin Putting on/taking off footwear: 4 OT Assisted Goals Washer Repairman Goals Time Frame: Oct 04, 2022 Acute change in mental status: 0 Inattention: 0 Disorganized thinkin Altered level of consciousness: 0 Eating (QC): 6 Oral Hygiene (QC): 6 Toileting Hygiene (QC): 6 Shower/Bathe Self (QC): 6 Upper Body Dressing (QC): 6 Lower Body Dressing (QC): 6 On/Off Footwear (QC): 6 Additional Goals: 1-Demonstrate ADL Tasks, 2-Verbalize Understanding, 3- ImproveStrength/Emma 1=Demonstrate adherence to instructed precautions during ADL tasks. 2=Patient will verbalize/demonstrate understanding of assistive devices/modifications for ADL. 3=Patient will improve strength/tolerance for activity to enable patient to perform ADL's. OT Education/Plan Problem List/Assessment Assessment: Decreased Activ Tolerance, Decreased UE Strength, Impaired Funct Balance, Impaired I ADL's, Impaired Self-Care Skills Discharge Recommendations Plan/Recommendations: Continue POC Treatment Plan/Plan of Care Patient would benefit from OT for education, treatment and training to promote independence in ADL's, mobility, safety and/or upper extremity function for ADL's. Plan of Care: ADL Retraining, Functional Mobility, Group Exercise/Act as Ind, UE Funct Exercise/Act Treatment Duration: Oct 04, 2022 Frequency: At least 5 of 7 days/Wk (IRF) Estimated Hrs Per Day: 1.5 hours per day Agreement: Yes Rehab Potential: Fair Time Start Time: 08:45 Stop Time: 10:00 DATE: Sep 13, 2022 Total Time Billed (hr/min): 75 Billed Treatment Time 1, ADL 4 (60'), EX (15') DEIRDRE OWEN OT Sep 13, 2022 09:36
--- NOTE | 2022-09-13 10:55 | Physical Therapy Daily Note ---
PT Daily Note-Current Subjective Pt. agrees to Rx, c/ pain in her left knee occas but "not enough to rate" Pain Location: No Pain Reported Section J - Health Conditions 1. Rarely or not at all 2. Occasionally 3. Frequently 4. Almost constantly 8. Unable to answer Pain Effect on Sleep: 1 Pain Interference with Therapy: 1 Pain Interference w/Day-to-Day: 1 Mental Status Patient Orientation: Normal For Age Transfers SCALE: Activities may be completed with or without assistive devices. 1-Nuoixcdjax-lqybgnv completes the activity by him/herself with no assistance from a helper. 5-Set-up or Clean-up Assistance-helper sets up or cleans up; patient completes activity. [place] assists only prior to or following the activity. 4-Supervision or Touching Assistance-helper provides verbal cues and/or touchin g/steadying and/or contact guard assistance as patient completes activity. Assistance may be provided throughout the activity or intermittently. 3-Partial/Moderate Assistance-helper does LESS THAN HALF the effort. [place] lifts, holds or supports trunk or limbs, but provides less than half the effort. 2-Substantial/Maximal Assistance-helper does MORE THAN HALF the effort. [place] lifts or holds trunk or limbs and provides more than half the effort. 6-Poyxyqhcy-mjwncw does ALL the effort. Patient does none of the effort to complete the activity. Or, the assistance of 2 or more helpers is required for the patient to complete the activity. If activity was not attempted, code reason: 7-Patient Refused. 9-Not Applicable-not attempted and the patient did not perform the activity before the current illness, exacerbation or injury. 10-Not Attempted due to Environmental Limitations-(lack of equipment, weather restraints, etc.). 88-Not Attempted due to Medical Conditions or Safety Concerns. Roll Left & Right (QC): 6 Sit to Lying (QC): 4 Lying to Sitting/Side of Bed(Q: 6 Sit to Stand (QC): 6 Chair/Mcm-yk-Mutqq Xfer(QC): 6 Toilet Transfer (QC): 6 Gait Training Does the Patient Walk?: Yes Walk 10 feet (QC): 6 Walk 50 ft with 2 Turns(QC): 6 Walk 150 ft (QC): 6 Gait Persons Needed: 1 Gait Assistive Device: FWW slow, kyphotic, moderate wt bearing on FWW, needs cues to look up etc [id number], 165 x2 Exercises Supine Ex: Ankle pumps, Glut sets, Heel Slides, Short Arc Quads Supine Reps: 15 Seated Therapy Exercises: Ankle pumps, Sit to stand, Long arc quads, Hip flexion, Hip abd/add Seated Reps: 15 pt. has poor tolerance for supine position and had to discontinue ex in this position Treatments TRFs, toileting, gait, ex Assessment Current Status: Good Progress PT Flight Technician Goals Flight Technician Goals PT Halfway Goals Time Frame: Sep 26, 2022 Roll Left & Right (QC): 4 (SBA) Sit to Lying (QC): 4 (SBA) Lying-Sitting on Side/Bed(QC): 4 (SBA) Sit to Stand (QC): 4 (SBA) Chair/Rlu-ya-Xazxs Xfer(QC): 4 (CGA) Toilet Transfer (QC): 4 (CGA) Car Transfer (QC): 4 (CGA) Does the Patient Walk: Yes Walk 10 feet (QC): 4 (CGA) Walk 50ft with 2 Turns (QC): 4 (CGA) Walk 150 ft (QC): 4 (CGA) Walking 10ft on Uneven Surface: 4 (CGA) 1 Step (curb) (QC): 4 (CGA) 4 Steps (QC): 4 (CGA) 12 Steps (QC): 88 Picking up an Object (QC): 4 (SBA) Wheel 50 feet with 2 turns (QC: 9 Wheel 150 feet: 9 PT Plan Treatment/Plan Treatment Plan: Continue Plan of Care Treatment Plan: Bed Mobility, Education, Functional Activity Emma, Functional Strength, Group Therapy, Gait, Safety, Therapeutic Exercise, Transfers Treatment Duration: Sep 26, 2022 Frequency: At least 5 of 7 days/Wk (IRF) Estimated Hrs Per Day: 1.5 hours per day Patient and/or Family Agrees t: Yes Safety Risks/Education Patient Education: Gait Training, Transfer Techniques, Correct Positioning, Safety Issues Teaching Recipient: Patient Teaching Methods: Demonstration, Discussion Response to Teaching: Verbalize Understanding, Return Demonstration, Reinforcement Needed Time Time In: 1000 Time Out: 1100 DATE: Sep 13, 2022 Total Billed Treatment Time: 60 Total Billed Treatment 1,GT25m,FA15m,EX20m NIKOLAS IBARRA PTA Sep 13, 2022 10:55
--- NOTE | 2022-09-13 11:56 | Physical Therapy Daily Note ---
PT Daily Note-Current Subjective Pt. agrees to gait and balance challenges, LE ex Pain Location: No Pain Reported Section J - Health Conditions 1. Rarely or not at all 2. Occasionally 3. Frequently 4. Almost constantly 8. Unable to answer Pain Effect on Sleep: 1 Pain Interference with Therapy: 1 Pain Interference w/Day-to-Day: 1 Mental Status Patient Orientation: Normal For Age Transfers SCALE: Activities may be completed with or without assistive devices. 8-Wgmppnycrz-lfosptp completes the activity by him/herself with no assistance from a helper. 5-Set-up or Clean-up Assistance-helper sets up or cleans up; patient completes activity. [place] assists only prior to or following the activity. 4-Supervision or Touching Assistance-helper provides verbal cues and/or touching/steadying and/or contact guard assistance as patient completes activity. Assistance may be provided throughout the activity or intermittently. 3-Partial/Moderate Assistance-helper does LESS THAN HALF the effort. [place] lifts, holds or supports trunk or limbs, but provides less than half the effort. 2-Substantial/Maximal Assistance-helper does MORE THAN HALF the effort. [place] lifts or holds trunk or limbs and provides more than half the effort. 7-Hghximihj-rjuabz does ALL the effort. Patient does none of the effort to comp lete the activity. Or, the assistance of 2 or more helpers is required for the patient to complete the activity. If activity was not attempted, code reason: 7-Patient Refused. 9-Not Applicable-not attempted and the patient did not perform the activity before the current illness, exacerbation or injury. 10-Not Attempted due to Environmental Limitations-(lack of equipment, weather restraints, etc.). 88-Not Attempted due to Medical Conditions or Safety Concerns. sit to stand from higher surface indep Gait Training Does the Patient Walk?: Yes Gait Assistive Device: FWW 125 ft x 2, 50ft CGA no LOB, slow head down gait Exercises Seated Therapy Exercises: Ankle pumps, Sit to stand, Long arc quads, Hip flexion, Hip abd/add Seated Reps: 15 Treatments toileting with balance challenges managing clothing and cleaning bilat UEs, gait, LE ex Assessment Current Status: Good Progress PT Php Website Developer Goals Care Home Goals PT Care Home Goals Time Frame: Sep 26, 2022 Roll Left & Right (QC): 4 (SBA) Sit to Lying (QC): 4 (SBA) Lying-Sitting on Side/Bed(QC): 4 (SBA) Sit to Stand (QC): 4 (SBA) Chair/Cgy-ya-Exzqr Xfer(QC): 4 (CGA) Toilet Transfer (QC): 4 (CGA) Car Transfer (QC): 4 (CGA) Does the Patient Walk: Yes Walk 10 feet (QC): 4 (CGA) Walk 50ft with 2 Turns (QC): 4 (CGA) Walk 150 ft (QC): 4 (CGA) Walking 10ft on Uneven Surface: 4 (CGA) 1 Step (curb) (QC): 4 (CGA) 4 Steps (QC): 4 (CGA) 12 Steps (QC): 88 Picking up an Object (QC): 4 (SBA) Wheel 50 feet with 2 turns (QC: 9 Wheel 150 feet: 9 PT Plan Treatment/Plan Treatment Plan: Continue Plan of Care Treatment Plan: Bed Mobility, Education, Functional Activity Emma, Functional Strength, Group Therapy, Gait, Safety, Therapeutic Exercise, Transfers Treatment Duration: Sep 26, 2022 Frequency: At least 5 of 7 days/Wk (IRF) Estimated Hrs Per Day: 1.5 hours per day Patient and/or Family Agrees t: Yes Safety Risks/Education Patient Education: Gait Training, Transfer Techniques, Correct Positioning, Safety Issues Teaching Recipient: Patient Teaching Methods: Demonstration, Discussion Response to Teaching: Verbalize Understanding, Return Demonstration, Reinforcement Needed Time Time In: 1130 Time Out: 1200 DATE: Sep 13, 2022 Total Billed Treatment Time: 30 Total Billed Treatment 1,GT15,EX15 NIKOLAS IBARRA PTA Sep 13, 2022 11:56
--- NOTE | 2022-09-13 13:17 | Occupational Ther Daily Note ---
OT Current Status-Daily Note Subjective Pt in recliner, agreeable to OT Tx. ADL-Treatment Therapy Code Descriptions/Definitions Functional [place] Measure: 0=Not Assessed/NA 4=Minimal Assistance 1=Total Assistance 5=Supervision or Setup 2=Maximal Assistance 6=Modified [place] 3=Moderate Assistance 7=Complete IndependenceSCALE: Activities may be completed with or without assistive devices. 9-Pkhlnldapq-ijvcbnx completes the activity by him/herself with no assistance from a helper. 5-Set-up or Clean-up Assistance-helper sets up or cleans up; patient completes activity. [place] assists only prior to or following the activity. 4-Supervision or Touching Assistance-helper provides verbal cues and/or touching/steadying and/or contact guard assistance as patient completes activity. Assistance may be provided throughout the activity or intermittently. 3-Partial/Moderate Assistance-helper does LESS THAN HALF the effort. [place] lifts, holds or supports trunk or limbs, but provides less than half the effort. 2-Substantial/Maximal Assistance-helper does MORE THAN HALF the effort. [place] lifts or holds trunk or limbs and provides more than half the effort. 6-Ryekbdkku-yoodhk does ALL the effort. Patient does none of the effort to compl ete the activity. Or, the assistance of 2 or more helpers is required for the patient to complete the activity. If activity was not attempted, code reason: 7-Patient Refused. 9-Not Applicable-not attempted and the patient did not perform the activity before the current illness, exacerbation or injury. 10-Not Attempted due to Environmental Limitations-(lack of equipment, weather restraints, etc.). 88-Not Attempted due to Medical Conditions or Safety Concerns. Eating (QC): 6 Other Treatment Pt in recliner, in order to increase BUE Strength and activity tolerance, pt completed x10 reps each AROM BUES: shoulder flexion, front punch, elbow flexion/extension. Pt's lunch arrived and pt able to eat independently. Post tx, pt in recliner, call light in reach and all needs met. Education OT Patient Education: Correct positioning, Energy conservation, Modified ADL techniques, Progress toward Goal/Update tx plan, Purpose of tx/functional activities, Rehab process Teaching Recipient: Patient Teaching Methods: Discussion Response to Teaching: Verbalize Understanding OT Short Term Goals Short Term Goals Time Frame: Sep 27, 2022 Toileting hygiene: 4 Shower/bathe self: 4 Upper body dressin Lower body dressin Putting on/taking off footwear: 4 OT Guide Changer Goals Shelter Goals Time Frame: Oct 04, 2022 Acute change in mental status: 0 Inattention: 0 Disorganized thinkin Altered level of consciousness: 0 Eating (QC): 6 Oral Hygiene (QC): 6 Toileting Hygiene (QC): 6 Shower/Bathe Self (QC): 6 Upper Body Dressing (QC): 6 Lower Body Dressing (QC): 6 On/Off Footwear (QC): 6 Additional Goals: 1-Demonstrate ADL Tasks, 2-Verbalize Understanding, 3- ImproveStrength/Emma 1=Demonstrate adherence to instructed precautions during ADL tasks. 2=Patient will verbalize/demonstrate understanding of assistive de vices/modifications for ADL. 3=Patient will improve strength/tolerance for activity to enable patient to perform ADL's. OT Education/Plan Problem List/Assessment Assessment: Decreased Activ Tolerance, Decreased UE Strength, Impaired I ADL's, Impaired Self-Care Skills Discharge Recommendations Plan/Recommendations: Continue POC Treatment Plan/Plan of Care Patient would benefit from OT for education, treatment and training to promote independence in ADL's, mobility, safety and/or upper extremity function for ADL's. Plan of Care: ADL Retraining, Functional Mobility, Group Exercise/Act as Ind, UE Funct Exercise/Act Treatment Duration: Oct 04, 2022 Frequency: At least 5 of 7 days/Wk (IRF) Estimated Hrs Per Day: 1.5 hours per day Agreement: Yes Rehab Potential: Fair Time Start Time: 12:15 Stop Time: 12:30 DATE: Sep 13, 2022 Total Time Billed (hr/min): 15 Billed Treatment Time 1, EX DEIRDRE OWEN OT Sep 13, 2022 13:17
[2022-09-13] MEDS: DICLOFENAC 1% GEL 100 GM (VOLTAREN) TUBE TOP SCH ×3 (14:20→21:15)
[2022-09-13 20:00] VITALS: BP 143/68
[2022-09-14] MEDS: TAMSULOSIN 0.4 MG (FLOMAX) CAP PO SCH ×2 (06:27→19:53)
[2022-09-14] MEDS: BETHANECHOL 25 MG (URECHOLINE) TAB PO SCH ×3 (06:27→17:01)
[2022-09-14 07:30] VITALS: BP 164/77
--- NOTE | 2022-09-14 08:56 | PM&R Progress Note ---
Subjective HPI/CC On Admission Date Seen by Provider: Sep 14, 2022 Time Seen by Provider: 12:00 Subjective/Events-last exam 09/14/2022: No major issues No pain reported No falls Family at bedside 09/13/2022: Patient doing well Pain improved Labs stable No major issues Checked meds Review of Systems General: Fatigue, Malaise Objective Exam Vital Signs Vital Signs Date Time Temp Pulse Resp B/P (MAP) Pulse Ox O2 Delivery O2 Flow Rate FiO2 09/14/22 21:50 96 Room Air 09/14/22 19:59 37.3 75 20 175/82 (113) Capillary Refill : General Appearance: No Apparent Distress, WD/WN, Chronically ill HEENT: PERRL/EOMI, Normal ENT Inspection, Pharynx Normal Neck: Full Range of Motion, Normal Inspection, Non Tender, Supple, Carotid Bruit Respiratory: Chest Non Tender, Lungs Clear, Normal Breath Sounds, No Accessory Muscle Use, No Respiratory Distress Cardiovascular: Regular Rate, Rhythm, No Edema, No Gallop, No JVD, No Murmur, Normal Peripheral Pulses Gastrointestinal: Normal Bowel Sounds, No Organomegaly, No Pulsatile Mass, Non Tender, Soft Back: Normal Inspection, No CVA Tenderness, No Vertebral Tenderness Extremity: Normal Capillary Refill, Normal Inspection, Normal Range of Motion, Non Tender, No Calf Tenderness, No Pedal Edema Neurologic/Psychiatric: Alert, Oriented x3, day care center director II-XII Norm as Tested, Abnormal Gait, Depressed Affect, Motor Weakness (generalized) Skin: Normal Color, Warm/Dry Lymphatic: No Adenopathy Results/Procedures Lab Patient resulted labs reviewed. FIM Transfers Therapy Code Descriptions/Definitions Functional [place] Measure: 0=Not Assessed/NA 4=Minimal Assistance 1=Total Assistance 5=Supervision or Setup 2=Maximal Assistance 6=Modified [place] 3=Moderate Assistance 7=Complete IndependenceSCALE: Activities may be completed with or without assistive devices. 1-Hrodyxlani-tksvdzt completes the activity by him/herself with no assistance from a helper. 5-Set-up or Clean-up Assistance-helper sets up or cleans up; patient completes activity. [place] assists only prior to or following the activity. 4-Supervision or Touching Assistance-helper provides verbal cues and/or touching/steadying and/or contact guard assistance as patient completes activity. Assistance may be provided throughout the activity or intermittently. 3-Partial/Moderate Assistance-helper does LESS THAN HALF the effort. [place] lifts, holds or supports trunk or limbs, but provides less than half the effort. 2-Substantial/Maximal Assistance-helper does MORE THAN HALF the effort. [place] lifts or holds trunk or limbs and provides more than half the effort. 0-Lhtzfclem-sdaxed does ALL the effort. Patient does none of the effort to complete the activity. Or, the assistance of 2 or more helpers is required for the patient to complete the activity. If activity was not attempted, code reason: 7-Patient Refused. 9-Not Applicable-not attempted and the patient did not perform the activity before the current illness, exacerbation or injury. 10-Not Attempted due to Environmental Limitations-(lack of equipment, weather restraints, etc.). 88-Not Attempted due to Medical Conditions or Safety Concerns. Roll Left to Right (QC): 6 Sit to Lying (QC): 4 Sit to Stand (QC): 6 Chair/Fio-lk-Hrxke Xfer(QC): 6 Car Transfer (QC): 3 Gait Training Does the Patient Walk?: Yes Walk 10 feet (QC): 6 Walk 50 ft with 2 Turns(QC): 6 Walk 150 ft (QC): 6 Walking 10ft/uneven surface-QC: 3 Gait Persons Needed: 1 Gait Assistive Device: FWW Wheelchair Training Wheel 50 ft with 2 turns (QC): 9 Wheel 150 ft (QC): 9 Stair Training 1 Step (curb) (QC): 88 4 Steps (QC): 88 12 Steps (QC): 88 Balance Picking up an Object (QC): 4 (CGA using a data steward) ADL-Treatment Eating (QC): 6 Oral Hygiene (QC): 4 (SBA) Shower/Bathe Self (QC): 3 (Assistance with BLEs lower legs/feet.) Upper Body Dressing (QC): 3 Lower Body Dressing (QC): 2 (Max A overall.) On/Off Footwear (QC): 2 (total assist gripper socks, some assist with slip on shoes.) Toileting Hygiene (QC): 3 Assessment/Plan Assessment and Plan Assess & Plan/Chief Complaint Assessment: s/p CVA 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
[2022-09-14] MEDS: VITAMIN D3 25 MCG (1,000 UNITS) TABLET PO SCH (09:12)
[2022-09-14] MEDS: PANTOPRAZOLE 40 MG (PROTONIX) TAB PO SCH (09:12)
[2022-09-14] MEDS: LACTOBACILLUS ACIDOPHILUS (PROBIOTIC) CAPSULE PO SCH ×2 (09:12→21:59)
[2022-09-14] MEDS: ASPIRIN E.C. 81 MG (ECOTRIN) TAB PO SCH (09:13)
[2022-09-14] MEDS: DOCUSATE SODIUM 100 MG (COLACE) CAP PO SCH ×2 (09:13→21:50)
[2022-09-14] MEDS: CEPHALEXIN 250 MG (KEFLEX) CAP PO SCH ×4 (09:13→22:00)
[2022-09-14] MEDS: SPIRONOLACTONE 25 MG (ALDACTONE) TAB PO SCH (09:13)
[2022-09-14] MEDS: lisINopril 20 MG (PRINIVIL) TABLET PO SCH (09:13)
[2022-09-14] MEDS: SENNA W/DOCUSATE (SENOKOT S) TABLET PO SCH ×2 (09:13→21:50)
[2022-09-14] MEDS: polyethylene glycoL POWDER 17 GM (MIRALAX) PACK PO SCH ×2 (09:18→21:50)
[2022-09-14] MEDS: ENOXAPARIN 40 MG/0.4 ML (LOVENOX) SYR SC SCH (09:18)
[2022-09-14] MEDS: DICLOFENAC 1% GEL 100 GM (VOLTAREN) TUBE TOP SCH ×4 (09:18→21:59)
[2022-09-14] MEDS: A & D OINTMENT 42.5 GM TUBE TOP SCH ×2 (12:37→21:59)
--- NOTE | 2022-09-14 13:55 | Physical Therapy Daily Note ---
PT Daily Note-Current Subjective Pt found lying in bed upon entry. Agreed to PT. Reports that she is not having any pain pre-treatment. States that she thinks she is about as strong as she was before her stroke. Pain Section J - Health Conditions 1. Rarely or not at all 2. Occasionally 3. Frequently 4. Almost constantly 8. Unable to answer Pain Effect on Sleep: 1 Pain Interference with Therapy: 1 Pain Interference w/Day-to-Day: 1 Mental Status Patient Orientation: Person, Place, Time Transfers SCALE: Activities may be completed with or without assistive devices. 1-Mifxpxxygj-knvprjm completes the activity by him/herself with no assistance from a helper. 5-Set-up or Clean-up Assistance-helper sets up or cleans up; patient completes activity. [place] assists only prior to or following the activity. 4-Supervision or Touching Assistance-helper provides verbal cues and/or touching/steadying and/or contact guard assistance as patient completes activi ty. Assistance may be provided throughout the activity or intermittently. 3-Partial/Moderate Assistance-helper does LESS THAN HALF the effort. [place] lifts, holds or supports trunk or limbs, but provides less than half the effort. 2-Substantial/Maximal Assistance-helper does MORE THAN HALF the effort. [place] lifts or holds trunk or limbs and provides more than half the effort. 1-Rngzalmbe-fgwzjy does ALL the effort. Patient does none of the effort to complete the activity. Or, the assistance of 2 or more helpers is required for the patient to complete the activity. If activity was not attempted, code reason: 7-Patient Refused. 9-Not Applicable-not attempted and the patient did not perform the activity before the current illness, exacerbation or injury. 10-Not Attempted due to Environmental Limitations-(lack of equipment, weather restraints, etc.). 88-Not Attempted due to Medical Conditions or Safety Concerns. Sit to Lying (QC): 4 Lying to Sitting/Side of Bed(Q: 4 Sit to Stand (QC): 4 Pt SBA for safety with all completed transfers. No physical assistance required from RECORDS COORDINATOR. Gait Training Does the Patient Walk?: Yes Distance: 100, 100 Walk 10 feet (QC): 4 Walk 50 ft with 2 Turns(QC): 4 Gait Assistive Device: FWW Pt demonstrates forward trunk lean throughout gait training. Ambulates with FWW 100 feet x 2. Displays no loss of balance through treatment. SBA for safety. Exercises Seated Therapy Exercises: Hip abd/add Seated Reps: 10 Standing: Hip Abduction, Hamstring curls, Heel/toe raises, Marching Standing Reps: 10 Assessment Current Status: Good Progress Pt demonstrated good muscle endurance and strength throughout visit. Required short seated rest break with therapeutic exercises. Displays slow gait cycle with no loss of balance. Continue to progress pt as tolerated per POC to improve endurance, strength, and functional ability. PT Retirement Goals Assembler Trim Goals PT Retirement Goals Time Frame: Sep 26, 2022 Roll Left & Right (QC): 4 (SBA) Sit to Lying (QC): 4 (SBA) Lying-Sitting on Side/Bed(QC): 4 (SBA) Sit to Stand (QC): 4 (SBA) Chair/Ulw-oa-Kiwmz Xfer(QC): 4 (CGA) Toilet Transfer (QC): 4 (CGA) Car Transfer (QC): 4 (CGA) Does the Patient Walk: Yes Walk 10 feet (QC): 4 (CGA) Walk 50ft with 2 Turns (QC): 4 (CGA) Walk 150 ft (QC): 4 (CGA) Walking 10ft on Uneven Surface: 4 (CGA) 1 Step (curb) (QC): 4 (CGA) 4 Steps (QC): 4 (CGA) 12 Steps (QC): 88 Picking up an Object (QC): 4 (SBA) Wheel 50 feet with 2 turns (QC: 9 Wheel 150 feet: 9 PT Plan Treatment/Plan Treatment Plan: Continue Plan of Care Treatment Plan: Bed Mobility, Education, Functional Activity Emma, Functional Strength, Group Therapy, Gait, Safety, Therapeutic Exercise, Transfers Treatment Duration: Sep 26, 2022 Frequency: At least 5 of 7 days/Wk (IRF) Estimated Hrs Per Day: 1.5 hours per day Patient and/or Family Agrees t: Yes Time Time In: 953 Time Out: 1021 DATE: Sep 14, 2022 Total Billed Treatment Time: 27 Total Billed Treatment 1 visit GT 1x EX 1x APPLE CHAMPION RECORDS COORDINATOR Sep 14, 2022 13:55
[2022-09-14 19:59] VITALS: BP 175/82
[2022-09-15] MEDS: TAMSULOSIN 0.4 MG (FLOMAX) CAP PO SCH ×2 (06:41→18:08)
[2022-09-15] MEDS: BETHANECHOL 25 MG (URECHOLINE) TAB PO SCH ×3 (06:41→17:18)
[2022-09-15 07:30] VITALS: BP 160/72
--- NOTE | 2022-09-15 07:41 | PM&R Progress Note ---
Subjective HPI/CC On Admission Date Seen by Provider: Sep 15, 2022 Time Seen by Provider: 12:00 Subjective/Events-last exam 09/15/2022: No major issues Monitoring closely No falls No pain 09/14/2022: No major issues No pain reported No falls Family at bedside 09/13/2022: Patient doing well Pain improved Labs stable No major issues Checked meds Review of Systems General: Fatigue, Malaise Objective Exam Vital Signs Vital Signs Date Time Temp Pulse Resp B/P (MAP) Pulse Ox O2 Delivery O2 Flow Rate FiO2 09/15/22 09:00 Room Air 09/15/22 07:30 36.7 65 20 160/72 (101) 100 Capillary Refill : General Appearance: No Apparent Distress, WD/WN, Chronically ill HEENT: PERRL/EOMI, Normal ENT Inspection, Pharynx Normal Neck: Full Range of Motion, Normal Inspection, Non Tender, Supple, Carotid Bruit Respiratory: Chest Non Tender, Lungs Clear, Normal Breath Sounds, No Accessory Muscle Use, No Respiratory Distress Cardiovascular: Regular Rate, Rhythm, No Edema, No Gallop, No JVD, No Murmur, Normal Peripheral Pulses Gastrointestinal: Normal Bowel Sounds, No Organomegaly, No Pulsatile Mass, Non Tender, Soft Back: Normal Inspection, No CVA Tenderness, No Vertebral Tenderness Extremity: Normal Capillary Refill, Normal Inspection, Normal Range of Motion, Non Tender, No Calf Tenderness, No Pedal Edema Neurologic/Psychiatric: Alert, Oriented x3, phone technician II-XII Norm as Tested, Abnormal Gait, Depressed Affect, Motor Weakness (generalized) Skin: Normal Color, Warm/Dry Lymphatic: No Adenopathy Results/Procedures Lab Patient resulted labs reviewed. FIM Transfers Therapy Code Descriptions/Definitions Functional [place] Measure: 0=Not Assessed/NA 4=Minimal Assistance 1=Total Assistance 5=Supervision or Setup 2=Maximal Assistance 6=Modified [place] 3=Moderate Assistance 7=Complete IndependenceSCALE: Activities may be completed with or without assistive devices. 4-Nkygmltipv-bargjqo completes the activity by him/herself with no assistance from a helper. 5-Set-up or Clean-up Assistance-helper sets up or cleans up; patient completes activity. [place] assists only prior to or following the activity. 4-Supervision or Touching Assistance-helper provides verbal cues and/or touching/steadying and/or contact guard assistance as patient completes activity. Assistance may be provided throughout the activity or intermittently. 3-Partial/Moderate Assistance-helper does LESS THAN HALF the effort. [place] lifts, holds or supports trunk or limbs, but provides less than half the effort. 2-Substantial/Maximal Assistance-helper does MORE THAN HALF the effort. [place] lifts or holds trunk or limbs and provides more than half the effort. 3-Wndndnukr-iffpag does ALL the effort. Patient does none of the effort to complete the activity. Or, the assistance of 2 or more helpers is required for the patient to complete the activity. If activity was not attempted, code reason: 7-Patient Refused. 9-Not Applicable-not attempted and the patient did not perform the activity b efore the current illness, exacerbation or injury. 10-Not Attempted due to Environmental Limitations-(lack of equipment, weather restraints, etc.). 88-Not Attempted due to Medical Conditions or Safety Concerns. Roll Left to Right (QC): 6 Sit to Lying (QC): 4 Sit to Stand (QC): 4 Chair/Idi-ar-Wlgie Xfer(QC): 6 Car Transfer (QC): 3 Gait Training Does the Patient Walk?: Yes Distance: 100, 100 Walk 10 feet (QC): 4 Walk 50 ft with 2 Turns(QC): 4 Walk 150 ft (QC): 6 Walking 10ft/uneven surface-QC: 3 Gait Persons Needed: 1 Gait Assistive Device: FWW Wheelchair Training Wheel 50 ft with 2 turns (QC): 9 Wheel 150 ft (QC): 9 Stair Training 1 Step (curb) (QC): 88 4 Steps (QC): 88 12 Steps (QC): 88 Balance Picking up an Object (QC): 4 (CGA using a traveling engineer) ADL-Treatment Eating (QC): 6 Oral Hygiene (QC): 4 (SBA) Shower/Bathe Self (QC): 3 (Assistance with BLEs lower legs/feet.) Upper Body Dressing (QC): 3 Lower Body Dressing (QC): 2 (Max A overall.) On/Off Footwear (QC): 2 (total assist gripper socks, some assist with slip on shoes.) Toileting Hygiene (QC): 3 Assessment/Plan Assessment and Plan Assess & Plan/Chief Complaint Assessment: s/p CVA 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
[2022-09-15] MEDS: SPIRONOLACTONE 25 MG (ALDACTONE) TAB PO SCH (08:37)
[2022-09-15] MEDS: LACTOBACILLUS ACIDOPHILUS (PROBIOTIC) CAPSULE PO SCH ×2 (08:37→21:53)
[2022-09-15] MEDS: PANTOPRAZOLE 40 MG (PROTONIX) TAB PO SCH (08:37)
[2022-09-15] MEDS: ASPIRIN E.C. 81 MG (ECOTRIN) TAB PO SCH (08:37)
[2022-09-15] MEDS: CEPHALEXIN 250 MG (KEFLEX) CAP PO SCH ×2 (08:38→12:01)
[2022-09-15] MEDS: VITAMIN D3 25 MCG (1,000 UNITS) TABLET PO SCH (08:38)
[2022-09-15] MEDS: lisINopril 20 MG (PRINIVIL) TABLET PO SCH (08:38)
[2022-09-15] MEDS: ENOXAPARIN 40 MG/0.4 ML (LOVENOX) SYR SC SCH (08:44)
[2022-09-15] MEDS: polyethylene glycoL POWDER 17 GM (MIRALAX) PACK PO SCH ×2 (08:44→21:53)
[2022-09-15] MEDS: SENNA W/DOCUSATE (SENOKOT S) TABLET PO SCH ×2 (08:45→21:53)
[2022-09-15] MEDS: A & D OINTMENT 42.5 GM TUBE TOP SCH ×2 (08:45→21:53)
[2022-09-15] MEDS: DOCUSATE SODIUM 100 MG (COLACE) CAP PO SCH ×2 (08:45→22:05)
[2022-09-15] MEDS: DICLOFENAC 1% GEL 100 GM (VOLTAREN) TUBE TOP SCH ×4 (08:45→21:53)
[2022-09-15 19:49] VITALS: BP 172/75
--- NOTE | 2022-09-16 06:16 | PM&R Progress Note ---
Subjective HPI/CC On Admission Date Seen by Provider: Sep 16, 2022 Time Seen by Provider: 09:00 Subjective/Events-last exam 09/16/2022: No major issues No pain reported Checked meds and labs No falls 09/15/2022: No major issues Monitoring closely No falls No pain 09/14/2022: No major issues No pain reported No falls Family at bedside 09/13/2022: Patient doing well Pain improved Labs stable No major issues Checked meds Review of Systems General: Fatigue, Malaise Objective Exam Vital Signs Vital Signs Date Time Temp Pulse Resp B/P (MAP) Pulse Ox O2 Delivery O2 Flow Rate FiO2 09/16/22 20:15 Room Air 09/16/22 19:41 36.9 63 20 175/79 (111) 98 Capillary Refill : General Appearance: No Apparent Distress, WD/WN, Chronically ill HEENT: PERRL/EOMI, Normal ENT Inspection, Pharynx Normal Neck: Full Range of Motion, Normal Inspection, Non Tender, Supple, Carotid Bruit Respiratory: Chest Non Tender, Lungs Clear, Normal Breath Sounds, No Accessory Muscle Use, No Respiratory Distress Cardiovascular: Regular Rate, Rhythm, No Edema, No Gallop, No JVD, No Murmur, Normal Peripheral Pulses Gastrointestinal: Normal Bowel Sounds, No Organomegaly, No Pulsatile Mass, Non Tender, Soft Back: Normal Inspection, No CVA Tenderness, No Vertebral Tenderness Extremity: Normal Capillary Refill, Normal Inspection, Normal Range of Motion, Non Tender, No Calf Tenderness, No Pedal Edema Neurologic/Psychiatric: Alert, Oriented x3, global human resources director II-XII Norm as Tested, Abnormal Gait, Depressed Affect, Motor Weakness (generalized) Skin: Normal Color, Warm/Dry Lymphatic: No Adenopathy Results/Procedures Lab Laboratory Tests 09/16/22 06:30 09/16/22 06:35 Patient resulted labs reviewed. FIM Transfers Therapy Code Descriptions/Definitions Functional [place] Measure: 0=Not Assessed/NA 4=Minimal Assistance 1=Total Assistance 5=Supervision or Setup 2=Maximal Assistance 6=Modified [place] 3=Moderate Assistance 7=Complete IndependenceSCALE: Activities may be completed with or without assistive devices. 0-Cjtyigokvt-gtsrzgo completes the activity by him/herself with no assistance f rom a helper. 5-Set-up or Clean-up Assistance-helper sets up or cleans up; patient completes activity. [place] assists only prior to or following the activity. 4-Supervision or Touching Assistance-helper provides verbal cues and/or touching/steadying and/or contact guard assistance as patient completes activity. Assistance may be provided throughout the activity or intermittently. 3-Partial/Moderate Assistance-helper does LESS THAN HALF the effort. [place] lifts, holds or supports trunk or limbs, but provides less than half the effort. 2-Substantial/Maximal Assistance-helper does MORE THAN HALF the effort. [place] lifts or holds trunk or limbs and provides more than half the effort. 3-Siewlwffo-zgfcdr does ALL the effort. Patient does none of the effort to complete the activity. Or, the assistance of 2 or more helpers is required for the patient to complete the activity. If activity was not attempted, code reason: 7-Patient Refused. 9-Not Applicable-not attempted and the patient did not perform the activity before the current illness, exacerbation or injury. 10-Not Attempted due to Environmental Limitations-(lack of equipment, weather restraints, etc.). 88-Not Attempted due to Medical Conditions or Safety Concerns. Roll Left to Right (QC): 6 Sit to Lying (QC): 4 Sit to Stand (QC): 4 Chair/Fzo-zj-Lqzaf Xfer(QC): 6 Car Transfer (QC): 3 Gait Training Does the Patient Walk?: Yes Distance: 100, 100 Walk 10 feet (QC): 4 Walk 50 ft with 2 Turns(QC): 4 Walk 150 ft (QC): 6 Walking 10ft/uneven surface-QC: 3 Gait Persons Needed: 1 Gait Assistive Device: FWW Wheelchair Training Wheel 50 ft with 2 turns (QC): 9 Wheel 150 ft (QC): 9 Stair Training 1 Step (curb) (QC): 88 4 Steps (QC): 88 12 Steps (QC): 88 Balance Picking up an Object (QC): 4 (CGA using a neighborhood worker) ADL-Treatment Eating (QC): 6 Oral Hygiene (QC): 4 (SBA) Shower/Bathe Self (QC): 3 (Assistance with BLEs lower legs/feet.) Upper Body Dressing (QC): 3 Lower Body Dressing (QC): 2 (Max A overall.) On/Off Footwear (QC): 2 (total assist gripper socks, some assist with slip on shoes.) Toileting Hygiene (QC): 3 Assessment/Plan Assessment and Plan Assess & Plan/Chief Complaint Assessment: s/p CVA 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
[2022-09-16] MEDS: TAMSULOSIN 0.4 MG (FLOMAX) CAP PO SCH ×2 (06:34→20:43)
[2022-09-16] MEDS: BETHANECHOL 25 MG (URECHOLINE) TAB PO SCH ×3 (06:34→17:48)
[2022-09-16 06:42] LABS: BASOPHILS % (AUTO) 1 % (0-10); EOSINOPHILS # (AUTO) 0.2 10^3/uL (0.0-0.3); EOSINOPHILS % (AUTO) 6 % (0-10); HEMATOCRIT 31 % (35-52); HEMOGLOBIN 9.7 g/dL (11.5-16.0); LYMPHOCYTES # (AUTO) 0.7 10^3/uL (1.0-4.0); LYMPHOCYTES % (AUTO) 21 % (12-44); MEAN CORPUSCULAR HEMOGLOBIN 31 pg (25-34); MEAN CORPUSCULAR HGB CONC 32 g/dL (32-36); MEAN CORPUSCULAR VOLUME 98 fL (80-99); MEAN PLATELET VOLUME 9.5 fL (9.0-12.2); MONOCYTES # (AUTO) 0.4 10^3/uL (0.0-1.0); MONOCYTES % (AUTO) 13 % (0-12); NEUTROPHILS % (AUTO) 60 % (42-75); PLATELET COUNT 249 10^3/uL (130-400); WHITE BLOOD COUNT 3.3 10^3/uL (4.3-11.0)
[2022-09-16 06:56] LABS: ALBUMIN 3.2 GM/DL (3.2-4.5)
[2022-09-16 06:57] LABS: CALCIUM 9.2 MG/DL (8.5-10.1)
[2022-09-16 06:58] LABS: TOTAL PROTEIN 6.6 GM/DL (6.4-8.2)
[2022-09-16 07:00] LABS: BILIRUBIN,TOTAL 0.3 MG/DL (0.1-1.0)
[2022-09-16 07:02] LABS: CREATININE SERUM 0.82 MG/DL (0.60-1.30)
[2022-09-16 08:00] VITALS: BP 113/61
[2022-09-16] MEDS: PANTOPRAZOLE 40 MG (PROTONIX) TAB PO SCH (08:17)
[2022-09-16] MEDS: lisINopril 20 MG (PRINIVIL) TABLET PO SCH (08:17)
[2022-09-16] MEDS: LACTOBACILLUS ACIDOPHILUS (PROBIOTIC) CAPSULE PO SCH ×2 (08:17→20:43)
[2022-09-16] MEDS: VITAMIN D3 25 MCG (1,000 UNITS) TABLET PO SCH (08:17)
[2022-09-16] MEDS: ASPIRIN E.C. 81 MG (ECOTRIN) TAB PO SCH (08:17)
[2022-09-16] MEDS: SPIRONOLACTONE 25 MG (ALDACTONE) TAB PO SCH (08:17)
[2022-09-16] MEDS: DICLOFENAC 1% GEL 100 GM (VOLTAREN) TUBE TOP SCH ×4 (08:20→21:27)
[2022-09-16] MEDS: ENOXAPARIN 40 MG/0.4 ML (LOVENOX) SYR SC SCH (08:20)
[2022-09-16] MEDS: A & D OINTMENT 42.5 GM TUBE TOP SCH ×2 (08:21→21:26)
[2022-09-16] MEDS: SENNA W/DOCUSATE (SENOKOT S) TABLET PO SCH ×2 (08:21→20:52)
[2022-09-16] MEDS: polyethylene glycoL POWDER 17 GM (MIRALAX) PACK PO SCH ×2 (08:21→20:51)
[2022-09-16] MEDS: DOCUSATE SODIUM 100 MG (COLACE) CAP PO SCH ×2 (08:21→20:51)
--- NOTE | 2022-09-16 09:12 | Occupational Ther Daily Note ---
OT Current Status-Daily Note Subjective Pt at EOB eating breakfast, agreeable to OT Tx. Pt declines full shower, but agreeable to sponge bath and changing clothes ADL-Treatment Therapy Code Descriptions/Definitions Functional [place] Measure: 0=Not Assessed/NA 4=Minimal Assistance 1=Total Assistance 5=Supervision or Setup 2=Maximal Assistance 6=Modified [place] 3=Moderate Assistance 7=Complete IndependenceSCALE: Activities may be completed with or without assistive devices. 9-Lxqagvcwns-wwsxuza completes the activity by him/herself with no assistance from a helper. 5-Set-up or Clean-up Assistance-helper sets up or cleans up; patient completes activity. [place] assists only prior to or following the activity. 4-Supervision or Touching Assistance-helper provides verbal cues and/or touching/steadying and/or contact guard assistance as patient completes ac tivity. Assistance may be provided throughout the activity or intermittently. 3-Partial/Moderate Assistance-helper does LESS THAN HALF the effort. [place] lifts, holds or supports trunk or limbs, but provides less than half the effort. 2-Substantial/Maximal Assistance-helper does MORE THAN HALF the effort. [place] lifts or holds trunk or limbs and provides more than half the effort. 9-Venejpccd-zagedp does ALL the effort. Patient does none of the effort to complete the activity. Or, the assistance of 2 or more helpers is required for the patient to complete the activity. If activity was not attempted, code reason: 7-Patient Refused. 9-Not Applicable-not attempted and the patient did not perform the activity before the current illness, exacerbation or injury. 10-Not Attempted due to Environmental Limitations-(lack of equipment, weather restraints, etc.). 88-Not Attempted due to Medical Conditions or Safety Concerns. Eating (QC): 6 (IND seated EOB.) Shower/Bathe Self (QC): 3 (Min A with BLEs lower legs/feet) Upper Body Dressing (QC): 3 (Min A with clasp of bra. Assist orienting t-shirt and sweatshirt.) Lower Body Dressing (QC): 3 (VCs for orientation of pants as pt was donning backwards. Min A threading RLE) Toileting Hygiene (QC): 4 (Supervision) Toilet Transfer (QC): 4 Other Treatment Pt at EOB eating breakfast. Pt finished breakfast, IND, then used FWW to transfer onto [facility] over toilet, SBA. Pt completed toileting, sponge bath, and dressing, using electrical test technician as needed. Pt required increased time with tasks due to slow pace, and required VCs for orientation of shirt and pants. Pt used FWW to transfer to recliner, SBA. Post tx, pt in recliner, call light in reach and all needs met, chair alarm activated. Education OT Patient Education: Correct positioning, Energy conservation, Modified ADL techniques, Progress toward Goal/Update tx plan, Purpose of tx/functional activities, Rehab process Teaching Recipient: Patient Teaching Methods: Discussion Response to Teaching: Verbalize Understanding OT Short Term Goals Short Term Goals Time Frame: Sep 27, 2022 Toileting hygiene: 4 Shower/bathe self: 4 Upper body dressin Lower body dressin Putting on/taking off footwear: 4 OT Half-Way Goals Men'S Swim Coach Goals Time Frame: Oct 04, 2022 Acute change in mental status: 0 Inattention: 0 Disorganized thinkin Altered level of consciousness: 0 Eating (QC): 6 Oral Hygiene (QC): 6 Toileting Hygiene (QC): 6 Shower/Bathe Self (QC): 6 Upper Body Dressing (QC): 6 Lower Body Dressing (QC): 6 On/Off Footwear (QC): 6 Additional Goals: 1-Demonstrate ADL Tasks, 2-Verbalize Understanding, 3- ImproveStrength/Emma 1=Demonstrate adherence to instructed precautions during ADL tasks. 2=Patient will verbalize/demonstrate understanding of assistive devices/modifications for ADL. 3=Patient will improve strength/tolerance for activity to enable patient to perform ADL's. OT Education/Plan Problem List/Assessment Assessment: Decreased Activ Tolerance, Decreased UE Strength, Impaired Funct Balance, Impaired I ADL's, Impaired Self-Care Skills Discharge Recommendations Plan/Recommendations: Continue POC Treatment Plan/Plan of Care Patient would benefit from OT for education, treatment and training to promote independence in ADL's, mobility, safety and/or upper extremity function for ADL's. Plan of Care: ADL Retraining, Functional Mobility, Group Exercise/Act as Ind, UE Funct Exercise/Act Treatment Duration: Oct 04, 2022 Frequency: At least 5 of 7 days/Wk (IRF) Estimated Hrs Per Day: 1.5 hours per day Agreement: Yes Rehab Potential: Fair Time Start Time: 07:45 Stop Time: 09:15 DATE: Sep 16, 2022 Total Time Billed (hr/min): 90 Billed Treatment Time 1, ADL 6 DEIRDRE OWEN OT Sep 16, 2022 09:12
--- NOTE | 2022-09-16 11:10 | Physical Therapy Daily Note ---
PT Daily Note-Current Subjective Pt amb to BR w/Nursing upon arrival. Pt agrees to PT. Pain Numeric Pain Scale: 3 Location: Left, Lateral Location Body Site: Knee Pain Description: Ache, Tightness Section J - Health Conditions 1. Rarely or not at all 2. Occasionally 3. Frequently 4. Almost constantly 8. Unable to answer Pain Effect on Sleep: 1 Pain Interference with Therapy: 1 Pain Interference w/Day-to-Day: 1 Mental Status Patient Orientation: Person, Place, Time, Situation Transfers SCALE: Activities may be completed with or without assistive devices. 5-Iwurhbivbi-lkfxfrb completes the activity by him/herself with no assistance from a helper. 5-Set-up or Clean-up Assistance-helper sets up or cleans up; patient completes a ctivity. [place] assists only prior to or following the activity. 4-Supervision or Touching Assistance-helper provides verbal cues and/or touching/steadying and/or contact guard assistance as patient completes activity. Assistance may be provided throughout the activity or intermittently. 3-Partial/Moderate Assistance-helper does LESS THAN HALF the effort. [place] lifts, holds or supports trunk or limbs, but provides less than half the effort. 2-Substantial/Maximal Assistance-helper does MORE THAN HALF the effort. [place] lifts or holds trunk or limbs and provides more than half the effort. 6-Snemfqnlr-itfcha does ALL the effort. Patient does none of the effort to complete the activity. Or, the assistance of 2 or more helpers is required for the patient to complete the activity. If activity was not attempted, code reason: 7-Patient Refused. 9-Not Applicable-not attempted and the patient did not perform the activity before the current illness, exacerbation or injury. 10-Not Attempted due to Environmental Limitations-(lack of equipment, weather restraints, etc.). 88-Not Attempted due to Medical Conditions or Safety Concerns. Sit to Stand (QC): 5 Toilet Transfer (QC): 5 Weight Bearing Full Weight Bearing Full Weight Bearing Gait Training Does the Patient Walk?: Yes Distance: 150' Walk 10 feet (QC): 5 Walk 50 ft with 2 Turns(QC): 5 Walk 150 ft (QC): 4 Gait Assistive Device: FWW Exercises Seated Therapy Exercises: Ankle pumps, Long arc quads, Hip flexion, Hamstring Curls, Reaching activity, Hip abd/add Seated Reps: 15 Treatments Pt uses BR to start tx. Pt amb in hallway after pericare & washing hands. Pt completes Seated EX w/RB as needed (family arrives during EX). Pt returns to room to use BR again before returning to recliner to rest at end of tx. All needs met, call light in hand. Assessment Current Status: Good Progress Pt amb well in hallway. Pt take occasional RB as needed for fatigue, reported L knee being stiff and a little tender. PT Radio Television Technical Director Goals Senior Living Goals PT Senior Living Goals Time Frame: Sep 26, 2022 Roll Left & Right (QC): 4 (SBA) Sit to Lying (QC): 4 (SBA) Lying-Sitting on Side/Bed(QC): 4 (SBA) Sit to Stand (QC): 4 (SBA) Chair/Nsa-ef-Oghqe Xfer(QC): 4 (CGA) Toilet Transfer (QC): 4 (CGA) Car Transfer (QC): 4 (CGA) Does the Patient Walk: Yes Walk 10 feet (QC): 4 (CGA) Walk 50ft with 2 Turns (QC): 4 (CGA) Walk 150 ft (QC): 4 (CGA) Walking 10ft on Uneven Surface: 4 (CGA) 1 Step (curb) (QC): 4 (CGA) 4 Steps (QC): 4 (CGA) 12 Steps (QC): 88 Picking up an Object (QC): 4 (SBA) Wheel 50 feet with 2 turns (QC: 9 Wheel 150 feet: 9 PT Plan Problem List Problem List: Activity Tolerance Treatment/Plan Treatment Plan: Continue Plan of Care Treatment Plan: Bed Mobility, Education, Functional Activity Emma, Functional Strength, Group Therapy, Gait, Safety, Therapeutic Exercise, Transfers Treatment Duration: Sep 26, 2022 Frequency: At least 5 of 7 days/Wk (IRF) Estimated Hrs Per Day: 1.5 hours per day Patient and/or Family Agrees t: Yes Safety Risks/Education Patient Education: Gait Training, Correct Positioning, Safety Issues Teaching Recipient: Patient Teaching Methods: Discussion Response to Teaching: Verbalize Understanding Time Time In: 1000 Time Out: 1100 DATE: Sep 16, 2022 Total Billed Treatment Time: 60 Total Billed Treatment 1, GT (20m), FA (15m) & EX x2 (25m) JUAN ANTONIO [facility] Sep 16, 2022 11:10
--- NOTE | 2022-09-16 15:12 | Therapy Group Daily Note ---
Therapy Daily Group Note Patient Education Topic Other List Below (memory/ARU description and expectations) Exercises LE Seated Exercise, UE Exercise Session Ratio (pt:therapist): 3:1 Goal of Session: Education on ARU Expectations, Memory Strategies, UE/LE Strengthing Goal Met for this Session: Yes Pt Benefit of Group: Contributions to Others, F/U Use of Strategies @Home, Increased Functional Safety, Increased Functional Strength, Improved Cognition, Recognition of Peers, Socialization Other/Notes Pt ambulated using FWW to OT/PT group. Group consisted of introductions (name, place living, memory task), socialization, B UE/LE seated exercises and education on memory. Pt introduced self appropriately and actively listened to peers. B UE/LE seated exercises tolerated. Pt actively participated in memory education and activity appropriately by giving own strategies. Pt able to participate in activity and was able to choose 2 out of 4 correctly. After session, pt lying in bed. Call light/phone in reach. All needs met in room. Start Time: 13:00 Stop Time: 14:30 Total Billed Treatment Time: 90 Total Billed Treatment 1-GRP OLIVE NAVA Sep 16, 2022 15:12
[2022-09-16 19:41] VITALS: BP 175/79
--- NOTE | 2022-09-17 06:01 | PM&R Progress Note ---
Subjective HPI/CC On Admission Date Seen by Provider: Sep 17, 2022 Time Seen by Provider: 09:00 Subjective/Events-last exam 09/17/2022: No major events Statin maintained to decrease recurrent CVA risk No falls Wants to go home soon 09/16/2022: No major issues No pain reported Checked meds and labs No falls 09/15/2022: No major issues Monitoring closely No falls No pain 09/14/2022: No major issues No pain reported No falls Family at bedside 09/13/2022: Patient doing well Pain improved Labs stable No major issues Checked meds Review of Systems General: Fatigue, Malaise Objective Exam Vital Signs Vital Signs Date Time Temp Pulse Resp B/P (MAP) Pulse Ox O2 Delivery O2 Flow Rate FiO2 09/17/22 21:00 Room Air 09/17/22 20:00 37.2 64 163/72 (102) 98 09/17/22 08:00 14 Capillary Refill : General Appearance: No Apparent Distress, WD/WN, Chronically ill HEENT: PERRL/EOMI, Normal ENT Inspection, Pharynx Normal Neck: Full Range of Motion, Normal Inspection, Non Tender, Supple, Carotid Bruit Respiratory: Chest Non Tender, Lungs Clear, Normal Breath Sounds, No Accessory Muscle Use, No Respiratory Distress Cardiovascular: Regular Rate, Rhythm, No Edema, No Gallop, No JVD, No Murmur, Normal Peripheral Pulses Gastrointestinal: Normal Bowel Sounds, No Organomegaly, No Pulsatile Mass, Non Tender, Soft Back: Normal Inspection, No CVA Tenderness, No Vertebral Tenderness Extremity: Normal Capillary Refill, Normal Inspection, Normal Range of Motion, Non Tender, No Calf Tenderness, No Pedal Edema Neurologic/Psychiatric: Alert, Oriented x3, set up mechanic stamping machines II-XII Norm as Tested, Abnormal Gait, Depressed Affect, Motor Weakness (generalized) Skin: Normal Color, Warm/Dry Lymphatic: No Adenopathy Results/Procedures Lab Patient resulted labs reviewed. FIM Transfers Therapy Code Descriptions/Definitions Functional [place] Measure: 0=Not Assessed/NA 4=Minimal Assistance 1=Total Assistance 5=Supervision or Setup 2=Maximal Assistance 6=Modified [place] 3=Moderate Assistance 7=Complete IndependenceSCALE: Activities may be completed with or without assistive devices. 0-Uufxvysnrq-temcrcx completes the activity by him/herself with no assistance from a helper. 5-Set-up or Clean-up Assistance-helper sets up or cleans up; patient completes activity. [place] assists only prior to or following the activity. 4-Supervision or Touching Assistance-helper provides verbal cues and/or touching/steadying and/or contact guard assistance as patient completes activity. Assistance may be provided throughout the activity or intermittently. 3-Partial/Moderate Assistance-helper does LESS THAN HALF the effort. [place] lifts, holds or supports trunk or limbs, but provides less than half the effort. 2-Substantial/Maximal Assistance-helper does MORE THAN HALF the effort. [place] lifts or holds trunk or limbs and provides more than half the effort. 9-Rwxnwxvil-hxrkzz does ALL the effort. Patient does none of the effort to complete the activity. Or, the assistance of 2 or more helpers is required for the patient to complete the activity. If activity was not attempted, code reason: 7-Patient Refused. 9-Not Applicable-not attempted and the patient did not perform the activity before the current illness, exacerbation or injury. 10-Not Attempted due to Environmental Limitations-(lack of equipment, weather restraints, etc.). 88-Not Attempted due to Medical Conditions or Safety Concerns. Roll Left to Right (QC): 6 Sit to Lying (QC): 4 Sit to Stand (QC): 5 Chair/Npx-yc-Rugan Xfer(QC): 6 Car Transfer (QC): 3 Gait Training Does the Patient Walk?: Yes Distance: 150' Walk 10 feet (QC): 5 Walk 50 ft with 2 Turns(QC): 5 Walk 150 ft (QC): 4 Walking 10ft/uneven surface-QC: 3 Gait Persons Needed: 1 Gait Assistive Device: FWW Wheelchair Training Wheel 50 ft with 2 turns (QC): 9 Wheel 150 ft (QC): 9 Stair Training 1 Step (curb) (QC): 88 4 Steps (QC): 88 12 Steps (QC): 88 Balance Picking up an Object (QC): 4 (CGA using a supplier development manager) ADL-Treatment Eating (QC): 6 (IND seated EOB.) Oral Hygiene (QC): 4 (SBA) Shower/Bathe Self (QC): 3 (Min A with BLEs lower legs/feet) Upper Body Dressing (QC): 3 (Min A with clasp of bra. Assist orienting t-shirt and sweatshirt.) Lower Body Dressing (QC): 3 (VCs for orientation of pants as pt was donning backwards. 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
[2022-09-17] MEDS: BETHANECHOL 25 MG (URECHOLINE) TAB PO SCH ×3 (06:29→17:26)
[2022-09-17] MEDS: TAMSULOSIN 0.4 MG (FLOMAX) CAP PO SCH ×2 (06:29→18:44)
[2022-09-17 08:00] VITALS: BP 176/85
[2022-09-17] MEDS: SPIRONOLACTONE 25 MG (ALDACTONE) TAB PO SCH (08:31)
[2022-09-17] MEDS: LACTOBACILLUS ACIDOPHILUS (PROBIOTIC) CAPSULE PO SCH ×2 (08:31→20:36)
[2022-09-17] MEDS: lisINopril 20 MG (PRINIVIL) TABLET PO SCH (08:31)
[2022-09-17] MEDS: VITAMIN D3 25 MCG (1,000 UNITS) TABLET PO SCH (08:31)
[2022-09-17] MEDS: PANTOPRAZOLE 40 MG (PROTONIX) TAB PO SCH (08:31)
[2022-09-17] MEDS: ASPIRIN E.C. 81 MG (ECOTRIN) TAB PO SCH (08:32)
[2022-09-17] MEDS: ENOXAPARIN 40 MG/0.4 ML (LOVENOX) SYR SC SCH (08:36)
[2022-09-17] MEDS: DICLOFENAC 1% GEL 100 GM (VOLTAREN) TUBE TOP SCH ×4 (08:36→20:40)
[2022-09-17] MEDS: A & D OINTMENT 42.5 GM TUBE TOP SCH ×2 (08:36→20:40)
[2022-09-17] MEDS: DOCUSATE SODIUM 100 MG (COLACE) CAP PO SCH ×2 (08:38→20:37)
[2022-09-17] MEDS: polyethylene glycoL POWDER 17 GM (MIRALAX) PACK PO SCH ×2 (08:39→20:37)
[2022-09-17] MEDS: SENNA W/DOCUSATE (SENOKOT S) TABLET PO SCH ×2 (08:39→20:37)
--- NOTE | 2022-09-17 09:21 | Occupational Ther Daily Note ---
OT Current Status-Daily Note Subjective Pt up in recliner, agreeable to OT Tx. Pt states she is able to have someone present with dressing and bathing tasks upon discharge. Pt wants to discharge as soon as she can. ADL-Treatment Therapy Code Descriptions/Definitions Functional [place] Measure: 0=Not Assessed/NA 4=Minimal Assistance 1=Total Assistance 5=Supervision or Setup 2=Maximal Assistance 6=Modified [place] 3=Moderate Assistance 7=Complete IndependenceSCALE: Activities may be completed with or without assistive devices. 0-Lkxoyyqvad-dscoywh completes the activity by him/herself with no assistance from a helper. 5-Set-up or Clean-up Assistance-helper sets up or cleans up; patient completes activity. [place] assists only prior to or following the activity. 4-Supervision or Touching Assistance-helper provides verbal cues and/or touching/steadying and/or contact guard assistance as patient completes activity. Assistance may be provided throughout the activity or intermittently. 3-Partial/Moderate Assistance-helper does LESS THAN HALF the effort. [place] lifts, holds or supports trunk or limbs, but provides less than half the effort. 2-Substantial/Maximal Assistance-helper does MORE THAN HALF the effort. [place] lifts or holds trunk or limbs and provides more than half the effort. 7-Fkrsifofz-fcaxba does ALL the effort. Patient does none of the effort to complete the activity. Or, the assistance of 2 or more helpers is required for the patient to complete the activity. If activity was not attempted, code reason: 7-Patient Refused. 9-Not Applicable-not attempted and the patient did not perform the activity before the current illness, exacerbation or injury. 10-Not Attempted due to Environmental Limitations-(lack of equipment, weather restraints, etc.). 88-Not Attempted due to Medical Conditions or Safety Concerns. Toileting Hygiene (QC): 6 Toilet Transfer (QC): 6 Other Treatment Pt in recliner, used FWW to transfer into bathroom and onto toilet. Pt completed toileting IND, then used FWW to perform functional mobility to therapy gym. OT tx focused on increasing BUE Strength and activity tolerance. Pt completed arm bike x15 mins, 20 Watt resistance. Pt then completed BUE reaching task, placing x70 pegs into foam pegboard. Pt used FWW to return to her room, completed toileting and hand hygiene IND, then transferred to recliner. Post tx, pt in recliner, call light in reach and all needs met. chair alarm activated. Education OT Patient Education: Correct positioning, Energy conservation, Exercise program, Modified ADL techniques, Progress toward Goal/Update tx plan, Purpose of tx/functional activities, Rehab process Teaching Recipient: Patient Teaching Methods: Discussion Response to Teaching: Verbalize Understanding OT Short Term Goals Short Term Goals Time Frame: Sep 27, 2022 Toileting hygiene: 4 Shower/bathe self: 4 Upper body dressin Lower body dressin Putting on/taking off footwear: 4 OT Explosive Ordnance Handler Goals Usp Goals Time Frame: Oct 04, 2022 Acute change in mental status: 0 Inattention: 0 Disorganized thinkin Altered level of consciousness: 0 Eating (QC): 6 Oral Hygiene (QC): 6 Toileting Hygiene (QC): 6 Shower/Bathe Self (QC): 6 Upper Body Dressing (QC): 6 Lower Body Dressing (QC): 6 On/Off Footwear (QC): 6 Additional Goals: 1-Demonstrate ADL Tasks, 2-Verbalize Understanding, 3- ImproveStrength/Emma 1=Demonstrate adherence to instructed precautions during ADL tasks. 2=Patient will verbalize/demonstrate understanding of assistive devices/modifications for ADL. 3=Patient will improve strength/tolerance for activity to enable patient to perform ADL's. OT Education/Plan Problem List/Assessment Assessment: Decreased Activ Tolerance, Decreased UE Strength, Impaired Funct Balance, Impaired I ADL's, Impaired Self-Care Skills Discharge Recommendations Plan/Recommendations: Continue POC Treatment Plan/Plan of Care Patient would benefit from OT for education, treatment and training to promote independence in ADL's, mobility, safety and/or upper extremity function for ADL's. Plan of Care: ADL Retraining, Functional Mobility, Group Exercise/Act as Ind, UE Funct Exercise/Act Treatment Duration: Oct 04, 2022 Frequency: At least 5 of 7 days/Wk (IRF) Estimated Hrs Per Day: 1.5 hours per day Agreement: Yes Rehab Potential: Fair Time Start Time: 09:00 Stop Time: 10:00 DATE: Sep 17, 2022 Total Time Billed (hr/min): 60 Billed Treatment Time 1, ADL (20'), EX (15'), FA 2 (25') CRUMPACKER,DEIRDRE OT Sep 17, 2022 09:21
[2022-09-17 10:09] VITALS: BP 172/74
--- NOTE | 2022-09-17 15:22 | Physical Therapy Daily Note ---
PT Daily Note-Current Subjective Pt sitting in recliner upon arrival. Pt agrees to PT. Pain Location: No Pain Reported Section J - Health Conditions 1. Rarely or not at all 2. Occasionally 3. Frequently 4. Almost constantly 8. Unable to answer Pain Effect on Sleep: 1 Pain Interference with Therapy: 1 Pain Interference w/Day-to-Day: 1 Mental Status Patient Orientation: Person, Place, Time, Situation Transfers SCALE: Activities may be completed with or without assistive devices. 7-Viqlangvsc-hnigsht completes the activity by him/herself with no assistance from a helper. 5-Set-up or Clean-up Assistance-helper sets up or cleans up; patient completes activity. [place] assists only prior to or following the activity. 4-Supervision or Touching Assistance-helper provides verbal cues and/or touching/steadying and/or contact guard assistance as patient completes activity. Assistance may be provided throughout the activity or intermittently. 3-Partial/Moderate Assistance-helper does LESS THAN HALF the effort. [place] lifts, holds or supports trunk or limbs, but provides less than half the effort. 2-Substantial/Maximal Assistance-helper does MORE THAN HALF the effort. [place] lifts or holds trunk or limbs and provides more than half the effort. 7-Copgdxjou-blwloo does ALL the effort. Patient does none of the effort to complete the activity. Or, the assistance of 2 or more helpers is required for the patient to complete the activity. If activity was not attempted, code reason: 7-Patient Refused. 9-Not Applicable-not attempted and the patient did not perform the activity before the current illness, exacerbation or injury. 10-Not Attempted due to Environmental Limitations-(lack of equipment, weather restraints, etc.). 88-Not Attempted due to Medical Conditions or Safety Concerns. Sit to Stand (QC): 5 Toilet Transfer (QC): 5 Car Transfer (QC): 4 Weight Bearing Full Weight Bearing Full Weight Bearing Gait Training Does the Patient Walk?: Yes Distance: 150' x2 Walk 10 feet (QC): 5 Walk 50 ft with 2 Turns(QC): 5 Walk 150 ft (QC): 5 Gait Assistive Device: FWW Stair Training Stair Training: Handrails/: 2 handrails #of Steps: 6 1 Step (curb) (QC): 4 4 Steps (QC): 4 12 Steps (QC): 88 Stairs: Pattern: Step to Treatments Pt TF to standing and amb to BR. After toileting, pt amb in hallway. Pt co mpletes stairs and TF to car before amb. back to room. Pt uses BR again then TF back to recliner w/all needs met, call light in hand. Assessment Current Status: Good Progress Pt has improved w/TF and mobility. PT Dressage Judge Goals Dressage Judge Goals PT Dressage Judge Goals Time Frame: Sep 26, 2022 Roll Left & Right (QC): 4 (SBA) Sit to Lying (QC): 4 (SBA) Lying-Sitting on Side/Bed(QC): 4 (SBA) Sit to Stand (QC): 4 (SBA) Chair/Nhe-sq-Qfded Xfer(QC): 4 (CGA) Toilet Transfer (QC): 4 (CGA) Car Transfer (QC): 4 (CGA) Does the Patient Walk: Yes Walk 10 feet (QC): 4 (CGA) Walk 50ft with 2 Turns (QC): 4 (CGA) Walk 150 ft (QC): 4 (CGA) Walking 10ft on Uneven Surface: 4 (CGA) 1 Step (curb) (QC): 4 (CGA) 4 Steps (QC): 4 (CGA) 12 Steps (QC): 88 Picking up an Object (QC): 4 (SBA) Wheel 50 feet with 2 turns (QC: 9 Wheel 150 feet: 9 PT Plan Treatment/Plan Treatment Plan: Continue Plan of Care Treatment Plan: Bed Mobility, Education, Functional Activity Emma, Functional Strength, Group Therapy, Gait, Safety, Therapeutic Exercise, Transfers Treatment Duration: Sep 26, 2022 Frequency: At least 5 of 7 days/Wk (IRF) Estimated Hrs Per Day: 1.5 hours per day Patient and/or Family Agrees t: Yes Safety Risks/Education Patient Education: Steps, Correct Positioning, Safety Issues Teaching Recipient: Patient Teaching Methods: Discussion Response to Teaching: Verbalize Understanding Time Time In: 1100 Time Out: 1145 DATE: Sep 17, 2022 Total Billed Treatment Time: 45 Total Billed Treatment 1, FA x2 (30m) & GT (15m) JUAN ANTONIO BROWN ELECTRONIC EQUIPMENT SET UP OPERATOR Sep 17, 2022 15:22
--- NOTE | 2022-09-17 16:07 | Therapy Group Daily Note ---
Therapy Daily Group Note Patient Education Topic Other List Below (Adaptive Equipment) Exercises LE Seated Exercise, UE Exercise Session Ratio (pt:therapist): 3:1 Goal of Session: UE/LE Strengthing, Use of Adaptive Equipment Goal Met for this Session: Yes Pt Benefit of Group: Contributions to Others, F/U Use of Strategies @Home, Increased Functional Safety, Increased Functional Strength, Improved Cognition, Recognition of Peers, Socialization Other/Notes Pt ambulated using FWW to OT/PT group. Group consisted of introductions (name, favorite summer food), socialization, B UE/LE seated exercises and educational topic of AE for daily functional tasks. Pt introduced self appropriately and activity listened to peers. Pt tolerated B UE/LE movement activities well. Pt voiced own strategies and opinions about educational topic to acknowledge understanding. After therapy, pt sitting in recliner with call light/phone in reach. All needs met in room. Start Time: 13:00 Stop Time: 14:15 Total Billed Treatment Time: 75 Total Billed Treatment 1, GRP JUAN ANTONIO BROWN THERMO PROCESSOR Sep 17, 2022 16:07
[2022-09-17 20:00] VITALS: BP 163/72
[2022-09-18 08:00] VITALS: BP 170/57
--- NOTE | 2022-09-18 08:54 | PM&R Progress Note ---
Subjective HPI/CC On Admission Date Seen by Provider: Sep 18, 2022 Time Seen by Provider: 09:00 Subjective/Events-last exam 09/18/2022: No major issues DC tomorrow 09/17/2022: No major events Statin maintained to decrease recurrent CVA risk No falls Wants to go home soon 09/16/2022: No major issues No pain reported Checked meds and labs No falls 09/15/2022: No major issues Monitoring closely No falls No pain 09/14/2022: No major issues No pain reported No falls Family at bedside 09/13/2022: Patient doing well Pain improved Labs stable No major issues Checked meds Review of Systems General: Fatigue, Malaise Objective Exam Vital Signs Vital Signs Date Time Temp Pulse Resp B/P (MAP) Pulse Ox O2 Delivery O2 Flow Rate FiO2 09/18/22 20:10 Room Air 09/18/22 20:00 36.6 60 14 172/78 (109) 100 Capillary Refill : General Appearance: No Apparent Distress, WD/WN, Chronically ill HEENT: PERRL/EOMI, Normal ENT Inspection, Pharynx Normal Neck: Full Range of Motion, Normal Inspection, Non Tender, Supple, Carotid B ruit Respiratory: Chest Non Tender, Lungs Clear, Normal Breath Sounds, No Accessory Muscle Use, No Respiratory Distress Cardiovascular: Regular Rate, Rhythm, No Edema, No Gallop, No JVD, No Murmur, Normal Peripheral Pulses Gastrointestinal: Normal Bowel Sounds, No Organomegaly, No Pulsatile Mass, Non Tender, Soft Back: Normal Inspection, No CVA Tenderness, No Vertebral Tenderness Extremity: Normal Capillary Refill, Normal Inspection, Normal Range of Motion, Non Tender, No Calf Tenderness, No Pedal Edema Neurologic/Psychiatric: Alert, Oriented x3, drug safety specialist II-XII Norm as Tested, Abnormal Gait, Depressed Affect, Motor Weakness (generalized) Skin: Normal Color, Warm/Dry Lymphatic: No Adenopathy Results/Procedures Lab Patient resulted labs reviewed. FIM Transfers Therapy Code Descriptions/Definitions Functional [place] Measure: 0=Not Assessed/NA 4=Minimal Assistance 1=Total Assistance 5=Supervision or Setup 2=Maximal Assistance 6=Modified [place] 3=Moderate Assistance 7=Complete IndependenceSCALE: Activities may be completed with or without assistive devices. 1-Mimjziexof-oqpugro completes the activity by him/herself with no assistance from a helper. 5-Set-up or Clean-up Assistance-helper sets up or cleans up; patient completes activity. [place] assists only prior to or following the activity. 4-Supervision or Touching Assistance-helper provides verbal cues and/or touching/steadying and/or contact guard assistance as patient completes activity. Assistance may be provided throughout the activity or intermittently. 3-Partial/Moderate Assistance-helper does LESS THAN HALF the effort. [place] lifts, holds or supports trunk or limbs, but provides less than half the effort. 2-Substantial/Maximal Assistance-helper does MORE THAN HALF the effort. [place] lifts or holds trunk or limbs and provides more than half the effort. 1-Gannyzwge-tqdrwi does ALL the effort. Patient does none of the effort to complete the activity. Or, the assistance of 2 or more helpers is required for the patient to complete the activity. If activity was not attempted, code reason: 7-Patient Refused. 9-Not Applicable-not attempted and the patient did not perform the activity before the current illness, exacerbation or injury. 10-Not Attempted due to Environmental Limitations-(lack of equipment, weather restraints, etc.). 88-Not Attempted due to Medical Conditions or Safety Concerns. Roll Left to Right (QC): 6 Sit to Lying (QC): 4 Sit to Stand (QC): 5 Chair/Sav-jr-Fvmiy Xfer(QC): 6 Car Transfer (QC): 4 Gait Training Does the Patient Walk?: Yes Distance: 150' x2 Walk 10 feet (QC): 5 Walk 50 ft with 2 Turns(QC): 5 Walk 150 ft (QC): 5 Walking 10ft/uneven surface-QC: 3 Gait Persons Needed: 1 Gait Assistive Device: FWW Wheelchair Training Wheel 50 ft with 2 turns (QC): 9 Wheel 150 ft (QC): 9 Stair Training Stair Training: Handrails/: 2 handrails #of Steps: 6 1 Step (curb) (QC): 4 4 Steps (QC): 4 12 Steps (QC): 88 Stairs: Pattern: Step to Balance Picking up an Object (QC): 4 (CGA using a superintendent meters) ADL-Treatment Eating (QC): 6 (IND seated EOB.) Oral Hygiene (QC): 4 (SBA) Shower/Bathe Self (QC): 3 (Min A with BLEs lower legs/feet) Upper Body Dressing (QC): 3 (Min A with clasp of bra. Assist orienting t-shirt and sweatshirt.) Lower Body Dressing (QC): 3 (VCs for orientation of pants as pt was donning backwards. 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 s/p uncomplicated left hip arthroplasty revision by Dr Fernandez 04/2022 due to pain from hardware placed during hip fracture repair 10 years ago HTN labile status Urinary retention hx Fall risk Left knee pain chronic h/o Anemia iron deficiency status post iron infusions and blood transfusions Plan: PT OT Monitor function Fall risk Seizure precautions 09/13/2022: Monitor closely Seizure precautions 09/14/2022: Monitor closely 09/15/2022: Monitor closely 09/16/2022: Monitor closely BP monitoring 09/17/2022: Monitor BP 09/18/2022: DC home tomorrow (1) Infarction of parietal lobe NATIVIDAD MENJIVAR DO Sep 18, 2022 08:54
[2022-09-18] MEDS: ENOXAPARIN 40 MG/0.4 ML (LOVENOX) SYR SC SCH (09:02)
[2022-09-18] MEDS: ASPIRIN E.C. 81 MG (ECOTRIN) TAB PO SCH (09:02)
[2022-09-18] MEDS: SENNA W/DOCUSATE (SENOKOT S) TABLET PO SCH ×2 (09:03→19:26)
[2022-09-18] MEDS: BETHANECHOL 25 MG (URECHOLINE) TAB PO SCH ×3 (09:03→16:58)
[2022-09-18] MEDS: PANTOPRAZOLE 40 MG (PROTONIX) TAB PO SCH (09:03)
[2022-09-18] MEDS: DOCUSATE SODIUM 100 MG (COLACE) CAP PO SCH ×2 (09:03→19:26)
[2022-09-18] MEDS: TAMSULOSIN 0.4 MG (FLOMAX) CAP PO SCH ×2 (09:03→17:48)
[2022-09-18] MEDS: lisINopril 20 MG (PRINIVIL) TABLET PO SCH (09:03)
[2022-09-18] MEDS: LACTOBACILLUS ACIDOPHILUS (PROBIOTIC) CAPSULE PO SCH ×2 (09:03→19:45)
[2022-09-18] MEDS: SPIRONOLACTONE 25 MG (ALDACTONE) TAB PO SCH (09:03)
[2022-09-18] MEDS: A & D OINTMENT 42.5 GM TUBE TOP SCH ×2 (09:04→19:45)
[2022-09-18] MEDS: VITAMIN D3 25 MCG (1,000 UNITS) TABLET PO SCH (09:04)
[2022-09-18] MEDS: DICLOFENAC 1% GEL 100 GM (VOLTAREN) TUBE TOP SCH ×4 (09:05→19:51)
[2022-09-18] MEDS: polyethylene glycoL POWDER 17 GM (MIRALAX) PACK PO SCH ×2 (09:05→19:26)
--- NOTE | 2022-09-18 09:27 | Physical Therapy Daily Note ---
PT Daily Note-Current Subjective Pt sitting in recliner upon arrival. Pt agrees to PT for QC scoring for anticipated d/c tomorrow. Pain Numeric Pain Scale: 3 Location: Left Location Body Site: Knee Pain Description: Ache Comment: Pt reports needing to have knee surgery but will have to wait. Section J - Health Conditions 1. Rarely or not at all 2. Occasionally 3. Frequently 4. Almost constantly 8. Unable to answer Pain Effect on Sleep: 1 Pain Interference with Therapy: 1 Pain Interference w/Day-to-Day: 1 Mental Status Patient Orientation: Person, Place, Time, Situation Transfers SCALE: Activities may be completed with or without assistive devices. 7-Sdalvcvapv-jbjeodj completes the activity by him/herself with no assistance from a helper. 5-Set-up or Clean-up Assistance-helper sets up or cleans up; patient completes activity. [place] assists only prior to or following the activity. 4-Supervision or Touching Assistance-helper provides verbal cues and/or touching/steadying and/or contact guard assistance as patient completes activity. Assistance may be provided throughout the activity or intermittently. 3-Partial/Moderate Assistance-helper does LESS THAN HALF the effort. Eleanor lifts, holds or supports trunk or limbs, but provides less than half the effort. 2-Substantial/Maximal Assistance-helper does MORE THAN HALF the effort. Eleanor lifts or holds trunk or limbs and provides more than half the effort. 4-Cyxuushrs-ayrahq does ALL the effort. Patient does none of the effort to complete the activity. Or, the assistance of 2 or more helpers is required for the patient to complete the activity. If activity was not attempted, code reason: 7-Patient Refused. 9-Not Applicable-not attempted and the patient did not perform the activity before the current illness, exacerbation or injury. 10-Not Attempted due to Environmental Limitations-(lack of equipment, weather restraints, etc.). 88-Not Attempted due to Medical Conditions or Safety Concerns. Roll Left & Right (QC): 6 Sit to Lying (QC): 6 Lying to Sitting/Side of Bed(Q: 6 Sit to Stand (QC): 6 Chair/Mrv-bq-Ipgsk Xfer(QC): 6 Toilet Transfer (QC): 6 Car Transfer (QC): 5 Weight Bearing Full Weight Bearing Full Weight Bearing Gait Training Does the Patient Walk?: Yes Distance: 350' Walk 10 feet (QC): 5 Walk 50 ft with 2 Turns(QC): 5 Walk 150 ft (QC): 5 Walking 10ft/uneven surface-QC: 5 Gait Assistive Device: FWW Wheelchair Training Does the Pt Use a Wheelchair?: No Stair Training Stair Training: Handrails/: 2 handrails #of Steps: 6 1 Step (curb) (QC): 5 4 Steps (QC): 4 12 Steps (QC): 88 Stairs: Pattern: Step to Balance Picking up an Object (QC): 5 Exercises Supine Ex: Ankle pumps, Quad Set, Glut sets, Heel Slides, Short Arc Quads, Straight leg raise, Hip abd/add Supine Reps: 15 Seated Therapy Exercises: Ankle pumps, Long arc quads, Hip flexion, Hip abd/add, Glut set Seated Reps: 15 Treatments Pt completes QC scoring items listed above as well as Supine & Seated Ex. Pt is issued written HEP for Supine & Seated EX & uses BR. Pt returns to recliner to rest at end of tx w/all needs met, call light next to pt. Assessment Current Status: Good Progress Pt has improved w/mobility including TF and amb. PT Long-Term Goals Long-Term Goals PT Long-Term Goals Time Frame: Sep 26, 2022 Roll Left & Right (QC): 4 (SBA) Sit to Lying (QC): 4 (SBA) Lying-Sitting on Side/Bed(QC): 4 (SBA) Sit to Stand (QC): 4 (SBA) Chair/Hmb-yo-Wocbi Xfer(QC): 4 (CGA) Toilet Transfer (QC): 4 (CGA) Car Transfer (QC): 4 (CGA) Does the Patient Walk: Yes Walk 10 feet (QC): 4 (CGA) Walk 50ft with 2 Turns (QC): 4 (CGA) Walk 150 ft (QC): 4 (CGA) Walking 10ft on Uneven Surface: 4 (CGA) 1 Step (curb) (QC): 4 (CGA) 4 Steps (QC): 4 (CGA) 12 Steps (QC): 88 Picking up an Object (QC): 4 (SBA) Wheel 50 feet with 2 turns (QC: 9 Wheel 150 feet: 9 PT Plan Treatment/Plan Treatment Plan: Continue Plan of Care Treatment Plan: Bed Mobility, Education, Functional Activity Emma, Functional Strength, Group Therapy, Gait, Safety, Therapeutic Exercise, Transfers Treatment Duration: Sep 26, 2022 Frequency: At least 5 of 7 days/Wk (IRF) Estimated Hrs Per Day: 1.5 hours per day Patient and/or Family Agrees t: Yes Safety Risks/Education Patient Education: Issued Written HEP Teaching Recipient: Patient Teaching Methods: Discussion Response to Teaching: Verbalize Understanding Time Time In: 800 Time Out: 930 DATE: Sep 18, 2022 Total Billed Treatment Time: 930 Total Billed Treatment 1, GT (15m), EX (20m) & EX x4 (55m) JUAN ANTONIO BROWN PTA Sep 18, 2022 09:27
--- NOTE | 2022-09-18 11:59 | Occupational Ther Daily Note ---
OT Current Status-Daily Note Subjective Pt up in recliner, agreeable to OT tx. Mental Status/Objective Patient Orientation: Normal For Age ADL-Treatment Therapy Code Descriptions/Definitions Functional [place] Measure: 0=Not Assessed/NA 4=Minimal Assistance 1=Total Assistance 5=Supervision or Setup 2=Maximal Assistance 6=Modified [place] 3=Moderate Assistance 7=Complete IndependenceSCALE: Activities may be completed with or without assistive devices. 0-Obswdnmmrd-zwzjgun completes the activity by him/herself with no assistance from a helper. 5-Set-up or Clean-up Assistance-helper sets up or cleans up; patient completes activity. [place] assists only prior to or following the activity. 4-Supervision or Touching Assistance-helper provides verbal cues and/or touching/steadying and/or contact guard assistance as patient completes activity. Assistance may be provided throughout the activity or intermittently. 3-Partial/Moderate Assistance-helper does LESS THAN HALF the effort. [place] lifts, holds or supports trunk or limbs, but provides less than half the effort. 2-Substantial/Maximal Assistance-helper does MORE THAN HALF the effort. [place] lifts or holds trunk or limbs and provides more than half the effort. 7-Jznbidbuz-kxrmdl does ALL the effort. Patient does none of the effort to complete the activity. Or, the assistance of 2 or more helpers is required for the patient to complete the activity. If activity was not attempted, code reason: 7-Patient Refused. 9-Not Applicable-not attempted and the patient did not perform the activity before the current illness, exacerbation or injury. 10-Not Attempted due to Environmental Limitations-(lack of equipment, weather restraints, etc.). 88-Not Attempted due to Medical Conditions or Safety Concerns. Eating (QC): 6 Oral Hygiene (QC): 6 Shower/Bathe Self (QC): 5 (LH sponge for LEs/feet) Upper Body Dressing (QC): 4 (SBA, pt required VCs for orientation of shirt.) Lower Body Dressing (QC): 4 (SBA, VCs for orientation) On/Off Footwear: 3 (Mod A. Pt able to doff, assist to don.) Toileting Hygiene (QC): 6 Toilet Transfer (QC): 6 Other Treatment Pt in recliner, agreeable to OT tx. Pt used FWW to transfer into bathroom. Pt completed toileting, sponge bath, and dressing on BSC over toilet. Pt returned to recliner using FWW, transferring to recliner. Post tx, pt in recliner, call light in reach and all needs met. chair alarm activated Education OT Patient Education: Correct positioning, Energy conservation, Modified ADL techniques, Progress toward Goal/Update tx plan, Purpose of tx/functional activities, Rehab process Teaching Recipient: Patient Teaching Methods: Discussion Response to Teaching: Verbalize Understanding BIMS CAM BIMS Expression of Ideas and Wants: Without Difficulty Understanding Verbal Content: Understands Brief Interview/Mental Status: Yes IRF ELIZABETH BIMS: IRF ELIZABETH BIMS Response (Comments) Value Repitition of Three Words Three 3 Recalls Socks Yes, No Cue Required 2 Recalls Blue Yes, No Cue Required 2 Recalls Bed Yes, No Cue Required 2 Year Correct 3 Month Accurate Within 5 Days 2 Day Correct 1 Total 15 Should Staff Asses. Mental St.: No CAM Mental Status Change/Baseline: 0 Inattention: 0 Disorganized thinkin Altered level of consciousness: 0 OT Short Term Goals Short Term Goals Time Frame: Sep 27, 2022 Toileting hygiene: 4 Shower/bathe self: 4 Upper body dressin Lower body dressin Putting on/taking off footwear: 4 OT Financial Management Goals Financial Management Goals Time Frame: Oct 04, 2022 Acute change in mental status: 0 Inattention: 0 Disorganized thinkin Altered level of consciousness: 0 Eating (QC): 6 (met) Oral Hygiene (QC): 6 (met) Toileting Hygiene (QC): 6 (met) Shower/Bathe Self (QC): 6 (not met) Upper Body Dressing (QC): 6 (not met) Lower Body Dressing (QC): 6 (not met) On/Off Footwear (QC): 6 (not met) Additional Goals: 1-Demonstrate ADL Tasks, 2-Verbalize Understanding, 3- ImproveStrength/Emma 1=Demonstrate adherence to instructed precautions during ADL tasks. 2=Patient will verbalize/demonstrate understanding of assistive devices/modifications for ADL. 3=Patient will improve strength/tolerance for activity to enable patient to perform ADL's. OT Education/Plan Problem List/Assessment Assessment: Decreased Activ Tolerance, Decreased UE Strength, Impaired I ADL's, Impaired Self-Care Skills Discharge Recommendations Plan/Recommendations: Continue POC Treatment Plan/Plan of Care Patient would benefit from OT for education, treatment and training to promote independence in ADL's, mobility, safety and/or upper extremity function for ADL's. Plan of Care: ADL Retraining, Functional Mobility, Group Exercise/Act as Ind, UE Funct Exercise/Act Treatment Duration: Oct 04, 2022 Frequency: At least 5 of 7 days/Wk (IRF) Estimated Hrs Per Day: 1.5 hours per day Agreement: Yes Rehab Potential: Fair Time Start Time: 11:00 Stop Time: 12:00 DATE: Sep 18, 2022 Total Time Billed (hr/min): 60 Billed Treatment Time 1, ADL 4 DEIRDRE OWEN OT Sep 18, 2022 11:58
--- NOTE | 2022-09-18 14:04 | Occupational Ther Daily Note ---
OT Current Status-Daily Note Subjective Pt in recliner, agreeable to OT Tx. Mental Status/Objective Patient Orientation: Person, Place, Time, Situation ADL-Treatment Therapy Code Descriptions/Definitions Functional [place] Measure: 0=Not Assessed/NA 4=Minimal Assistance 1=Total Assistance 5=Supervision or Setup 2=Maximal Assistance 6=Modified [place] 3=Moderate Assistance 7=Complete IndependenceSCALE: Activities may be completed with or without assistive devices. 5-Adbxdkauhv-aaqcjcb completes the activity by him/herself with no assistance from a helper. 5-Set-up or Clean-up Assistance-helper sets up or cleans up; patient completes activity. [place] assists only prior to or following the activity. 4-Supervision or Touching Assistance-helper provides verbal cues and/or touching/steadying and/or contact guard assistance as patient completes activity. Assistance may be provided throughout the activity or intermittently. 3-Partial/Moderate Assistance-helper does LESS THAN HALF the effort. [place] lifts, holds or supports trunk or limbs, but provides less than half the effort. 2-Substantial/Maximal Assistance-helper does MORE THAN HALF the effort. [place] lifts or holds trunk or limbs and provides more than half the effort. 9-Xpqazmvmg-jbmoig does ALL the effort. Patient does none of the effort to complete the activity. Or, the assistance of 2 or more helpers is required for the patient to complete the activity. If activity was not attempted, code reason: 7-Patient Refused. 9-Not Applicable-not attempted and the patient did not perform the activity before the current illness, exacerbation or injury. 10-Not Attempted due to Environmental Limitations-(lack of equipment, weather restraints, etc.). 88-Not Attempted due to Medical Conditions or Safety Concerns. Toileting Hygiene (QC): 6 Toilet Transfer (QC): 6 Other Treatment Pt in recliner, agreeable to OT tx. Pt used FWW to transfer into bathroom. Pt completed toileting IND, then used FWW to perform functional mobility to kitchen area. Pt demo'd ability to open/close drawers, microwave and various kitchen appliances independently. Pt states no questions/concerns at this time with A DLS. Pt returned to her room using FWW, IND, transferring to recliner. Post tx, pt in recliner, call light in reach and all needs met, chair alarm activated. OT Short Term Goals Short Term Goals Time Frame: Sep 27, 2022 Toileting hygiene: 4 Shower/bathe self: 4 Upper body dressin Lower body dressin Putting on/taking off footwear: 4 OT Slps Goals Nursing Home Goals Time Frame: Oct 04, 2022 Acute change in mental status: 0 Inattention: 0 Disorganized thinkin Altered level of consciousness: 0 Eating (QC): 6 (met) Oral Hygiene (QC): 6 (met) Toileting Hygiene (QC): 6 (met) Shower/Bathe Self (QC): 6 (not met) Upper Body Dressing (QC): 6 (not met) Lower Body Dressing (QC): 6 (not met) On/Off Footwear (QC): 6 (not met) Additional Goals: 1-Demonstrate ADL Tasks, 2-Verbalize Understanding, 3-Improve Strength/Emma 1=Demonstrate adherence to instructed precautions during ADL tasks. 2=Patient will verbalize/demonstrate understanding of assistive devices/modifications for ADL. 3=Patient will improve strength/tolerance for activity to enable patient to pe rform ADL's. OT Education/Plan Problem List/Assessment Assessment: Decreased Activ Tolerance, Decreased UE Strength, Impaired I ADL's Discharge Recommendations Plan/Recommendations: Continue POC Treatment Plan/Plan of Care Patient would benefit from OT for education, treatment and training to promote independence in ADL's, mobility, safety and/or upper extremity function for ADL's. Plan of Care: ADL Retraining, Functional Mobility, Group Exercise/Act as Ind, UE Funct Exercise/Act Treatment Duration: Oct 04, 2022 Frequency: At least 5 of 7 days/Wk (IRF) Estimated Hrs Per Day: 1.5 hours per day Agreement: Yes Rehab Potential: Fair Time Start Time: 13:30 Stop Time: 14:00 DATE: Sep 18, 2022 Total Time Billed (hr/min): 30 Billed Treatment Time 1, ADL 2 DEIRDRE OWEN OT Sep 18, 2022 14:04
[2022-09-18 20:00] VITALS: BP 172/78
[2022-09-19] MEDS ORDERED: DICL100G13 TOP (05:05)
[2022-09-19] MEDS ORDERED: BETH25TA2 PO (05:05)
[2022-09-19] MEDS ORDERED: CHOL-34 PO (05:05)
[2022-09-19] MEDS ORDERED: ASPI-1238 PO (05:05)
[2022-09-19] MEDS ORDERED: LEVE500T6 PO (05:05)
[2022-09-19] MEDS ORDERED: SPIR25TA PO (05:05)
[2022-09-19] MEDS ORDERED: PANT40TA52 PO (05:05)
[2022-09-19] MEDS ORDERED: ATOR40TA PO (05:05)
[2022-09-19] MEDS ORDERED: LISI20TA26 PO (05:05)
[2022-09-19] MEDS ORDERED: TMSL.4C PO (05:05)
--- NOTE | 2022-09-19 05:06 | Discharge Summary ---
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 s/p uncomplicated left hip arthroplasty revision by Dr Fernandez 04/2022 due to pain from hardware placed during hip fracture repair 10 years ago HTN labile status Urinary retention hx Fall risk Left knee pain chronic h/o Anemia iron deficiency status post iron infusions and blood transfusions Plan: PT OT Monitor function Fall risk Seizure precautions 09/13/2022: Monitor closely Seizure precautions 09/14/2022: Monitor closely 09/15/2022: Monitor closely 09/16/2022: Monitor closely BP monitoring 09/17/2022: Monitor BP 09/18/2022: DC home tomorrow (1) Infarction of parietal lobe Discharge Summary Discharge Physical Examination Allergies: Coded Allergies: diphenhydramine (Verified Allergy, Unknown, 09/12/22) tramadol (Verified Allergy, Unknown, 09/12/22) Vitals & I&Os Vital Signs Date Time Temp Pulse Resp B/P (MAP) Pulse Ox O2 Delivery O2 Flow Rate FiO2 09/19/22 09:00 97 Room Air 09/19/22 07:54 36.3 68 14 185/88 (120) General Appearance: Alert, Oriented X3, Cooperative Respiratory: Clear to Auscultation Cardiovascular: Regular Rate Psych/Mental Status: Mental Status NL Hospital Course Was the Problem List Reviewed?: Yes Uneventful course after she was transferred from [facility] following a CVA acute on chronic per MRI along with new seizure d/o. Patient had no complications during her stay. Vitals and labs remained stable. Participation with therapy was good. Overall she did well and had no complications and was DC in improved condition on statin and ASA and Seizure meds. Neuro f/u recommended. Labs (last 24 hrs) Laboratory Tests 09/13/22 06:00: White Blood Count 3.5L, Red Blood Count 3.56L, Hemoglobin 11.1L, Hematocrit 35, Mean Corpuscular Volume 98, Mean Corpuscular Hemoglobin 31, Mean Corpuscular Hemoglobin Concent 32, Red Cell Distribution Width 12.3, Platelet Count 260, Mean Platelet Volume 9.6, Immature Granulocyte % (Auto) 0, Neutrophils (%) (Auto) 60, Lymphocytes (%) (Auto) 24, Monocytes (%) (Auto) 10, Eosinophils (%) (Auto) 6, Basophils (%) (Auto) 1, Neutrophils # (Auto) 2.1, Lymphocytes # (Auto) 0.8L, Monocytes # (Auto) 0.3, Eosinophils # (Auto) 0.2, Basophils # (Auto) 0.0, Immature Granulocyte # (Auto) 0.0, Sodium Level 141, Potassium Level 3.9, Chloride Level 105, Carbon Dioxide Level 26, Anion Gap 10, Blood Urea Nitrogen 14, Creatinine 0.97, Estimat Glomerular Filtration Rate 60, BUN/Creatinine Ratio 14, Glucose Level 91, Calcium Level 9.6, Corrected Calcium 9.9, Total Bilirubin 0.4, Aspartate Amino Transf (AST/SGOT) 12, Alanine Aminotransferase (ALT/SGPT) 10, Alkaline Phosphatase 95, Total Protein 7.4, Albumin 3.6 09/16/22 06:30: Sodium Level 139, Potassium Level 4.0, Chloride Level 105, Carbon Dioxide Level 25, Anion Gap 9, Blood Urea Nitrogen 12, Creatinine 0.82, Estimat Glomerular Filtration Rate 73, BUN/Creatinine Ratio 15, Glucose Level 89, Calcium Level 9.2, Corrected Calcium 9.8, Total Bilirubin 0.3, Aspartate Amino Transf (AST/SGOT) 23, Alanine Aminotransferase (ALT/SGPT) 22, Alkaline Phosphatase 99, Total Protein 6.6, Albumin 3.2 09/16/22 06:35: White Blood Count 3.3L, Red Blood Count 3.10L, Hemoglobin 9.7L, Hematocrit 31L, Mean Corpuscular Volume 98, Mean Corpuscular Hemoglobin 31, Mean Corpuscular Hemoglobin Concent 32, Red Cell Distribution Width 12.3, Platelet Count 249, Kia n Platelet Volume 9.5, Immature Granulocyte % (Auto) 0, Neutrophils (%) (Auto) 60, Lymphocytes (%) (Auto) 21, Monocytes (%) (Auto) 13H, Eosinophils (%) (Auto) 6, Basophils (%) (Auto) 1, Neutrophils # (Auto) 2.0, Lymphocytes # (Auto) 0.7L, Monocytes # (Auto) 0.4, Eosinophils # (Auto) 0.2, Basophils # (Auto) 0.0, Immature Granulocyte # (Auto) 0.0 Pending Labs Laboratory Tests 09/13/22 06:00: White Blood Count 3.5, Red Blood Count 3.56, Hemoglobin 11.1, Hematocrit 35, Mean Corpuscular Volume 98, Mean Corpuscular Hemoglobin 31, Mean Corpuscular Hemoglobin Concent 32, Red Cell Distribution Width 12.3, Platelet Count 260, Mean Platelet Volume 9.6, Immature Granulocyte % (Auto) 0, Neutrophils (%) (Auto) 60, Lymphocytes (%) (Auto) 24, Monocytes (%) (Auto) 10, Eosinophils (%) (Auto) 6, Basophils (%) (Auto) 1, Neutrophils # (Auto) 2.1, Lymphocytes # (Auto) 0.8, Monocytes # (Auto) 0.3, Eosinophils # (Auto) 0.2, Basophils # (Auto) 0.0, I mmature Granulocyte # (Auto) 0.0, Sodium Level 141, Potassium Level 3.9, Chloride Level 105, Carbon Dioxide Level 26, Anion Gap 10, Blood Urea Nitrogen 14, Creatinine 0.97, Estimat Glomerular Filtration Rate 60, BUN/Creatinine Ratio 14, Glucose Level 91, Calcium Level 9.6, Corrected Calcium 9.9, Total Bilirubin 0.4, Aspartate Amino Transf (AST/SGOT) 12, Alanine Aminotransferase (ALT/SGPT) 10, Alkaline Phosphatase 95, Total Protein 7.4, Albumin 3.6 09/16/22 06:30: Sodium Level 139, Potassium Level 4.0, Chloride Level 105, Carbon Dioxide Level 25, Anion Gap 9, Blood Urea Nitrogen 12, Creatinine 0.82, Estimat Glomerular Filtration Rate 73, BUN/Creatinine Ratio 15, Glucose Level 89, Calcium Level 9.2, Corrected Calcium 9.8, Total Bilirubin 0.3, Aspartate Amino Transf (AST/SGOT) 23, Alanine Aminotransferase (ALT/SGPT) 22, Alkaline Phosphatase 99, Total Protein 6.6, Albumin 3.2 09/16/22 06:35: White Blood Count 3.3, Red Blood Count 3.10, Hemoglobin 9.7, Hematocrit 31, Mean Corpuscular Volume 98, Mean Corpuscular Hemoglobin 31, Mean Corpuscular Hemoglobin Concent 32, Red Cell Distribution Width 12.3, Platelet Count 249, Mean Platelet Volume 9.5, Immature Granulocyte % (Auto) 0, Neutrophils (%) (Auto) 60, Lymphocytes (%) (Auto) 21, Monocytes (%) (Auto) 13, Eosinophils (%) (Auto) 6, Basophils (%) (Auto) 1, Neutrophils # (Auto) 2.0, Lymphocytes # (Auto) 0.7, Monocytes # (Auto) 0.4, Eosinophils # (Auto) 0.2, Basophils # (Auto) 0.0, Immature Granulocyte # (Auto) 0.0 Discharge Home Medications: Active Scripts Active Vitamin D3 (Cholecalciferol (Vitamin D3)) 25 Mcg (1000 Unit) Tablet 50 Mcg PO DAILY Pantoprazole Sodium 40 Mg Tablet.dr 40 Mg PO DAILY Levetiracetam 500 Mg Tablet 500 Mg PO BID Diclofenac Sodium 1 % Gel..gram. 0 Gm TOP QID three times daily prn Aspirin EC (Aspirin) 81 Mg Tablet.dr 81 Mg PO DAILY Lipitor (Atorvastatin Calcium) 40 Mg Tablet 40 Mg PO HS Flomax (Tamsulosin HCl) 0.4 Mg Cap 0.4 Mg PO Q12H Bethanechol Chloride 25 Mg Tablet 25 Mg PO TIDAC Aldactone (Spironolactone) 25 Mg Tablet 25 Mg PO DAILY Lisinopril 20 Mg Tablet 20 Mg PO DAILY Instructions to patient/family Please see electronic discharge instructions given to patient. Diagnosis/Problems Diagnosis/Problems (1) Infarction of parietal lobe NATIVIDAD MENJIVAR DO Sep 19, 2022 05:06
[2022-09-19] MEDS: BETHANECHOL 25 MG (URECHOLINE) TAB PO SCH ×2 (06:10→11:12)
[2022-09-19] MEDS: TAMSULOSIN 0.4 MG (FLOMAX) CAP PO SCH (06:10)
[2022-09-19 07:54] VITALS: BP 185/88
[2022-09-19] MEDS: ASPIRIN E.C. 81 MG (ECOTRIN) TAB PO SCH (08:43)
[2022-09-19] MEDS: LACTOBACILLUS ACIDOPHILUS (PROBIOTIC) CAPSULE PO SCH (08:43)
[2022-09-19] MEDS: polyethylene glycoL POWDER 17 GM (MIRALAX) PACK PO SCH (08:44)
[2022-09-19] MEDS: VITAMIN D3 25 MCG (1,000 UNITS) TABLET PO SCH (08:44)
[2022-09-19] MEDS: DOCUSATE SODIUM 100 MG (COLACE) CAP PO SCH (08:44)
[2022-09-19] MEDS: PANTOPRAZOLE 40 MG (PROTONIX) TAB PO SCH (08:44)
[2022-09-19] MEDS: lisINopril 20 MG (PRINIVIL) TABLET PO SCH (08:44)
[2022-09-19] MEDS: SPIRONOLACTONE 25 MG (ALDACTONE) TAB PO SCH (08:44)
[2022-09-19] MEDS: SENNA W/DOCUSATE (SENOKOT S) TABLET PO SCH (08:44)
[2022-09-19] MEDS: ENOXAPARIN 40 MG/0.4 ML (LOVENOX) SYR SC SCH (08:45)
[2022-09-19] MEDS: DICLOFENAC 1% GEL 100 GM (VOLTAREN) TUBE TOP SCH (08:46)
[2022-09-19] MEDS: A & D OINTMENT 42.5 GM TUBE TOP SCH (08:46)
[2022-09-19] MEDS ORDERED: amLODIPine 5 MG (NORVASC) TAB PO SCH (09:00)
--- NOTE | 2022-09-19 10:19 | Therapy Team Discharge Summary ---
Therapy Discharge Summary Discharge Recommendations Date of Discharge Physical Therapy Roll Left to Right (QC): 6 Sit to Lying (QC): 6 Lying to Sitting/Side of Bed(Q: 6 Sit to Stand (QC): 6 Chair/Tac-gq-Mcigu Xfer(QC): 6 Toilet Transfer (QC): 5 Car Transfer (QC): 5 Does the Patient Walk: Yes Mode of Locomotion: Walk Anticipated Mode of Locomotion: Walk Walk 10 feet (QC): 5 Walk 50 ft with 2 Turns(QC): 5 Walk 150 ft (QC): 5 Walking 10ft on uneven surface: 5 Distance: 120'x3 Gait Assistive Device: FWW Does the Pt Use a Wheelchair: No Wheel 50 ft with 2 turns (QC): 9 Wheel 150 ft (QC): 9 Type of Wheelchair: N/A #of Steps: 6 1 Step (curb) (QC): 5 4 Steps (QC): 4 12 Steps (QC): 88 Balance Sitting Static: Normal Balance Sitting Dynamic: Normal Balance-Standing Static: Fair Picking up an Object (QC): 5 Occupational Therapy Pt admitted to ARU s/p seizure and CVA. At [facility], pt required some assistance with ADLs. Upon initial evaluation, pt required set up with eating, SBA oral care, min-mod A showering, UE dressing and toileting, and max A LE dressing and footwear. OT tx focused on increasing BUE strength and activity tolerance, and increasing safety and independence with ADLs and functional mobility. Pt made good functional progress towards goals, but only attained IND level with eating, oral care and toileting. Pt states she has a supportive family to assist with bathing and dressing tasks as needed. Pt discharging home today with family support, d/c from OT. Decreased Activ Tolerance, Decreased UE Strength, Impaired I ADL's Eating (QC): 6 Oral Hygiene (QC): 6 Shower/Bathe Self (QC): 5 (LH sponge for LEs/feet) Upper Body Dressing (QC): 4 (SBA, pt required VCs for orientation of shirt.) Lower Body Dressing (QC): 4 (SBA, VCs for orientation) On/Off Footwear (QC): 3 (Mod A. Pt able to doff, assist to don.) Toileting Hygiene (QC): 6 PT Correction Goals Traffic Reporter Goals PT Traffic Reporter Goals Time Frame: Sep 26, 2022 Roll Left to Right (QC): 4 (SBA) Sit to Lying (QC): 4 (SBA) Lying-Sitting on Side/Bed(QC): 4 (SBA) Sit to Stand (QC): 4 (SBA) Chair/Uin-bm-Ejyoi Xfer(QC): 4 (CGA) Toilet/Commode Transfer (QC): 4 (CGA) Car Transfer (QC): 4 (CGA) Does the Patient Walk: Yes Walk 10 feet (QC): 4 (CGA) Walk 10ft-Uneven Surface(QC): 4 (CGA) Walk 50ft with 2 Turns (QC): 4 (CGA) Walk 150 ft (QC): 4 (CGA) Wheel 50 feet with 2 turns (QC: 9 Wheel 150 feet: 9 1 Step (curb) (QC): 4 (CGA) 4 Steps (QC): 4 (CGA) 12 Steps (QC): 88 Picking up an Object (QC): 4 (SBA) OT Correction Goals Correction Goals Time Frame: Oct 04, 2022 Acute change in mental status: 0 Inattention: 0 Disorganized thinkin Altered level of consciousness: 0 Eating (QC): 6 (met) Oral Hygiene (QC): 6 (met) Toileting Hygiene (QC): 6 (met) Shower/Bathe Self (QC): 6 (not met) Upper Body Dressing (QC): 6 (not met) Lower Body Dressing (QC): 6 (not met) On/Off Footwear (QC): 6 (not met) Additional Goals: 1-Demonstrate ADL Tasks, 2-Verbalize Understanding, 3- ImproveStrength/Emma 1=Demonstrate adherence to instructed precautions during ADL tasks. 2=Patient will verbalize/demonstrate understanding of assistive devices/modifications for ADL. 3=Patient will improve strength/tolerance for activity to enable patient to perform ADL's. DEIRDRE OWEN OT Sep 19, 2022 10:19
--- NOTE | 2022-09-19 11:39 | Therapy Team Discharge Summary ---
Therapy Discharge Summary Discharge Recommendations Date of Discharge Physical Therapy Patient came to rehab with seizure; chronic R parietal infarct. Upon evaluation patient performs rolling with min assist, supine to sit mod assist, sit to supine max assist, sit <-> stand mod assist, transfers min assist, car transfer mod assist, ambulate 120' with a rolling walker with min assist (including 50' with at least 2 turns of 90 degrees and 10' over an uneven surface), and picked up an object from the floor using a associate professor physician with CGA. Patient has been performing bed mobility and transfer training, balance and endurance training, functional strengthening, stair training, gait training, and education. Patient has made good progress and has met all of her halfway goals. Now, patient performs rolling and supine <-> sit with independence, sit <-> stand and transfers independent, car transfer setup, ambulates 350' with a rolling walker with setup (including 50' with at least 2 turns of 90 degrees and 10' over an uneven surface), can go up and down 6 steps using 2 handrails with CGA/SBA, and can continuous pickling line pickler an object from the floor with setup. Patient is being discharged from this facility today and will be discharged from PT at this time. Roll Left to Right (QC): 6 Sit to Lying (QC): 6 Lying to Sitting/Side of Bed(Q: 6 Sit to Stand (QC): 6 Chair/Nqs-ov-Zbzic Xfer(QC): 6 Toilet Transfer (QC): 6 Car Transfer (QC): 5 Does the Patient Walk: Yes Mode of Locomotion: Walk Anticipated Mode of Locomotion: Walk Walk 10 feet (QC): 5 Walk 50 ft with 2 Turns(QC): 5 Walk 150 ft (QC): 5 Walking 10ft on uneven surface: 5 Distance: 120'x3 Gait Assistive Device: FWW Does the Pt Use a Wheelchair: No Wheel 50 ft with 2 turns (QC): 9 Wheel 150 ft (QC): 9 Type of Wheelchair: N/A #of Steps: 6 1 Step (curb) (QC): 5 4 Steps (QC): 4 12 Steps (QC): 88 Balance Sitting Static: Normal Balance Sitting Dynamic: Normal Balance-Standing Static: Fair Picking up an Object (QC): 5 Occupational Therapy Decreased Activ Tolerance, Decreased UE Strength, Impaired I ADL's Eating (QC): 6 Oral Hygiene (QC): 6 Shower/Bathe Self (QC): 5 (LH sponge for LEs/feet) Upper Body Dressing (QC): 4 (SBA, pt required VCs for orientation of shirt.) Lower Body Dressing (QC): 4 (SBA, VCs for orientation) On/Off Footwear (QC): 3 (Mod A. Pt able to doff, assist to don.) Toileting Hygiene (QC): 6 PT Transformation Coach Goals [facility] Goals PT Transformation Coach Goals Time Frame: Sep 26, 2022 Roll Left to Right (QC): 4 (SBA) Sit to Lying (QC): 4 (SBA) Lying-Sitting on Side/Bed(QC): 4 (SBA) Sit to Stand (QC): 4 (SBA) Chair/Wqm-ly-Hkyjs Xfer(QC): 4 (CGA) Toilet/Commode Transfer (QC): 4 (CGA) Car Transfer (QC): 4 (CGA) Does the Patient Walk: Yes Walk 10 feet (QC): 4 (CGA) Walk 10ft-Uneven Surface(QC): 4 (CGA) Walk 50ft with 2 Turns (QC): 4 (CGA) Walk 150 ft (QC): 4 (CGA) Wheel 50 feet with 2 turns (QC: 9 Wheel 150 feet: 9 1 Step (curb) (QC): 4 (CGA) 4 Steps (QC): 4 (CGA) 12 Steps (QC): 88 Picking up an Object (QC): 4 (SBA) OT [facility] Goals [facility] Goals Time Frame: Oct 04, 2022 Acute change in mental status: 0 Inattention: 0 Disorganized thinkin Altered level of consciousness: 0 Eating (QC): 6 (met) Oral Hygiene (QC): 6 (met) Toileting Hygiene (QC): 6 (met) Shower/Bathe Self (QC): 6 (not met) Upper Body Dressing (QC): 6 (not met) Lower Body Dressing (QC): 6 (not met) On/Off Footwear (QC): 6 (not met) Additional Goals: 1-Demonstrate ADL Tasks, 2-Verbalize Understanding, 3- ImproveStrength/Emma 1=Demonstrate adherence to instructed precautions during ADL tasks. 2=Patient will verbalize/demonstrate understanding of assistive devices/modifications for ADL. 3=Patient will improve strength/tolerance for activity to enable patient to perform ADL's. CAMMIE CALDERÓN PT Sep 19, 2022 11:39
== END 2022-09-19 11:20 | disposition home or self-care (01) | DRG 57 ==
PROVIDERS: ADMIT Internal Medicine; ATTEND Internal Medicine
DX: I69.398 Other sequelae of cerebral infarction (principal); G40.909 Epilepsy, unspecified, not intractable, without status epilepticus; R53.81 Other malaise; R53.1 Weakness; R26.9 Unspecified abnormalities of gait and mobility; Z91.81 History of falling; K59.00 Constipation, unspecified; M13.80 Other specified arthritis, unspecified site; M25.562 Pain in left knee; I12.9 Hypertensive chronic kidney disease with stage 1 through stage 4 chronic kidney disease, or unspecified chronic kidney disease; N18.9 Chronic kidney disease, unspecified; E78.00 Pure hypercholesterolemia, unspecified; F41.9 Anxiety disorder, unspecified; F32.A Depression, unspecified; R33.9 Retention of urine, unspecified; Z91.09 Other allergy status, other than to drugs and biological substances; Z79.82 Long term (current) use of aspirin; Z79.899 Other long term (current) drug therapy
CPT/HCPCS: 36415; 80053; 85025

== ENCOUNTER 2023-05-08 10:15 | Inpatient (IN) | payer MEDICARE, OTHER ==
[~2023-05-08] VITALS: Ht 165.1 cm; Wt 81.2 kg
[~2023-05-08 10:15] MED LIST changes: +ATOR40TA PO; +ATOR40TA70 PO; +CEPH500T PO; +CHOL-34 PO; +DICL100G60 TOP; +LACT1CAP39 PO; +LEVE500T6 PO; +NALO4SPR; +SPIR25TA PO; +TRM50T PO
--- NOTE | 2023-05-08 12:25 | PM&R Post Admission Assessment ---
PM&R Date of Visit: May 08, 2023 Time of Visit: 17:00 History of Present Illness Chief complaint: Debility from left knee replacement with patellar tendon repositioning maintain an immobilizer HPI: This is a 77-year-old -[place] female who presents from [facility] post uncomplicated left knee replacement by Dr. Fernandez. He did perform a patellar tendon repositioning and tacked it down so she remains with the left leg immobilizer. This is further limiting her return to function. Family is heavily involved and will monitor blood pressure since labile hypertension history. Bowels have not moved yet. Urinary function is good. Past Vzsknqm-Dxbnwp-Ragzbu Hx Past Med/Social Hx: Reviewed Nursing Past Med/Soc Hx, Reviewed and Corrections made Patient Social History Marrital Status: single Employed/Student: retired Alcohol Use: Denies Use Smoking Status: Never a Smoker Past Medical History Surgeries: Orthopedic Cardiac: High Cholesterol, Hypertension Genitourinary: Bladder Infection Musculoskeletal: Arthritis PM&R Allergy/Meds/Data Review Allergies Coded Allergies: diphenhydramine (Verified Allergy, Unknown, 09/12/22) tramadol (Verified Allergy, Unknown, 09/12/22) Home Medications Scheduled Aspirin (Aspirin EC), 81 MG PO DAILY, (Reported) Atorvastatin Calcium (Atorvastatin Calcium), 40 MG PO HS, (Reported) Cholecalciferol (Vitamin D3) (Vitamin D3), 50 MCG PO DAILY, (Reported) Diclofenac Sodium (Diclofenac Sodium), 1 APPLIC TP QID, (Reported) Levetiracetam (Levetiracetam), 500 MG PO BID, (Reported) Lisinopril (Lisinopril), 20 MG PO DAILY, (Reported) Meloxicam (Meloxicam), 7.5 MG PO DAILY, (Reported) Pantoprazole Sodium (Pantoprazole Sodium), 40 MG PO DAILY, (Reported) Scheduled PRN Acetaminophen (Tylenol Arthritis), 1,300 MG PO Q6H PRN for PAIN-MILD (1-4), (Reported) Docusate Sodium (Docusate Sodium), 100 MG PO BID PRN for CONSTIPATION-1ST LINE, (Reported) Nystatin (Nystatin), 1 APPLIC TP UD PRN for SKIN INFECTION, (Reported) Oxycodone HCl/Acetaminophen (Oxycodone-Acetaminophen 5-325), 1 EACH PO Q4H PRN for PAIN-MODERATE (5-7), (Reported) Discontinued Medications Aspirin (Aspirin EC), 81 MG PO DAILY Discontinued Reason: No Longer Taking Atorvastatin Calcium (Lipitor), 40 MG PO HS Discontinued Reason: No Longer Taking Bethanechol Chloride (Bethanechol Chloride), 25 MG PO TIDAC Discontinued Reason: No Longer Taking Cholecalciferol (Vitamin D3) (Vitamin D3), 50 MCG PO DAILY Discontinued Reason: No Longer Taking Diclofenac Sodium (Diclofenac Sodium), 0 GM TOP QID Discontinued Reason: No Longer Taking Levetiracetam (Levetiracetam), 500 MG PO BID Discontinued Reason: No Longer Taking Lisinopril (Lisinopril), 20 MG PO DAILY Discontinued Reason: No Longer Taking Pantoprazole Sodium (Pantoprazole Sodium), 40 MG PO DAILY Discontinued Reason: No Longer Taking Spironolactone (Aldactone), 25 MG PO DAILY Discontinued Reason: No Longer Taking Tamsulosin HCl (Flomax), 0.4 MG PO Q12H Discontinued Reason: No Longer Taking Current Medications Current Medications Reviewed Review of Systems Constitutional: see HPI, malaise, weakness EENTM: no symptoms reported Respiratory: no symptoms reported Cardiovascular: no symptoms reported Gastrointestinal: no symptoms reported Genitourinary: no symptoms reported Musculoskeletal: back pain, joint pain Skin: no symptoms reported Psychiatric/Neurological: No Symptoms Reported All Other Systems Reviewed Negative Unless Noted: Yes Physical Exam Physical Exam Vital Signs Capillary Refill : Height, Weight, BMI Height: '" Weight: lbs. oz. kg; 30.97 BMI Method: General Appearance: No Apparent Distress, WD/WN, Chronically ill Eyes: Bilateral Eye Normal Inspection, Bilateral Eye PERRL HEENT: PERRL/EOMI, Normal ENT Inspection, Pharynx Normal Neck: Full Range of Motion, Normal Inspection, Non Tender, Supple, Carotid Bruit Respiratory: Chest Non Tender, Lungs Clear, Normal Breath Sounds, No Accessory Muscle Use, No Respiratory Distress Cardiovascular: Regular Rate, Rhythm, No Edema, No Gallop, No JVD, No Murmur, Normal Peripheral Pulses Gastrointestinal: Normal Bowel Sounds, No Organomegaly, No Pulsatile Mass, Non Tender, Soft Back: Normal Inspection, No CVA Tenderness, No Vertebral Tenderness Extremity: Normal Capillary Refill, Normal Inspection, Normal Range of Motion (Except left leg in immobilizer), Non Tender, No Calf Tenderness, No Pedal Edema Neurologic/Psychiatric: Alert, Oriented x3, No Motor/Sensory Deficits, Normal Mood/Affect, Abnormal Gait, Motor Weakness ( left leg) Skin: Normal Color, Warm/Dry Lymphatic: No Adenopathy PM&R Medical Assessment & Plan REHAB/MEDICAL ASSESSMENT AND PLAN: REHAB IMPAIRMENT GROUP: Status post unilateral knee replacement ETIOLOGIC DIAGNOSIS: Primary osteoarthritis of the left knee The comorbidities that impact the patients function and/or functional outcome by: advanced age, slow recovery, immobilizer maintained REHAB PLAN: The patient is being admitted to our comprehensive inpatient rehabilitation facility and can tolerate the intensity of service consisting of at least: 180 minutes of therapy a day, 5 out of 7 days a week Rehab treatment will consist of: PT and OT will focus on regaining function with use of assistive devices especially given left leg immobilizer in order to gain stamina and ambulation with regaining ADL independence The patient/family has a good understanding of our discharge process and will benefit from an interdisciplinary inpatient rehabilitation program. The patient has potential to make improvement and is in need of at least two of the following multidisciplinary therapies including but not limited to physical, occupational, speech, and prosthetics and orthotics. Additionally the patient will need services from respiratory, nutritional services, wound care, psychology, etc. (Customize this to each patient). Given the patients complex condition and risk of further medical complications, rehabilitation services cannot be safely or effectively provided at a lower level of care such as a shelter facility. BARRIERS TO DISCHARGE: left leg in immobilizer ESTIMATED LOS: 7 days DISPOSITION: home RELEVANT CHANGES SINCE PREADMISSION SCREENING: I have compared the patients medical and functional status at the time of the preadmission screening and there are: no changes PROGNOSIS: good REHABILITATION GOALS: 1. PT and OT will focus on regaining function with use of assistive devices especially given left leg immobilizer in order to gain stamina and ambulation with regaining ADL independence All the above goals were reviewed with the patient and he/she is in agreement. By signing this document, I acknowledge that I have personally performed a full physical examination on this patient within 24 hours of admission to this inpatient rehabilitation facility and have determined the patient to be able to tolerate the above course of treatment at an intensive level for a reasonable period of time. I will be completing a detailed individualized Plan of Care for this patient by day #4 of the patients stay based upon the Preadmission Screen, the Post-Admission Evaluation, and the therapy evaluations. 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
[2023-05-08] MEDS ORDERED: ALPRAZolam 0.25 MG TABLET PO PRN (12:30)
[2023-05-08] MEDS ORDERED: guaiFENesin/CODEINE 10ML UDC PO PRN (12:30)
[2023-05-08] MEDS ORDERED: ACETAMINOPHEN 325 MG TABLET PO PRN (12:30)
[2023-05-08] MEDS ORDERED: ONDANSETRON 4 MG ORAL DISSOLVE TABLET PO PRN (12:30)
[2023-05-08] MEDS ORDERED: BISACODYL 10 MG SUPPOSITORY PR PRN (12:30)
[2023-05-08] MEDS ORDERED: MELATONIN 3 MG TABLET PO PRN (12:30)
[2023-05-08] MEDS ORDERED: LOPERAMIDE 2 MG CAPSULE PO PRN (12:30)
[2023-05-08] MEDS ORDERED: DOCUSATE SODIUM 100 MG CAPSULE PO PRN ×2 (12:30→14:15)
[2023-05-08] MEDS ORDERED: Sodium Phosphate/Sodium Biphosphate ADULT enema PR PRN (12:30)
[2023-05-08] MEDS ORDERED: CALCIUM CARBONATE 500 MG CHEW TABLET PO PRN (12:30)
[2023-05-08] MEDS ORDERED: ACET-2650 PO (13:16)
[2023-05-08] MEDS ORDERED: CHOL200052 PO (13:16)
[2023-05-08] MEDS ORDERED: MELO7.5T46 PO (13:16)
[2023-05-08] MEDS ORDERED: DOCU100C37 PO (13:16)
[2023-05-08] MEDS ORDERED: LEVE500T6 PO (13:16)
[2023-05-08] MEDS ORDERED: PANT40TA52 PO (13:16)
[2023-05-08] MEDS ORDERED: OXYC1TAB11 PO (13:16)
[2023-05-08] MEDS ORDERED: ATOR40TA70 PO (13:16)
[2023-05-08] MEDS ORDERED: DICL100G60 TP (13:16)
[2023-05-08] MEDS ORDERED: ASPI-1238 PO (13:16)
[2023-05-08] MEDS ORDERED: LISI20TA26 PO (13:16)
[2023-05-08] MEDS ORDERED: NYST15CR35 TP (13:21)
[2023-05-08 13:55] VITALS: BP 181/81
--- OUTSIDE RECORDS SUMMARY | 2023-05-08 14:07 | XMS REPORT | Summary of Care ---
Author Author [email or web address] [facility] Address Unknown Phone Unavailable Care Team Providers Care Account Planner Name Role Phone Chris Macias MD PCP [phone] Reason for Referral * CT Scan (Routine) - Closed Specialty Diagnoses / Procedures Referred By Contac t Referred To Contact Radiology Diagnoses Pain of left lower extremity Procedures CT LOW EXT WO CONTRAST LEFT Mann Fernandez MD [address] [place] [address] [facility] [address] [place] [phone] Referral ID Status Reason Start Date Expiration Date V isits Requested Visits Authorized [id number] Closed [facility] to Schedule 04/02/2023 05/02/2024 1 1 Reason for Visit * CT Scan (Routine) - Closed Specialty Diagnoses / Procedures Referred By Contac t Referred To Contact Radiology Diagnoses Pain of left lower extremity Procedures CT LOW EXT WO CONTRAST LEFT Mann Fernandez MD [address] [place] [address] [facility] [address] [place] [phone] Referral ID Status Reason Start Date Expiration Date V isits Requested Visits Authorized [id number] Closed [facility] to Schedule 04/02/2023 05/02/2024 1 1 Encounter Details Date Type Department Care Team Description 04/16/2023 2:34 PM CDT - 04/16/2023 11:59 PM CDT Hospital Encounter [facility] CT Scan [address] [place] [phone] Mann Fernandez MD [address] [place] [address] [place] [phone] Arrived Discharge Disposition: Home or Self Care Allergies No known active allergiesdocumented as of this encounter (statuses as of 04/17/2023) Medications Medication Sig Dispensed Refills Start Date End Date Status ergocalciferol, vitamin D2, (VITAMIN D ORAL) Take 2,000 Units by mouth daily. 0 Active lisinopriL (PRINIVIL) 20 mg tablet Take 20 mg by mouth daily in the morning. 0 Active acetaminophen (TYLENOL ARTHRITIS) 650 mg Extended Release tablet Take 1,300 mg by mouth every 6 hours as needed for Pain. 0 Active aspirin (ECOTRIN EC) 81 mg Tablet, Delayed Release (E.C.) Take 1 Tablet (81 mg) by mouth daily. 30 Tablet 0 04/18/2022 Active atorvastatin (LIPITOR) 40 mg tablet Take 1 Tablet (40 mg) by mouth daily at bedtime. 30 Tablet 0 09/12/2022 Active diclofenac sodium (VOLTAREN) 1 % gel APPLY TO THE AFFECTED AREA THREE TO FOUR TIMES A DAY. 0 09/19/2022 Active levETIRAcetam (Keppra) 500 mg tabletIndications:Se izure Take 1 Tablet (500 mg) by mouth 2 times daily. 30 Tablet 11 02/26/2023 Active mupirocin (BACTROBAN) 2 % Ointment Apply with q-tip inside both sides of the nose twice a day for the seven days leading up to surgery. 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 Primary osteoarthritis of right knee 07/11/2021 documented as of this encounter (statuses as of 04/17/2023) Resolved Problems Problem Noted Date Diagnosed Date Resolved Date MYLA (acute kidney injury) 02/14/2023 Acute metabolic encephalopathy 02/14/2023 02/15/2023 Probable sepsis 02/14/2023 02/15/2023 documented as of this encounter (statuses as of 04/17/2023) Immunizations Name Administration Dates Next Due (SPIKEVAX) (12 YRS UP PRIMAR Y SERIES) COVID-19 VACCINE - MRNA-1273(PF) 100 MCG/0.5 ML IM SUSP 10/11/2020,09/13/2020 documented as of this encounter Social History Tobacco Use Types Packs/Day Years Used Date Smoking Tobacco: Never Smokeless Tobacco: Never Alcohol Use Standard Drinks/Week Comments No 0 (1 standard drink = 0.6 oz pur e alcohol) Sex and Gender Information Value Date Recorded Sex Assigned at Not on file Gender Identity Not on file Sexual Orientation Not on file documented as of this encounter Plan of Treatment Upcoming Encounters Date Type Department Care Team Description 04/28/2023 9:15 AM CDT Office Visit [facility] Orthopedics [address] [place] [phone] Mann Fernandez MD [address] [place] [phone] 05/07/2023 10:30 AM CDT Hospital Encounter [facility] Main Operating Room [address] [place] [phone] Mann Fernandez MD [address] [place] [phone] Primary osteoarthritis of left knee 05/07/2023 10:30 AM CDT - 05/07/2023 12:15 PM CDT Surgery [facility] Main Operating Room [address] [place] [phone] Mann Fernandez MD [address] [place] [phone] KNEE ARTHROPLASTY TOTAL REPLACEMENT COMPUTER/ROBOTIC ASSISTED - [facility] 02/27/2024 4:00 PM CDT Office Visit [facility] Neurology [place] [address] [facility] [address] [place] [phone] Renetta Goins MD [address] [facility] [address] [place] [phone] Scheduled Procedures Name Priority Associated Diagnoses Date/Ti me KNEE ARTHROPLASTY TOTAL REPLACEMENT COMPUTER/ROBOTIC ASSISTED Primary osteoarthritis of left knee 05/07/2023 10:30 AM CDT Health Maintenance Due Date Last Done Comments DTAP/TDAP/TD VACCINES (1 - Tdap) 11/20/1962 COLORECTAL SCREENING 11/20/1988 Colorectal Cancer Screening 11/20/1988 FIT-DNA Q 3 years 11/20/1988 FIT/FOBT Q 1 year 11/20/1988 Flex Sig/CT Colonography Q 5 years 11/20/1988 ZOSTER VACCINE (1 of 2) 11/20/1993 OSTEOPOROSIS SCREENING 11/20/2008 PNEUMOCOCCAL VACCINE 65+ YEARS (1 - PCV) 11/20/2008 COVID-19 Vaccine (3 - Moderna series) 12/06/202001/2021, 09/13/2020 INFLUENZA VACCINE (#1) 2023 documented as of this encounter Medical Devices Implanted Type Area Registered Nurse Supervisor Device Identifier Shelf Expiration Date Model / Serial / Lot Cable Sleeve Set [employer] 2.0mm 6704-0-520 - [id number] Implanted:Qty: 1 on 04/16/2022 by Mann Fernandez MD at [facility] Cable Left: Hip [employer] 09/10/2026 6704-0-52 0 / / [id number] Simplex Full Dose 4018-3-382-Old - [id number] Implanted:Qty: 1 on 07/11/2021 by Mann Fernandez MD at [facility] Cement Right: Knee [employer] 09/04/2023 6191-1-00 1-OLD / / [id number] Simplex Full Dose 5849-8-899-Old - [id number] Implanted:Qty: 2 on 08/13/2021 by Mann Fernandez MD at [facility] Cement Right: Knee [employer] [id number] 09/04/2023 6191-1- 1-OLD / / [id number] Head Fem V40 Biolox Delta 6570-0-736 - [id number] Implanted:Qty: 1 on 04/16/2022 by Mann Fernandez MD at [facility] Hip Left: Hip [employer] 04/18/2026 6570-0-73 6 / / [id number] Insert Tib Triathlon Ts Sz4 5537-G-411 - [id number] Implanted:Qty: 1 on 07/11/2021 by Mann Fernandez MD at [facility] Knee Right: Knee [employer] 12/18/2025 5537-G-41 1-E / / [id number] Insert Tib Triathlon Ts+ Cs Sz4 9mm 5537-G-409 - [id number] Implanted:Qty: 1 on 08/13/2021 by Mann Fernandez MD at [facility] Knee Right: Knee [employer] [id number] 09/14/2023 5537-G-40 9 / / [id number] Total Hip Bone Prep Kit [id number] - [id number] Implanted:Qty: 1 on 08/13/2021 by Mann Fernandez MD at [facility] Other Right: Knee [employer] [id number] 01/04/2025 0206-710- 000 / / [id number] Description:MEDIUM RESTRICTO R REF:[id number] Screw Trident 2 6.5x30mm Lprfl Hex 1036-9000 - [id number] Implanted:Qty: 1 on 04/16/2022 by Mann Fernandez MD at [facility] Screw Left: Hip [employer] 03/05/2027 1133-2757 / / [id number] Jazmin Triathlon Total Knee Cemented Stemm 12mm X 100mm Implanted:Qty: 1 on 08/13/2021 by Mann Fernandez MD at [facility] Right: Knee [employer] [id number] 04/16/2026 5560-S-21 2 / / [id number] documented as of this encounter Procedures Procedure Name Priority Date/Time Associated Diagnosis Comments CT LOW EXT WO CONTRAST LEFT Routine 04/16/2023 3:43 PM CDT Pain of left lower extremity documented in this encounter Results * CT LOW EXT WO CONTRAST LEFT (04/16/2023 3:43 PM CDT) Anatomical Region Laterality Modality Lower Extremity Computed Tomogra phy 04/16/2023 3:1 9 PM CDT Narrative 04/16/2023 4:26 PM CDT EXAMS: 1. CT left knee without contrast 2. CT pelvis/left hip without contrast 3. CT left ankle without contrast HISTORY: Primary osteoarthritis. Preop total knee arthroplasty 05/07/2023 COMPARISON: No priors. TECHNIQUE: Contiguous axial images were obtained through the knee with sagittal and coronal reformations. Imaging also performed through the hip and ankle per Jazmin protocol. Dose reduction techniques/ALARA were utilized. FINDINGS: Knee: Postoperative changes from previous femur fracture fixation with residual lucent screw tracks and intramedullary terra tract. No acute fracture. Tricompartmental osteoarthritis which is severe at the lateral tibiofemoral compartment. Obliteration of the joint space with prominent sclerosis and cystic changes within the lateral femoral condyle and tibial plateau. Moderate medial tibiofemoral and patellofemoral compartment arthrosis as well. No joint effusion or loose body. Hip: Chronic left total hip arthroplasty. No hardware complication or acute periprosthetic fracture. Chronic remodeling of the greater tuberosity likely sequelae of remote healed fracture with marginal heterotopic ossification at the lateral aspect of the joint as well. Ankle: No acute fracture. Generalized reticular edema within the subcutaneous fat more so laterally. Ankle mortise is intact. Talar dome is unremarkable. IMPRESSION: Tricompartmental knee osteoarthritis which is severe at the lateral tibiofemoral compartment. No acute osseous abnormality. Electronically Signed By: Margarito Marcano MD, Signed On: 04/16/2023 4:26 PM, [id number] Procedure Note Jonh Marcano MD - 04/16/2023 EXAMS: 1. CT left knee without contrast 2. CT pelvis/left hip without contrast 3. CT left ankle without contrast HISTORY: Primary osteoarthritis. Preop total knee arthroplasty 05/07/2023 COMPARISON: No priors. TECHNIQUE: Contiguous axial images were obtained through the knee withsagittal and coronal reformations. Imaging also performed through the hip and ankleper Jazmin protocol. Dose reduction techniques/ALARA were utilized. FINDINGS: Knee: Postoperative changes from previous femur fracture fixation withresidual lucent screw tracks and intramedullary terra tract. No acute fracture. Tricompartmental osteoarthritis which is severe at the lateraltibiofemoral compartment. Obliteration of the joint space with prominent sclerosis andcystic changes within the lateral femoral condyle and tibial plateau. Moderatemedial tibiofemoral and patellofemoral compartment arthrosis as well. No jointeffusion or loose body. Hip: Chronic left total hip arthroplasty. No hardware complication oracute periprosthetic fracture. Chronic remodeling of the greater tuberositylikely sequelae of remote healed fracture with marginal heterotopic ossificationat the lateral aspect of the joint as well. Ankle: No acute fracture. Generalized reticular edema within thesubcutaneous fat more so laterally. Ankle mortise is intact. Talar dome isunremarkable. IMPRESSION: Tricompartmental knee osteoarthritis which is severe at the lateraltibiofemoral compartment. No acute osseous abnormality. Electronically Signed By: Margarito Marcano MD, Signed On: 04/16/2023 4:26PM, [id number] Mann Fernandez MD CT ORDERABLES documented in this encounter Visit Diagnoses Diagnosis Pain of left lower extremity Primary osteoarthritis of left knee Primary localized osteoarthrosis, lower leg documented in this encounter Advance Directives For more information, please contact: [phone] Latest Code Status on File Code Status Date Activated Date Inactivated Comments Default Full Code - Needs Discussion 02/14/2023 7:14 A M 02/15/2023 9:56 PM Code Status History Code Status Date Activated Date Inactivated Comments Full Code 09/10/2022 9:11 AM 09/12/2022 5:02 PM Full Code 04/15/2022 6:06 PM 04/18/2022 1:41 PM Full Code 04/15/2022 4:48 PM 04/15/2022 6:06 PM Full Code 09/27/2021 11:24 AM 09/27/2021 6:15 PM Care Teams Account Planner Relationship Specialty Start Date End Date Chris Macias MD [address] [place] [id number] PCP - General Family Practice 02/17/20 documented as of this encounter
--- OUTSIDE RECORDS SUMMARY | 2023-05-08 14:07 | XMS REPORT | Summary of Care ---
Author Author [employer] Address Unknown Phone Unavailable Care Team Providers Care Steward/Stewardess Dining Room Name Role Phone Chris Macias MD PCP [phone] Encounter Details Date Type Department Care Team Description 04/16/2023 2:35 PM CDT - 04/16/2023 11:59 PM CDT Hospital Encounter [facility] Pre Admission Testing [address] [place] [address] Mann Fernandez MD [address] [place] [address] Arrived Discharge Disposition: Home or Self [...] Date Smoking Tobacco: Never Smokeless Tobacco: Never Tobacco Cessation:Counseling Given: Not Answered Alcohol Use Standard Drinks/Week Comments No 0 (1 standard drink = 0.6 oz pur e alcohol) Sex and Gender Information Value Date Recorded Sex Assigned at Not on file Gender Identity Not on file Sexual Orientation Not on file documented as of this encounter Last Filed Vital Signs Vital Sign Reading Time Taken Comments Blood Pressure 168/73 04/16/2023 3:04 PM CDT Pulse 64 04/16/2023 3:04 PM CDT Temperature 36.6 C (97.9 F) 04/16/2023 3:04 PM CDT Respiratory Rate 18 04/16/2023 3:0 4 PM CDT Oxygen Saturation 99% 04/16/2023 3: 04 PM CDT Inhaled Oxygen Concentration - - Weight 73.8 kg (162 lb 12.8 oz) 023 3:04 PM CDT Height 162.6 cm (5' 4") 04/16/2023 3:0 4 PM CDT Body Mass Index 27.94 04/16/2023 3:04 PM CDT documented in this encounter Discharge Instructions * Discharge Instructions* Sadie Mariano LPN - 04/16/2023 3:02 PM CDT THINGS TO REMEMBER ABOUT YOUR SURGERY ARRIVAL INSTRUCTIONS: [x] Scheduling will call with your arrival time a few days prior to surgery. [x] Enter through the Main Entrance on 05/07/23. SKIN PREP: Do not shave your surgical site at least five days before surgery. The morning and the night before surgery take a shower using antimicrobial soap (Hibiclens), after your shower dry completely, clean your surgical site with a Chloraprep swab after the evening shower, let it air dry. The morning of surgery take a shower and dry completely, clean your surgical site with the second Chloraprep swab and let it air dry. Do not wash the Chloraprep solution from your skin. Take extra precautions in caring for your skin in the time leading up to your surgery. Cuts, scrapes, nur and broken skin near your surgical site could lead to the cancellation of your procedure. DIET/FLUID INSTRUCTIONS: [x] Nothing to eat or drink after midnight. EXCEPT TO DRINK THE ENSURE PROVIDED TO YOU AT YOUR PREADMISSION APPOINTMENT 3 HOURS PRIOR TO SURGERY TIME. (not given to diabetic patients) FAILURE TO FOLLOW COULD MEAN CANCELLATION. ON THE DAY OF SURGERY: You will be asked to arrive 1.5-2 hours prior to your scheduled surgery time. You will change into a hospital gown and your belongings will be placed in a bag and locked in a locker, your pisano will be pinned on your hospital bed and stay with you until you are taken to your room. Once in Pre-Op, a nurse will start your IV and anesthesia will review your medical history. Prior to surgery, the surgeon will be able to answer any additional questions or concerns. You may have a visitor stay overnight in your room. Bring comfortable and loose fitting clothes or pajamas so the nursing staff can easily view your surgical site, if allowed you will be able to wear your own clothes and will be assisted with dressingif needed. Bring your own personal care items (toothbrush, toothpaste, etc.) DISCHARGE [x] Someone must be available on your day of discharge to take you home and be of assistance as needed (please arrange this prior to admission) MEDICATIONS Stop all over the counter vitamins/herbal supplements and CBD products 2 weeks prior to surgery. Stop any NSAID'S (ie: aspirin, aleve, ibuprofen, advil, diclofenac, meloxicam, etc..) 2 weeks priorto surgery. Tylenol is okay to take up until the night before surgery. The morning of surgery take Levetiracetam. CONTINUE ALL OTHER PRESCRIPTION MEDICATIONS DIRECTED UP UNTIL THE NIGHT BEFORE SURGERY. THE DAY OF SURGERY BRING: [x] Walker (no handbrakes, no seat) [] Medications: [] Inhalers [] Eye Drops [] Nasal Sprays [] Medicated creams, lotion or ointment DO NOT BRING ANY HOME MEDICATIONS/VITAMINS OR PAIN MEDICATIONS WITH YOU ON THE DAY OF SURGERY. IF YOU HAVE QUESTIONS: Call Sadie at [phone] from 8:00 a.m. to 5:00 p.m. Friday through Friday or email at [email or web address] documented in this encounter Plan of Treatment Upcoming Encounters Date Type Department Care Team Description 04/28/2023 9:15 AM CDT Office Visit [facility] Orthopedics [address] [place] [phone] Mann Fernandez MD [address] [place] [phone] 05/07/2023 10:30 AM CDT Hospital Encounter [facility] Main Operating Room [address] [place] [address] Mann Fernandez MD [address] [place] [phone] Primary osteoarthritis of left knee 05/07/2023 10:30 AM CDT - 05/07/2023 12:15 PM CDT Surgery [facility] Main Operating Room [address] [place] [address] Mann Fernandez MD [address] [place] [phone] KNEE ARTHROPLASTY TOTAL REPLACEMENT COMPUTER/ROBOTIC ASSISTED - ANDRZEJ PEREZ PRIMARY 02/27/2024 4:00 PM CDT Office Visit [facility] Neurology Beauty [facility] [address] 100 [facility] [address] [place] [place] [phone] Renetta Goins MD 100 [facility] [address] [place] [phone] Scheduled Procedures Name Priority Associated Diagnoses Date/Ti [...] this encounter Medical Devices Implanted Type Area Airplane Gas Tank Liner Assembler Device Identifier Shelf Expiration Date Model / Serial / Lot Cable Sleeve Set Nataly 2.0mm 6704-0-520 - [id number] Implanted:Qty: 1 on 04/16/2022 by Mann Fernandez MD at [facility] Cable Left: Hip JAZMIN- [employer] INT INC 09/10/2026 6704-0-52 0 / / [id number] Simplex Full Dose 6020-5-369-Old - [id number] Implanted:Qty: 1 on 07/11/2021 by Mann Fernandez MD at [facility] Cement Right: Knee JAZMIN- ORTHOPAEDICS 09/04/2023 6191-1-00 1-OLD / / [id number] Simplex Full Dose 7483-0-528- - [id number] Implanted:Qty: 2 on 08/13/2021 by Mann Fernandez MD at [facility] Cement Right: Knee JAZMIN- ORTHOPAEDICS [id number] 09/04/2023 6191-1-00 1-OLD / / [id number] Head Fem V40 Biolox Delta 6570-0-736 - [id number] Implanted:Qty: 1 on 04/16/2022 by Mann Fernandez MD at [facility] Hip Left: Hip JAZMIN- ORTHOPAEDICS 04/18/2026 6570-0-73 6 / / [id number] Insert Tib Triathlon Ts Sz4 5537-G-411 - [id number] Implanted:Qty: 1 on 07/11/2021 by Mann Fernandez MD at [facility] Knee Right: Knee JAZMIN- ORTHOPAEDICS 12/18/2025 5537-G-41 1-E / / [id number] Insert Tib Triathlon Ts+ Cs Sz4 9mm 5537-G-409 - [id number] Implanted:Qty: 1 on 08/13/2021 by Mann Fernandez MD at [facility] Knee Right: Knee JAZMIN- INSTRUMENTS [id number] 09/14/2023 5537-G-40 9 / / [id number] Total Hip Bone Prep Kit [id number] - [id number] Implanted:Qty: 1 on 08/13/2021 by Mann Fernandez MD at [facility] Other Right: Knee JAZMIN- ORTHOPAEDICS [id number] 01/04/2025 0206-710- 000 / / [id number] Description:MEDIUM RESTRICTO R REF:[phone] Screw Trident 2 6.5x30mm Lprfl Hex 0963-1129 - [id number] Implanted:Qty: 1 on 04/16/2022 by Mann Fernandez MD at [facility] [place] Screw Left: Hip JAZMIN- ORTHOPAEDICS 03/05/2027 [id number] / / [id number] [place] Triathlon Total Knee Cemented Stemm 12mm X 100mm Implanted:Qty: 1 on 08/13/2021 by Mann Fernandez MD at [facility] Right: Knee JAZMIN- ORTHOPAEDICS [id number] 04/16/2026 5560-S-21 2 / / [id number] documented as of this encounter Procedures Procedure Name Priority Date/Time Associated Diagnosis Comments CBC WITH DIFFERENTIAL Routine 04/16/2023 2:41 PM CDT Fatigue, unspecified type PTT Routine 04/16/2023 2:41 PM CDT Pain of left lower extremity PROTIME-INR Routine 04/16/2023 2:41 PM CDT Pain of left lower extremity TYPE AND SCREEN Routine 04/16/2023 2:41 PM CDT Encounter for blood typing COMPREHENSIVE METABOLIC PANEL Routine 04/16/2023 2:41 PM CDT Fatigue, unspecified type documented in this encounter Results * (ABNORMAL) CBC WITH DIFFERENTIAL (04/16/2023 2:41 PM CDT) [facility] WBC 3.5(L) 4.0 - 11.0 K/uL 04/16/2023 4:40 PM CDT [facility] [place] RBC 3.34(L) 4.20 - 5.40 M/uL 04/16/2023 4:40 PM CDT [facility] [place] HEMOGLOBIN 10.3(L) 12.5 - 16.0 g/dL 04/16/2023 4:40 PM CDT [facility] [place] HEMATOCRIT 32.5(L) 37.0 - 47.0 % 04/16/2023 4:40 PM CDT [facility] [place] MCV 97.3 78.0 - 100.0 fL 04/16/2023 4:40 PM CDT [facility] [place] MCH 30.8 27.0 - 34.0 pg 04/16/2023 4:40 PM CDT [facility] [place] MCHC 31.7 31.0 - 37.0 g/dL 04/16/2023 4:40 PM CDT [facility] [place] RDW 13.8 12.0 - 15.0 % 04/16/2023 4:40 PM CDT [facility] [place] RDW-STDEV 49.2(H) 37.1 - 48.7 fL 04/16/2023 4:40 PM CDT [facility] [place] PLATELETS 303 150 - 450 K/uL 04/16/2023 4:40 PM CDT [facility] [place] MPV 9.7 9.3 - 12.4 fL 04/16/2023 4:40 PM CDT [facility] [place] NEUTROPHILS 57 31 - 76 % 04/16/2023 4:40 PM CDT [facility] [place] LYMPHOCYTES 29 24 - 44 % 04/16/2023 4:40 PM CDT [facility] [place] MONOCYTES 10 2 - 11 % 04/16/2023 4:40 PM CDT [facility] [place] EOSINOPHILS 2 0 - 6 % 04/16/2023 4:40 PM CDT [facility] [place] BASOPHILS 1 0 - 2 % 04/16/2023 4:40 PM CDT [facility] [place] IMMATURE GRANULOCYTES 1 0 - 2 % 04/16/2023 4:40 PM CDT [facility] [place] NEUTROPHIL ABSOLUTE 2.01 1.80 - 7.70 K/uL 04/16/2023 4:40 PM CDT [facility] [place] LYMPHOCYTE ABSOLUTE 1.00 1.00 - 4.80 K/uL 04/16/2023 4:40 PM CDT [facility] [place] MONOCYTE ABSOLUTE 0.35 0.10 - 1.30 K/uL 04/16/2023 4:40 PM CDT [facility] [place] EOSINOPHIL ABSOLUTE 0.08 0.00 - 0.70 K/uL 04/16/2023 4:40 PM CDT [facility] [place] BASOPHILS ABSOLUTE 0.04 0.00 - 0.20 K/uL 04/16/2023 4:40 PM CDT [facility] [place] IMMATURE GRANULOCYTES ABSOLUTE 0.02 0.00 - 0.10 K/uL 04/16/2023 4:40 PM CDT [facility] [place] Blood Venipuncture / Unknown 04/16/2023 2:41 PM CDT 04/16/2023 2:43 PM CDT Mann Fernandez MD HEMATOLOGY OR DERABLES [facility] [employer] [facility] [place] CLIA # [id number] [address] [place] [address] * (ABNORMAL) COMPREHENSIVE METABOLIC PANEL (04/16/2023 2:41 PM CDT) [facility] SODIUM 138 136 - 145 mmol/L 04/16/2023 5:06 PM CDT [facility] [place] POTASSIUM 4.1 3.5 - 5.1 mmol/L 04/16/2023 5:06 PM CDT [facility] [place] CHLORIDE 105 98 - 107 mmol/L 04/16/2023 5:06 PM CDT [facility] [place] CO2 25 22 - 29 mmol/L 04/16/2023 5:06 PM [facility] [place] CALCIUM 9.7 8.8 - 10.2 mg/dL 04/16/2023 5:06 PM [facility] [place] BUN 16 8 - 23 mg/dL 04/16/2023 5:06 PM [facility] [place] CREATININE 0.98(H) 0.51 - 0.95 mg/dL 04/16/2023 5:06 PM [facility] [place] Comment:The GFR result is no t clinically significant on patients <18 or >70 years of age. GLUCOSE 116(H) 74 - 99 mg/dL 04/16/2023 5:06 PM [facility] [place] TOTAL PROTEIN 7.4 6.4 - 8.3 g/dL 04/16/2023 5:06 PM [facility] [place] ALBUMIN 3.5(L) 4.0 - 4.9 g/dL 04/16/2023 5:06 PM [facility] [place] BILIRUBIN TOTAL 0.3 <=1.2 mg/dL 04/16/2023 5:06 PM [facility] [place] ALKALINE PHOSPHATASE 203(H) 35 - 104 U/L 04/16/2023 5:06 PM [facility] [place] AST 39(H) 0 - 32 U/L 04/16/2023 5:06 PM [facility] [place] ALT 75(H) 0 - 33 U/L 04/16/2023 5:06 PM [facility] [place] GFR 59 mL/min/1.7 3 sq meter 04/16/2023 5:06 PM [facility] [place] Comment:eGFR calculated with 2020 CKD-EPI equation. Vegetarian diet, extremely high or low muscle mass, and may affect results. Cystatin C with Glomerular Filtration Rate is a suitable alternative for these patients. ANION GAP 8 4 - 13 mmol/L 04/16/2023 5:06 PM [facility] [place] Blood Venipuncture / Unknown 04/16/2023 2:41 PM CDT 04/16/2023 2:43 PM CDT Mann Fernandez MD CHEMISTRY ORD ERABLES Performing Organization Address [facility] Co de Phone Number [facility] [place] # [id number] [address] [place] [address] * PROTIME-INR (04/16/2023 2:41 PM CDT) PROTIME 13.8 11.8 - 14.6 Seconds 04/16/2023 4:58 PM CDT [facility] [place] INR 1.1 0.9 - 1.2 04/16/2023 4:58 PM CDT [facility] [place] Blood Venipuncture / Unknown 04/16/2023 2:41 PM CDT 04/16/2023 2:43 PM CDT [facility]ative [facility] [place] - 04/16/2023 4:58 PM CDT Therapeutic range: 2.0 - 3.5 Mann Fernandez MD HEMATOLOGY OR DERABLES Performing Organization Address [facility]/ZIP Co de Phone Number [facility] [place] CLIA # [id number] [address] [place] [address] * (ABNORMAL) PTT (04/16/2023 2:41 PM CDT) PTT 35.4(H) 25.0 - 35.0 seconds 04/16/2023 4:58 PM CDT [facility] [place] Blood Venipuncture / Unknown 04/16/2023 2:41 PM CDT 04/16/2023 2:43 PM CDT Narrative [facility] [place] - 04/16/2023 4:58 PM CDT PTT Therapeutic range 68 - 103 sec Mann Fernandez MD HEMATOLOGY OR DERABLES [facility] [place] JOSEMANUELIA # [id number] [address] [address] * TYPE AND SCREEN (04/16/2023 2:41 PM CDT) ABO GROUP A 04/16/2023 5:56 PM CDT [facility] [place] RH (D) TYPE Positive 04/16/2023 5:56 PM CDT [facility] [place] ANTIBODY SCREEN Negative 04/16/2023 5:56 PM CDT [facility] [place] Blood Venipuncture / Unknown 04/16/2023 2:41 PM CDT 04/16/2023 2:43 PM CDT Mann Fernandez MD BLOOD BANK OR DERABLES [employer] [facility] [place] BIRD # [id number] [address] [place] [place] [address] documented in this encounter Visit Diagnoses Diagnosis Encounter for blood typing Pain of left lower extremity Fatigue, unspecified type Primary osteoarthritis of left knee Primary localized osteoarthrosis, lower leg documented in this encounter Advance Directives For more information, please contact: [phone] Latest Code Status on File Code Status [...] 11:24 AM 09/27/2021 6:15 PM Care Teams Steward/Stewardess Dining Room Relationship Specialty Start Date End Date Chris Macias MD [address] [place] [address] PCP - General Family Practice 02/17/20 documented as of this encounter
--- OUTSIDE RECORDS SUMMARY | 2023-05-08 14:07 | XMS REPORT | Summary of Care ---
Author Author [facility] Address Unknown Phone Unavailable Care Team Providers Care Client Resolution Specialist Name Role Phone Chris Macias MD PCP [phone] Encounter Details Date Type Department Care Team Description 04/16/2023 2:36 PM CDT - 04/16/2023 11:59 PM CDT Hospital Encounter [facility] Radiology [address] [place] [address] Mann Fernandez MD [address] [place] [address] Arrived Discharge Disposition: Home or [...] Description 04/28/2023 9:15 AM CDT Office Visit [facility] Orthopedics Tri [address] [facility] [place] [phone] Mann Fernandez MD [address] [facility] [place] [phone] 05/07/2023 10:30 AM CDT Hospital Encounter [facility] Main Operating Room [address] [place] [address] Mann Fernandez MD [address] [facility] [place] [phone] Primary osteoarthritis of left knee 05/07/2023 10:30 AM CDT - 05/07/2023 12:15 PM CDT Surgery [facility] Main Operating Room [address] [place] [address] Mann Fernandez MD [address] [facility] [place] [phone] KNEE ARTHROPLASTY TOTAL REPLACEMENT COMPUTER/ROBOTIC ASSISTED - ANA, COMPLEX PRIMARY 02/27/2024 4:00 PM CDT Office Visit [facility] Neurology [place] [facility] 460 100 [facility] [address] [place] [phone] Renetta Goins MD 100 [facility] [address] [place] [address] Scheduled Procedures Name Priority Associated Diagnoses Date/Ti [...] this encounter Medical Devices Implanted Type Area Natural Resource Officer Device Identifier Shelf Expiration Date Model / Serial / Lot Cable Sleeve Set [facility] 2.0mm 6704-0-520 - [id number] Implanted:Qty: 1 on 04/16/2022 by Mann Fernandez MD at [facility] Cable Left: Hip JAZMIN- [employer] INT INC 09/10/2026 6704-0-52 0 / / [id number] Simplex Full Dose 0711-5-336- - [id number] Implanted:Qty: 1 on 07/11/2021 by Mann Fernandez MD at [facility] Cement Right: Knee [employer]- ORTHOPAEDICS 09/04/2023 6191-1-00 1-OLD / / [id number] Simplex Full Dose 4901-5-393-Old - [id number] Implanted:Qty: 2 on 08/13/2021 by Mann Fernandez MD at [facility] Cement Right: Knee [employer]- ORTHOPAEDICS [id number] 09/04/2023 6191-1-00 1-OLD / / [id number] Head Fem V40 Biolox Delta 6570-0-736 - [id number] Implanted:Qty: 1 on 04/16/2022 by Mann Fernandez MD at [facility] Hip Left: Hip [employer]- ORTHOPA[employer] 04/18/2026 6570-0-73 6 / / [id number] Insert Tib Triathlon Ts Sz4 5537-G-411 - [id number] Implanted:Qty: 1 on 07/11/2021 by Mann Fernandez MD at [facility] Knee Right: Knee [employer]- ORTHOPA[employer] 12/18/2025 5537-G-41 1-E / / [id number] Insert Tib Triathlon Ts+ Cs Sz4 9mm 5537-G-409 - [id number] Implanted:Qty: 1 on 08/13/2021 by Mann Fernandez MD at [facility] Knee Right: Knee JAZMIN- INSTRUMENTS [id number] 09/14/2023 5537-G-40 9 / / [id number] Total Hip Bone Prep Kit [id number] - [id number] Implanted:Qty: 1 on 08/13/2021 by Mann Fernandez MD at [facility] Other Right: Knee J[employer]- ORTHOPAED[employer] [id number] 01/04/2025 0206-710- 000 / / [id number] Description:MEDIUM RESTRICTO R REF:[id number] Screw Trident 2 6.5x30mm Lprfl Hex 4857-0039 - [id number] Implanted:Qty: 1 on 04/16/2022 by Mann Fernandez MD at [facility] [place] Screw Left: Hip J[employer]MIN- ORTHOPAEDICS 03/05/2027 5125-3573 / / [id number] Jazmin Triathlon Total Knee Cemented Stemm 12mm X 100mm Implanted:Qty: 1 on 08/13/2021 by Mann Feranndez MD at [facility] Right: Knee J[employer]- ORTHOPAEDICS [id number] 04/16/2026 5560-S-21 2 / / [id number] documented as of this encounter Procedures Procedure Name Priority Date/Time Associated Diagnosis Comments XR CHEST PA AND LATERAL 2 VW Routine 04/16/2023 3:43 PM CDT Pain of left lower extremity documented in this encounter Results * XR CHEST PA AND LATERAL 2 VW (04/16/2023 3:43 PM CDT) Anatomical Region Laterality Modality Chest Computed Radiogr aphy 04/16/2023 3:5 5 PM CDT Narrative 04/16/2023 3:56 PM CDT CHEST X-RAY, TWO VIEWS CLINICAL DATA: Preop evaluation, PAT testing, total knee replacement scheduled for 05/07/2023, dyspnea comparison 02/14/2023. FINDINGS: Heart shows mild cardiomegaly with tortuosity of the aorta. Mild spondylosis extends through the spine.. The mediastinum is unremarkable. The justino show no obvious abnormalities. No pneumothorax is seen. No consolidations or pleural effusions are detected. IMPRESSION: 1. Mild cardiomegaly with tortuosity of the aorta. 2. No acute infiltrate or effusion is seen. Electronically Signed By: Nando Rodas MD, Signed On: 04/16/2023 3:56 PM, [email or web address] Procedure Note Nando Rodas MD - 04/16/2023 CHEST X-RAY, TWO VIEWS CLINICAL DATA: Preop evaluation, PAT testing, total knee replacement scheduled for05/07/2023, dyspnea comparison 02/14/2023. FINDINGS: Heart shows mild cardiomegaly with tortuosity of the aorta. Mildspondylosis extends through the spine.. The mediastinum is unremarkable. The justino showno obvious abnormalities. No pneumothorax is seen. No consolidations orpleural effusions are detected. IMPRESSION: 1. Mild cardiomegaly with tortuosity of the aorta. 2. No acute infiltrate or effusion is seen. Electronically Signed By: Nando Rodas MD, Signed On: 04/16/2023 3:56PM, [email or web address] Mann Fernandez MD DIAGNOSTIC IM AGING ORDERABLES documented in this encounter Visit Diagnoses Diagnosis Pain of left lower extremity Primary osteoarthritis of left knee Primary localized osteoarthrosis, lower leg documented in this encounter Advance Directives For more information, please contact: [phone] Latest Code Status on File Code Status [...] 11:24 AM 09/27/2021 6:15 PM Care Teams Client Resolution Specialist Relationship Specialty Start Date End Date Chris Macias MD [address] [place] [address] PCP - General Family Practice 02/17/20 documented as of this encounter
[2023-05-08 14:11] VITALS: BP 187/84
[2023-05-08] MEDS ORDERED: oxyCODONE/ACETAMINOPHEN 5/325MG TABLET PO PRN (14:15)
--- NOTE | 2023-05-08 14:24 | Physical Therapy Evaluation ---
PT Evaluation-General Medical Diagnosis Admission Date May 08, 2023 at 13:50 Medical Diagnosis: (L) TKR, (L) patellar tendon Onset Date: May 07, 2023 Therapy Diagnosis Therapy Diagnosis: impaired mobility, weakness, pain, endurance deficit Precautions Precautions/Isolations: Seizure, Fall Prevention, Standard Precautions BP 187/84, HR 51 prior to therapy. Nursing aware and medication orders received from . Weight Bear Status Weight Bearing/Tolerated Weight Bearing/Tolerated Referral Physician: Muna Reason for Referral: Evaluation/Treatment Medical History Pertinent Medical History: Arthritis, CVA, HTN, OA Additional Medical History kidney stones, hx neck injury, inflammatory arthritis. Wears dentures and glasses. Current History (L) TKR 05/07/23 as well as patellar tendon repair - in knee immobilizer for at least 3 weeks with orders for NO (L) knee flexion, WBAT. Social History Home: Single Level Current Living Status: Other Family Entry Into Home: Ramp PT Steps Into Home: 0 PT Steps Inside Home: 0 Lives /c grandson. 2 sons nearby - one 2 miles away, one 4 miles away. Prior Prior Level of Function SCALE: Activities may be completed with or without assistive devices. 1-Gywrslcpby-dzcvoez completes the activity by him/herself with no assistance from a helper. 5-Set-up or Clean-up Assistance-helper sets up or cleans up; patient completes activity. [place] assists only prior to or following the activity. 4-Supervision or Touching Assistance-helper provides verbal cues and/or touching/steadying and/or contact guard assistance as patient completes activity. Assistance may be provided throughout the activity or intermittently. 3-Partial/Moderate Assistance-helper does LESS THAN HALF the effort. [place] lifts, holds or supports trunk or limbs, but provides less than half the effort. 2-Substantial/Maximal Assistance-helper does MORE THAN HALF the effort. [place] lifts or holds trunk or limbs and provides more than half the effort. 8-Otbogfgou-iijhxc does ALL the effort. Patient does none of the effort to complete the activity. Or, the assistance of 2 or more helpers is required for the patient to complete the activity. If activity was not attempted, code reason: 7-Patient Refused. 9-Not Applicable-not attempted and the patient did not perform the activity before the current illness, exacerbation or injury. 10-Not Attempted due to Environmental Limitations-(lack of equipment, weather restraints, etc.). 88-Not Attempted due to Medical Conditions or Safety Concerns. Bed Mobility: 6 (states she has an adjustable bed, but also sleeps in a recliner) Transfers (B,C,W/C): 6 (she has a lift chair at home) Gait: 6 (/c FWW) Stairs: 9 (no stairs to enter her home , unknown community ) Wheelchair Mobility: 9 (n/a - has a w/c available but does not know where it is - it may be in storage.) Indoor Mobility (Ambulation): Independent Stairs: Unknown Prior Devices Use: Walker Prior Device Use: Also has a liftchair, tub transfers bench, hand held shower, mandrel press hand PT Evaluation-Current Subjective States "not really" when asked about pain. During KOS JR, states it gets to 5/10 at the worst (L) knee. KOS JR score: 12 (57% function/43% impairment). LTG = 10 Pain Section J - Health Conditions 1. Rarely or not at all 2. Occasionally 3. Frequently 4. Almost constantly 8. Unable to answer Pain Effect on Sleep: 2 Pain Interference with Therapy: 2 Pain Interference w/Day-to-Day: 2 Pt/Family Goals To return to prior living situation Objective Patient Orientation: Person, Place, Situation Attachments: Knee Immobilizer Knee immobilizer incorrectly positioned when patient arrived on unit - had slid down to patient's ankle. Repositioned and tightened straps while patient was in supine prior to upright mobility tasks. ROM/Strength ROM Upper Extremities defer to OT ROM Lower Extremities WFL (R) LE. (L) knee immobilizer - knee not test. Limited flexion at (L) hip due to weight of immobilizer/weakness, (L) ankle WFL Strength Upper Extremities defer to OT Strength Lower Extremities (R) LE grossly > 3+/5 with functional tasks. (L) ankle 3+/5, (L) hip 3-/5. (L) knee NT Integumentary/Posture Posture Forward flexed posture in standing. Sensory Vision: Wears Glasses Hearing: Functional Sensation Lower Extremities states no numbness/tingling in LE's Transfers Roll Left & Right (QC): 3 (min (A) due to (L) leg pain) Sit to Lying (QC): 3 (min (A) to lift (L) LE) Lying to Sitting/Side of Bed(Q: 3 (Min (A)) Sit to Stand (QC): 3 (mod (A) from lower surfaces - EOB/car seat, min (A) with increased time to complete from w/c/3-in-1 commode) Chair/Waw-bt-Jlsvd Xfer(QC): 3 (min (A) /c FWW) Toilet Transfer (QC): 3 (Min (A) /c safety cues to sidestep with FWW in confined space) Car Transfer (QC): 3 (mod (A) /c FWW) Gait Does the Patient Walk?: Yes Mode of Locomotion: Walk Anticipated Mode of Locomotion: Walk Walk 10 feet (QC): 3 (Min (A) - GCA /c FWW) Walk 50 ft with 2 Turns(QC): 3 (Min (A) /c FWW) Walk 150 ft (QC): 88 (unable to attain distance, fatigue/pain) Walking 10ft/uneven surface-QC: 3 (Min (A) /c FWW) Distance: 61 Gait Assistive Device: FWW Comments/Gait Description Slow kenton, forward flexed posture. Gait Speed: 6.1m/1 min 28 sec = 0.07 m/sec. LTG = 1.0 m/sec Wheelchair Training Does the Pt Use a Wheelchair?: No Wheel 50 ft with 2 turns (QC): 9 Wheel 150 ft (QC): 9 Stairs 1 Step (curb) (QC): 3 (min (A) up 2" curb step) 4 Steps (QC): 88 (not safe, pain/fatigue) 12 Steps (QC): 88 (not safe, pain/fatigue) Walking Assistive Device: Walker Balance Sitting Static: Good Sitting Dynamic: Fair Standing Static: Fair Standing Dynamic: Fair Picking up an Object (QC): 4 (CGA /c FWW and mandrel press hand (uses a mandrel press hand at home)) Treatment co-treat with OT 2:30-2:55 for upright mobility/balance ADL tasks due to patient fatigue. Assessment/Needs 77 year old female who demonstrates post-op TKR ROM deficits /c (L) knee immobilizer, endurance deficits (also high BP this pm), mobility deficits and muscle weakness which require PT intervention prior to returning home at (I) level. Rehab Potential: Good PT Custodial Goals Gmat Instructor Goals PT Gmat Instructor Goals Time Frame: May 22, 2023 Roll Left to Right (QC): 6 (/c bed rail) Sit to Lying (QC): 6 Lying-Sitting on Side/Bed(QC): 6 Sit to Stand (QC): 6 Chair/Lws-ck-Xnoyk Xfer(QC): 6 (/c FWW and (L) knee immobilizer) Toilet/Commode Transfer (QC): 6 Car Transfer (QC): 6 Does the Patient Walk: Yes Walk 10 feet (QC): 6 (/c FWW and (L) knee immobilizer) Walk 10ft-Uneven Surface(QC): 6 (/c FWW and (L) knee immobilizer) Walk 50ft with 2 Turns (QC): 6 (/c FWW and (L) knee immobilizer) Walk 150 ft (QC): 6 (/c FWW and (L) knee immobilizer) Does the Pt use WC or Scooter?: No Wheel 50 feet with 2 turns (QC: 9 Wheel 150 feet: 9 1 Step (curb) (QC): 4 (/c FWW and (L) knee immobilizer) 4 Steps (QC): 4 ((B) rails) 12 Steps (QC): 4 ((B)rails) Picking up an Object (QC): 6 (/c mandrel press hand.) PT Plan Problem List Problem List: Activity Tolerance, Functional Strength, Safety, Balance, Gait, Transfer, Bed Mobility Treatment/Plan Treatment Plan: Continue Plan of Care Treatment Plan: Bed Mobility, Education, Functional Activity Emma, Functional Strength, Group Therapy, Gait, Safety, Therapeutic Exercise, Transfers Treatment Duration: May 22, 2023 Frequency: At least 5 of 7 days/Wk (IRF) Estimated Hrs Per Day: 1.5 hours per day Patient and/or Family Agrees t: Yes Safety Risks/Education Patient Education: Gait Training, Transfer Techniques Teaching Recipient: Parent Teaching Methods: Demonstration, Discussion Response to Teaching: Verbalize Understanding, Reinforcement Needed Discharge Recommendations Therapy Discharge Recommendati: Home & Family, Post Acute PT Equpiment Recommendations-D/C: Front Wheeled Walker Time Time In: 1340 (1430) Time Out: 1410 (1455) DATE: May 08, 2023 Total Billed Treatment Time: 55 Total Billed Treatment EVM 30', 25' co-treat with OT 2:30-2:55 - 1GT, 1 FA Bonnie Purcell PT May 08, 2023 14:24
[2023-05-08] MEDS: hydrALAZINE 25 MG TABLET PO PRN ×2 (14:39→21:27)
--- NOTE | 2023-05-08 15:24 | Occupational Therapy Eval ---
OT Evaluation-General/PLF Medical Diagnosis Admission Date May 08, 2023 at 13:50 Medical Diagnosis: (L) TKR, (L) patellar tendon Onset Date: May 07, 2023 Therapy Diagnosis Therapy Diagnosis: decreased independence with ADLs; decreased functional mobility Precautions Precautions/Isolations: Seizure, Fall Prevention, Standard Precautions Weight Bear Status Weight Bearing Restriction: Weight Bearing/Tolerated Location Restriction: L LE NO FLEXION OF L KNEE Referral Physician: Muna Medical History Pertinent Medical History: Arthritis, CVA, HTN, OA Current History L TKA; L patellar tendon repair Reviewed History: Yes Social History Home: Single Level Current Living Status: Other Family Entry Into Home: Ramp Steps Into Home: 0 Steps Inside Home: 0 ADL-Prior Level of Function SCALE: Activities may be completed with or without assistive devices. 2-Xnbccsbypv-svezfiy completes the activity by him/herself with no assistance from a helper. 5-Set-up or Clean-up Assistance-helper sets up or cleans up; patient completes activity. [place] assists only prior to or following the activity. 4-Supervision or Touching Assistance-helper provides verbal cues and/or touching/steadying and/or contact guard assistance as patient completes activity. Assistance may be provided throughout the activity or intermittently. 3-Partial/Moderate Assistance-helper does LESS THAN HALF the effort. [place] lifts, holds or supports trunk or limbs, but provides less than half the effort. 2-Substantial/Maximal Assistance-helper does MORE THAN HALF the effort. [place] lifts or holds trunk or limbs and provides more than half the effort. 3-Xqnvejvrw-udswan does ALL the effort. Patient does none of the effort to complete the activity. Or, the assistance of 2 or more helpers is required for the patient to complete the activity. If activity was not attempted, code reason: 7-Patient Refused. 9-Not Applicable-not attempted and the patient did not perform the activity before the current illness, exacerbation or injury. 10-Not Attempted due to Environmental Limitations-(lack of equipment, weather restraints, etc.). 88-Not Attempted due to Medical Conditions or Safety Concerns. 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 Pt very pleasant and willing to participate with therapy. Pt reporting minimal pain and stiffness. Pain Numeric Pain Scale: 5-Moderate Pain Location: Left Location Body Site: Knee Pain Description: Dull Mental Status/Objective Patient Orientation: Person, Place, Time, Situation Attachments: IV, Knee Immobilizer (Locked into extension ) Current Glasses/Contacts: Yes Hearing Aids: No Dentures/Partials: Yes Hand Dominance: Right Upper Extremity ROM Bilateral shoulders moderately limited with AROM; minimally limited during PROM Bilateral elbow and hand ROM WFL Upper Extremity Coordination WFL Upper Extremity Sensation WFL Upper Extremity Strength Bilateral Shoulders: 4/5 Bilateral Elbows: 4+/5 Bilateral Call Center Rn: 5/5 ADL-Treatment Eating (QC): 5 Oral Hygiene (QC): 4 (standing at sink ) Shower/Bathe Self (QC): 2 Upper Body Dressing (QC): 4 (to don/doff shirt) Lower Body Dressing (QC): 3 (to don/doff pants; requiring assistance to thread pants, though independently pulled pants up ) On/Off Footwear (QC): 2 (independent doffing bilateral shoes, requiring assistance with bilateral socks and to don L shoe) Toileting Hygiene (QC): 4 (completed in sitting ) Other Treatments Pt completed functional mobility with FWW and min A for balance, requiring min cues for safety and hand placement during transfers. Pt educated and complete UE strengthening HEP with suma theraband, prioritizing shoulder flexion, abduction/adduction; elbow flexion/extension and motor lodge clerk strength. OT/PT cotreat due to skill of 2 clinicians required which a rehabilitation physician could not perform in order to coordinate UE/LEs, decrease fall risk, and due to pt's limitations in strength, activity tolerance, mobility and transfers. OT focused on UE placement, cues for sequencing and safety and ADLs, PT focused on LE placement, gross overall movement, transfers and mobility. Education OT Patient Education: Correct positioning, Energy conservation, Exercise program, Home exercise program, Instructions don/doff splint/brace, Modified ADL techniques, Progress toward Goal/Update tx plan, Purpose of tx/functional activities, Reviewed precautions, Rehab process, Safety issues, Transfer techniques, Use of adapted equipment, W/C management Teaching Recipient: Patient, Family Teaching Methods: Demonstration, Discussion Response to Teaching: Verbalize Understanding, Return Demonstration BIMS CAM BIMS Expression of Ideas and Wants: Without Difficulty Understanding Verbal Content: Understands Brief Interview/Mental Status: Yes IRF ELIZABETH BIMS: IRF ELIZABETH BIMS Response (Comments) Value Repitition of Three Words Three 3 Recalls Socks Yes, No Cue Required 2 Recalls Blue Yes, No Cue Required 2 Recalls Bed Yes, After Cueing 1 Year Correct 3 Month Accurate Within 5 Days 2 Day Correct 1 Total 14 Patient Normally Able to Recal: Current Session, Location of own room, Staff Names and faces, That he/she in a [facility] Should Staff Asses. Mental St.: No Memory/Recall Ability: Current Season, Location of Own Room, Staff Names and F aces, That He[facility]She in [facility] Mental Status Change/Baseline: 0 Inattention: 0 Disorganized thinkin Altered level of consciousness: 0 OT Short Term Goals Short Term Goals Time Frame: May 16, 2023 Eatin Oral hygiene: 5 (standing at sink ) Toileting hygiene: 6 (in sitting ) Shower/bathe self: 4 Upper body dressin Lower body dressin Putting on/taking off footwear: 4 OT Exhibit Display Representative Goals Fdc Goals Time Frame: May 23, 2023 Acute change in mental status: 0 Inattention: 0 Disorganized thinkin Altered level of consciousness: 0 Eating (QC): 6 Oral Hygiene (QC): 6 Toileting Hygiene (QC): 6 Shower/Bathe Self (QC): 5 Upper Body Dressing (QC): 6 Lower Body Dressing (QC): 5 On/Off Footwear (QC): 5 1=Demonstrate adherence to instructed precautions during ADL tasks. 2=Patient will verbalize/demonstrate understanding of assistive devices/modifications for ADL. 3=Patient will improve strength/tolerance for activity to enable patient to perform ADL's. OT Education/Plan Problem List/Assessment Assessment: Decreased Activ Tolerance, Decreased Safety Aware, Decreased UE Strength, Impaired Bed Mobility, Impaired Funct Balance, Impaired I ADL's, Impaired Self-Care Skills, Restricted Funct UE ROM Discharge Recommendations Plan/Recommendations: Continue POC Comment Will progress recommendations closer to d/c date Barriers to Progress pain, stiffness, knee immobilizer Treatment Plan/Plan of Care Treatment,Training & Education: Yes Patient would benefit from OT for education, treatment and training to promote independence in ADL's, mobility, safety and/or upper extremity function for ADL's. Plan of Care: ADL Retraining, Caregiver Training, Concurrent Therapy, Functional Mobility, Group Exercise/Act as Ind, UE Funct Exercise/Act, W/C Management Training Treatment Duration: May 23, 2023 Frequency: At least 5 of 7 days/Wk (IRF) Estimated Hrs Per Day: 1.5 hours per day Agreement: Yes Rehab Potential: Good Time Start Time: 14:10 (8088-6443 OT Eval; 9584-0208 OT/PT cotx; [id number] OT/PT cotx) Stop Time: 15:45 DATE: May 08, 2023 Total Time Billed (hr/min): 90 Billed Treatment Time 1, EVM, ADL 2, EX 1, FA 2 Tracy Chavez OTR/L May 08, 2023 15:24
--- NOTE | 2023-05-08 16:01 | Physical Therapy Daily Note ---
PT Daily Note-Current Subjective Pt sitting in w/c in Therapy Commons visiting w/Family upon arrival. Pt agrees to PT/OT co-treat. Pain Numeric Pain Scale: 5-Moderate Pain Location: Left Location Body Site: Knee Pain Description: Ache, Tightness Section J - Health Conditions 1. Rarely or not at all 2. Occasionally 3. Frequently 4. Almost constantly 8. Unable to answer Pain Effect on Sleep: 2 Pain Interference with Therapy: 2 Pain Interference w/Day-to-Day: 2 Mental Status Patient Orientation: Person, Place, Time, Situation Attachments: Knee Immobilizer, Polar Pack Transfers SCALE: Activities may be completed with or without assistive devices. 2-Pdzgeeledl-japdppr completes the activity by him/herself with no assistance from a helper. 5-Set-up or Clean-up Assistance-helper sets up or cleans up; patient completes activity. [place] assists only prior to or following the activity. 4-Supervision or Touching Assistance-helper provides verbal cues and/or touching/steadying and/or contact guard assistance as patient completes activity. Assistance may be provided throughout the activity or intermittently. 3-Partial/Moderate Assistance-helper does LESS THAN HALF the effort. [place] lifts, holds or supports trunk or limbs, but provides less than half the effort. 2-Substantial/Maximal Assistance-helper does MORE THAN HALF the effort. [place] lifts or holds trunk or limbs and provides more than half the effort. 4-Pqfxszxgm-wmnvkc does ALL the effort. Patient does none of the effort to complete the activity. Or, the assistance of 2 or more helpers is required for the patient to complete the activity. If activity was not attempted, code reason: 7-Patient Refused. 9-Not Applicable-not attempted and the patient did not perform the activity before the current illness, exacerbation or injury. 10-Not Attempted due to Environmental Limitations-(lack of equipment, weather restraints, etc.). 88-Not Attempted due to Medical Conditions or Safety Concerns. Sit to Lying (QC): 3 (Min A) Sit to Stand (QC): 3 (Min A) Weight Bearing Weight Bearing/Tolerated Weight Bearing/Tolerated Exercises Supine Ex: Ankle pumps, Quad Set, Straight leg raise, Hip abd/add Supine Reps: 15 Seated Therapy Exercises: Ankle pumps, Long arc quads (R side only), Hip abd/add, Glut set Seated Reps: 15 Treatments OT/PT cotreat due to skill of 2 clinicians required which a rehabilitation nurse could not perform in order to coordinate UE/LEs, decrease fall risk, and due to pt's limitations in strength, activity tolerance, mobility and transfers. OT focused on UE placement, cues for sequencing and safety and ADLs, PT focused on LE placement, gross overall movement, transfers and mobility. Pt propelled w/c back to room and completed Seated UE & LE EX before transferring back to bed. Pt laying Supine in bed to rest at end of tx. All needs met, call light in hand. Assessment Current Status: Good Progress Pt preet. tx well. PT Usp Goals Usp Goals PT Supervisor Erection Shop Goals Time Frame: May 22, 2023 Roll Left & Right (QC): 6 (/c bed rail) Sit to Lying (QC): 6 Lying-Sitting on Side/Bed(QC): 6 Sit to Stand (QC): 6 Chair/Dsa-ln-Xlqsd Xfer(QC): 6 (/c FWW and (L) knee immobilizer) Toilet Transfer (QC): 6 Car Transfer (QC): 6 Does the Patient Walk: Yes Walk 10 feet (QC): 6 (/c FWW and (L) knee immobilizer) Walk 50ft with 2 Turns (QC): 6 (/c FWW and (L) knee immobilizer) Walk 150 ft (QC): 6 (/c FWW and (L) knee immobilizer) Walking 10ft on Uneven Surface: 6 (/c FWW and (L) knee immobilizer) 1 Step (curb) (QC): 4 (/c FWW and (L) knee immobilizer) 4 Steps (QC): 4 ((B) rails) 12 Steps (QC): 4 ((B)rails) Picking up an Object (QC): 6 (/c staffing specialist.) Does the Pt use WC or Scooter?: No Wheel 50 feet with 2 turns (QC: 9 Wheel 150 feet: 9 PT Plan Problem List Problem List: Activity Tolerance, Functional Strength, Balance, Gait, Transfer, Bed Mobility Treatment/Plan Treatment Plan: Continue Plan of Care Treatment Plan: Bed Mobility, Education, Functional Activity Emma, Functional Strength, Group Therapy, Gait, Safety, Therapeutic Exercise, Transfers Treatment Duration: May 22, 2023 Frequency: At least 5 of 7 days/Wk (IRF) Estimated Hrs Per Day: 1.5 hours per day Patient and/or Family Agrees t: Yes Safety Risks/Education Patient Education: Transfer Techniques, Correct Positioning Teaching Recipient: Patient Teaching Methods: Discussion Response to Teaching: Verbalize Understanding Time Time In: 1500 Time Out: 1545 DATE: May 08, 2023 Total Billed Treatment Time: 45 Total Billed Treatment Co-treat for 45m w/OT 1, FA x 2 (25m) & EX (20m) JUAN ANTONIO BROWN DOUBLE BACKER May 08, 2023 16:01
[2023-05-08] MEDS ORDERED: FLU HIGH DOSE (65+ YOA) 240 MCG/0.7 ML 2023-24 (FLUZONE) IM ONE (16:45)
[2023-05-08] MEDS: DICLOFENAC 1% GEL 50 GM TUBE TP SCH ×2 (18:28→20:42)
[2023-05-08 20:40] VITALS: BP 175/72
[2023-05-08] MEDS: SENNA W/DOCUSATE TABLET PO SCH (20:42)
[2023-05-08] MEDS: DOCUSATE SODIUM 100 MG CAPSULE PO SCH (20:42)
[2023-05-08] MEDS: LevETIRAcetam 500 MG TABLET PO SCH (20:44)
[2023-05-08] MEDS: ACETAMINOPHEN ER 650 MG (ARTHRITIS) PO PRN (20:44)
[2023-05-09] MEDS: ACETAMINOPHEN ER 650 MG (ARTHRITIS) PO PRN ×3 (05:36→21:09)
[2023-05-09 06:32] LABS: BASOPHILS % (AUTO) 0 % (0-10); EOSINOPHILS % (AUTO) 0 % (0-10); HEMATOCRIT 24 % (35-52); HEMOGLOBIN 7.8 g/dL (11.5-16.0); LYMPHOCYTES # (AUTO) 0.5 10^3/uL (1.0-4.0); LYMPHOCYTES % (AUTO) 5 % (12-44); MEAN CORPUSCULAR HEMOGLOBIN 31 pg (25-34); MEAN CORPUSCULAR HGB CONC 32 g/dL (32-36); MEAN CORPUSCULAR VOLUME 96 fL (80-99); MEAN PLATELET VOLUME 9.8 fL (9.0-12.2); MONOCYTES # (AUTO) 0.8 10^3/uL (0.0-1.0); MONOCYTES % (AUTO) 9 % (0-12); NEUTROPHILS # (AUTO) 7.7 10^3/uL (1.8-7.8); NEUTROPHILS % (AUTO) 85 % (42-75); PLATELET COUNT 216 10^3/uL (130-400); WHITE BLOOD COUNT 9.1 10^3/uL (4.3-11.0)
[2023-05-09 06:47] LABS: POTASSIUM 4.4 MMOL/L (3.6-5.0)
[2023-05-09 06:49] LABS: TOTAL PROTEIN 6.1 GM/DL (6.4-8.2)
[2023-05-09 06:51] LABS: BILIRUBIN,TOTAL 0.2 MG/DL (0.1-1.0)
[2023-05-09 06:52] LABS: LYMPHOCYTES % (MANUAL) 3 %; MONOCYTES % (MANUAL) 2 %; NEUTROPHILS % (MANUAL) 94 %; RBC MORPH NORMAL; REACTIVE LYMPHOCYTES 1 %
[2023-05-09 06:53] LABS: CREATININE SERUM 1.31 MG/DL (0.60-1.30)
--- NOTE | 2023-05-09 07:05 | PM&R Progress Note ---
Subjective HPI/CC On Admission Date Seen by Provider: May 09, 2023 Time Seen by Provider: 10:00 Subjective/Events-last exam 05/09/2023: Patient doing well Pain is controlled Blood pressure is labile Labs stable Checking iron and B12 Creatinine 1.37 Review of Systems General: Fatigue, Malaise Objective Exam Vital Signs Vital Signs Date Time Temp Pulse Resp B/P (MAP) Pulse Ox O2 Delivery O2 Flow Rate FiO2 05/09/23 20:20 Room Air 05/09/23 19:40 36.5 56 18 140/63 (88) 98 Capillary Refill : General Appearance: No Apparent Distress, WD/WN, Chronically ill HEENT: PERRL/EOMI, Normal ENT Inspection, Pharynx Normal Neck: Full Range of Motion, Normal Inspection, Non Tender, Supple, Carotid Bruit Respiratory: Chest Non Tender, Lungs Clear, Normal Breath Sounds, No Accessory Muscle Use, No Respiratory Distress Cardiovascular: Regular Rate, Rhythm, No Edema, No Gallop, No JVD, No Murmur, Normal Peripheral Pulses Gastrointestinal: Normal Bowel Sounds, No Organomegaly, No Pulsatile Mass, Non Tender, Soft Back: Normal Inspection, No CVA Tenderness, No Vertebral Tenderness Extremity: Normal Capillary Refill, Normal Inspection, Normal Range of Motion (Except left leg in immobilizer), Non Tender, No Calf Tenderness, No Pedal Edema Neurologic/Psychiatric: Alert, Oriented x3, No Motor/Sensory Deficits, Normal Mood/Affect, Abnormal Gait, Motor Weakness ( left leg) Skin: Normal Color, Warm/Dry Lymphatic: No Adenopathy Results/Procedures Lab Laboratory Tests 05/09/23 06:21 Patient resulted labs reviewed. FIM Transfers Therapy Code Descriptions/Definitions Functional [place] Measure: 0=Not Assessed/NA 4=Minimal Assistance 1=Total Assistance 5=Supervision or Setup 2=Maximal Assistance 6=Modified [place] 3=Moderate Assistance 7=Complete IndependenceSCALE: Activities may be completed with or without assistive devices. 9-Qtwcsxqzku-oaxalli completes the activity by him/herself with no assistance from a helper. 5-Set-up or Clean-up Assistance-helper sets up or cleans up; patient completes activity. [place] assists only prior to or following the activity. 4-Supervision or Touching Assistance-helper provides verbal cues and/or touching/steadying and/or contact guard assistance as patient completes activity. Assistance may be provided throughout the activity or intermittently. 3-Partial/Moderate Assistance-helper does LESS THAN HALF the effort. [place] lifts, holds or supports trunk or limbs, but provides less than half the effort. 2-Substantial/Maximal Assistance-helper does MORE THAN HALF the effort. [place] lifts or holds trunk or limbs and provides more than half the effort. 7-Acjvfzxxy-tipwhp does ALL the effort. Patient does none of the effort to compl ete the activity. Or, the assistance of 2 or more helpers is required for the patient to complete the activity. If activity was not attempted, code reason: 7-Patient Refused. 9-Not Applicable-not attempted and the patient did not perform the activity before the current illness, exacerbation or injury. 10-Not Attempted due to Environmental Limitations-(lack of equipment, weather restraints, etc.). 88-Not Attempted due to Medical Conditions or Safety Concerns. Roll Left to Right (QC): 3 (min (A) due to (L) leg pain) Sit to Lying (QC): 3 (Min A) Sit to Stand (QC): 3 (Min A) Chair/Qjg-td-Hehzs Xfer(QC): 3 (min (A) /c FWW) Car Transfer (QC): 3 (mod (A) /c FWW) Gait Training Does the Patient Walk?: Yes Walk 10 feet (QC): 3 (Min (A) - GCA /c FWW) Walk 50 ft with 2 Turns(QC): 3 (Min (A) /c FWW) Walk 150 ft (QC): 88 (unable to attain distance, fatigue/pain) Walking 10ft/uneven surface-QC: 3 (Min (A) /c FWW) Gait Assistive Device: FWW Wheelchair Training Does the Pt Use a Wheelchair?: No Wheel 50 ft with 2 turns (QC): 9 Wheel 150 ft (QC): 9 Stair Training 1 Step (curb) (QC): 3 (min (A) up 2" curb step) 4 Steps (QC): 88 (not safe, pain/fatigue) 12 Steps (QC): 88 (not safe, pain/fatigue) Balance Picking up an Object (QC): 4 (CGA /c FWW and bankruptcy attorney (uses a bankruptcy attorney at home)) ADL-Treatment Eating (QC): 5 Oral Hygiene (QC): 4 (standing at sink ) Shower/Bathe Self (QC): 2 Upper Body Dressing (QC): 4 (to don/doff shirt) Lower Body Dressing (QC): 3 (to don/doff pants; requiring assistance to thread pants, though independently pulled pants up ) On/Off Footwear (QC): 2 (independent doffing bilateral shoes, requiring assistance with bilateral socks and to don L shoe) Toileting Hygiene (QC): 4 (completed in sitting 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
--- NOTE | 2023-05-09 07:31 | Occupational Ther Daily Note ---
OT Current Status-Daily Note Subjective Pt sleeping in bed, woke to name. Pt agrees to therapy. No c/o pain. Mental Status/Objective Patient Orientation: Person, Place, Time, Situation Attachments: Knee Immobilizer ADL-Treatment Pt requested to remain in bed to eat. Pt able to straighten self in bed to eat breakfast. Pt is independent with opening packages and using utensils to eat. After session, pt continues to eat in bed with call light/phone in reach. All needs met in room. Therapy Code Descriptions/Definitions Functional [place] Measure: 0=Not Assessed/NA 4=Minimal Assistance 1=Total Assistance 5=Supervision or Setup 2=Maximal Assistance 6=Modified [place] 3=Moderate Assistance 7=Complete IndependenceSCALE: Activities may be completed with or without assistive devices. 4-Gxcojdhkpm-ehscgob completes the activity by him/herself with no assistance from a helper. 5-Set-up or Clean-up Assistance-helper sets up or cleans up; patient completes activity. [place] assists only prior to or following the activity. 4-Supervision or Touching Assistance-helper provides verbal cues and/or touching/steadying and/or contact guard assistance as patient completes activity . Assistance may be provided throughout the activity or intermittently. 3-Partial/Moderate Assistance-helper does LESS THAN HALF the effort. [place] lifts, holds or supports trunk or limbs, but provides less than half the effort. 2-Substantial/Maximal Assistance-helper does MORE THAN HALF the effort. [place] lifts or holds trunk or limbs and provides more than half the effort. 8-Kxrxtjdnx-hzpmbj does ALL the effort. Patient does none of the effort to complete the activity. Or, the assistance of 2 or more helpers is required for the patient to complete the activity. If activity was not attempted, code reason: 7-Patient Refused. 9-Not Applicable-not attempted and the patient did not perform the activity before the current illness, exacerbation or injury. 10-Not Attempted due to Environmental Limitations-(lack of equipment, weather restraints, etc.). 88-Not Attempted due to Medical Conditions or Safety Concerns. Eating (QC): 6 OT Short Term Goals Short Term Goals Time Frame: May 16, 2023 Eatin Oral hygiene: 5 (standing at sink ) Toileting hygiene: 6 (in sitting ) Shower/bathe self: 4 Upper body dressin Lower body dressin Putting on/taking off footwear: 4 OT [place] Supervisor Goals Snf Goals Time Frame: May 23, 2023 Acute change in mental status: 0 Inattention: 0 Disorganized thinkin Altered level of consciousness: 0 Eating (QC): 6 Oral Hygiene (QC): 6 Toileting Hygiene (QC): 6 Shower/Bathe Self (QC): 5 Upper Body Dressing (QC): 6 Lower Body Dressing (QC): 5 On/Off Footwear (QC): 5 1=Demonstrate adherence to instructed precautions during ADL tasks. 2=Patient will verbalize/demonstrate understanding of assistive device s/modifications for ADL. 3=Patient will improve strength/tolerance for activity to enable patient to perform ADL's. OT Education/Plan Problem List/Assessment Assessment: Impaired Self-Care Skills Discharge Recommendations Plan/Recommendations: Continue POC Treatment Plan/Plan of Care Patient would benefit from OT for education, treatment and training to promote independence in ADL's, mobility, safety and/or upper extremity function for ADL's. Plan of Care: ADL Retraining, Caregiver Training, Concurrent Therapy, Functional Mobility, Group Exercise/Act as Ind, UE Funct Exercise/Act, W/C Management Training Treatment Duration: May 23, 2023 Frequency: At least 5 of 7 days/Wk (IRF) Estimated Hrs Per Day: 1.5 hours per day Agreement: Yes Rehab Potential: Good Time Start Time: 07:00 Stop Time: 07:15 DATE: May 09, 2023 Total Time Billed (hr/min): 15 Billed Treatment Time 1 visit-ADL 1 (15 min) OLIVE NAVA May 09, 2023 07:31
[2023-05-09 08:00] VITALS: BP 172/81
[2023-05-09] MEDS: PANTOPRAZOLE 40 MG TABLET PO SCH (08:45)
[2023-05-09] MEDS: VITAMIN D3 25 MCG (1,000 UNITS) TABLET PO SCH (08:45)
[2023-05-09] MEDS: SENNA W/DOCUSATE TABLET PO SCH ×2 (08:45→21:08)
[2023-05-09] MEDS: LevETIRAcetam 500 MG TABLET PO SCH ×2 (08:45→21:08)
[2023-05-09] MEDS: MELOXICAM 7.5 MG TABLET PO SCH (08:45)
[2023-05-09] MEDS: ASPIRIN enteric coated 81MG TABLET PO SCH (08:45)
[2023-05-09] MEDS: DOCUSATE SODIUM 100 MG CAPSULE PO SCH ×2 (08:45→21:08)
--- NOTE | 2023-05-09 09:54 | ST Cognitive Linguistic Eval ---
Speech Evaluation-General Medical Diagnosis (L) TKR, (L) patellar tendon Onset Date: May 07, 2023 Therapy Diagnosis Therapy Diagnosis: L TKR Precautions Precautions/Isolations: Standard Precautions Referral Referring Physician: Dr. Toro Reason for Referral: Evaluation/Treatment Medical History Pertinent Medical History: Arthritis, CVA, HTN, OA kidney stones, hx neck injury, inflammatory arthritis. Wears dentures and glasse s. Current History (L) TKR 05/07/23 as well as patellar tendon repair - in knee immobilizer for at least 3 weeks with orders for NO (L) knee flexion, WBAT. Reviewed History: Yes Social History Current Living Status: Other Family Speech PLF-Current Status Prior Level of Function Lives with support of family, no reported cognitive concerns Language Eval: Auditory Follows 1-Step Commands: Functional Follows Complex Directions: Functional Follows General Conversations: Functional Language Eval: Verbal Language Requests Basic Needs: Functional States Basic Personal Info: Functional Expresses Complex Ideas: Functional Language Evaluation: Reading Follows Simple Written Direct: Functional Language Evaluation: Writing Writes Personal Information: Functional Writes Short Phrases: Functional Objective Formal/Standardized Tests MMSE Results The MMSE was administered, the pt earned a score of 27/30. The pt was fully oriented, with 3/3 registration and 3/3 recall. Reverse spelling was mildly di fficult, with 3/5 earned. The pt was able to relate current history of knee surgery and ligament repair. She was also able to state precautions and length of time precautions were in place. Swallowing was screened with continuous thin liquid swallows, with no concerns noted. Oral Motor/Speech Production WFL Impression The pt presents with cognitive, language, and swallow function to be WFL for age. Speech-Plan Treatment Plan Speech Therapy Treatment Plan: Discontinue ST Frequency: Modified Program (IRF) (No treatment recommended) Estimated Hrs Per Day: Other (no treatment recommended) Rehab Potential: Good Discharge Recommendations Home & Family Time Speech Therapy Time In: 09:10 Speech Therapy Time Out: 09:40 DATE: May 09, 2023 Total Billed Time: 30 Billed Treatment Time 1 SPSAYESHA (30 min) HIRA CONNOR May 09, 2023 09:54
[2023-05-09] MEDS: hydrALAZINE 25 MG TABLET PO PRN (10:07)
[2023-05-09] MEDS: DICLOFENAC 1% GEL 50 GM TUBE TP SCH ×4 (10:08→21:34)
[2023-05-09] MEDS: LACTULOSE SYRUP 10GM/15ML 30ML UDC PO PRN (11:21)
--- NOTE | 2023-05-09 11:52 | Occupational Ther Daily Note ---
OT Current Status-Daily Note Subjective Pt alert, finishing breakfast. Pt agrees to therapy. No c/o pain at this time. Mental Status/Objective Patient Orientation: Person, Place, Time, Situation Attachments: Knee Immobilizer ADL-Treatment Pt agrees to sponge bath at sink. Min A for bed mobility, supine to EOB with HOB raised. Pt ambulated using FWW to bathroom and transferred to toilet with SBA. SBA for clothing manipulation and hygiene. Pt stood at sink with SBA for oral care. Pt sat at sink to complete sponge bath. Upper body bathing by self, SBA in standing to cleanse buttocks and rose area then assistance given to cleanse lower legs and feet. Set up for UBD. Using senior security engineer, pt able to thread feet into pants with verbal cues and increased time then hiked pants over hips by self. Daughter states that pt has not donned socks by self in 3 years. Pt able to doff socks with dressing stick then assist to don B socks. Assist to don/doff knee immobilizer. After session, pt sitting in recliner with call light/phone in reach. Nrsg present in room. All needs met. Therapy Code Descriptions/Definitions Functional [place] Measure: 0=Not Assessed/NA 4=Minimal Assistance 1=Total Assistance 5=Supervision or Setup 2=Maximal Assistance 6=Modified [place] 3=Moderate Assistance 7=Complete IndependenceSCALE: Activities may be completed with or without assistive devices. 3-Kfeukcgdxs-bdshkor completes the activity by him/herself with no assistance from a helper. 5-Set-up or Clean-up Assistance-helper sets up or cleans up; patient completes activity. [place] assists only prior to or following the activity. 4-Supervision or Touching Assistance-helper provides verbal cues and/or touching/steadying and/or contact guard assistance as patient completes activity. Assistance may be provided throughout the activity or intermittently. 3-Partial/Moderate Assistance-helper does LESS THAN HALF the effort. [place] lifts, holds or supports trunk or limbs, but provides less than half the effort. 2-Substantial/Maximal Assistance-helper does MORE THAN HALF the effort. [place] lifts or holds trunk or limbs and provides more than half the effort. 7-Dctpqzujn-tyghis does ALL the effort. Patient does none of the effort to complete the activity. Or, the assistance of 2 or more helpers is required for the patient to complete the activity. If activity was not attempted, code reason: 7-Patient Refused. 9-Not Applicable-not attempted and the patient did not perform the activity before the current illness, exacerbation or injury. 10-Not Attempted due to Environmental Limitations-(lack of equipment, weather restraints, etc.). 88-Not Attempted due to Medical Conditions or Safety Concerns. Oral Hygiene (QC): 4 Bathing Location: L Arm, R Arm, L Upper Leg, R Upper Leg, Chest, Abdomen, Buttocks, Perineal Area Shower/Bathe Self (QC): 3 Upper Body Dressing (QC): 5 Lower Body Dressing (QC): 3 (min A) On/Off Footwear: 3 (mod A) Toileting Hygiene (QC): 4 Toilet Transfer (QC): 4 OT Short Term Goals Short Term Goals Time Frame: May 16, 2023 Eatin Oral hygiene: 5 (standing at sink ) Toileting hygiene: 6 (in sitting ) Shower/bathe self: 4 Upper body dressin Lower body dressin Putting on/taking off footwear: 4 OT Mri Tech Goals Senior Care Goals Time Frame: May 23, 2023 Acute change in mental status: 0 Inattention: 0 Disorganized thinkin Altered level of consciousness: 0 Eating (QC): 6 Oral Hygiene (QC): 6 Toileting Hygiene (QC): 6 Shower/Bathe Self (QC): 5 Upper Body Dressing (QC): 6 Lower Body Dressing (QC): 5 On/Off Footwear (QC): 5 1=Demonstrate adherence to instructed precautions during ADL tasks. 2=Patient will verbalize/demonstrate understanding of assistive devices/ modifications for ADL. 3=Patient will improve strength/tolerance for activity to enable patient to perform ADL's. OT Education/Plan Problem List/Assessment Assessment: Decreased Activ Tolerance, Impaired Self-Care Skills Discharge Recommendations Plan/Recommendations: Continue POC Treatment Plan/Plan of Care Patient would benefit from OT for education, treatment and training to promote independence in ADL's, mobility, safety and/or upper extremity function for ADL's. Plan of Care: ADL Retraining, Caregiver Training, Concurrent Therapy, Functional Mobility, Group Exercise/Act as Ind, UE Funct Exercise/Act, W/C Management Training Treatment Duration: May 23, 2023 Frequency: At least 5 of 7 days/Wk (IRF) Estimated Hrs Per Day: 1.5 hours per day Agreement: Yes Rehab Potential: Good Time Start Time: 07:45 Stop Time: 09:00 DATE: May 09, 2023 Total Time Billed (hr/min): 75 Billed Treatment Time 1 visit-ADL 5 (75 min) OLIVE NAVA May 09, 2023 11:52
[2023-05-09] MEDS: NYSTATIN CREAM 30 GM TUBE TP PRN (12:47)
--- NOTE | 2023-05-09 14:29 | Physical Therapy Daily Note ---
PT Daily Note-Current Subjective Patient pleasant and ready for PT. Pain Section J - Health Conditions 1. Rarely or not at all 2. Occasionally 3. Frequently 4. Almost constantly 8. Unable to answer Pain Effect on Sleep: 2 Pain Interference with Therapy: 2 Pain Interference w/Day-to-Day: 2 Transfers SCALE: Activities may be completed with or without assistive devices. 2-Rqabbjvjbk-fgyfqkb completes the activity by him/herself with no assistance from a helper. 5-Set-up or Clean-up Assistance-helper sets up or cleans up; patient completes activity. [place] assists only prior to or following the activity. 4-Supervision or Touching Assistance-helper provides verbal cues and/or touching/steadying and/or contact guard assistance as patient completes activity. Assistance may be provided throughout the activity or intermittently. 3-Partial/Moderate Assistance-helper does LESS THAN HALF the effort. [place] lifts, holds or supports trunk or limbs, but provides less than half the effort. 2-Substantial/Maximal Assistance-helper does MORE THAN HALF the effort. [place] lifts or holds trunk or limbs and provides more than half the effort. 0-Oalhbqghm-luqffj does ALL the effort. Patient does none of the effort to complete the activity. Or, the assistance of 2 or more helpers is required for the patient to complete the activity. If activity was not attempted, code reason: 7-Patient Refused. 9-Not Applicable-not attempted and the patient did not perform the activity before the current illness, exacerbation or injury. 10-Not Attempted due to Environmental Limitations-(lack of equipment, weather restraints, etc.). 88-Not Attempted due to Medical Conditions or Safety Concerns. Sit to Lying (QC): 3 (MIn (A) for (L) LE on victor mat) Lying to Sitting/Side of Bed(Q: 3 (mod (A) on victor mat) Sit to Stand (QC): 3 (min (A) x 6 /c increased time to complete and v.c.) Chair/Xix-iv-Rykdu Xfer(QC): 4 (CGA /c FWW recliner>w/c, toilet >w/c, w/c<>mat.) Toilet Transfer (QC): 3 (Min (A) /c FWW with 3-in-1 commode over toilet. Patient able to manage clothing for toileting /c CGA in standing. Patient able to manage toilet hygiene /c CGA in standing.) (L) knee brace adjusted /p toileting to correct position and straps tightened. Weight Bearing Weight Bearing/Tolerated Weight Bearing/Tolerated Gait Training Distance: 15', 10', 70' Walk 10 feet (QC): 4 (CGA / FWW and knee immobilizer) Walk 50 ft with 2 Turns(QC): 4 (CGA /c FWW and knee immobilizer) Gait Persons Needed: 1 Gait Assistive Device: FWW Very slow [place]. Forward flexed posture. (L) knee immobilizer in place. Exercises Supine exercise on victor mat, (L) LE with brace on: (L) quad sets 10 x :05. AP x 20 with (L) heel elevated on pillow. Ankle circles x 10 CW, x 10 CCW. SLR x 10 with assist. Hip abd/add with assist. -- All exercises issued in HEP. PT Ways Operator Goals Ways Operator Goals PT Skilled Nursing Goals Time Frame: May 22, 2023 Roll Left & Right (QC): 6 (/c bed rail) Sit to Lying (QC): 6 Lying-Sitting on Side/Bed(QC): 6 Sit to Stand (QC): 6 Chair/Gwq-fo-Paxxm Xfer(QC): 6 (/c FWW and (L) knee immobilizer) Toilet Transfer (QC): 6 Car Transfer (QC): 6 Does the Patient Walk: Yes Walk 10 feet (QC): 6 (/c FWW and (L) knee immobilizer) Walk 50ft with 2 Turns (QC): 6 (/c FWW and (L) knee immobilizer) Walk 150 ft (QC): 6 (/c FWW and (L) knee immobilizer) Walking 10ft on Uneven Surface: 6 (/c FWW and (L) knee immobilizer) 1 Step (curb) (QC): 4 (/c FWW and (L) knee immobilizer) 4 Steps (QC): 4 ((B) rails) 12 Steps (QC): 4 ((B)rails) Picking up an Object (QC): 6 (/c supervisor agricultural education.) Does the Pt use WC or Scooter?: No Wheel 50 feet with 2 turns (QC: 9 Wheel 150 feet: 9 PT Plan Treatment/Plan Treatment Plan: Continue Plan of Care Treatment Plan: Bed Mobility, Education, Functional Activity Emma, Functional Strength, Group Therapy, Gait, Safety, Therapeutic Exercise, Transfers Treatment Duration: May 22, 2023 Frequency: At least 5 of 7 days/Wk (IRF) Estimated Hrs Per Day: 1.5 hours per day Patient and/or Family Agrees t: Yes Time Time In: 1000 Time Out: 1100 DATE: May 09, 2023 Total Billed Treatment Time: 60 Total Billed Treatment 2 GT, 2 EX, 1 FA Bonnie Purcell PT May 09, 2023 14:29
[2023-05-09 19:40] VITALS: BP 140/63
[2023-05-10] MEDS: ACETAMINOPHEN ER 650 MG (ARTHRITIS) PO PRN (04:05)
--- NOTE | 2023-05-10 06:05 | PM&R Progress Note ---
Subjective HPI/CC On Admission Date Seen by Provider: May 10, 2023 Time Seen by Provider: 12:00 Subjective/Events-last exam 05/10/2023: Patient improved No falls Blood pressure improved Bowels are moving 05/09/2023: Patient doing well Pain is controlled Blood pressure is labile Labs stable Checking iron and B12 Creatinine 1.37 Review of Systems General: Fatigue, Malaise Objective Exam Vital Signs Vital Signs Date Time Temp Pulse Resp B/P (MAP) Pulse Ox O2 Delivery O2 Flow Rate FiO2 05/10/23 23:05 66 160/69 (99) 05/10/23 20:52 Room Air 05/10/23 20:19 36.8 16 96 Capillary Refill : General Appearance: No Apparent Distress, WD/WN, Chronically ill HEENT: PERRL/EOMI, Normal ENT Inspection, Pharynx Normal Neck: Full Range of Motion, Normal Inspection, Non Tender, Supple, Carotid Bruit Respiratory: Chest Non Tender, Lungs Clear, Normal Breath Sounds, No Accessory Muscle Use, No Respiratory Distress Cardiovascular: Regular Rate, Rhythm, No Edema, No Gallop, No JVD, No Murmur, Normal Peripheral Pulses Gastrointestinal: Normal Bowel Sounds, No Organomegaly, No Pulsatile Mass, Non Tender, Soft Back: Normal Inspection, No CVA Tenderness, No Vertebral Tenderness Extremity: Normal Capillary Refill, Normal Inspection, Normal Range of Motion (Except left leg in immobilizer), Non Tender, No Calf Tenderness, No Pedal Edema Neurologic/Psychiatric: Alert, Oriented x3, No Motor/Sensory Deficits, Normal Mood/Affect, Abnormal Gait, Motor Weakness ( left leg) Skin: Normal Color, Warm/Dry Lymphatic: No Adenopathy Results/Procedures Lab Patient resulted labs reviewed. FIM Transfers Therapy Code Descriptions/Definitions Functional [place] Measure: 0=Not Assessed/NA 4=Minimal Assistance 1=Total Assistance 5=Supervision or Setup 2=Maximal Assistance 6=Modified [place] 3=Moderate Assistance 7=Complete IndependenceSCALE: Activities may be completed with or without assistive devices. 7-Uzkwckzbos-etvxfcn completes the activity by him/herself with no assistance from a helper. 5-Set-up or Clean-up Assistance-helper sets up or cleans up; patient completes activity. [place] assists only prior to or following the activity. 4-Supervision or Touching Assistance-helper provides verbal cues and/or touching/steadying and/or contact guard assistance as patient completes activity. Assistance may be provided throughout the activity or intermittently. 3-Partial/Moderate Assistance-helper does LESS THAN HALF the effort. [place] lifts, holds or supports trunk or limbs, but provides less than half the effort. 2-Substantial/Maximal Assistance-helper does MORE THAN HALF the effort. [place] lifts or holds trunk or limbs and provides more than half the effort. 4-Skcgrqmeb-wlwiib does ALL the effort. Patient does none of the effort to complete the activity. Or, the assistance of 2 or more helpers is required for the patient to complete the activity. If activity was not attempted, code reason: 7-Patient Refused. 9-Not Applicable-not attempted and the patient did not perform the activity before the current illness, exacerbation or injury. 10-Not Attempted due to Environmental Limitations-(lack of equipment, weather restraints, etc.). 88-Not Attempted due to Medical Conditions or Safety Concerns. Roll Left to Right (QC): 3 (min (A) due to (L) leg pain) Sit to Lying (QC): 3 (MIn (A) for (L) LE on victor mat) Sit to Stand (QC): 3 (min (A) x 6 /c increased time to complete and v.c.) Chair/Rli-ur-Lxshc Xfer(QC): 4 (CGA /c FWW recliner>w/c, toilet >w/c, w/c<>mat.) Car Transfer (QC): 3 (mod (A) /c FWW) Gait Training Does the Patient Walk?: Yes Distance: 15', 10', 70' Walk 10 feet (QC): 4 (CGA / FWW and knee immobilizer) Walk 50 ft with 2 Turns(QC): 4 (CGA /c FWW and knee immobilizer) Walk 150 ft (QC): 88 (unable to attain distance, fatigue/pain) Walking 10ft/uneven surface-QC: 3 (Min (A) /c FWW) Gait Persons Needed: 1 Gait Assistive Device: FWW Wheelchair Training Does the Pt Use a Wheelchair?: No Wheel 50 ft with 2 turns (QC): 9 Wheel 150 ft (QC): 9 Stair Training 1 Step (curb) (QC): 3 (min (A) up 2" curb step) 4 Steps (QC): 88 (not safe, pain/fatigue) 12 Steps (QC): 88 (not safe, pain/fatigue) Balance Picking up an Object (QC): 4 (CGA /c FWW and building and grounds supervisor (uses a building and grounds supervisor at home)) ADL-Treatment Eating (QC): 6 Oral Hygiene (QC): 4 Bathing Location: L Arm, R Arm, L Upper Leg, R Upper Leg, Chest, Abdomen, Buttocks, Perineal Area Shower/Bathe Self (QC): 3 Upper Body Dressing (QC): 5 Lower Body Dressing (QC): 3 (min A) On/Off Footwear (QC): 3 (mod A) Toileting Hygiene (QC): 4 Toilet Transfer (QC): 4 Assessment/Plan Assessment and Plan Assess & Plan/Chief Complaint Assessment: Left knee replacement with patellar tendon repositioning maintained in an immobilizer h/o CVA 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
--- NOTE | 2023-05-10 06:05 | Individualized Plan of Care ---
Individualized Plan of Care Rehab Nursing IPOC Order Admission Date May 08, 2023 at 13:50 Current Orders Orders Admission Order(Inpt,Obs,Sdc) (05/08/23 12:21) Vital Signs: Per Unit Policy ( 08,16,00 (05/08/23 12:21) Tiburcio Garcia (05/08/23 12:21) Sequential Compression Device [id number] (05/08/23 12:21) Evaporative Cooler Installer-Inpt Rehab Con (05/08/23 12:21) Rehab Nursing Orders-Ipoc (05/08/23 12:21) Physical Therapy Rehab Orders (05/08/23 12:21) Occupational Therapy Rehab Ord (05/08/23 12:21) Speech Therapy Rehab Orders (05/08/23 12:21) Cbc And Automated Diff (05/09/23 06:00) Comprehensive Metabolic Panel (05/09/23 06:00) Precautions (Aru) (05/08/23 12:21) Weekly Weight WEEK (05/08/23 12:21) Rehab-Intensity Of Therapy (05/08/23 12:21) Initiate Admission Nursing Pro .admission (05/08/23 12:21) Alprazolam Tablet (Alprazolam Tablet) (05/08/23 12:30) Calcium Carbonate Chew Tablet (Calcium C (05/08/23 12:30) Docusate Sodium Capsule (Docusate Sodium (05/08/23 21:00) Docusate Sodium Capsule (Docusate Sodium (05/08/23 12:30) Bisacodyl Suppository (Bisacodyl Supposi (05/08/23 12:30) Lactulose Oral Solution (Enulose Oral So (05/08/23 12:30) Na Phos/Na Biphos Adult Enema (Na Phos/N (05/08/23 12:30) Guaifenesin/Codeine Syrup (Guaifenesin/C (05/08/23 12:30) Loperamide Capsule (Loperamide Capsule) (05/08/23 12:30) Melatonin Tablet (Melatonin Tablet) (05/08/23 12:30) Polyethylene Glycol Powder (Polyethylen (05/08/23 21:00) Ondansetron Oral Dissolve Tab (Ondanset (05/08/23 12:30) Senna W/Docusate Tablet (Senna W/Docusat (05/08/23 21:00) Acetaminophen Tablet (Acetaminophen Ta (05/08/23 12:30) Initiate Admission Nursing Pro .admission (05/08/23 12:21) Admission Arrival Bed Request (05/08/23 13:50) Follow-Up Appointment (05/08/23 13:59) Acetaminophen Arthritis (Acetaminophen A (05/08/23 14:15) Aspirin Enteric Coated Tablet (Ecotrin T (05/09/23 09:00) Atorvastatin Tablet (Atorvastatin Tablet (05/08/23 21:00) Diclofenac 1% Gel (Diclofenac 1% Gel) (05/08/23 17:00) Docusate Sodium Capsule (Docusate Sodium (05/08/23 14:15) Levetiracetam Tablet (Levetiracetam Tabl (05/08/23 21:00) Lisinopril Tablet (Lisinopril Tablet) (05/09/23 09:00) Meloxicam Tablet (Meloxicam Tablet) (05/09/23 09:00) Nystatin Cream (Nystatin Cream) (05/08/23 14:15) Oxycodone/Apap 5/325mg Tablet (Oxycodon (05/08/23 14:15) Pantoprazole Tablet (Pantoprazole Tablet (05/09/23 09:00) Vitamin D3 Tablet (Vitamin D3 Tablet) (05/09/23 09:00) Hydralazine Tablet (Hydralazine Tablet (05/08/23 14:15) Nursing Communication (Order) (05/08/23 14:12) General/Regular (05/08/23 Lunch) Flu High Dose Quad [id number] (Fluzone Hi (05/08/23 16:45) Code/Resuscitation (05/08/23 23:40) Manual Differential (05/09/23 06:21) Iron Test (Fe) (05/09/23 07:05) Vitamin B 12 (05/09/23 07:05) Vte Contraindication (05/09/23 09:56) Patient Visit (05/08/23 ) Pt Eval Moderate Complexity (05/08/23 ) Functional Activities, Ea 15 (05/08/23 ) Gait Training, Ea 15 Min (05/08/23 ) Patient Visit (05/08/23 ) Functional Activities, Ea 15 (05/08/23 ) Exercise Therap, Ea 15 Min (05/08/23 ) Patient Visit (05/09/23 ) Gait Training, Ea 15 Min (05/09/23 ) Exercise Therap, Ea 15 Min (05/09/23 ) Functional Activities, Ea 15 (05/09/23 ) Patient Visit (05/09/23 ) Speech Sound Lang Comp (05/09/23 ) Patient Visit (05/08/23 ) Functional Activities, Ea 15 (05/08/23 ) Gait Training, Ea 15 Min (05/08/23 ) Iron Sucrose Injection (Venofer Injectio (05/10/23 09:00) Cyanocobalamin Tablet (Cyanocobalamin Ta (05/10/23 07:00) Oxycodone/Apap 5/325mg Tablet (Oxycodon (05/10/23 14:15) Rehab Nursing Orders: Ongoing Assess. of Cognitive Status, Ongoing Assess. of Function Status, Bladder Management, Bladder Scan, Bladder Training, Bowel Management, Bowel Training, Disease Management & Educaiton, DVT Prophylaxis, Fall Prevention, Fluid/Electrolyte/Nutrition Mgmt, Infection Prevention, Medi cation Management & Education, Management of Risks & Complications, Management of Skin Intergrity, Nutrition Management, Pain Management, Patient/Family Support, Safety Management, Wound Management Intensity of Therapy to be met Patient to be seen: Min.3h per day/5 of 7d PT IPOC Problem List: Activity Tolerance, Functional Strength, Balance, Gait, Transfer, Bed Mobility Treatment Plan: Continue Plan of Care Bed Mobility, Education, Functional Activity Emma, Functional Strength, Group Therapy, Gait, Safety, Therapeutic Exercise, Transfers Treatment Duration: May 22, 2023 Frequency: At least 5 of 7 days/Wk (IRF) Estimated Hrs Per Day: 1.5 hours per day OT IPOC Problems: Decreased Activ Tolerance, Impaired Self-Care Skills OT Treatment, Training and Edu: Yes Plan of Care: ADL Retraining, Caregiver Training, Concurrent Therapy, Functional Mobility, Group Exercise/Act as Ind, UE Funct Exercise/Act, W/C Management Training Treatment Duration: May 23, 2023 Frequency: At least 5 of 7 days/Wk (IRF) Estimated Hrs Per Day: 1.[address] IPOC Speech Therapy Treatment Plan: Discontinue ST Treatment Duration: May 09, 2023 Frequency: Modified Program (IRF) (No treatment recommended) Estimated Hrs Per Day: Other (no treatment recommended) Evaporative Cooler Installer/Case Mgmt Evaporative Cooler Installer/Case Managemen: Discharge Planning Dietitian/Heel Scorer Dietitian/Heel Scorer to monitor nutritional status and make changes and/or recommendations as needed and work with speech pathology on dietary upgrades as the occur. Physician IPOC Medical Issues being managed closely and that require the 24 hour availability of a physician: Recent left knee replacement with patellar tendon repositioning will require immobilizer concerning for labile hypertension will require close monitoring by physician due to elevated risk for decompensation Medical Issues: Bowel/Bladder Function, DVT Prophylaxis, Falls Precautions, Fluid/Electrolyte/Nutrition Balance, Infection Protection, Pain Management, Weight Bearing Precautions, Wound Care Brief Synthesis of Preadmission Screen, Post-Admission Evaluation, and Therapy Evaluations: PT and OT will focus on regaining function with use of assistive devices in order to compensate for left leg immobilizer in order to return back home Medical Prognosis: Good Anticipated Length of Stay: 7 days NATIVIDAD MENJIVAR DO May 10, 2023 06:05
[2023-05-10] MEDS: CYANOCOBALAMIN 1,000 MCG TABLET PO SCH (06:57)
[2023-05-10 07:00] VITALS: BP 152/70
[2023-05-10] MEDS: ASPIRIN enteric coated 81MG TABLET PO SCH (08:23)
[2023-05-10] MEDS: IRON SUCROSE 200 MG/10 ML VIAL IV SCH (08:24)
[2023-05-10] MEDS: DOCUSATE SODIUM 100 MG CAPSULE PO SCH ×2 (08:24→20:49)
[2023-05-10] MEDS: VITAMIN D3 25 MCG (1,000 UNITS) TABLET PO SCH (08:24)
[2023-05-10] MEDS: LevETIRAcetam 500 MG TABLET PO SCH ×2 (08:24→20:43)
[2023-05-10] MEDS: PANTOPRAZOLE 40 MG TABLET PO SCH (08:24)
[2023-05-10] MEDS: MELOXICAM 7.5 MG TABLET PO SCH (08:24)
[2023-05-10] MEDS: SENNA W/DOCUSATE TABLET PO SCH ×2 (08:25→20:50)
[2023-05-10] MEDS: DICLOFENAC 1% GEL 50 GM TUBE TP SCH ×4 (08:25→20:52)
[2023-05-10] MEDS: oxyCODONE/ACETAMINOPHEN 5/325MG TABLET PO PRN ×2 (13:48→20:45)
[2023-05-10 20:19] VITALS: BP 191/85
[2023-05-10] MEDS: hydrALAZINE 25 MG TABLET PO PRN ×2 (20:44→20:46)
[2023-05-10 23:05] VITALS: BP 160/69
--- NOTE | 2023-05-11 06:14 | PM&R Progress Note ---
Subjective HPI/CC On Admission Date Seen by Provider: May 11, 2023 Time Seen by Provider: 12:00 Subjective/Events-last exam 05/11/2023: Patient doing well Has no new complaints Reviewed meds and labs No falls 05/10/2023: Patient improved No falls Blood pressure improved Bowels are moving 05/09/2023: Patient doing well Pain is controlled Blood pressure is labile Labs stable Checking iron and B12 Creatinine 1.37 Review of Systems General: Fatigue, Malaise Objective Exam Vital Signs Vital Signs Date Time Temp Pulse Resp B/P (MAP) Pulse Ox O2 Delivery O2 Flow Rate FiO2 05/11/23 09:21 Room Air 05/11/23 08:00 36.6 71 16 154/71 (98) 98 Capillary Refill : General Appearance: No Apparent Distress, WD/WN, Chronically ill HEENT: PERRL/EOMI, Normal ENT Inspection, Pharynx Normal Neck: Full Range of Motion, Normal Inspection, Non Tender, Supple, Carotid Bruit Respiratory: Chest Non Tender, Lungs Clear, Normal Breath Sounds, No Accessory Muscle Use, No Respiratory Distress Cardiovascular: Regular Rate, Rhythm, No Edema, No Gallop, No JVD, No Murmur, Normal Peripheral Pulses Gastrointestinal: Normal Bowel Sounds, No Organomegaly, No Pulsatile Mass, Non Tender, Soft Back: Normal Inspection, No CVA Tenderness, No Vertebral Tenderness Extremity: Normal Capillary Refill, Normal Inspection, Normal Range of Motion (Except left leg in immobilizer), Non Tender, No Calf Tenderness, No Pedal Edema Neurologic/Psychiatric: Alert, Oriented x3, No Motor/Sensory Deficits, Normal Mood/Affect, Abnormal Gait, Motor Weakness ( left leg) Skin: Normal Color, Warm/Dry Lymphatic: No Adenopathy Results/Procedures Lab Patient resulted labs reviewed. FIM Transfers Therapy Code Descriptions/Definitions Functional [place] Measure: 0=Not Assessed/NA 4=Minimal Assistance 1=Total Assistance 5=Supervision or Setup 2=Maximal Assistance 6=Modified [place] 3=Moderate Assistance 7=Complete IndependenceSCALE: Activities may be completed with or without assistive devices. 1-Skyucpegue-qxonyzi completes the activity by him/herself with no assistance from a helper. 5-Set-up or Clean-up Assistance-helper sets up or cleans up; patient completes activity. [place] assists only prior to or following the activity. 4-Supervision or Touching Assistance-helper provides verbal cues and/or touching/steadying and/or contact guard assistance as patient completes activity. Assistance may be provided throughout the activity or intermittently. 3-Partial/Moderate Assistance-helper does LESS THAN HALF the effort. [place] lifts, holds or supports trunk or limbs, but provides less than half the effort. 2-Substantial/Maximal Assistance-helper does MORE THAN HALF the effort. [place] lifts or holds trunk or limbs and provides more than half the effort. 1-Pqutndoep-gnmdkz does ALL the effort. Patient does none of the effort to complete the activity. Or, the assistance of 2 or more helpers is required for the patient to complete the activity. If activity was not attempted, code reason: 7-Patient Refused. 9-Not Applicable-not attempted and the patient did not perform the activity before the current illness, exacerbation or injury. 10-Not Attempted due to Environmental Limitations-(lack of equipment, weather restraints, etc.). 88-Not Attempted due to Medical Conditions or Safety Concerns. Roll Left to Right (QC): 3 (min (A) due to (L) leg pain) Sit to Lying (QC): 3 (MIn (A) for (L) LE on victor mat) Sit to Stand (QC): 3 (min (A) x 6 /c increased time to complete and v.c.) Chair/Jet-nm-Kbxjj Xfer(QC): 4 (CGA /c FWW recliner>w/c, toilet >w/c, w/c<>mat.) Car Transfer (QC): 3 (mod (A) /c FWW) Gait Training Does the Patient Walk?: Yes Distance: 15', 10', 70' Walk 10 feet (QC): 4 (CGA / FWW and knee immobilizer) Walk 50 ft with 2 Turns(QC): 4 (CGA /c FWW and knee immobilizer) Walk 150 ft (QC): 88 (unable to attain distance, fatigue/pain) Walking 10ft/uneven surface-QC: 3 (Min (A) /c FWW) Gait Persons Needed: 1 Gait Assistive Device: FWW Wheelchair Training Does the Pt Use a Wheelchair?: No Wheel 50 ft with 2 turns (QC): 9 Wheel 150 ft (QC): 9 Stair Training 1 Step (curb) (QC): 3 (min (A) up 2" curb step) 4 Steps (QC): 88 (not safe, pain/fatigue) 12 Steps (QC): 88 (not safe, pain/fatigue) Balance Picking up an Object (QC): 4 (CGA /c FWW and clinical services professional (uses a clinical services professional at home)) ADL-Treatment Eating (QC): 6 Oral Hygiene (QC): 4 Bathing Location: L Arm, R Arm, L Upper Leg, R Upper Leg, Chest, Abdomen, Buttocks, Perineal Area Shower/Bathe Self (QC): 3 Upper Body Dressing (QC): 5 Lower Body Dressing (QC): 3 (min A) On/Off Footwear (QC): 3 (mod A) Toileting Hygiene (QC): 4 Toilet Transfer (QC): 4 Assessment/Plan Assessment and Plan Assess & Plan/Chief Complaint Assessment: Left knee replacement with patellar tendon repositioning maintained in an immobilizer h/o CVA h/o Seizure due to CVA h/o uncomplicated left hip arthroplasty revision by Dr Fernandez 04/2022 due to pain from hardware placed during hip fracture repair 10 years ago HTN labile status Urinary retention hx Fall risk h/o Anemia iron deficiency status post iron infusions and blood transfusions Chronic kidney disease stage III Plan: Home meds Supportive care Pain control PT OT 05/09/2023: Await iron and B12 level Monitor kidney function 05/10/2023: Decrease oxycodone to 1/2 pill 05/11/2023: Check labs in am (1) Status post left knee replacement NATIVIDAD MENJIVAR DO May 11, 2023 06:14
[2023-05-11] MEDS: ACETAMINOPHEN ER 650 MG (ARTHRITIS) PO PRN ×2 (06:46→16:45)
[2023-05-11] MEDS: CYANOCOBALAMIN 1,000 MCG TABLET PO SCH (06:47)
[2023-05-11 08:00] VITALS: BP 154/71
[2023-05-11] MEDS: VITAMIN D3 25 MCG (1,000 UNITS) TABLET PO SCH (08:41)
[2023-05-11] MEDS: MELOXICAM 7.5 MG TABLET PO SCH (08:41)
[2023-05-11] MEDS: ASPIRIN enteric coated 81MG TABLET PO SCH (08:41)
[2023-05-11] MEDS: PANTOPRAZOLE 40 MG TABLET PO SCH (08:41)
[2023-05-11] MEDS: SENNA W/DOCUSATE TABLET PO SCH ×2 (08:41→20:33)
[2023-05-11] MEDS: LevETIRAcetam 500 MG TABLET PO SCH ×2 (08:41→20:33)
[2023-05-11] MEDS: DOCUSATE SODIUM 100 MG CAPSULE PO SCH ×2 (08:41→20:33)
[2023-05-11] MEDS: oxyCODONE/ACETAMINOPHEN 5/325MG TABLET PO PRN ×4 (08:42→23:25)
[2023-05-11] MEDS: DICLOFENAC 1% GEL 50 GM TUBE TP SCH ×4 (08:43→20:43)
[2023-05-11 20:00] VITALS: BP 184/87
[2023-05-11] MEDS: hydrALAZINE 25 MG TABLET PO PRN (20:33)
[2023-05-11 22:58] VITALS: BP 158/77
--- NOTE | 2023-05-12 05:01 | PM&R Progress Note ---
Subjective HPI/CC On Admission Date Seen by Provider: May 12, 2023 Time Seen by Provider: 09:00 Subjective/Events-last exam 05/12/2023: No major issues Tightened brace to make it more stable No falls Pain controlled 05/11/2023: Patient doing well Has no new complaints Reviewed meds and labs No falls 05/10/2023: Patient improved No falls Blood pressure improved Bowels are moving 05/09/2023: Patient doing well Pain is controlled Blood pressure is labile Labs stable Checking iron and B12 Creatinine 1.37 Review of Systems General: Fatigue, Malaise Musculoskeletal: leg pain Objective Exam Vital Signs Vital Signs Date Time Temp Pulse Resp B/P (MAP) Pulse Ox O2 Delivery O2 Flow Rate FiO2 05/13/23 09:21 Room Air 05/13/23 07:39 36.1 72 18 153/72 (99) 98 Capillary Refill : General Appearance: No Apparent Distress, WD/WN, Chronically ill HEENT: PERRL/EOMI, Normal ENT Inspection, Pharynx Normal Neck: Full Range of Motion, Normal Inspection, Non Tender, Supple, Carotid Bruit Respiratory: Chest Non Tender, Lungs Clear, Normal Breath Sounds, No Accessory Muscle Use, No Respiratory Distress Cardiovascular: Regular Rate, Rhythm, No Edema, No Gallop, No JVD, No Murmur, Normal Peripheral Pulses Gastrointestinal: Normal Bowel Sounds, No Organomegaly, No Pulsatile Mass, Non Tender, Soft Back: Normal Inspection, No CVA Tenderness, No Vertebral Tenderness Extremity: Normal Capillary Refill, Normal Inspection, Normal Range of Motion (Except left leg in immobilizer), Non Tender, No Calf Tenderness, No Pedal Edema Neurologic/Psychiatric: Alert, Oriented x3, No Motor/Sensory Deficits, Normal Mood/Affect, Abnormal Gait, Motor Weakness ( left leg) Skin: Normal Color, Warm/Dry Lymphatic: No Adenopathy Results/Procedures Lab Patient resulted labs reviewed. FIM Transfers Therapy Code Descriptions/Definitions Functional [place] Measure: 0=Not Assessed/NA 4=Minimal Assistance 1=Total Assistance 5=Supervision or Setup 2=Maximal Assistance 6=Modified [place] 3=Moderate Assistance 7=Complete IndependenceSCALE: Activities may be completed with or without assistive devices. 0-Mzghyzyuam-noaxsad completes the activity by him/herself with no assistance from a helper. 5-Set-up or Clean-up Assistance-helper sets up or cleans up; patient completes activity. [place] assists only prior to or following the activity. 4-Supervision or Touching Assistance-helper provides verbal cues and/or touching/steadying and/or contact guard assistance as patient completes activity. Assistance may be provided throughout the activity or intermittently. 3-Partial/Moderate Assistance-helper does LESS THAN HALF the effort. [place] lifts, holds or supports trunk or limbs, but provides less than half the effort. 2-Substantial/Maximal Assistance-helper does MORE THAN HALF the effort. [place] lifts or holds trunk or limbs and provides more than half the effort. 4-Uqkjqtubx-cxcfkg does ALL the effort. Patient does none of the effort to complete the activity. Or, the assistance of 2 or more helpers is required for the patient to complete the activity. If activity was not attempted, code reason: 7-Patient Refused. 9-Not Applicable-not attempted and the patient did not perform the activity before the current illness, exacerbation or injury. 10-Not Attempted due to Environmental Limitations-(lack of equipment, weather restraints, etc.). 88-Not Attempted due to Medical Conditions or Safety Concerns. Roll Left to Right (QC): 3 (min (A) due to (L) leg pain) Sit to Lying (QC): 3 (MIn (A) for (L) LE on victor mat) Sit to Stand (QC): 3 (min (A) x 6 /c increased time to complete and v.c.) Chair/Yox-ox-Pmsvd Xfer(QC): 4 (CGA /c FWW recliner>w/c, toilet >w/c, w/c<>mat.) Car Transfer (QC): 3 (mod (A) /c FWW) Gait Training Does the Patient Walk?: Yes Distance: 15', 10', 70' Walk 10 feet (QC): 4 (CGA / FWW and knee immobilizer) Walk 50 ft with 2 Turns(QC): 4 (CGA /c FWW and knee immobilizer) Walk 150 ft (QC): 88 (unable to attain distance, fatigue/pain) Walking 10ft/uneven surface-QC: 3 (Min (A) /c FWW) Gait Persons Needed: 1 Gait Assistive Device: FWW Wheelchair Training Does the Pt Use a Wheelchair?: No Wheel 50 ft with 2 turns (QC): 9 Wheel 150 ft (QC): 9 Stair Training 1 Step (curb) (QC): 3 (min (A) up 2" curb step) 4 Steps (QC): 88 (not safe, pain/fatigue) 12 Steps (QC): 88 (not safe, pain/fatigue) Balance Picking up an Object (QC): 4 (CGA /c FWW and certification engineer (uses a certification engineer at home)) ADL-Treatment Eating (QC): 6 Oral Hygiene (QC): 4 Bathing Location: L Arm, R Arm, L Upper Leg, R Upper Leg, Chest, Abdomen, Buttocks, Perineal Area Shower/Bathe Self (QC): 3 Upper Body Dressing (QC): 5 Lower Body Dressing (QC): 3 (min A) On/Off Footwear (QC): 3 (mod A) Toileting Hygiene (QC): 4 Toilet Transfer (QC): 4 Assessment/Plan Assessment and Plan Assess & Plan/Chief Complaint Assessment: Left knee replacement with patellar tendon repositioning maintained in an immobilizer h/o CVA h/o Seizure due to CVA h/o uncomplicated left hip arthroplasty revision by Dr Fernandez 04/2022 due to pain from hardware placed during hip fracture repair 10 years ago HTN labile status Urinary retention hx Fall risk h/o Anemia iron deficiency status post iron infusions and blood transfusions Chronic kidney disease stage III Plan: Home meds Supportive care Pain control PT OT 05/09/2023: Await iron and B12 level Monitor kidney function 05/10/2023: Decrease oxycodone to 1/2 pill 05/11/2023: Check labs in am 05/12/2023: Iron infusion B12 supplement Pain control (1) Status post left knee replacement NATIVIDAD MENJIVAR DO May 12, 2023 05:01
[2023-05-12 05:40] LABS: BASOPHILS # (AUTO) 0.1 10^3/uL (0.0-0.1); BASOPHILS % (AUTO) 1 % (0-10); EOSINOPHILS # (AUTO) 0.4 10^3/uL (0.0-0.3); EOSINOPHILS % (AUTO) 8 % (0-10); HEMATOCRIT 27 % (35-52); HEMOGLOBIN 8.4 g/dL (11.5-16.0); LYMPHOCYTES % (AUTO) 20 % (12-44); MEAN CORPUSCULAR HEMOGLOBIN 31 pg (25-34); MEAN CORPUSCULAR HGB CONC 31 g/dL (32-36); MEAN CORPUSCULAR VOLUME 100 fL (80-99); MEAN PLATELET VOLUME 9.7 fL (9.0-12.2); MONOCYTES # (AUTO) 0.4 10^3/uL (0.0-1.0); MONOCYTES % (AUTO) 8 % (0-12); NEUTROPHILS # (AUTO) 3.1 10^3/uL (1.8-7.8); NEUTROPHILS % (AUTO) 61 % (42-75); PLATELET COUNT 244 10^3/uL (130-400); WHITE BLOOD COUNT 5.1 10^3/uL (4.3-11.0)
[2023-05-12 05:47] LABS: ALBUMIN 2.9 GM/DL (3.2-4.5); POTASSIUM 4.1 MMOL/L (3.6-5.0)
[2023-05-12 05:48] LABS: CALCIUM 8.8 MG/DL (8.5-10.1)
[2023-05-12 05:50] LABS: TOTAL PROTEIN 6.2 GM/DL (6.4-8.2)
[2023-05-12 05:52] LABS: BILIRUBIN,TOTAL 0.5 MG/DL (0.1-1.0)
[2023-05-12 05:53] LABS: CREATININE SERUM 0.9 MG/DL (0.60-1.30)
[2023-05-12] MEDS: CYANOCOBALAMIN 1,000 MCG TABLET PO SCH (06:40)
[2023-05-12] MEDS: oxyCODONE/ACETAMINOPHEN 5/325MG TABLET PO PRN (06:40)
--- NOTE | 2023-05-12 07:26 | Occupational Ther Daily Note ---
OT Current Status-Daily Note Subjective Pt. alert sitting in recliner. No c/o pain. Pt. agreed to therapy. Mental Status/Objective Patient Orientation: Person, Place, Time, Situation ADL-Treatment Pt. agreed to sponge bath. Pt. Min A with bed mobility from EOB to supine. Pt. able to ambulate from recliner to bathroom using FWW with SBA. Assist with donning/doffing knee immobilizer. After session, pt in bed with nrsg with call light/phone in reach and all needs met. Therapy Code Descriptions/Definitions Functional [place] Measure: 0=Not Assessed/NA 4=Minimal Assistance 1=Total Assistance 5=Supervision or Setup 2=Maximal Assistance 6=Modified [place] 3=Moderate Assistance 7=Complete IndependenceSCALE: Activities may be completed with or without assistive devices. 3-Wycyjeaagl-bnuaghb completes the activity by him/herself with no assistance from a helper. 5-Set-up or Clean-up Assistance-helper sets up or cleans up; patient completes activity. [place] assists only prior to or following the activity. 4-Supervision or Touching Assistance-helper provides verbal cues and/or touching/steadying and/or contact guard assistance as patient completes activity. Assistance may be provided throughout the activity or intermittently. 3-Partial/Moderate Assistance-helper does LESS THAN HALF the effort. [place] lifts, holds or supports trunk or limbs, but provides less than half the effort. 2-Substantial/Maximal Assistance-helper does MORE THAN HALF the effort. [place] lifts or holds trunk or limbs and provides more than half the effort. 4-Vceaqxljn-dtupxr does ALL the effort. Patient does none of the effort to complete the activity. Or, the assistance of 2 or more helpers is required for the patient to complete the activity. If activity was not attempted, code reason: 7-Patient Refused. 9-Not Applicable-not attempted and the patient did not perform the activity before the current illness, exacerbation or injury. 10-Not Attempted due to Environmental Limitations-(lack of equipment, weather restraints, etc.). 88-Not Attempted due to Medical Conditions or Safety Concerns. Eating (QC): 6 (Pt. independent with eating. ) Oral Hygiene (QC): 4 (Pt. able to stand at sink stabilizing left hand on sink for grooming/oral hygiene with SBA. ) Bathing Location: L Arm, R Arm, L Upper Leg, R Upper Leg, Chest, Abdomen, Buttocks, Perineal Area Shower/Bathe Self (QC): 3 (Pt. sat at sink to complete sponge bath was able to clean UB by self while seated then stood to clean buttocks and perineal area with SBA then required Min A for washing feet. ) Upper Body Dressing (QC): 5 (Pt. able to complete UB clothing after set up. ) Lower Body Dressing (QC): 3 (Pt. able to doff brief/pants by self using dressing stick then requires assist to thread feet into pants and hike brief/pants by self using FWW to stabilize self. ) On/Off Footwear: 3 (Pt. able to doff socks by self using dressing stick then requires asssit to don socks due to increased pain. ) Toileting Hygiene (QC): 4 (Pt. able to complete clothing manipulation and hygiene with SBA.) Toilet Transfer (QC): 4 (Pt. able to ambulate from recliner to toilet using FWW and grabbars with SBA for safety.) OT Short Term Goals Short Term Goals Time Frame: May 16, 2023 Eatin Oral hygiene: 5 (standing at sink ) Toileting hygiene: 6 (in sitting ) Shower/bathe self: 4 Upper body dressin Lower body dressin Putting on/taking off footwear: 4 OT Longterm Goals Longterm Goals Time Frame: May 23, 2023 Acute change in mental status: 0 Inattention: 0 Disorganized thinkin Altered level of consciousness: 0 Eating (QC): 6 Oral Hygiene (QC): 6 Toileting Hygiene (QC): 6 Shower/Bathe Self (QC): 5 Upper Body Dressing (QC): 6 Lower Body Dressing (QC): 5 On/Off Footwear (QC): 5 1=Demonstrate adherence to instructed precautions during ADL tasks. 2=Patient will verbalize/demonstrate understanding of assistive devices/modifications for ADL. 3=Patient will improve strength/tolerance for activity to enable patient to perform ADL's. OT Education/Plan Problem List/Assessment Assessment: Decreased Safety Aware, Decreased UE Strength, Impaired Funct Balance, Impaired Self-Care Skills Discharge Recommendations Plan/Recommendations: Continue POC Treatment Plan/Plan of Care Patient would benefit from OT for education, treatment and training to promote independence in ADL's, mobility, safety and/or upper extremity function for ADL's. Plan of Care: ADL Retraining, Caregiver Training, Concurrent Therapy, Functional Mobility, Group Exercise/Act as Ind, UE Funct Exercise/Act, W/C Management Training Treatment Duration: May 23, 2023 Frequency: At least 5 of 7 days/Wk (IRF) Estimated Hrs Per Day: 1.5 hours per day Agreement: Yes Rehab Potential: Good Time Start Time: 07:15 Stop Time: 08:45 DATE: May 12, 2023 Total Time Billed (hr/min): 90 Billed Treatment Time 1 visit- ADL 6 (90 mins) OLIVE NAVA May 12, 2023 07:26
[2023-05-12 08:02] VITALS: BP 110/70
[2023-05-12 08:05] VITALS: BP 198/95
[2023-05-12] MEDS: hydrALAZINE 25 MG TABLET PO PRN ×2 (08:08→20:54)
[2023-05-12] MEDS: SENNA W/DOCUSATE TABLET PO SCH ×3 (08:39→20:54)
[2023-05-12] MEDS: PANTOPRAZOLE 40 MG TABLET PO SCH (08:39)
[2023-05-12] MEDS: ASPIRIN enteric coated 81MG TABLET PO SCH (08:39)
[2023-05-12] MEDS: LevETIRAcetam 500 MG TABLET PO SCH ×2 (08:40→20:54)
[2023-05-12] MEDS: MELOXICAM 7.5 MG TABLET PO SCH (08:40)
[2023-05-12] MEDS: DICLOFENAC 1% GEL 50 GM TUBE TP SCH ×4 (08:41→20:54)
[2023-05-12] MEDS: IRON SUCROSE 200 MG/10 ML VIAL IV SCH (08:41)
[2023-05-12] MEDS: VITAMIN D3 25 MCG (1,000 UNITS) TABLET PO SCH (08:41)
[2023-05-12] MEDS: DOCUSATE SODIUM 100 MG CAPSULE PO SCH ×2 (08:43→20:54)
[2023-05-12 08:52] VITALS: BP 133/70
--- NOTE | 2023-05-12 10:47 | Physical Therapy Daily Note ---
PT Daily Note-Current Subjective Agreeable to PT. No new c/o. States her pain is "low" Pain Section J - Health Conditions 1. Rarely or not at all 2. Occasionally 3. Frequently 4. Almost constantly 8. Unable to answer Pain Effect on Sleep: 2 Pain Interference with Therapy: 2 Pain Interference w/Day-to-Day: 2 Transfers SCALE: Activities may be completed with or without assistive devices. 8-Dhuahuyiuo-fokzxoi completes the activity by him/herself with no assistance from a helper. 5-Set-up or Clean-up Assistance-helper sets up or cleans up; patient completes activity. [place] assists only prior to or following the activity. 4-Supervision or Touching Assistance-helper provides verbal cues and/or touching/steadying and/or contact guard assistance as patient completes activity. Assistance may be provided throughout the activity or intermittently. 3-Partial/Moderate Assistance-helper does LESS THAN HALF the effort. [place] lifts, holds or supports trunk or limbs, but provides less than half the effort. 2-Substantial/Maximal Assistance-helper does MORE THAN HALF the effort. [place] lifts or holds trunk or limbs and provides more than half the effort. 3-Drpytnsot-cqwoui does ALL the effort. Patient does none of the effort to complete the activity. Or, the assistance of 2 or more helpers is required for the patient to complete the activity. If activity was not attempted, code reason: 7-Patient Refused. 9-Not Applicable-not attempted and the patient did not perform the activity before the current illness, exacerbation or injury. 10-Not Attempted due to Environmental Limitations-(lack of equipment, weather restraints, etc.). 88-Not Attempted due to Medical Conditions or Safety Concerns. Lying to Sitting/Side of Bed(Q: 3 (min (A) /c LE LE only) Sit to Stand (QC): 4 (CGA /c incr. time to complete) Chair/Gql-lq-Dajvl Xfer(QC): 4 (CGA-SBA /c FWW) Toilet Transfer (QC): 4 (CGA-SBA/C FWW) Able to manage clothing and toilet hygiene (I) Weight Bearing Weight Bearing/Tolerated Weight Bearing/Tolerated Gait Training Distance: 20' x 2 (to BR only) Walk 10 feet (QC): 4 (CGA-SBA /c FWW) Exercises Bed EX: QS (L) x 10 x :05. Ankle pumps x 20, ankle rotations x 20, Hip er/ir x 10 (B). (L) hip abd/add with min (A) x 10. (L) SLR /w min (A) x 10. Assessment Current Status: Good Progress PT Operator Helper Goals Operator Helper Goals PT [facility] Goals Time Frame: May 22, 2023 Roll Left & Right (QC): 6 (/c bed rail) Sit to Lying (QC): 6 Lying-Sitting on Side/Bed(QC): 6 Sit to Stand (QC): 6 Chair/Nvw-jn-Xlkrr Xfer(QC): 6 (/c FWW and (L) knee immobilizer) Toilet Transfer (QC): 6 Car Transfer (QC): 6 Does the Patient Walk: Yes Walk 10 feet (QC): 6 (/c FWW and (L) knee immobilizer) Walk 50ft with 2 Turns (QC): 6 (/c FWW and (L) knee immobilizer) Walk 150 ft (QC): 6 (/c FWW and (L) knee immobilizer) Walking 10ft on Uneven Surface: 6 (/c FWW and (L) knee immobilizer) 1 Step (curb) (QC): 4 (/c FWW and (L) knee immobilizer) 4 Steps (QC): 4 ((B) rails) 12 Steps (QC): 4 ((B)rails) Picking up an Object (QC): 6 (/c heavy duty mechanic farm equipment.) Does the Pt use WC or Scooter?: No Wheel 50 feet with 2 turns (QC: 9 Wheel 150 feet: 9 PT Plan Treatment/Plan Treatment Plan: Continue Plan of Care Treatment Plan: Bed Mobility, Education, Functional Activity Emma, Functional Strength, Group Therapy, Gait, Safety, Therapeutic Exercise, Transfers Treatment Duration: May 22, 2023 Frequency: At least 5 of 7 days/Wk (IRF) Estimated Hrs Per Day: 1.5 hours per day Patient and/or Family Agrees t: Yes Time Time In: 945 Time Out: 1015 DATE: May 12, 2023 Total Billed Treatment Time: 30 Total Billed Treatment 1, Ex1, FA1 Bonnie Purcell PT May 12, 2023 10:47
--- NOTE | 2023-05-12 11:38 | Progress Note ---
CHACE FRANZ 05/12/23 1138: Progress Note Ms. 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 She is currently able to complete ADLs and transfers with touch assitance, except for lying to sitting, which requires moderate assistance. The gaol is to be independent for most ADLs and transfers. She walks primarily from bed to bathroom and back. She has a knee imobilizer on her left leg, and has had frequent issues with keeping the imobilizer in place, as it would slide down to her ankle. PT helped instruct patient this morning on how to properly fit imobilizer to prevent further recurrence. Patients expressed concern about some blood on her bandage, and she was reassured that this was not an excessive amount that warranted concern or a bandage at this time. She did report some pain in her knee this morning that was limiting how far she could walk. AMANDA MENJIVAR DO 05/13/232056: Supervisory-Addendum Brief Verification & Attestation Participated in pt care: history, MDM, physical Personally performed: exam, history, MDM, supervision of care Care discussed with: Medical Student Procedures: n/a Results interpretation: Verified all documentation Verification and Attestation of Medical Student E/M Service A medical student performed and documented this service in my presence. I reviewed and verified all information documented by the medical student and made modifications to such information, when appropriate. I personally performed the physical exam and medical decision making. Amanda Menjivar May 13, 2023,20:57 CHACE FRANZ May 12, 2023 11:38 AMANDA MENJIVAR DO May 13, 2023 20:57
[2023-05-12] MEDS: ACETAMINOPHEN ER 650 MG (ARTHRITIS) PO PRN ×2 (14:53→20:55)
--- NOTE | 2023-05-12 15:25 | Physical Therapy Daily Note ---
PT Daily Note-Current Subjective Pt utilizing RR /c OT assistance /a tx. Pt states she has "slight pain" in (L) knee. Pt agreeable to tx. Pt pain "slightly increased" during tx, so pt requested more pain meds. Pain Section J - Health Conditions 1. Rarely or not at all 2. Occasionally 3. Frequently 4. Almost constantly 8. Unable to answer Pain Effect on Sleep: 2 Pain Interference with Therapy: 3 Pain Interference w/Day-to-Day: 2 Mental Status Patient Orientation: Person, Place, Time, Situation Attachments: Knee Immobilizer Transfers SCALE: Activities may be completed with or without assistive devices. 8-Yakogxmmzs-exxolad completes the activity by him/herself with no assistance from a helper. 5-Set-up or Clean-up Assistance-helper sets up or cleans up; patient completes activity. [place] assists only prior to or following the activity. 4-Supervision or Touching Assistance-helper provides verbal cues and/or touching/steadying and/or contact guard assistance as patient completes activity. Assistance may be provided throughout the activity or intermittently. 3-Partial/Moderate Assistance-helper does LESS THAN HALF the effort. [place] lifts, holds or supports trunk or limbs, but provides less than half the effort. 2-Substantial/Maximal Assistance-helper does MORE THAN HALF the effort. [place] lifts or holds trunk or limbs and provides more than half the effort. 1-Ygwwnhmku-pflann does ALL the effort. Patient does none of the effort to complete the activity. Or, the assistance of 2 or more helpers is required for the patient to complete the activity. If activity was not attempted, code reason: 7-Patient Refused. 9-Not Applicable-not attempted and the patient did not perform the activity before the current illness, exacerbation or injury. 10-Not Attempted due to Environmental Limitations-(lack of equipment, weather restraints, etc.). 88-Not Attempted due to Medical Conditions or Safety Concerns. Sit to Stand (QC): 4 (SBA-CGA for safety) Chair/Ywe-vf-Hanmb Xfer(QC): 4 Toilet Transfer (QC): 4 Weight Bearing Weight Bearing/Tolerated Weight Bearing/Tolerated Gait Training Does the Patient Walk?: Yes Walk 10 feet (QC): 4 (SBA-CGA for safety) Walk 50 ft with 2 Turns(QC): 4 Gait Assistive Device: FWW Pt amb 100' /c FWW (and knee immobilizer), with CGA for safety and stabilization. Wheelchair Training Does the Pt Use a Wheelchair?: Yes Wheel 50 ft with 2 turns (QC): 3 (Cal) Type of Wheelchair: Manual Exercises THER EX: Seated (B) LE x 10 reps: Quad sets (/c extra time to complete on L LE), Glute sets, Ankle pumps, Ankle rotations, Heel/Toe raises. Standing (L) LE x 10 reps: Hip ABD, Hip ext. Treatments Pt utilized restroom, conducting toilet xfer with SBA. Pt amb from room<>PT gym x 100' /c FWW (and L knee immobilizer). Pt performed seated B LE and standing L LE ther ex. Pt required multiple breaks secondary to pain and fatigue. Pt requested more pain meds /p slight increase in pain. Pt demonstrated w/c mobility x 50+'. Post tx with pt in w/c outside with son, and all needs met. Assessment Current Status: Good Progress Pt required multiple RB's secondary to pain and fatigue. PT Director Of Media Goals Director Of Media Goals PT Director Of Media Goals Time Frame: May 22, 2023 Roll Left & Right (QC): 6 (/c bed rail) Sit to Lying (QC): 6 Lying-Sitting on Side/Bed(QC): 6 Sit to Stand (QC): 6 Chair/Jwo-cm-Lgvow Xfer(QC): 6 (/c FWW and (L) knee immobilizer) Toilet Transfer (QC): 6 Car Transfer (QC): 6 Does the Patient Walk: Yes Walk 10 feet (QC): 6 (/c FWW and (L) knee immobilizer) Walk 50ft with 2 Turns (QC): 6 (/c FWW and (L) knee immobilizer) Walk 150 ft (QC): 6 (/c FWW and (L) knee immobilizer) Walking 10ft on Uneven Surface: 6 (/c FWW and (L) knee immobilizer) 1 Step (curb) (QC): 4 (/c FWW and (L) knee immobilizer) 4 Steps (QC): 4 ((B) rails) 12 Steps (QC): 4 ((B)rails) Picking up an Object (QC): 6 (/c biztalk developer.) Does the Pt use WC or Scooter?: No Wheel 50 feet with 2 turns (QC: 9 Wheel 150 feet: 9 PT Plan Problem List Problem List: Functional Strength, Gait Treatment/Plan Treatment Plan: Continue Plan of Care Treatment Plan: Bed Mobility, Education, Functional Activity Emma, Functional Strength, Group Therapy, Gait, Safety, Therapeutic Exercise, Transfers Treatment Duration: May 22, 2023 Frequency: At least 5 of 7 days/Wk (IRF) Estimated Hrs Per Day: 1.5 hours per day Patient and/or Family Agrees t: Yes Safety Risks/Education Patient Education: Correct Positioning Teaching Recipient: Patient Teaching Methods: Discussion Response to Teaching: Verbalize Understanding Discharge Recommendations Plan Continue with tx per pt POC. Time Time In: 1430 Time Out: 1530 DATE: May 12, 2023 Total Billed Treatment Time: 60 Total Billed Treatment 1, EX2 (30m), GT (15m), FA (15m) GRACE BEJARANO MOTOR POOL DRIVER May 12, 2023 15:25
[2023-05-12 20:46] VITALS: BP 173/82
[2023-05-13] MEDS: oxyCODONE/ACETAMINOPHEN 5/325MG TABLET PO PRN ×2 (05:23→12:50)
[2023-05-13] MEDS: CYANOCOBALAMIN 1,000 MCG TABLET PO SCH (06:18)
[2023-05-13 07:39] VITALS: BP 153/72
[2023-05-13] MEDS: VITAMIN D3 25 MCG (1,000 UNITS) TABLET PO SCH (07:50)
[2023-05-13] MEDS: SENNA W/DOCUSATE TABLET PO SCH ×2 (07:50→21:38)
[2023-05-13] MEDS: ASPIRIN enteric coated 81MG TABLET PO SCH (07:50)
[2023-05-13] MEDS: DOCUSATE SODIUM 100 MG CAPSULE PO SCH ×2 (07:51→21:38)
[2023-05-13] MEDS: LevETIRAcetam 500 MG TABLET PO SCH ×2 (07:51→21:38)
[2023-05-13] MEDS: PANTOPRAZOLE 40 MG TABLET PO SCH (07:51)
[2023-05-13] MEDS: MELOXICAM 7.5 MG TABLET PO SCH (07:51)
[2023-05-13] MEDS: DICLOFENAC 1% GEL 50 GM TUBE TP SCH ×4 (07:52→20:02)
--- NOTE | 2023-05-13 09:04 | Occupational Ther Daily Note ---
OT Current Status-Daily Note Subjective Pt. alert laying in bed. Moderate pain report, RN notified. Pt. agreed to therapy. Mental Status/Objective Patient Orientation: Person, Place, Time, Situation ADL-Treatment Pt. agreed to sponge bath while sitting at sink. Min A with bed mobility from supine to EOB. Supervision using FWW with functional mobility from EOB into bathroom. Assist with donning/doffing knee immobilizer. After session, pt in recliner with call light and phone in reach with daughter present in room and all needs met. Therapy Code Descriptions/Definitions Functional [place] Measure: 0=Not Assessed/NA 4=Minimal Assistance 1=Total Assistance 5=Supervision or Setup 2=Maximal Assistance 6=Modified [place] 3=Moderate Assistance 7=Complete IndependenceSCALE: Activities may be completed with or without assistive devices. 8-Xsnwrywsmm-qshnfhq completes the activity by him/herself with no assistance from a helper. 5-Set-up or Clean-up Assistance-helper sets up or cleans up; patient completes activity. [place] assists only prior to or following the activity. 4-Supervision or Touching Assistance-helper provides verbal cues and/or touching/steadying and/or contact guard assistance as patient completes activity. Assistance may be provided throughout the activity or intermittently. 3-Partial/Moderate Assistance-helper does LESS THAN HALF the effort. [place] lifts, holds or supports trunk or limbs, but provides less than half the effort. 2-Substantial/Maximal Assistance-helper does MORE THAN HALF the effort. [place] lifts or holds trunk or limbs and provides more than half the effort. 7-Oheetqyyz-ybrsgb does ALL the effort. Patient does none of the effort to complete the activity. Or, the assistance of 2 or more helpers is required for the patient to complete the activity. If activity was not attempted, code reason: 7-Patient Refused. 9-Not Applicable-not attempted and the patient did not perform the activity before the current illness, exacerbation or injury. 10-Not Attempted due to Environmental Limitations-(lack of equipment, weather restraints, etc.). 88-Not Attempted due to Medical Conditions or Safety Concerns. Eating (QC): 6 (Pt. independent with eating. ) Oral Hygiene (QC): 6 (Pt. independent with grooming/oral hygiene while standing at sink. ) Bathing Location: L Arm, R Arm, L Upper Leg, R Upper Leg, L Lower Leg (including foot), R Lower Leg (including foot), Chest, Abdomen, Buttocks, Perineal Area Shower/Bathe Self (QC): 6 (Pt. able to bathe all areas while sitting then stands to clean buttocks and perineal area by self with no LOB using LH sponge. Sponge bath per pt request. ) Upper Body Dressing (QC): 5 (Pt. independent with UB clothing. ) Lower Body Dressing (QC): 3 (Pt able to use AE to complete LBD with set up. Assistance required to don/doff knee immboilizer.) On/Off Footwear: 3 (Pt. able doff socks by self using dressing stick. Don socks with sock aide is able to don R foot by self then requries min A to don L foot due to swelling of foot after.) Toileting Hygiene (QC): 6 (Pt. able to complete clothing manipulation using FWW and grabbars and hygiene.) Toilet Transfer (QC): 6 Other Treatment Educated Pt. with the use of chip mixing machine operator and sock aide and then Pt. was able to demonstrate with the use of AE to help with LB dressing. Education OT Patient Education: Correct positioning, Energy conservation, Modified ADL techniques, Progress toward Goal/Update tx plan, Purpose of tx/functional activities, Rehab process, Use of adapted equipment Teaching Recipient: Patient Teaching Methods: Discussion Response to Teaching: Verbalize Understanding, Return Demonstration OT Short Term Goals Short Term Goals Time Frame: May 16, 2023 Eatin Oral hygiene: 5 (standing at sink ) Toileting hygiene: 6 (in sitting ) Shower/bathe self: 4 Upper body dressin Lower body dressin Putting on/taking off footwear: 4 OT Hospital Chaplain Goals Hospital Chaplain Goals Time Frame: May 23, 2023 Acute change in mental status: 0 Inattention: 0 Disorganized thinkin Altered level of consciousness: 0 Eating (QC): 6 Oral Hygiene (QC): 6 Toileting Hygiene (QC): 6 Shower/Bathe Self (QC): 5 Upper Body Dressing (QC): 6 Lower Body Dressing (QC): 5 On/Off Footwear (QC): 5 1=Demonstrate adherence to instructed precautions during ADL tasks. 2=Patient will verbalize/demonstrate understanding of assistive devices/ modifications for ADL. 3=Patient will improve strength/tolerance for activity to enable patient to perform ADL's. OT Education/Plan Problem List/Assessment Assessment: Decreased UE Strength, Impaired Funct Balance, Impaired I ADL's, Impaired Self-Care Skills Discharge Recommendations Plan/Recommendations: Continue POC Treatment Plan/Plan of Care Patient would benefit from OT for education, treatment and training to promote independence in ADL's, mobility, safety and/or upper extremity function for ADL's. Plan of Care: ADL Retraining, Caregiver Training, Concurrent Therapy, Functional Mobility, Group Exercise/Act as Ind, UE Funct Exercise/Act, W/C Management Training Treatment Duration: May 23, 2023 Frequency: At least 5 of 7 days/Wk (IRF) Estimated Hrs Per Day: 1.5 hours per day Agreement: Yes Rehab Potential: Good Time Start Time: 07:15 Stop Time: 08:45 DATE: May 13, 2023 Total Time Billed (hr/min): 90 Billed Treatment Time 1 visit- ADL 6 (90 mins) DEIRDRE OWEN OT May 13, 2023 09:04
[2023-05-13] MEDS: ACETAMINOPHEN ER 650 MG (ARTHRITIS) PO PRN ×2 (09:13→21:39)
--- NOTE | 2023-05-13 10:55 | PM&R Progress Note ---
Subjective HPI/CC On Admission Date Seen by Provider: May 13, 2023 Time Seen by Provider: 12:00 Subjective/Events-last exam 05/13/2023: Patient doing well Has no complaints Pain is controlled Using brace 27/0105/12/2023: No major issues Tightened brace to make it more stable No falls Pain controlled 05/11/2023: Patient doing well Has no new complaints Reviewed meds and labs No falls 05/10/2023: Patient improved No falls Blood pressure improved Bowels are moving 05/09/2023: Patient doing well Pain is controlled Blood pressure is labile Labs stable Checking iron and B12 Creatinine 1.37 Review of Systems General: Fatigue, Malaise Objective Exam Vital Signs Vital Signs Date Time Temp Pulse Resp B/P (MAP) Pulse Ox O2 Delivery O2 Flow Rate FiO2 05/13/23 09:21 Room Air 05/13/23 07:39 36.1 72 18 153/72 (99) 98 Capillary Refill : General Appearance: No Apparent Distress, WD/WN, Chronically ill HEENT: PERRL/EOMI, Normal ENT Inspection, Pharynx Normal Neck: Full Range of Motion, Normal Inspection, Non Tender, Supple, Carotid Bruit Respiratory: Chest Non Tender, Lungs Clear, Normal Breath Sounds, No Accessory Muscle Use, No Respiratory Distress Cardiovascular: Regular Rate, Rhythm, No Edema, No Gallop, No JVD, No Murmur, Normal Peripheral Pulses Gastrointestinal: Normal Bowel Sounds, No Organomegaly, No Pulsatile Mass, Non Tender, Soft Back: Normal Inspection, No CVA Tenderness, No Vertebral Tenderness Extremity: Normal Capillary Refill, Normal Inspection, Normal Range of Motion (Except left leg in immobilizer), Non Tender, No Calf Tenderness, No Pedal Edema Neurologic/Psychiatric: Alert, Oriented x3, No Motor/Sensory Deficits, Normal Mood/Affect, Abnormal Gait, Motor Weakness ( left leg) Skin: Normal Color, Warm/Dry Lymphatic: No Adenopathy Results/Procedures Lab Patient resulted labs reviewed. FIM Transfers Therapy Code Descriptions/Definitions Functional [place] Measure: 0=Not Assessed/NA 4=Minimal Assistance 1=Total Assistance 5=Supervision or Setup 2=Maximal Assistance 6=Modified [place] 3=Moderate Assistance 7=Complete IndependenceSCALE: Activities may be completed with or without assistive devices. 9-Oddbjlibxk-rqirnwi completes the activity by him/herself with no assistance from a helper. 5-Set-up or Clean-up Assistance-helper sets up or cleans up; patient completes activity. [place] assists only prior to or following the activity. 4-Supervision or Touching Assistance-helper provides verbal cues and/or touching/steadying and/or contact guard assistance as patient completes activity. Assistance may be provided throughout the activity or intermittently. 3-Partial/Moderate Assistance-helper does LESS THAN HALF the effort. [place] lifts, holds or supports trunk or limbs, but provides less than half the effort. 2-Substantial/Maximal Assistance-helper does MORE THAN HALF the effort. [place] lifts or holds trunk or limbs and provides more than half the effort. 8-Rignicvee-jihjoc does ALL the effort. Patient does none of the effort to complete the activity. Or, the assistance of 2 or more helpers is required for the patient to complete the activity. If activity was not attempted, code reason: 7-Patient Refused. 9-Not Applicable-not attempted and the patient did not perform the activity before the current illness, exacerbation or injury. 10-Not Attempted due to Environmental Limitations-(lack of equipment, weather restraints, etc.). 88-Not Attempted due to Medical Conditions or Safety Concerns. Roll Left to Right (QC): 3 (min (A) due to (L) leg pain) Sit to Lying (QC): 3 (MIn (A) for (L) LE on victor mat) Sit to Stand (QC): 4 (SBA-CGA for safety) Chair/Fcj-in-Xened Xfer(QC): 4 Car Transfer (QC): 3 (mod (A) /c FWW) Gait Training Does the Patient Walk?: Yes Distance: 20' x 2 (to BR only) Walk 10 feet (QC): 4 (SBA-CGA for safety) Walk 50 ft with 2 Turns(QC): 4 Walk 150 ft (QC): 88 (unable to attain distance, fatigue/pain) Walking 10ft/uneven surface-QC: 3 (Min (A) /c FWW) Gait Persons Needed: 1 Gait Assistive Device: FWW Wheelchair Training Does the Pt Use a Wheelchair?: Yes Wheel 50 ft with 2 turns (QC): 3 (Cal) Wheel 150 ft (QC): 9 Type of Wheelchair: Manual Stair Training 1 Step (curb) (QC): 3 (min (A) up 2" curb step) 4 Steps (QC): 88 (not safe, pain/fatigue) 12 Steps (QC): 88 (not safe, pain/fatigue) Balance Picking up an Object (QC): 4 (CGA /c FWW and computer graphics illustrator (uses a computer graphics illustrator at home)) ADL-Treatment Eating (QC): 6 (Pt. independent with eating. ) Oral Hygiene (QC): 6 (Pt. independent with grooming/oral hygiene while standing at sink. ) Bathing Location: L Arm, R Arm, L Upper Leg, R Upper Leg, L Lower Leg (including foot), R Lower Leg (including foot), Chest, Abdomen, Buttocks, Perineal Area Shower/Bathe Self (QC): 5 (Pt. able to bathe all areas while sitting then stands to clean buttocks and perineal area by self with no LOB using LH sponge. ) Upper Body Dressing (QC): 5 (Pt. independent with UB clothing. ) Lower Body Dressing (QC): 5 (Pt. able to doff brief/pants with dressing stick and don brief/pants using computer graphics illustrator while seated then is able to stand using FWW to stabilze self while hiking brief/pants up by self.) On/Off Footwear (QC): 3 (Pt. able doff socks by self using dressing stick. Don socks with sock aide is able to don R foot by self then requries min A to don L foot due to swelling of foot after set up. ) Toileting Hygiene (QC): 6 (Pt. able to complete clothing manipulation using FWW and grabbars and hygiene.) Toilet Transfer (QC): 4 (Pt. 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/o uncomplicated left hip arthroplasty revision by Dr Fernandez 04/2022 due to pain from hardware placed during hip fracture repair 10 years ago HTN labile status Urinary retention hx Fall risk h/o Anemia iron deficiency status post iron infusions and blood transfusions Chronic kidney disease stage III Plan: Home meds Supportive care Pain control PT OT 05/09/2023: Await iron and B12 level Monitor kidney function 05/10/2023: Decrease oxycodone to 1/2 pill 05/11/2023: Check labs in am 05/12/2023: Iron infusion B12 supplement Pain control 05/13/2023: Iron infusion Pain control (1) Status post left knee replacement NATIVIDAD MENJIVAR DO May 13, 2023 10:55
--- NOTE | 2023-05-13 15:21 | Physical Therapy Daily Note ---
PT Daily Note-Current Subjective Pt sitting in recliner upon arrival. Pt agrees to PT. Pain Numeric Pain Scale: 5-Moderate Pain Location: Left Location Body Site: Knee Pain Description: Ache Section J - Health Conditions 1. Rarely or not at all 2. Occasionally 3. Frequently 4. Almost constantly 8. Unable to answer Pain Effect on Sleep: 2 Pain Interference with Therapy: 3 Pain Interference w/Day-to-Day: 2 Mental Status Patient Orientation: Person, Place, Time, Situation Attachments: Knee Immobilizer Transfers SCALE: Activities may be completed with or without assistive devices. 7-Vylfudfnhy-jqaspub completes the activity by him/herself with no assistance from a helper. 5-Set-up or Clean-up Assistance-helper sets up or cleans up; patient completes activity. [place] assists only prior to or following the activity. 4-Supervision or Touching Assistance-helper provides verbal cues and/or touching/steadying and/or contact guard assistance as patient completes activity. Assistance may be provided throughout the activity or intermittently. 3-Partial/Moderate Assistance-helper does LESS THAN HALF the effort. [place] lifts, holds or supports trunk or limbs, but provides less than half the effort. 2-Substantial/Maximal Assistance-helper does MORE THAN HALF the effort. [place] lifts or holds trunk or limbs and provides more than half the effort. 0-Malatdqel-hvkbkn does ALL the effort. Patient does none of the effort to complete the activity. Or, the assistance of 2 or more helpers is required for the patient to complete the activity. If activity was not attempted, code reason: 7-Patient Refused. 9-Not Applicable-not attempted and the patient did not perform the activity before the current illness, exacerbation or injury. 10-Not Attempted due to Environmental Limitations-(lack of equipment, weather restraints, etc.). 88-Not Attempted due to Medical Conditions or Safety Concerns. Sit to Stand (QC): 4 (CGA) Toilet Transfer (QC): 4 (CGA) Weight Bearing Weight Bearing/Tolerated Weight Bearing/Tolerated Gait Training Does the Patient Walk?: Yes Distance: 50' Walk 10 feet (QC): 5 Walk 50 ft with 2 Turns(QC): 4 Gait Assistive Device: FWW Very stiff today Treatments TF to standing and amb to BR. After toileting & pericare, brief has to be changed. Pt amb in hallway short distance before returning to room to rest in recliner for lunch. Pt repositioned to comfort. All needs met, call light in hand & lunch tray in front of pt. Assessment Current Status: Good Progress Pt fatigues and is stiff during walk but able to push through for tx. PT Roof Tiler Goals Senior Living Goals PT Senior Living Goals Time Frame: May 22, 2023 Roll Left & Right (QC): 6 (/c bed rail) Sit to Lying (QC): 6 Lying-Sitting on Side/Bed(QC): 6 Sit to Stand (QC): 6 Chair/Nwk-ot-Dqjux Xfer(QC): 6 (/c FWW and (L) knee immobilizer) Toilet Transfer (QC): 6 Car Transfer (QC): 6 Does the Patient Walk: Yes Walk 10 feet (QC): 6 (/c FWW and (L) knee immobilizer) Walk 50ft with 2 Turns (QC): 6 (/c FWW and (L) knee immobilizer) Walk 150 ft (QC): 6 (/c FWW and (L) knee immobilizer) Walking 10ft on Uneven Surface: 6 (/c FWW and (L) knee immobilizer) 1 Step (curb) (QC): 4 (/c FWW and (L) knee immobilizer) 4 Steps (QC): 4 ((B) rails) 12 Steps (QC): 4 ((B)rails) Picking up an Object (QC): 6 (/c rn practitioner.) Does the Pt use WC or Scooter?: No Wheel 50 feet with 2 turns (QC: 9 Wheel 150 feet: 9 PT Plan Problem List Problem List: Activity Tolerance, Gait Treatment/Plan Treatment Plan: Continue Plan of Care Treatment Plan: Bed Mobility, Education, Functional Activity Emma, Functional Strength, Group Therapy, Gait, Safety, Therapeutic Exercise, Transfers Treatment Duration: May 22, 2023 Frequency: At least 5 of 7 days/Wk (IRF) Estimated Hrs Per Day: 1.5 hours per day Patient and/or Family Agrees t: Yes Safety Risks/Education Patient Education: Gait Training Teaching Recipient: Patient Teaching Methods: Discussion Response to Teaching: Verbalize Understanding Time Time In: 1100 Time Out: 1200 DATE: May 13, 2023 Total Billed Treatment Time: 60 Total Billed Treatment 1, GT (15m), FA x2 (30m) & EX (15m) JUAN ANTONIO BROWN MEDICAL SERVICES ASSISTANT May 13, 2023 15:21
--- NOTE | 2023-05-13 15:42 | Physical Therapy Daily Note ---
PT Daily Note-Current Subjective Pt sitting in BR upon arrival. Pt agrees to PT. Pain Numeric Pain Scale: 5-Moderate Pain Location: Left Location Body Site: Knee Pain Description: Ache Section J - Health Conditions 1. Rarely or not at all 2. Occasionally 3. Frequently 4. Almost constantly 8. Unable to answer Pain Effect on Sleep: 2 Pain Interference with Therapy: 3 Pain Interference w/Day-to-Day: 2 Mental Status Patient Orientation: Person, Place, Time, Situation Attachments: Knee Immobilizer Transfers SCALE: Activities may be completed with or without assistive devices. 9-Dxcqoxzylv-pvzbrtx completes the activity by him/herself with no assistance from a helper. 5-Set-up or Clean-up Assistance-helper sets up or cleans up; patient completes activity. [place] assists only prior to or following the activity. 4-Supervision or Touching Assistance-helper provides verbal cues and/or touching/steadying and/or contact guard assistance as patient completes a ctivity. Assistance may be provided throughout the activity or intermittently. 3-Partial/Moderate Assistance-helper does LESS THAN HALF the effort. [place] lifts, holds or supports trunk or limbs, but provides less than half the effort. 2-Substantial/Maximal Assistance-helper does MORE THAN HALF the effort. [place] lifts or holds trunk or limbs and provides more than half the effort. 6-Whnbhtctx-rlmpjc does ALL the effort. Patient does none of the effort to complete the activity. Or, the assistance of 2 or more helpers is required for the patient to complete the activity. If activity was not attempted, code reason: 7-Patient Refused. 9-Not Applicable-not attempted and the patient did not perform the activity before the current illness, exacerbation or injury. 10-Not Attempted due to Environmental Limitations-(lack of equipment, weather restraints, etc.). 88-Not Attempted due to Medical Conditions or Safety Concerns. Sit to Stand (QC): 5 Toilet Transfer (QC): 5 Weight Bearing Weight Bearing/Tolerated Weight Bearing/Tolerated Gait Training Does the Patient Walk?: Yes Distance: 90', 80' Walk 10 feet (QC): 5 Walk 50 ft with 2 Turns(QC): 5 Gait Assistive Device: FWW Treatments Pt finishes in BR and completes pericare before amb in hallway. Pt returns to room to rest at end of tx to rest in recliner w/all needs met, call light in hand. Assessment Current Status: Good Progress Pt pushes self to work hard and walk farther to improve everyday. PT Food Production Worker Goals Senior Living Goals PT Senior Living Goals Time Frame: May 22, 2023 Roll Left & Right (QC): 6 (/c bed rail) Sit to Lying (QC): 6 Lying-Sitting on Side/Bed(QC): 6 Sit to Stand (QC): 6 Chair/Ybl-qu-Tfcin Xfer(QC): 6 (/c FWW and (L) knee immobilizer) Toilet Transfer (QC): 6 Car Transfer (QC): 6 Does the Patient Walk: Yes Walk 10 feet (QC): 6 (/c FWW and (L) knee immobilizer) Walk 50ft with 2 Turns (QC): 6 (/c FWW and (L) knee immobilizer) Walk 150 ft (QC): 6 (/c FWW and (L) knee immobilizer) Walking 10ft on Uneven Surface: 6 (/c FWW and (L) knee immobilizer) 1 Step (curb) (QC): 4 (/c FWW and (L) knee immobilizer) 4 Steps (QC): 4 ((B) rails) 12 Steps (QC): 4 ((B)rails) Picking up an Object (QC): 6 (/c service center assistant.) Does the Pt use WC or Scooter?: No Wheel 50 feet with 2 turns (QC: 9 Wheel 150 feet: 9 PT Plan Problem List Problem List: Gait Treatment/Plan Treatment Plan: Continue Plan of Care Treatment Plan: Bed Mobility, Education, Functional Activity Emma, Functional Strength, Group Therapy, Gait, Safety, Therapeutic Exercise, Transfers Treatment Duration: May 22, 2023 Frequency: At least 5 of 7 days/Wk (IRF) Estimated Hrs Per Day: 1.5 hours per day Patient and/or Family Agrees t: Yes Safety Risks/Education Patient Education: Gait Training Teaching Recipient: Patient Teaching Methods: Discussion Response to Teaching: Verbalize Understanding Time Time In: 1345 Time Out: 1430 DATE: May 13, 2023 Total Billed Treatment Time: 45 Total Billed Treatment 1, FA (15m) & GT x2 (30m) JUAN ANTONIO BROWN DIETARY TECH May 13, 2023 15:42
[2023-05-13 20:00] VITALS: BP 172/77
[2023-05-13] MEDS: hydrALAZINE 25 MG TABLET PO PRN (21:39)
[2023-05-14] MEDS: ACETAMINOPHEN ER 650 MG (ARTHRITIS) PO PRN ×2 (06:15→20:14)
[2023-05-14] MEDS: CYANOCOBALAMIN 1,000 MCG TABLET PO SCH (06:15)
[2023-05-14 08:03] VITALS: BP 177/77
[2023-05-14] MEDS: LACTULOSE SYRUP 10GM/15ML 30ML UDC PO PRN (08:14)
[2023-05-14] MEDS: PANTOPRAZOLE 40 MG TABLET PO SCH (08:14)
[2023-05-14] MEDS: DOCUSATE SODIUM 100 MG CAPSULE PO SCH ×2 (08:14→21:20)
[2023-05-14] MEDS: MELOXICAM 7.5 MG TABLET PO SCH (08:14)
[2023-05-14] MEDS: ASPIRIN enteric coated 81MG TABLET PO SCH (08:15)
[2023-05-14] MEDS: VITAMIN D3 25 MCG (1,000 UNITS) TABLET PO SCH (08:15)
[2023-05-14] MEDS: SENNA W/DOCUSATE TABLET PO SCH ×2 (08:15→21:20)
[2023-05-14] MEDS: LevETIRAcetam 500 MG TABLET PO SCH ×2 (08:15→20:14)
[2023-05-14 09:10] VITALS: BP 178/82
[2023-05-14] MEDS: DICLOFENAC 1% GEL 50 GM TUBE TP SCH ×4 (09:16→20:00)
[2023-05-14] MEDS: hydrALAZINE 25 MG TABLET PO PRN ×2 (09:16→20:14)
--- NOTE | 2023-05-14 11:41 | Occupational Ther Daily Note ---
OT Current Status-Daily Note Subjective Pt. alert sitting in recliner finishing eating breakfast. No c/o pain. Pt. agreed to therapy. Mental Status/Objective Patient Orientation: Person, Place, Time, Situation ADL-Treatment Pt. agreed to sponge while sitting at sink. Supervision using FWW with functional mobility from recliner into bathroom. After session, pt in recliner with cold pack on knee with call light and phone in reach and all needs met. Therapy Code Descriptions/Definitions Functional [place] Measure: 0=Not Assessed/NA 4=Minimal Assistance 1=Total Assistance 5=Supervision or Setup 2=Maximal Assistance 6=Modified [place] 3=Moderate Assistance 7=Complete IndependenceSCALE: Activities may be completed with or without assistive devices. 1-Txhypoufta-dqmyclh completes the activity by him/herself with no assistance from a helper. 5-Set-up or Clean-up Assistance-helper sets up or cleans up; patient completes activity. [place] assists only prior to or following the activity. 4-Supervision or Touching Assistance-helper provides verbal cues and/or touching/steadying and/or contact guard assistance as patient completes activity. Assistance may be provided throughout the activity or intermittently. 3-Partial/Moderate Assistance-helper does LESS THAN HALF the effort. [place] lifts, holds or supports trunk or limbs, but provides less than half the effort. 2-Substantial/Maximal Assistance-helper does MORE THAN HALF the effort. [place] l ifts or holds trunk or limbs and provides more than half the effort. 1-Bsghpppxu-dvxdbf does ALL the effort. Patient does none of the effort to complete the activity. Or, the assistance of 2 or more helpers is required for the patient to complete the activity. If activity was not attempted, code reason: 7-Patient Refused. 9-Not Applicable-not attempted and the patient did not perform the activity before the current illness, exacerbation or injury. 10-Not Attempted due to Environmental Limitations-(lack of equipment, weather restraints, etc.). 88-Not Attempted due to Medical Conditions or Safety Concerns. Eating (QC): 6 (Pt. independent with eating.) Bathing Location: L Arm, R Arm, L Upper Leg, R Upper Leg, L Lower Leg (including foot), R Lower Leg (including foot), Chest, Abdomen, Buttocks, Perineal Area Shower/Bathe Self (QC): 6 (Pt. able to bathe UE while sitting and uses LH sponge to clean LE while sitting then stands to clean buttocks and perineal area while stabilizing L hand on counter top. ) Upper Body Dressing (QC): 5 (Pt. independent with UB clothing. ) Lower Body Dressing (QC): 3 (Pt. need assist with donning/doffing knee immobilizer. Pt. able to doff brief/pants using dressing stick, then dons brief/pants after set up using manager metrology then stands using FWW to stabilize self while hiking brief/pants up by self. ) On/Off Footwear: 5 (Pt. able doff B socks using dressing stick, then dons tedhose on R foot and B socks using sock aide. ) Toileting Hygiene (QC): 6 (Pt. able to complete clothing manipulation using FWW and grabbars and hygiene.) Toilet Transfer (QC): 6 OT Short Term Goals Short Term Goals Time Frame: May 16, 2023 Eatin Oral hygiene: 5 (standing at sink ) Toileting hygiene: 6 (in sitting ) Shower/bathe self: 4 Upper body dressin Lower body dressin Putting on/taking off footwear: 4 OT Used Equipment Sales Representative Goals Custodial Goals Time Frame: May 23, 2023 Acute change in mental status: 0 Inattention: 0 Disorganized thinkin Altered level of consciousness: 0 Eating (QC): 6 Oral Hygiene (QC): 6 Toileting Hygiene (QC): 6 Shower/Bathe Self (QC): 5 Upper Body Dressing (QC): 6 Lower Body Dressing (QC): 5 On/Off Footwear (QC): 5 1=Demonstrate adherence to instructed precautions during ADL tasks. 2=Patient will verbalize/demonstrate understanding of assistive devices/modifications for ADL. 3=Patient will improve strength/tolerance for activity to enable patient to perform ADL's. OT Education/Plan Problem List/Assessment Assessment: Decreased UE Strength, Impaired Funct Balance, Impaired Self-Care Skills Discharge Recommendations Plan/Recommendations: Continue POC Treatment Plan/Plan of Care Patient would benefit from OT for education, treatment and training to promote independence in ADL's, mobility, safety and/or upper extremity function for ADL's. Plan of Care: ADL Retraining, Caregiver Training, Concurrent Therapy, Functional Mobility, Group Exercise/Act as Ind, UE Funct Exercise/Act, W/C Management Training Treatment Duration: May 23, 2023 Frequency: At least 5 of 7 days/Wk (IRF) Estimated Hrs Per Day: 1.5 hours per day Agreement: Yes Rehab Potential: Good Time Start Time: 07:15 Stop Time: 08:45 DATE: May 14, 2023 Total Time Billed (hr/min): 90 Billed Treatment Time 1 visit- ADL 6 (90 mins) DEIRDRE OWEN OT May 14, 2023 11:41
--- NOTE | 2023-05-14 11:46 | PM&R Progress Note ---
Subjective HPI/CC On Admission Date Seen by Provider: May 14, 2023 Time Seen by Provider: 15:00 Subjective/Events-last exam 05/14/2023: No new issues No pain Wearing left leg brace Minimal drainage of the knee incision 05/13/2023: Patient doing well Has no complaints Pain is controlled Using brace 27/0105/12/2023: No major issues Tightened brace to make it more stable No falls Pain controlled 05/11/2023: Patient doing well Has no new complaints Reviewed meds and labs No falls 05/10/2023: Patient improved No falls Blood pressure improved Bowels are moving 05/09/2023: Patient doing well Pain is controlled Blood pressure is labile Labs stable Checking iron and B12 Creatinine 1.37 Review of Systems General: Fatigue, Malaise Objective Exam Vital Signs Vital Signs Date Time Temp Pulse Resp B/P (MAP) Pulse Ox O2 Delivery O2 Flow Rate FiO2 05/14/23 13:00 160/77 (104) 05/14/23 09:30 Room Air 05/14/23 08:03 36.2 66 18 97 Capillary Refill : General Appearance: No Apparent Distress, WD/WN, Chronically ill HEENT: PERRL/EOMI, Normal ENT Inspection, Pharynx Normal Neck: Full Range of Motion, Normal Inspection, Non Tender, Supple, Carotid Bruit Respiratory: Chest Non Tender, Lungs Clear, Normal Breath Sounds, No Accessory Muscle Use, No Respiratory Distress Cardiovascular: Regular Rate, Rhythm, No Edema, No Gallop, No JVD, No Murmur, Normal Peripheral Pulses Gastrointestinal: Normal Bowel Sounds, No Organomegaly, No Pulsatile Mass, Non Tender, Soft Back: Normal Inspection, No CVA Tenderness, No Vertebral Tenderness Extremity: Normal Capillary Refill, Normal Inspection, Normal Range of Motion (Except left leg in immobilizer), Non Tender, No Calf Tenderness, No Pedal Edema Neurologic/Psychiatric: Alert, Oriented x3, No Motor/Sensory Deficits, Normal Mood/Affect, Abnormal Gait, Motor Weakness ( left leg) Skin: Normal Color, Warm/Dry Lymphatic: No Adenopathy Results/Procedures Lab Patient resulted labs reviewed. FIM Transfers Therapy Code Descriptions/Definitions Functional [place] Measure: 0=Not Assessed/NA 4=Minimal Assistance 1=Total Assistance 5=Supervision or Setup 2=Maximal Assistance 6=Modified [place] 3=Moderate Assistance 7=Complete IndependenceSCALE: Activities may be completed with or without assistive devices. 1-Cmtwqexkmu-tzkloxn completes the activity by him/herself with no assistance from a helper. 5-Set-up or Clean-up Assistance-helper sets up or cleans up; patient completes activity. [place] assists only prior to or following the activity. 4-Supervision or Touching Assistance-helper provides verbal cues and/or touching/steadying and/or contact guard assistance as patient completes activity. Assistance may be provided throughout the activity or intermittently. 3-Partial/Moderate Assistance-helper does LESS THAN HALF the effort. [place] lifts, holds or supports trunk or limbs, but provides less than half the effort. 2-Substantial/Maximal Assistance-helper does MORE THAN HALF the effort. [place] lifts or holds trunk or limbs and provides more than half the effort. 2-Tucqbskks-ujwdwf does ALL the effort. Patient does none of the effort to complete the activity. Or, the assistance of 2 or more helpers is required for the patient to complete the activity. If activity was not attempted, code reason: 7-Patient Refused. 9-Not Applicable-not attempted and the patient did not perform the activity before the current illness, exacerbation or injury. 10-Not Attempted due to Environmental Limitations-(lack of equipment, weather restraints, etc.). 88-Not Attempted due to Medical Conditions or Safety Concerns. Roll Left to Right (QC): 3 (min (A) due to (L) leg pain) Sit to Lying (QC): 3 (MIn (A) for (L) LE on victor mat) Sit to Stand (QC): 5 Chair/Dss-pe-Ryvbb Xfer(QC): 4 Car Transfer (QC): 3 (mod (A) /c FWW) Gait Training Does the Patient Walk?: Yes Distance: 90', 80' Walk 10 feet (QC): 5 Walk 50 ft with 2 Turns(QC): 5 Walk 150 ft (QC): 88 (unable to attain distance, fatigue/pain) Walking 10ft/uneven surface-QC: 3 (Min (A) /c FWW) Gait Persons Needed: 1 Gait Assistive Device: FWW Wheelchair Training Does the Pt Use a Wheelchair?: Yes Wheel 50 ft with 2 turns (QC): 3 (Cal) Wheel 150 ft (QC): 9 Type of Wheelchair: Manual Stair Training 1 Step (curb) (QC): 3 (min (A) up 2" curb step) 4 Steps (QC): 88 (not safe, pain/fatigue) 12 Steps (QC): 88 (not safe, pain/fatigue) Balance Picking up an Object (QC): 4 (CGA /c FWW and route rider (uses a route rider at home)) ADL-Treatment Eating (QC): 6 (Pt. independent with eating. ) Oral Hygiene (QC): 6 (Pt. independent with grooming/oral hygiene while standing at sink. ) Bathing Location: L Arm, R Arm, L Upper Leg, R Upper Leg, L Lower Leg (including foot), R Lower Leg (including foot), Chest, Abdomen, Buttocks, Perineal Area Shower/Bathe Self (QC): 6 (Pt. able to bathe all areas while sitting then stands to clean buttocks and perineal area by self with no LOB using LH sponge. Sponge bath per pt request. ) Upper Body Dressing (QC): 5 (Pt. independent with UB clothing. ) Lower Body Dressing (QC): 3 (Pt able to use AE to complete LBD with set up. Assistance required to don/doff knee immboilizer.) On/Off Footwear (QC): 3 (Pt. able doff socks by self using dressing stick. Don socks with sock aide is able to don R foot by self then requries min A to don L foot due to swelling of foot after.) Toileting Hygiene (QC): 6 (Pt. 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 h/o uncomplicated left hip arthroplasty revision by Dr Fernandez 04/2022 due to pain from hardware placed during hip fracture repair 10 years ago HTN labile status Urinary retention hx Fall risk h/o Anemia iron deficiency status post iron infusions and blood transfusions Chronic kidney disease stage III Plan: Home meds Supportive care Pain control PT OT 05/09/2023: Await iron and B12 level Monitor kidney function 05/10/2023: Decrease oxycodone to 1/2 pill 05/11/2023: Check labs in am 05/12/2023: Iron infusion B12 supplement Pain control 05/13/2023: Iron infusion Pain control 05/14/2023: Monitor closely Pain control (1) Status post left knee replacement NATIVIDAD MENJIVAR DO May 14, 2023 11:46
[2023-05-14 13:00] VITALS: BP 160/77
--- NOTE | 2023-05-14 16:38 | Physical Therapy Daily Note ---
PT Daily Note-Current Subjective Pt sitting in recliner upon arrival. Pt agrees to PT. Pt asks to BR to start tx. Pain Numeric Pain Scale: 5-Moderate Pain Location: Left Location Body Site: Knee Pain Description: Ache, Tightness Section J - Health Conditions 1. Rarely or not at all 2. Occasionally 3. Frequently 4. Almost constantly 8. Unable to answer Pain Effect on Sleep: 2 Pain Interference with Therapy: 3 Pain Interference w/Day-to-Day: 2 Mental Status Patient Orientation: Person, Place, Time, Situation Attachments: Knee Immobilizer Transfers SCALE: Activities may be completed with or without assistive devices. 8-Tyohzyizqs-pafgtmv completes the activity by him/herself with no assistance from a helper. 5-Set-up or Clean-up Assistance-helper sets up or cleans up; patient completes activity. [place] assists only prior to or following the activity. 4-Supervision or Touching Assistance-helper provides verbal cues and/or touching/steadying and/or contact guard assistance as patient completes activity. Assistance may be provided throughout the activity or intermittently. 3-Partial/Moderate Assistance-helper does LESS THAN HALF the effort. [place] lifts, holds or supports trunk or limbs, but provides less than half the effort. 2-Substantial/Maximal Assistance-helper does MORE THAN HALF the effort. [place] lifts or holds trunk or limbs and provides more than half the effort. 0-Nnjxowfid-lrzknb does ALL the effort. Patient does none of the effort to complete the activity. Or, the assistance of 2 or more helpers is required for the patient to complete the activity. If activity was not attempted, code reason: 7-Patient Refused. 9-Not Applicable-not attempted and the patient did not perform the activity before the current illness, exacerbation or injury. 10-Not Attempted due to Environmental Limitations-(lack of equipment, weather restraints, etc.). 88-Not Attempted due to Medical Conditions or Safety Concerns. Sit to Lying (QC): 4 Sit to Stand (QC): 5 Toilet Transfer (QC): 5 Weight Bearing Weight Bearing/Tolerated Weight Bearing/Tolerated Gait Training Does the Patient Walk?: Yes Distance: 75' x2 Walk 10 feet (QC): 5 Walk 50 ft with 2 Turns(QC): 5 Gait Assistive Device: FWW Wheelchair Training Does the Pt Use a Wheelchair?: Yes Wheel 50 ft with 2 turns (QC): 5 Wheel 150 ft (QC): 5 Type of Wheelchair: Manual Treatments Pt TF from recliner to standing and amb to BR. After toileting, pt completes pericare & washes hands then amb in hallway. Pt takes RB then TF to w/c and propels hallway to elevator to enjoy a little outdoor time during PT before returning to unit. Pt propels w/c back to room and amb in room and back to BR. Pt again completes pericare & washes hands then amb back to EOB & TF to Supine in bed so Nurse can check incisional dressing on knee. All needs met, call light next to pt. Assessment Current Status: Good Progress Pt is improving w/TF & mobility. PT Production Machine Shop Supervisor Goals Usp Goals PT Usp Goals Time Frame: May 22, 2023 Roll Left & Right (QC): 6 (/c bed rail) Sit to Lying (QC): 6 Lying-Sitting on Side/Bed(QC): 6 Sit to Stand (QC): 6 Chair/Dqd-cm-Xsqky Xfer(QC): 6 (/c FWW and (L) knee immobilizer) Toilet Transfer (QC): 6 Car Transfer (QC): 6 Does the Patient Walk: Yes Walk 10 feet (QC): 6 (/c FWW and (L) knee immobilizer) Walk 50ft with 2 Turns (QC): 6 (/c FWW and (L) knee immobilizer) Walk 150 ft (QC): 6 (/c FWW and (L) knee immobilizer) Walking 10ft on Uneven Surface: 6 (/c FWW and (L) knee immobilizer) 1 Step (curb) (QC): 4 (/c FWW and (L) knee immobilizer) 4 Steps (QC): 4 ((B) rails) 12 Steps (QC): 4 ((B)rails) Picking up an Object (QC): 6 (/c gas or petroleum operator.) Does the Pt use WC or Scooter?: No Wheel 50 feet with 2 turns (QC: 9 Wheel 150 feet: 9 PT Plan Treatment/Plan Treatment Plan: Continue Plan of Care Treatment Plan: Bed Mobility, Education, Functional Activity Emma, Functional Strength, Group Therapy, Gait, Safety, Therapeutic Exercise, Transfers Treatment Duration: May 22, 2023 Frequency: At least 5 of 7 days/Wk (IRF) Estimated Hrs Per Day: 1.5 hours per day Patient and/or Family Agrees t: Yes Safety Risks/Education Patient Education: Reviewed Feng Brace Teaching Recipient: Patient Teaching Methods: Discussion Response to Teaching: Verbalize Understanding Time Time In: 1300 Time Out: 1430 DATE: May 14, 2023 Total Billed Treatment Time: 90 Total Billed Treatment 1, GT x2 (30m), WCH x2 (30m), FA x2 (30m) JUAN ANTONIO BROWN PTA May 14, 2023 16:38
[2023-05-14 19:25] VITALS: BP 185/81
[2023-05-14] MEDS: oxyCODONE/ACETAMINOPHEN 5/325MG TABLET PO PRN (20:37)
--- NOTE | 2023-05-15 05:07 | PM&R Progress Note ---
Subjective HPI/CC On Admission Date Seen by Provider: May 15, 2023 Time Seen by Provider: 12:00 Subjective/Events-last exam 05/15/2023: Patient doing well Walking pretty well No falls No pain 05/14/2023: No new issues No pain Wearing left leg brace Minimal drainage of the knee incision 05/13/2023: Patient doing well Has no complaints Pain is controlled Using brace 27/0105/12/2023: No major issues Tightened brace to make it more stable No falls Pain controlled 05/11/2023: Patient doing well Has no new complaints Reviewed meds and labs No falls 05/10/2023: Patient improved No falls Blood pressure improved Bowels are moving 05/09/2023: Patient doing well Pain is controlled Blood pressure is labile Labs stable Checking iron and B12 Creatinine 1.37 Review of Systems General: Fatigue, Malaise Objective Exam Vital Signs Vital Signs Date Time Temp Pulse Resp B/P (MAP) Pulse Ox O2 Delivery O2 Flow Rate FiO2 05/15/23 20:13 36.7 73 20 181/72 (108) 100 Room Air Capillary Refill : General Appearance: No Apparent Distress, WD/WN, Chronically ill HEENT: PERRL/EOMI, Normal ENT Inspection, Pharynx Normal Neck: Full Range of Motion, Normal Inspection, Non Tender, Supple, Carotid Bruit Respiratory: Chest Non Tender, Lungs Clear, Normal Breath Sounds, No Accessory Muscle Use, No Respiratory Distress Cardiovascular: Regular Rate, Rhythm, No Edema, No Gallop, No JVD, No Murmur, Normal Peripheral Pulses Gastrointestinal: Normal Bowel Sounds, No Organomegaly, No Pulsatile Mass, Non Tender, Soft Back: Normal Inspection, No CVA Tenderness, No Vertebral Tenderness Extremity: Normal Capillary Refill, Normal Inspection, Normal Range of Motion (Except left leg in immobilizer), Non Tender, No Calf Tenderness, No Pedal Edema Neurologic/Psychiatric: Alert, Oriented x3, No Motor/Sensory Deficits, Normal Mood/Affect, Abnormal Gait, Motor Weakness ( left leg) Skin: Normal Color, Warm/Dry Lymphatic: No Adenopathy Results/Procedures Lab Patient resulted labs reviewed. FIM Transfers Therapy Code Descriptions/Definitions Functional [place] Measure: 0=Not Assessed/NA 4=Minimal Assistance 1=Total Assistance 5=Supervision or Setup 2=Maximal Assistance 6=Modified [place] 3=Moderate Assistance 7=Complete IndependenceSCALE: Activities may be completed with or without assistive devices. 0-Imeoacuizr-sftmuqo completes the activity by him/herself with no assistance from a helper. 5-Set-up or Clean-up Assistance-helper sets up or cleans up; patient completes activity. [address] assists only prior to or following the activity. 4-Supervision or Touching Assistance-helper provides verbal cues and/or touching/steadying and/or contact guard assistance as patient completes activity. Assistance may be provided throughout the activity or intermittently. 3-Partial/Moderate Assistance-helper does LESS THAN HALF the effort. [address] lifts, holds or supports trunk or limbs, but provides less than half the effort. 2-Substantial/Maximal Assistance-helper does MORE THAN HALF the effort. [address] lifts or holds trunk or limbs and provides more than half the effort. 1-Zirrfjbro-satnzt does ALL the effort. Patient does none of the effort to complete the activity. Or, the assistance of 2 or more helpers is required for the patient to complete the activity. If activity was not attempted, code reason: 7-Patient Refused. 9-Not Applicable-not attempted and the patient did not perform the activity before the current illness, exacerbation or injury. 10-Not Attempted due to Environmental Limitations-(lack of equipment, weather restraints, etc.). 88-Not Attempted due to Medical Conditions or Safety Concerns. Roll Left to Right (QC): 3 (min (A) due to (L) leg pain) Sit to Lying (QC): 4 Sit to Stand (QC): 5 Chair/Vpu-ty-Jguai Xfer(QC): 4 Car Transfer (QC): 3 (mod (A) /c FWW) Gait Training Does the Patient Walk?: Yes Distance: 75' x2 Walk 10 feet (QC): 5 Walk 50 ft with 2 Turns(QC): 5 Walk 150 ft (QC): 88 (unable to attain distance, fatigue/pain) Walking 10ft/uneven surface-QC: 3 (Min (A) /c FWW) Gait Persons Needed: 1 Gait Assistive Device: FWW Wheelchair Training Does the Pt Use a Wheelchair?: Yes Wheel 50 ft with 2 turns (QC): 5 Wheel 150 ft (QC): 5 Type of Wheelchair: Manual Stair Training 1 Step (curb) (QC): 3 (min (A) up 2" curb step) 4 Steps (QC): 88 (not safe, pain/fatigue) 12 Steps (QC): 88 (not safe, pain/fatigue) Balance Picking up an Object (QC): 4 (CGA /c FWW and signs cleaner (uses a signs cleaner at home)) ADL-Treatment Eating (QC): 6 (Pt. independent with eating.) Oral Hygiene (QC): 6 (Pt. independent with grooming/oral hygiene while standing at sink. ) Bathing Location: L Arm, R Arm, L Upper Leg, R Upper Leg, L Lower Leg (including foot), R Lower Leg (including foot), Chest, Abdomen, Buttocks, Perineal Area Shower/Bathe Self (QC): 6 (Pt. able to bathe UE while sitting and uses LH sponge to clean LE while sitting then stands to clean buttocks and perineal area while stabilizing L hand on counter top. ) Upper Body Dressing (QC): 5 (Pt. independent with UB clothing. ) Lower Body Dressing (QC): 3 (Pt. need assist with donning/doffing knee immobilizer. Pt. able to doff brief/pants using dressing stick, then dons brief/pants after set up using signs cleaner then stands using FWW to stabilize self while hiking brief/pants up by self. ) On/Off Footwear (QC): 5 (Pt. able doff B socks using dressing stick, then dons tedhose on R foot and B socks using sock aide. ) Toileting Hygiene (QC): 6 (Pt. 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 h/o uncomplicated left hip arthroplasty revision by Dr Fernandez 04/2022 due to pain from hardware placed during hip fracture repair 10 years ago HTN labile status Urinary retention hx Fall risk h/o Anemia iron deficiency status post iron infusions and blood transfusions Chronic kidney disease stage III Plan: Home meds Supportive care Pain control PT OT 05/09/2023: Await iron and B12 level Monitor kidney function 05/10/2023: Decrease oxycodone to 1/2 pill 05/11/2023: Check labs in am 05/12/2023: Iron infusion B12 supplement Pain control 05/13/2023: Iron infusion Pain control 05/14/2023: Monitor closely Pain control 05/15/2023: DC Hep-Lock Monitor closely (1) Status post left knee replacement NATIVIDAD MENJIVAR DO May 15, 2023 05:07
[2023-05-15] MEDS: oxyCODONE/ACETAMINOPHEN 5/325MG TABLET PO PRN ×2 (06:13→11:59)
[2023-05-15] MEDS: CYANOCOBALAMIN 1,000 MCG TABLET PO SCH (06:13)
[2023-05-15 07:47] VITALS: BP 169/78
--- NOTE | 2023-05-15 08:33 | Occupational Ther Daily Note ---
OT Current Status-Daily Note Subjective Pt. alert sitting in recliner eating breakfast. No c/o pain. Pt. agreed to therapy. Mental Status/Objective Patient Orientation: Person, Place, Time, Situation ADL-Treatment Therapy Code Descriptions/Definitions Functional [place] Measure: 0=Not Assessed/NA 4=Minimal Assistance 1=Total Assistance 5=Supervision or Setup 2=Maximal Assistance 6=Modified [place] 3=Moderate Assistance 7=Complete IndependenceSCALE: Activities may be completed with or without assistive devices. 4-Fxciogtcyz-wasdfzj completes the activity by him/herself with no assistance from a helper. 5-Set-up or Clean-up Assistance-helper sets up or cleans up; patient completes activity. [place] assists only prior to or following the activity. 4-Supervision or Touching Assistance-helper provides verbal cues and/or marco a ariel/steadying and/or contact guard assistance as patient completes activity. Assistance may be provided throughout the activity or intermittently. 3-Partial/Moderate Assistance-helper does LESS THAN HALF the effort. [place] lifts, holds or supports trunk or limbs, but provides less than half the effort. 2-Substantial/Maximal Assistance-helper does MORE THAN HALF the effort. [place] lifts or holds trunk or limbs and provides more than half the effort. 2-Sdbgjanxm-cgtbcx does ALL the effort. Patient does none of the effort to complete the activity. Or, the assistance of 2 or more helpers is required for the patient to complete the activity. If activity was not attempted, code reason: 7-Patient Refused. 9-Not Applicable-not attempted and the patient did not perform the activity before the current illness, exacerbation or injury. 10-Not Attempted due to Environmental Limitations-(lack of equipment, weather restraints, etc.). 88-Not Attempted due to Medical Conditions or Safety Concerns. Eating (QC): 6 (Pt. independent with eating. ) Oral Hygiene (QC): 6 (Pt. independent with grooming/oral hygiene while standing at sink.) Bathing Location: L Arm, R Arm, L Upper Leg, R Upper Leg, L Lower Leg (including foot), R Lower Leg (including foot), Chest, Abdomen, Buttocks, Perineal Area Shower/Bathe Self (QC): 6 (Pt. able to bathe UE while sitting and uses LH sponge to clean LE while sitting then stands to clean buttocks and perineal area while stabilizing L hand on counter top.) Upper Body Dressing (QC): 5 (Set up with donning/doffing UB clothing. ) Lower Body Dressing (QC): 3 (Assist with donning/doffing knee immobilizer. Pt. able to doff brief/pants using dressing stick, then dons brief/pants after set up using welder gas tungsten arc then stands using FWW to stabilize self while hiking brief/pants up by self. ) On/Off Footwear: 5 (Doff/Dons using dressing stick and sock aide. ) Toileting Hygiene (QC): 6 (Pt. able to complete clothing manipulation using FWW and grabbars for stabilization. Cleanse areas by self. ) Toilet Transfer (QC): 6 (Independent using FWW and grabbars.) Other Treatment After session, pt in recliner with call light and phone in reach and all needs met. OT Short Term Goals Short Term Goals Time Frame: May 16, 2023 Eatin Oral hygiene: 5 (standing at sink ) Toileting hygiene: 6 (in sitting ) Shower/bathe self: 4 Upper body dressin Lower body dressin Putting on/taking off footwear: 4 OT Care Home Goals Care Home Goals Time Frame: May 23, 2023 Acute change in mental status: 0 Inattention: 0 Disorganized thinkin Altered level of consciousness: 0 Eating (QC): 6 Oral Hygiene (QC): 6 Toileting Hygiene (QC): 6 Shower/Bathe Self (QC): 5 Upper Body Dressing (QC): 6 Lower Body Dressing (QC): 5 On/Off Footwear (QC): 5 1=Demonstrate adherence to instructed precautions during ADL tasks. 2=Patient will verbalize/demonstrate understanding of assistive devices/modifications for ADL. 3=Patient will improve strength/tolerance for activity to enable patient to perform ADL's. OT Education/Plan Problem List/Assessment Assessment: Decreased Safety Aware, Decreased UE Strength, Impaired Funct Balance, Impaired Self-Care Skills Discharge Recommendations Plan/Recommendations: Continue POC Treatment Plan/Plan of Care Patient would benefit from OT for education, treatment and training to promote independence in ADL's, mobility, safety and/or upper extremity function for ADL's. Plan of Care: ADL Retraining, Caregiver Training, Concurrent Therapy, Functional Mobility, Group Exercise/Act as Ind, UE Funct Exercise/Act, W/C Management Training Treatment Duration: May 23, 2023 Frequency: At least 5 of 7 days/Wk (IRF) Estimated Hrs Per Day: 1.5 hours per day Agreement: Yes Rehab Potential: Good Time Start Time: 07:00 Stop Time: 08:30 DATE: May 15, 2023 Total Time Billed (hr/min): 90 Billed Treatment Time 1 visit- ADL 6 (90 mins) OLIVE NAVA May 15, 2023 08:33
[2023-05-15] MEDS: LevETIRAcetam 500 MG TABLET PO SCH ×2 (08:36→20:22)
[2023-05-15] MEDS: VITAMIN D3 25 MCG (1,000 UNITS) TABLET PO SCH (08:36)
[2023-05-15] MEDS: PANTOPRAZOLE 40 MG TABLET PO SCH (08:36)
[2023-05-15] MEDS: MELOXICAM 7.5 MG TABLET PO SCH (08:36)
[2023-05-15] MEDS: ASPIRIN enteric coated 81MG TABLET PO SCH (08:36)
[2023-05-15] MEDS: DOCUSATE SODIUM 100 MG CAPSULE PO SCH ×2 (08:37→19:57)
[2023-05-15] MEDS: SENNA W/DOCUSATE TABLET PO SCH ×2 (08:37→19:57)
[2023-05-15] MEDS: hydrALAZINE 25 MG TABLET PO PRN ×2 (08:37→20:22)
[2023-05-15] MEDS: DICLOFENAC 1% GEL 50 GM TUBE TP SCH ×4 (08:37→19:57)
[2023-05-15] MEDS: NYSTATIN CREAM 30 GM TUBE TP PRN (08:46)
--- NOTE | 2023-05-15 11:30 | Physical Therapy Daily Note ---
PT Daily Note-Current Subjective Patient states her (L) knee pain is a 5-6/10 while walking and at rest. Pain Section J - Health Conditions 1. Rarely or not at all 2. Occasionally 3. Frequently 4. Almost constantly 8. Unable to answer Pain Effect on Sleep: 2 Pain Interference with Therapy: 2 Pain Interference w/Day-to-Day: 2 Appearance (L) knee brace has slid down leg. Readjusted for patient prior to upright activity. Transfers SCALE: Activities may be completed with or without assistive devices. 3-Vigzqkrgix-wjcosxn completes the activity by him/herself with no assistance from a helper. 5-Set-up or Clean-up Assistance-helper sets up or cleans up; patient completes activity. [place] assists only prior to or following the activity. 4-Supervision or Touching Assistance-helper provides verbal cues and/or touching/steadying and/or contact guard assistance as patient completes activity. Assistance may be provided throughout the activity or intermittently. 3-Partial/Moderate Assistance-helper does LESS THAN HALF the effort. [place] lifts, holds or supports trunk or limbs, but provides less than half the effort. 2-Substantial/Maximal Assistance-helper does MORE THAN HALF the effort. [place] lifts or holds trunk or limbs and provides more than half the effort. 7-Qcvvyjskk-srgdoa does ALL the effort. Patient does none of the effort to complete the activity. Or, the assistance of 2 or more helpers is required for the patient to complete the activity. If activity was not attempted, code reason: 7-Patient Refused. 9-Not Applicable-not attempted and the patient did not perform the activity before the current illness, exacerbation or injury. 10-Not Attempted due to Environmental Limitations-(lack of equipment, weather restraints, etc.). 88-Not Attempted due to Medical Conditions or Safety Concerns. Roll Left & Right (QC): 6 ((I) with railing /c increased time to complete.) Sit to Lying (QC): 3 (Min (A) to lift (L) leg fully onto bed) Lying to Sitting/Side of Bed(Q: 3 (Min (A) /c (L) leg) Sit to Stand (QC): 6 (to FWW, x 8 attempts. Increased time to complete) Chair/Wze-aa-Aersb Xfer(QC): 6 (/c FWW increased time to complete) Toilet Transfer (QC): 6 (/c FWW. Increased time to complete. Also able to manage clothing and toilet hygiene (I).) Car Transfer (QC): 3 (Min (A) /c (L) leg -- will require seat of car to be moved back to max position prior to moving (L) leg into vehicle due to knee immobilizer. ) Weight Bearing Weight Bearing/Tolerated Weight Bearing/Tolerated Gait Training Distance: 90' Walk 10 feet (QC): 6 (/c FWW ) Walk 50 ft with 2 Turns(QC): 6 (/c FWW) Walk 150 ft (QC): 88 (unable to meet distance due to fatigue) Walking 10ft/uneven surface-QC: 6 (/c FWW) Gait Assistive Device: FWW slow kenton, no LOB. All upright activities /c brace on (L) knee. Wheelchair Training Wheel 50 ft with 2 turns (QC): 9 Wheel 150 ft (QC): 9 Balance Picking up an Object (QC): 6 (with duralumin mechanic and FWW) Exercises Seated QS with (L) leg extended, heel on floor 10 x :05 (L) LE Supine: AP x 20, ankle cirlces x 10 CW x 10 CCW, hip ir/er x 10, SLR x 10 /c min (A), QS supine x 15 x :05, hip abd/add x 15 with min (A), (R) SL bridges x 10 Treatments Requires increased time to complete all upright tasks, but is able to demonstrate (I) /c FWW given time to complete. Assessment Current Status: Good Progress PT Director Professional Services Goals Correction Goals PT Correction Goals Time Frame: May 22, 2023 Roll Left & Right (QC): 6 (/c bed rail) Sit to Lying (QC): 6 Lying-Sitting on Side/Bed(QC): 6 Sit to Stand (QC): 6 Chair/Iii-ei-Dfsmj Xfer(QC): 6 (/c FWW and (L) knee immobilizer) Toilet Transfer (QC): 6 Car Transfer (QC): 6 Does the Patient Walk: Yes Walk 10 feet (QC): 6 (/c FWW and (L) knee immobilizer) Walk 50ft with 2 Turns (QC): 6 (/c FWW and (L) knee immobilizer) Walk 150 ft (QC): 6 (/c FWW and (L) knee immobilizer) Walking 10ft on Uneven Surface: 6 (/c FWW and (L) knee immobilizer) 1 Step (curb) (QC): 4 (/c FWW and (L) knee immobilizer) 4 Steps (QC): 4 ((B) rails) 12 Steps (QC): 4 ((B)rails) Picking up an Object (QC): 6 (/c duralumin mechanic.) Does the Pt use WC or Scooter?: No Wheel 50 feet with 2 turns (QC: 9 Wheel 150 feet: 9 PT Plan Treatment/Plan Treatment Plan: Continue Plan of Care Treatment Plan: Bed Mobility, Education, Functional Activity Emma, Functional Strength, Group Therapy, Gait, Safety, Therapeutic Exercise, Transfers Treatment Duration: May 22, 2023 Frequency: At least 5 of 7 days/Wk (IRF) Estimated Hrs Per Day: 1.5 hours per day Patient and/or Family Agrees t: Yes Time Time In: 1025 Time Out: 1155 DATE: May 15, 2023 Total Billed Treatment Time: 90 Total Billed Treatment 1 ex, 2 FA, 3 gt = 90' Bonnie Purcell PT May 15, 2023 11:30
[2023-05-15] MEDS: ACETAMINOPHEN ER 650 MG (ARTHRITIS) PO PRN (19:01)
[2023-05-15 20:13] VITALS: BP 181/72
[2023-05-16] MEDS: CYANOCOBALAMIN 1,000 MCG TABLET PO SCH (05:49)
[2023-05-16] MEDS: oxyCODONE/ACETAMINOPHEN 5/325MG TABLET PO PRN ×2 (05:50→20:58)
--- NOTE | 2023-05-16 07:23 | Occupational Ther Daily Note ---
OT Current Status-Daily Note Subjective Pt. alert sitting in recliner. No c/o pain. Pt. agreed to therapy. Mental Status/Objective Patient Orientation: Person, Place, Time, Situation ADL-Treatment Pt. able to gather UB/LB clothing by self using FWW. Therapy Code Descriptions/Definitions Functional [place] Measure: 0=Not Assessed/NA 4=Minimal Assistance 1=Total Assistance 5=Supervision or Setup 2=Maximal Assistance 6=Modified [place] 3=Moderate Assistance 7=Complete IndependenceSCALE: Activities may be completed with or without assistive devices. 7-Jnylcosujg-twiyvyy completes the activity by him/herself with no assistance from a helper. 5-Set-up or Clean-up Assistance-helper sets up or cleans up; patient completes activity. [place] assists only prior to or following the activity. 4-Supervision or Touching Assistance-helper provides verbal cues and/or touching/steadying and/or contact guard assistance as patient completes activity. Assistance may be provided throughout the activity or intermittently. 3-Partial/Moderate Assistance-helper does LESS THAN HALF the effort. [place] lifts, holds or supports trunk or limbs, but provides less than half the effort. 2-Substantial/Maximal Assistance-helper does MORE THAN HALF the effort. [place] lifts or holds trunk or limbs and provides more than half the effort. 9-Imrlznbxc-agtsot does ALL the effort. Patient does none of the effort to complete the activity. Or, the assistance of 2 or more helpers is required for the patient to complete the activity. If activity was not attempted, code reason: 7-Patient Refused. 9-Not Applicable-not attempted and the patient did not perform the activity before the current illness, exacerbation or injury. 10-Not Attempted due to Environmental Limitations-(lack of equipment, weather restraints, etc.). 88-Not Attempted due to Medical Conditions or Safety Concerns. Eating (QC): 6 (Pt. independent with eating. ) Oral Hygiene (QC): 6 (Pt. independent with grooming/oral hygiene while standing at sink. ) Bathing Location: L Arm, R Arm, L Upper Leg, R Upper Leg, L Lower Leg (including foot), R Lower Leg (including foot), Chest, Abdomen, Buttocks, Per ineal Area Shower/Bathe Self (QC): 6 (Pt. able to complete sponge bath at sink sitting to clean UE/LE using LH sponge, stands to clean buttocks and perineal area resting hand on counter to stabilize. ) Upper Body Dressing (QC): 6 (Pt. able to don/doff UB clothing. ) Lower Body Dressing (QC): 3 (Pt. needs assist with donning/doffing knee immobilizer. Pt. able to don/doff brief/pants using dressing stick/postal support employee then stands to hike brief/pants over hips. ) On/Off Footwear: 6 (Pt. able to don/doff socks using dressing stick/sock aide. ) Toileting Hygiene (QC): 6 (Pt. able to complete clothing manipulation using FWW and grabbars and cleases areas by self. ) Toilet Transfer (QC): 6 (Uses FWW/grabbars for toilet transfers. ) BIMS CAM BIMS Expression of Ideas and Wants: Without Difficulty Understanding Verbal Content: Understands Brief Interview/Mental Status: No IRF ELIZABETH BIMS: IRF ELIZABETH BIMS Response (Comments) Value Repitition of Three Words Three 3 Recalls Socks Yes, No Cue Required 2 Recalls Blue Yes, No Cue Required 2 Recalls Bed Yes, No Cue Required 2 Year Correct 3 Month Accurate Within 5 Days 2 Day Correct 1 Total 15 Patient Normally Able to Recal: Current Session, Location of own room, Staff Names and faces, That he/she in a [facility] Should Staff Asses. Mental St.: No Memory/Recall Ability: Current Season, Location of Own Room, Staff Names and Faces, That He[facility]She in [facility] Mental Status Change/Baseline: 0 Inattention: 0 Disorganized thinkin Altered level of consciousness: 0 OT Short Term Goals Short Term Goals Time Frame: May 16, 2023 Eatin Oral hygiene: 5 (standing at sink ) Toileting hygiene: 6 (in sitting ) Shower/bathe self: 4 Upper body dressin Lower body dressin Putting on/taking off footwear: 4 OT Retirement Goals Drywall Hanger Goals Time Frame: May 23, 2023 Acute change in mental status: 0 Inattention: 0 Disorganized thinkin Altered level of consciousness: 0 Eating (QC): 6 (met) Oral Hygiene (QC): 6 (met) Toileting Hygiene (QC): 6 (met) Shower/Bathe Self (QC): 5 (met) Upper Body Dressing (QC): 6 (met) Lower Body Dressing (QC): 5 (not met) On/Off Footwear (QC): 5 (met) 1=Demonstrate adherence to instructed precautions during ADL tasks. 2=Patient will verbalize/demonstrate understanding of assistive devices/modifications for ADL. 3=Patient will improve strength/tolerance for activity to enable patient to perform ADL's. OT Education/Plan Problem List/Assessment Assessment: Decreased Activ Tolerance, Impaired Self-Care Skills Discharge Recommendations Plan/Recommendations: Continue POC Treatment Plan/Plan of Care Patient would benefit from OT for education, treatment and training to promote independence in ADL's, mobility, safety and/or upper extremity function for ADL's. Plan of Care: ADL Retraining, Caregiver Training, Concurrent Therapy, Functional Mobility, Group Exercise/Act as Ind, UE Funct Exercise/Act, W/C Management Training Treatment Duration: May 23, 2023 Frequency: At least 5 of 7 days/Wk (IRF) Estimated Hrs Per Day: 1.5 hours per day Agreement: Yes Rehab Potential: Good Time Start Time: 07:00 Stop Time: 08:30 DATE: May 16, 2023 Total Time Billed (hr/min): 90 Billed Treatment Time 1 visit-ADL 6 (90 min) OLIVE NAVA May 16, 2023 07:23
[2023-05-16 08:00] VITALS: BP_SYST 168; BP_SYST 170; BP_DIAS 77
[2023-05-16] MEDS: VITAMIN D3 25 MCG (1,000 UNITS) TABLET PO SCH (08:15)
[2023-05-16] MEDS: PANTOPRAZOLE 40 MG TABLET PO SCH (08:15)
[2023-05-16] MEDS: DICLOFENAC 1% GEL 50 GM TUBE TP SCH ×4 (08:16→19:31)
[2023-05-16] MEDS: NYSTATIN CREAM 30 GM TUBE TP PRN (08:16)
[2023-05-16] MEDS: MELOXICAM 7.5 MG TABLET PO SCH (08:16)
[2023-05-16] MEDS: LevETIRAcetam 500 MG TABLET PO SCH ×2 (08:16→20:58)
[2023-05-16] MEDS: ASPIRIN enteric coated 81MG TABLET PO SCH (08:16)
[2023-05-16] MEDS: SENNA W/DOCUSATE TABLET PO SCH ×2 (08:17→19:30)
[2023-05-16] MEDS: DOCUSATE SODIUM 100 MG CAPSULE PO SCH ×2 (08:17→19:30)
--- NOTE | 2023-05-16 12:50 | PM&R Progress Note ---
Subjective HPI/CC On Admission Date Seen by Provider: May 16, 2023 Time Seen by Provider: 12:00 Subjective/Events-last exam 05/16/2023: Ready for DC tomorrow Pain is controlled No issues 05/15/2023: Patient doing well Walking pretty well No falls No pain 05/14/2023: No new issues No pain Wearing left leg brace Minimal drainage of the knee incision 05/13/2023: Patient doing well Has no complaints Pain is controlled Using brace 27/0105/12/2023: No major issues Tightened brace to make it more stable No falls Pain controlled 05/11/2023: Patient doing well Has no new complaints Reviewed meds and labs No falls 05/10/2023: Patient improved No falls Blood pressure improved Bowels are moving 05/09/2023: Patient doing well Pain is controlled Blood pressure is labile Labs stable Checking iron and B12 Creatinine 1.37 Review of Systems General: Fatigue, Malaise Objective Exam Vital Signs Vital Signs Date Time Temp Pulse Resp B/P (MAP) Pulse Ox O2 Delivery O2 Flow Rate FiO2 05/16/23 21:34 Room Air 05/16/23 19:49 36.3 66 16 164/77 (106) 98 Capillary Refill : General Appearance: No Apparent Distress, WD/WN, Chronically ill HEENT: PERRL/EOMI, Normal ENT Inspection, Pharynx Normal Neck: Full Range of Motion, Normal Inspection, Non Tender, Supple, Carotid Bruit Respiratory: Chest Non Tender, Lungs Clear, Normal Breath Sounds, No Accessory Muscle Use, No Respiratory Distress Cardiovascular: Regular Rate, Rhythm, No Edema, No Gallop, No JVD, No Murmur, Normal Peripheral Pulses Gastrointestinal: Normal Bowel Sounds, No Organomegaly, No Pulsatile Mass, Non Tender, Soft Back: Normal Inspection, No CVA Tenderness, No Vertebral Tenderness Extremity: Normal Capillary Refill, Normal Inspection, Normal Range of Motion (Except left leg in immobilizer), Non Tender, No Calf Tenderness, No Pedal Edema Neurologic/Psychiatric: Alert, Oriented x3, No Motor/Sensory Deficits, Normal Mood/Affect, Abnormal Gait, Motor Weakness ( left leg) Skin: Normal Color, Warm/Dry Lymphatic: No Adenopathy Results/Procedures Lab Patient resulted labs reviewed. FIM Transfers Therapy Code Descriptions/Definitions Functional [place] Measure: 0=Not Assessed/NA 4=Minimal Assistance 1=Total Assistance 5=Supervision or Setup 2=Maximal Assistance 6=Modified [place] 3=Moderate Assistance 7=Complete IndependenceSCALE: Activities may be completed with or without assistive devices. 0-Dzadvgblyu-gofkmph completes the activity by him/herself with no assistance from a helper. 5-Set-up or Clean-up Assistance-helper sets up or cleans up; patient completes activity. [place] assists only prior to or following the activity. 4-Supervision or Touching Assistance-helper provides verbal cues and/or touching/steadying and/or contact guard assistance as patient completes activity. Assistance may be provided throughout the activity or intermittently. 3-Partial/Moderate Assistance-helper does LESS THAN HALF the effort. [place] lifts, holds or supports trunk or limbs, but provides less than half the effort. 2-Substantial/Maximal Assistance-helper does MORE THAN HALF the effort. [place] lifts or holds trunk or limbs and provides more than half the effort. 5-Dbddcwvxs-ueibpj does ALL the effort. Patient does none of the effort to complete the activity. Or, the assistance of 2 or more helpers is required for the patient to complete the activity. If activity was not attempted, code reason: 7-Patient Refused. 9-Not Applicable-not attempted and the patient did not perform the activity be fore the current illness, exacerbation or injury. 10-Not Attempted due to Environmental Limitations-(lack of equipment, weather restraints, etc.). 88-Not Attempted due to Medical Conditions or Safety Concerns. Roll Left to Right (QC): 6 ((I) with railing /c increased time to complete.) Sit to Lying (QC): 3 (Min (A) to lift (L) leg fully onto bed) Sit to Stand (QC): 6 (to FWW, x 8 attempts. Increased time to complete) Chair/Pgc-gx-Osrje Xfer(QC): 6 (/c FWW increased time to complete) Car Transfer (QC): 3 (Min (A) /c (L) leg -- will require seat of car to be moved back to max position prior to moving (L) leg into vehicle due to knee immobilizer. ) Gait Training Does the Patient Walk?: Yes Distance: 90' Walk 10 feet (QC): 6 (/c FWW ) Walk 50 ft with 2 Turns(QC): 6 (/c FWW) Walk 150 ft (QC): 88 (unable to meet distance due to fatigue) Walking 10ft/uneven surface-QC: 6 (/c FWW) Gait Persons Needed: 1 Gait Assistive Device: FWW Wheelchair Training Does the Pt Use a Wheelchair?: Yes Wheel 50 ft with 2 turns (QC): 9 Wheel 150 ft (QC): 9 Type of Wheelchair: Manual Stair Training 1 Step (curb) (QC): 3 (min (A) up 2" curb step) 4 Steps (QC): 88 (not safe, pain/fatigue) 12 Steps (QC): 88 (not safe, pain/fatigue) Balance Picking up an Object (QC): 6 (with enterprise application developer and FWW) ADL-Treatment Eating (QC): 6 (Pt. independent with eating. ) Oral Hygiene (QC): 6 (Pt. independent with grooming/oral hygiene while standing at sink. ) Bathing Location: L Arm, R Arm, L Upper Leg, R Upper Leg, L Lower Leg (including foot), R Lower Leg (including foot), Chest, Abdomen, Buttocks, Perineal Area Shower/Bathe Self (QC): 6 (Pt. able to complete sponge bath at sink sitting to clean UE/LE using LH sponge, stands to clean buttocks and perineal area resting hand on counter to stabilize. ) Upper Body Dressing (QC): 6 (Pt. able to don/doff UB clothing. ) Lower Body Dressing (QC): 3 (Pt. needs assist with donning/doffing knee immobilizer. Pt. able to don/doff brief/pants using dressing stick/enterprise application developer then stands to hike brief/pants over hips. ) On/Off Footwear (QC): 6 (Pt. able to don/doff socks using dressing stick/sock aide. ) Toileting Hygiene (QC): 6 (Pt. able to complete clothing manipulation using FWW and grabbars and cleases areas by self. ) Toilet Transfer (QC): 6 (Uses FWW/grabbars for toilet transfers. 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/o uncomplicated left hip arthroplasty revision by Dr Fernandez 04/2022 due to pain from hardware placed during hip fracture repair 10 years ago HTN labile status Urinary retention hx Fall risk h/o Anemia iron deficiency status post iron infusions and blood transfusions Chronic kidney disease stage III Plan: Home meds Supportive care Pain control PT OT 05/09/2023: Await iron and B12 level Monitor kidney function 05/10/2023: Decrease oxycodone to 1/2 pill 05/11/2023: Check labs in am 05/12/2023: Iron infusion B12 supplement Pain control 05/13/2023: Iron infusion Pain control 05/14/2023: Monitor closely Pain control 05/15/2023: DC Hep-Lock Monitor closely 05/16/2023: DC home tomorrow (1) Status post left knee replacement NATIVIDAD MENJIVAR DO May 16, 2023 12:49
--- NOTE | 2023-05-16 13:07 | Progress Note ---
CHACE FRANZ 05/16/23 1307: Progress Note Ms. Escobar is doing well today. She is a 77 y/o female who presented to rehab on 05/08 s/p L TKA. On admission 05/08, she was able to perform all transfers with minimal assist, except sit to stand required moderate assist. She was able to walk 50 ft with min assist and FWW. Total distance was 61 ft. She walked with a forward flexed posture and slow kenton. She required min assist to step up [address]. Sitting static balance was good, and sitting dynamic and standing balance were fair. She uses a grasper at home to machine pecan picker items from the floor. Today, Ms. Escobar can perform all ADLs independently, including sponge bath, don/doff footbear with sock aide, with the exception that lower body dressing needs assistance due to her knee immobilizer. She is able to perform all transfers independently with use of FWW, but requires minimal assistance with her left leg d/t immobilizer for sit to lying, lying to sitting, and car transfers. She is able to ambulate 90 ft independently with FWW. She has a slow kenton. She is now able to independently grasp items from floor using FWW and grasper. AMANDA MENJIVAR DO 05/17/23 0710: Supervisory-Addendum Brief Verification & Attestation Participated in pt care: history, MDM, physical Personally performed: exam, history, MDM, supervision of care Care discussed with: Medical Student Procedures: n/a Results interpretation: Verified all documentation Verification and Attestation of Medical Student E/M Service A medical student performed and documented this service in my presence. I reviewed and verified all information documented by the medical student and made modifications to such information, when appropriate. I personally performed the physical exam and medical decision making. Amanda Menjivar, May 17, 2023,07:10 CHACE FRANZ May 16, 2023 13:07 AMANDA MENJIVAR DO May 17, 2023 07:10
[2023-05-16] MEDS: ACETAMINOPHEN ER 650 MG (ARTHRITIS) PO PRN (15:01)
--- NOTE | 2023-05-16 15:16 | Physical Therapy Daily Note ---
PT Daily Note-Current Subjective Patient agreeable to PT. Pain Section J - Health Conditions 1. Rarely or not at all 2. Occasionally 3. Frequently 4. Almost constantly 8. Unable to answer Pain Effect on Sleep: 2 Pain Interference with Therapy: 2 Pain Interference w/Day-to-Day: 2 Appearance Patient taken over from nursing who was walking patient out of bathroom - knee brace had slid down leg and was at ankle. Re-adjusted brace for patient and educated patient and son on correct positioning and adjustment. Patient able to stand at sink and wash/dry hands (I). Transfers SCALE: Activities may be completed with or without assistive devices. 0-Hsttzvwofd-ocipjvt completes the activity by him/herself with no assistance from a helper. 5-Set-up or Clean-up Assistance-helper sets up or cleans up; patient completes activity. [place] assists only prior to or following the activity. 4-Supervision or Touching Assistance-helper provides verbal cues and/or touching/steadying and/or contact guard assistance as patient completes activity. Assistance may be provided throughout the activity or intermittently. 3-Partial/Moderate Assistance-helper does LESS THAN HALF the effort. [place] lifts, holds or supports trunk or limbs, but provides less than half the effort. 2-Substantial/Maximal Assistance-helper does MORE THAN HALF the effort. [place] lifts or holds trunk or limbs and provides more than half the effort. 7-Cqkqaklsv-xapnzr does ALL the effort. Patient does none of the effort to complete the activity. Or, the assistance of 2 or more helpers is required for the patient to complete the activity. If activity was not attempted, code reason: 7-Patient Refused. 9-Not Applicable-not attempted and the patient did not perform the activity before the current illness, exacerbation or injury. 10-Not Attempted due to Environmental Limitations-(lack of equipment, weather restraints, etc.). 88-Not Attempted due to Medical Conditions or Safety Concerns. Roll Left & Right (QC): 6 (with gait belt to assist with moving (L) leg & using bed rail.) Sit to Lying (QC): 5 (set up with gait belt applied as leg hydrotechnical specialist. Increased time to complete.) Lying to Sitting/Side of Bed(Q: 5 (set up with gait belt applied as leg hydrotechnical specialist. Increased time to complete) Sit to Stand (QC): 6 Chair/Dao-gg-Biuvn Xfer(QC): 6 (/c FWW) Weight Bearing Weight Bearing/Tolerated Weight Bearing/Tolerated Gait Training Walk 10 feet (QC): 6 (/c FWW) Walk 50 ft with 2 Turns(QC): 6 (/c FWW ) Stair Training 1 Step (curb) (QC): 3 (Min (A) /c Rails) 4 Steps (QC): 3 (min - CGA /c (B) hand rails, 1 cue for sequence, then patient able to complete without further cues. No LOB.) PT Shelter Goals Media Planner Goals PT Media Planner Goals Time Frame: May 22, 2023 Roll Left & Right (QC): 6 (/c bed rail) Sit to Lying (QC): 6 Lying-Sitting on Side/Bed(QC): 6 Sit to Stand (QC): 6 Chair/Exf-mp-Phjwj Xfer(QC): 6 (/c FWW and (L) knee immobilizer) Toilet Transfer (QC): 6 Car Transfer (QC): 6 Does the Patient Walk: Yes Walk 10 feet (QC): 6 (/c FWW and (L) knee immobilizer) Walk 50ft with 2 Turns (QC): 6 (/c FWW and (L) knee immobilizer) Walk 150 ft (QC): 6 (/c FWW and (L) knee immobilizer) Walking 10ft on Uneven Surface: 6 (/c FWW and (L) knee immobilizer) 1 Step (curb) (QC): 4 (/c FWW and (L) knee immobilizer) 4 Steps (QC): 4 ((B) rails) 12 Steps (QC): 4 ((B)rails) Picking up an Object (QC): 6 (/c vamp wetter.) Does the Pt use WC or Scooter?: No Wheel 50 feet with 2 turns (QC: 9 Wheel 150 feet: 9 PT Plan Treatment/Plan Treatment Plan: Continue Plan of Care Treatment Plan: Bed Mobility, Education, Functional Activity Emma, Functional Strength, Group Therapy, Gait, Safety, Therapeutic Exercise, Transfers Treatment Duration: May 22, 2023 Frequency: At least 5 of 7 days/Wk (IRF) Estimated Hrs Per Day: 1.5 hours per day Patient and/or Family Agrees t: Yes Time Time In: 1125 Time Out: 1205 DATE: May 16, 2023 Total Billed Treatment Time: 40 Total Billed Treatment 40' - 2FA, GT Bonnie Purcell PT May 16, 2023 15:16
--- NOTE | 2023-05-16 15:31 | Physical Therapy Daily Note ---
PT Daily Note-Current Subjective Having some increased pain this afternoon - pain pill requested. Pain Section J - Health Conditions 1. Rarely or not at all 2. Occasionally 3. Frequently 4. Almost constantly 8. Unable to answer Pain Effect on Sleep: 2 Pain Interference with Therapy: 2 Pain Interference w/Day-to-Day: 2 Transfers SCALE: Activities may be completed with or without assistive devices. 5-Gtjgzseuok-ishkmcy completes the activity by him/herself with no assistance from a helper. 5-Set-up or Clean-up Assistance-helper sets up or cleans up; patient completes activity. [place] assists only prior to or following the activity. 4-Supervision or Touching Assistance-helper provides verbal cues and/or touching/steadying and/or contact guard assistance as patient completes activity. Assistance may be provided throughout the activity or intermittently. 3-Partial/Moderate Assistance-helper does LESS THAN HALF the effort. [place] lifts, holds or supports trunk or limbs, but provides less than half the effort. 2-Substantial/Maximal Assistance-helper does MORE THAN HALF the effort. [place] lifts or holds trunk or limbs and provides more than half the effort. 8-Irjwedlbl-yxcbwe does ALL the effort. Patient does none of the effort to complete the activity. Or, the assistance of 2 or more helpers is required for the patient to complete the activity. If activity was not attempted, code reason: 7-Patient Refused. 9-Not Applicable-not attempted and the patient did not perform the activity before the current illness, exacerbation or injury. 10-Not Attempted due to Environmental Limitations-(lack of equipment, weather restraints, etc.). 88-Not Attempted due to Medical Conditions or Safety Concerns. Sit to Lying (QC): 5 (/c leg care trainer - patient prefers leg care trainer to gait belt. Increased time to complete.) Lying to Sitting/Side of Bed(Q: 5 (/c leg care trainer - patient prefers leg care trainer to gait belt. Increased time to complete.) Sit to Stand (QC): 6 Chair/Wlp-gi-Stnyv Xfer(QC): 6 (/c FWW) Toilet Transfer (QC): 6 (/c FWW including toilet hygiene and clothing management.) Weight Bearing Weight Bearing/Tolerated Weight Bearing/Tolerated Gait Training Distance: 90' /c FWW - max distance, then fatigues. Walk 10 feet (QC): 6 (/c FWW) Walk 50 ft with 2 Turns(QC): 6 (/c FWW) Gait Assistive Device: FWW Exercises Patient performed supine ex with brace on: QS (L) x 10 x :05, ankle pumps x 10, ankle circles x 10, ankle rotation x 10, SLR min (A )x 10, hip abd/add x 10 /c min (A), bridges x 10. Assessment Current Status: Good Progress PT Director [employer] Goals Director [employer] Goals PT Nursing Home Goals Time Frame: May 22, 2023 Roll Left & Right (QC): 6 (/c bed rail) Sit to Lying (QC): 6 Lying-Sitting on Side/Bed(QC): 6 Sit to Stand (QC): 6 Chair/Ogb-kg-Iledj Xfer(QC): 6 (/c FWW and (L) knee immobilizer) Toilet Transfer (QC): 6 Car Transfer (QC): 6 Does the Patient Walk: Yes Walk 10 feet (QC): 6 (/c FWW and (L) knee immobilizer) Walk 50ft with 2 Turns (QC): 6 (/c FWW and (L) knee immobilizer) Walk 150 ft (QC): 6 (/c FWW and (L) knee immobilizer) Walking 10ft on Uneven Surface: 6 (/c FWW and (L) knee immobilizer) 1 Step (curb) (QC): 4 (/c FWW and (L) knee immobilizer) 4 Steps (QC): 4 ((B) rails) 12 Steps (QC): 4 ((B)rails) Picking up an Object (QC): 6 (/c carpenter mate.) Does the Pt use WC or Scooter?: No Wheel 50 feet with 2 turns (QC: 9 Wheel 150 feet: 9 PT Plan Treatment/Plan Treatment Plan: Continue Plan of Care Treatment Plan: Bed Mobility, Education, Functional Activity Emma, Functional Strength, Group Therapy, Gait, Safety, Therapeutic Exercise, Transfers Treatment Duration: May 22, 2023 Frequency: At least 5 of 7 days/Wk (IRF) Estimated Hrs Per Day: 1.5 hours per day Patient and/or Family Agrees t: Yes Time Time In: 1315 Time Out: 1405 DATE: May 16, 2023 Total Billed Treatment Time: 50 Total Billed Treatment 50' = 1 ex, 1 fa, 1 gt Bonnie Purcell PT May 16, 2023 15:31
[2023-05-16 19:49] VITALS: BP 164/77
[2023-05-16] MEDS: hydrALAZINE 25 MG TABLET PO PRN (20:58)
[2023-05-17] MEDS: CYANOCOBALAMIN 1,000 MCG TABLET PO SCH (05:51)
[2023-05-17] MEDS: ACETAMINOPHEN ER 650 MG (ARTHRITIS) PO PRN (05:51)
[2023-05-17] MEDS ORDERED: OXYC1TAB87 PO (07:17)
[2023-05-17] MEDS ORDERED: HYDR-3923 PO (07:17)
[2023-05-17] MEDS ORDERED: PANT40TA52 PO (07:17)
[2023-05-17] MEDS ORDERED: CYAN-41 PO (07:17)
[2023-05-17] MEDS ORDERED: MELO7.5T46 PO (07:17)
--- NOTE | 2023-05-17 07:19 | D/C HH Face to Face Order ---
D/C Face to Face Orders Reconcile Patient Problems Problems Reviewed?: Yes Instructions for Patient Via [facility], Patient Instructions/FollowUp: PCP and Dr Fernandez as scheduled Physician to follow Patient: PCP Discharge Diet for Home: No Restrictions Patient Problems: Left knee replacement Patient Data-Allergies,Ht & Wt Patient Allergies: Coded Allergies: diphenhydramine (Verified Allergy, Unknown, 09/12/22) tramadol (Verified Allergy, Unknown, 09/12/22) Home Health Need/Face to Face Date of Face to Face: May 17, 2023 Clinical Findings: Generalized weakness and fatigue, Instability, Muscle we akness, Pain with ambulation I have seen Pt qitd-wj-hvuy: Yes Discharged To: Home Diagnosis/Conditions: Left knee replacement Patient is Homebound due to: Vera fall risk due to instabilty, Muscle weakness Homebound Status Due to the above stated illness, injury or surgical procedure (medical condition or diagnosis) and associated clinical findings, the patient is homebound because of his/her inability to leave home except with aid of a supportive device and/or person AND leaving the home requires a considerable and taxing effort or is medically contraindicated. Pt req the following assistanc: Walker Home Health Nursing Orders Home Health Services Order: Nursing Services, Beef Specialist-Evaluate & Treat, Physical Therapy-Evaluate & Treat Home Health Infusion Therapy Line Start Date: May 10, 2023 Certify Stmt I certify that this patient is under my care and that I, a nurse practitioner or a physician; a quality assurance assistant working with me, had a face to face encounter that - meets the physician face to face encounter requirements with this patient as dated. NATIVIDAD MENJIVAR DO May 17, 2023 07:19
--- NOTE | 2023-05-17 07:20 | Discharge Summary ---
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 h/o uncomplicated left hip arthroplasty revision by Dr Fernandez 04/2022 due to pain from hardware placed during hip fracture repair 10 years ago HTN labile status Urinary retention hx Fall risk h/o Anemia iron deficiency status post iron infusions and blood transfusions Chronic kidney disease stage III Plan: Home meds Supportive care Pain control PT OT 05/09/2023: Await iron and B12 level Monitor kidney function 05/10/2023: Decrease oxycodone to 1/2 pill 05/11/2023: Check labs in am 05/12/2023: Iron infusion B12 supplement Pain control 05/13/2023: Iron infusion Pain control 05/14/2023: Monitor closely Pain control 05/15/2023: DC Hep-Lock Monitor closely (1) Status post left knee replacement Discharge Summary Discharge Physical Examination Allergies: Coded Allergies: diphenhydramine (Verified Allergy, Unknown, 09/12/22) tramadol (Verified Allergy, Unknown, 09/12/22) Vitals & I&Os Vital Signs Date Time Temp Pulse Resp B/P (MAP) Pulse Ox O2 Delivery O2 Flow Rate FiO2 05/17/23 08:00 36.8 62 16 155/77 (103) 97 Room Air General Appearance: Alert, Oriented X3, Cooperative Respiratory: Clear to Auscultation Cardiovascular: Regular Rate Psych/Mental Status: Mental Status NL Hospital Course Was the Problem List Reviewed?: Yes Ms. Escobar is doing well today. She is a 77 y/o female who presented to rehab on 05/08 s/p L TKA. On admission 05/08, she was able to perform all transfers with minimal assist, except sit to stand required moderate assist. She was able to walk 50 ft with min assist and FWW. Total distance was 61 ft. She walked with a forward flexed posture and slow kenton. She required min assist to step up 2 [address]. Sitting static balance was good, and sitting dynamic and standing balance were fair. She uses a grasper at home to grain picker items from the floor. Today, Ms. Escobar can perform all ADLs independently, including sponge bath, don/doff footbear with sock aide, with the exception that lower body dressing needs assistance due to her knee immobilizer. She is able to perform all transfers independently with use of FWW, but requires minimal assistance with her left leg d/t immobilizer for sit to lying, lying to sitting, and car transfers. She is able to ambulate 90 ft independently with FWW. She has a slow kenton. She is now able to independently grasp items from floor using FWW and grasper. Patient had an uneventful course after she was admitted following left knee replacement with patellar tendon reattachment requiring immobilizer and keep left leg straight 27/[address] Fernandez. She did receive iron infusion for anemia and B12 supplement. Bowels returned to normal and overall she regain function and was DC. Labs (last 24 hrs) Laboratory Tests 05/09/23 06:21: White Blood Count 9.1, Red Blood Count 2.51L, Hemoglobin 7.8L, Hematocrit 24L, Mean Corpuscular Volume 96, Mean Corpuscular Hemoglobin 31, Mean Corpuscular Hemoglobin Concent 32, Red Cell Distribution Width 13.2, Platelet Count 216, Mean Platelet Volume 9.8, Immature Granulocyte % (Auto) 1, Neutrophils (%) (A uto) 85H, Lymphocytes (%) (Auto) 5L, Monocytes (%) (Auto) 9, Eosinophils (%) (Auto) 0, Basophils (%) (Auto) 0, Neutrophils # (Auto) 7.7, Lymphocytes # (Auto) 0.5L, Monocytes # (Auto) 0.8, Eosinophils # (Auto) 0.0, Basophils # (Auto) 0.0, Immature Granulocyte # (Auto) 0.1, Neutrophils % (Manual) 94, Lymphocytes % (Manual) 3, Monocytes % (Manual) 2, Reactive Lymphocytes 1, Blood Morphology Comment NORMAL, Sodium Level 141, Potassium Level 4.4, Chloride Level 111H, Carbon Dioxide Level 22, Anion Gap 8, Blood Urea Nitrogen 25H, Creatinine 1.31H, Estimat Glomerular Filtration Rate 41, BUN/Creatinine Ratio 19, Glucose Level 165H, Calcium Level 9.0, Corrected Calcium 9.8, Iron Level 39, Total Bilirubin 0.2, Aspartate Amino Transf (AST/SGOT) 12, Alanine Aminotransferase (ALT/SGPT) 7, Alkaline Phosphatase 97, Total Protein 6.1L, Albumin 3.0L, Vitamin B12 Level 561 05/12/23 05:11: White Blood Count 5.1, Red Blood Count 2.73L, Hemoglobin 8.4L, Hematocrit 27L, Mean Corpuscular Volume 100H, Mean Corpuscular Hemoglobin 31, Mean Corpuscular Hemoglobin Concent 31L, Red Cell Distribution Width 13.7, Platelet Count 244, Mean Platelet Volume 9.7, Immature Granulocyte % (Auto) 2, Neutrophils (%) (Auto) 61, Lymphocytes (%) (Auto) 20, Monocytes (%) (Auto) 8, Eosinophils (%) (Auto) 8, Basophils (%) (Auto) 1, Neutrophils # (Auto) 3.1, Lymphocytes # (Auto) 1.0, Monocytes # (Auto) 0.4, Eosinophils # (Auto) 0.4H, Basophils # (Auto) 0.1, Immature Granulocyte # (Auto) 0.1, Sodium Level 139, Potassium Level 4.1, Chloride Level 108H, Carbon Dioxide Level 22, Anion Gap 9, Blood Urea Nitrogen 23H, Creatinine 0.90, Estimat Glomerular Filtration Rate 65, BUN/Creatinine Ratio 26, Glucose Level 95, Calcium Level 8.8, Corrected Calcium 9.7, Total Bilirubin 0.5, Aspartate Amino Transf (AST/SGOT) 21, Alanine Aminotransferase (ALT/SGPT) 16, Alkaline Phosphatase 95, Total Protein 6.2L, Albumin 2.9L Pending Labs Laboratory Tests 05/09/23 06:21: White Blood Count 9.1, Red Blood Count 2.51, Hemoglobin 7.8, Hematocrit 24, Mean Corpuscular Volume 96, Mean Corpuscular Hemoglobin 31, Mean Corpuscular Hemoglobin Concent 32, Red Cell Distribution Width 13.2, Platelet Count 216, Mean Platelet Volume 9.8, Immature Granulocyte % (Auto) 1, Neutrophils (%) (Auto) 85, Lymphocytes (%) (Auto) 5, Monocytes (%) (Auto) 9, Eosinophils (%) (Auto) 0, Basophils (%) (Auto) 0, Neutrophils # (Auto) 7.7, Lymphocytes # (Auto) 0.5, Monocytes # (Auto) 0.8, Eosinophils # (Auto) 0.0, Basophils # (Auto) 0.0, Immature Granulocyte # (Auto) 0.1, Neutrophils % (Manual) 94, Lymphocytes % (Manual) 3, Monocytes % (Manual) 2, Reactive Lymphocytes 1, Blood Morphology Comment NORMAL, Sodium Level 141, Potassium Level 4.4, Chloride Level 111, Carbon Dioxide Level 22, Anion Gap 8, Blood Urea Nitrogen 25, Creatinine 1.31, Estimat Glomerular Filtration Rate 41, BUN/Creatinine Ratio 19, Glucose Level 165, Calcium Level 9.0, Corrected Calcium 9.8, Iron Level 39, Total Bilirubin 0.2, Aspartate Amino Transf (AST/SGOT) 12, Alanine Aminotransferase (ALT/SGPT) 7, Alkaline Phosphatase 97, Total Protein 6.1, Albumin 3.0, Vitamin B12 Level 561 05/12/23 05:11: White Blood Count 5.1, Red Blood Count 2.73, Hemoglobin 8.4, Hematocrit 27, Mean Corpuscular Volume 100, Mean Corpuscular Hemoglobin 31, Mean Corpuscular Hemoglobin Concent 31, Red Cell Distribution Width 13.7, Platelet Count 244, Mean Platelet Volume 9.7, Immature Granulocyte % (Auto) 2, Neutrophils (%) (Auto) 61, Lymphocytes (%) (Auto) 20, Monocytes (%) (Auto) 8, Eosinophils (%) (Auto) 8, Basophils (%) (Auto) 1, Neutrophils # (Auto) 3.1, Lymphocytes # (Auto) 1.0, Monocytes # (Auto) 0.4, Eosinophils # (Auto) 0.4, Basophils # (Auto) 0.1, Immature Granulocyte # (Auto) 0.1, Sodium Level 139, Potassium Level 4.1, Chloride Level 108, Carbon Dioxide Level 22, Anion Gap 9, Blood Urea Nitrogen 23, Creatinine 0.90, Estimat Glomerular Filtration Rate 65, BUN/Creatinine Ratio 26, Glucose Level 95, Calcium Level 8.8, Corrected Calcium 9.7, Total Bilirubin 0.5, Aspartate Amino Transf (AST/SGOT) 21, Alanine Aminotransferase (ALT/SGPT) 16, Alkaline Phosphatase 95, Total Protein 6.2, Albumin 2.9 Discharge Home Medications: Active Scripts Active Vitamin B-12 (Cyanocobalamin (Vitamin B-12)) 1,000 Mcg Tablet 1,000 Mcg PO DAILY@0700 Pantoprazole Sodium 40 Mg Tablet.dr 40 Mg PO DAILY Percocet 5-325 mg Tablet (Oxycodone HCl/Acetaminophen) 1 Each Tablet 0.5 Tab PO Q4H PRN Meloxicam 7.5 Mg Tablet 7.5 Mg PO DAILY Hydralazine HCl 25 Mg Tablet 25 Mg PO BID PRN Reported Nystatin 100,000 Unit/Gram Cream..g. 1 Applic TP UD PRN Vitamin D3 (Cholecalciferol (Vitamin D3)) 50 Mcg (2000 Unit) Tablet 50 Mcg PO DAILY Lisinopril 20 Mg Tablet 20 Mg PO DAILY Levetiracetam 500 Mg Tablet 500 Mg PO BID Diclofenac Sodium 1 % Gel..gram. 1 Applic TP QID APPLICATION SITE NOT LISTED ON THE DISCHARGE ORDERS Atorvastatin Calcium 40 Mg Tablet 40 Mg PO HS Aspirin EC (Aspirin) 81 Mg Tablet.dr 81 Mg PO DAILY Tylenol Arthritis (Acetaminophen) 650 Mg Tablet.er 1,300 Mg PO Q6H PRN Instructions to patient/family Please see electronic discharge instructions given to patient. Diagnosis/Problems Diagnosis/Problems (1) Status post left knee replacement Clinical Quality Measures DVT/VTE Risk/Contraindication: Contraindications-Pharm: Other *list below* Other: anemia NATIVIDAD MENJIVAR DO May 17, 2023 07:20
[2023-05-17 08:00] VITALS: BP 155/77
[2023-05-17] MEDS: MELOXICAM 7.5 MG TABLET PO SCH (09:54)
[2023-05-17] MEDS: LevETIRAcetam 500 MG TABLET PO SCH (09:54)
[2023-05-17] MEDS: PANTOPRAZOLE 40 MG TABLET PO SCH (09:54)
[2023-05-17] MEDS: ASPIRIN enteric coated 81MG TABLET PO SCH (09:54)
[2023-05-17] MEDS: VITAMIN D3 25 MCG (1,000 UNITS) TABLET PO SCH (09:54)
[2023-05-17 11:50] VITALS: BP 155/77
[2023-05-17] MEDS: DOCUSATE SODIUM 100 MG CAPSULE PO SCH (12:17)
[2023-05-17] MEDS: DICLOFENAC 1% GEL 50 GM TUBE TP SCH (12:18)
[2023-05-17] MEDS: SENNA W/DOCUSATE TABLET PO SCH (12:18)
--- NOTE | 2023-05-19 12:05 | Therapy Team Discharge Summary ---
Therapy Discharge Summary Discharge Recommendations Date of Discharge May 17, 2023 at 11:50 Physical Therapy Roll Left to Right (QC): 6 (with gait belt to assist with moving (L) leg & using bed rail.) Sit to Lying (QC): 5 (/c leg electronics technology department chair - patient prefers leg electronics technology department chair to gait belt. Increased time to complete.) Lying to Sitting/Side of Bed(Q: 5 (/c leg electronics technology department chair - patient prefers leg electronics technology department chair to gait belt. Increased time to complete.) Sit to Stand (QC): 6 Chair/Syp-lt-Nloxs Xfer(QC): 6 (/c FWW) Toilet Transfer (QC): 5 Car Transfer (QC): 3 (Min (A) /c (L) leg -- will require seat of car to be moved back to max position prior to moving (L) leg into vehicle due to knee immobilizer. ) Does the Patient Walk: Yes Mode of Locomotion: Walk Anticipated Mode of Locomotion: Walk Walk 10 feet (QC): 6 (/c FWW) Walk 50 ft with 2 Turns(QC): 6 (/c FWW) Walk 150 ft (QC): 88 (unable to meet distance due to fatigue) Walking 10ft on uneven surface: 6 (/c FWW) Distance: 61 Gait Assistive Device: FWW Does the Pt Use a Wheelchair: Yes Wheel 50 ft with 2 turns (QC): 9 Wheel 150 ft (QC): 9 Type of Wheelchair: Manual 1 Step (curb) (QC): 3 (Min (A) /c Rails) 4 Steps (QC): 3 (min - CGA /c (B) hand rails, 1 cue for sequence, then patient able to complete without further cues. No LOB.) 12 Steps (QC): 88 (not safe, pain/fatigue) Walking Assistive Device: Walker Balance Sitting Static: Good Balance Sitting Dynamic: Fair Balance-Standing Static: Fair Picking up an Object (QC): 6 (with service porter and FWW) Occupational Therapy Pt admitted to ARU s/p L TKA. At [facility], pt was independent with ADLS and functional mobility. Upon initial evaluation, pt required set up with eating, SBA-CGA with oral care, UBD, and toileting, partial assistance LBD, and max A with showering and footwear. OT Tx focused on increasing BUE strength and activity tolerance, increasing safety and independence with ADLs and functional mobility, and education on AE for LBD. Pt made good progress towards goals, attaining all LTGS except LBD (assistance required with knee immobilizer). Pt discharged home with family support, d/c from OT. Decreased Activ Tolerance, Impaired Self-Care Skills Eating (QC): 6 (Pt. independent with eating. ) Oral Hygiene (QC): 6 (Pt. independent with grooming/oral hygiene while standing at sink. ) Shower/Bathe Self (QC): 6 (Pt. able to complete sponge bath at sink sitting to clean UE/LE using LH sponge, stands to clean buttocks and perineal area resting hand on counter to stabilize. ) Upper Body Dressing (QC): 6 (Pt. able to don/doff UB clothing. ) Lower Body Dressing (QC): 3 (Pt. needs assist with donning/doffing knee immobilizer. Pt. able to don/doff brief/pants using dressing stick/service porter then stands to hike brief/pants over hips. ) On/Off Footwear (QC): 6 (Pt. able to don/doff socks using dressing stick/sock aide. ) Toileting Hygiene (QC): 6 (Pt. able to complete clothing manipulation using FWW and grabbars and cleases areas by self. ) PT [facility]cc Goals Web Consultant Goals PT Web Consultant Goals Time Frame: May 22, 2023 Roll Left to Right (QC): 6 (/c bed rail) Sit to Lying (QC): 6 Lying-Sitting on Side/Bed(QC): 6 Sit to Stand (QC): 6 Chair/Wua-dx-Uralx Xfer(QC): 6 (/c FWW and (L) knee immobilizer) Toilet/Commode Transfer (QC): 6 Car Transfer (QC): 6 Does the Patient Walk: Yes Walk 10 feet (QC): 6 (/c FWW and (L) knee immobilizer) Walk 10ft-Uneven Surface(QC): 6 (/c FWW and (L) knee immobilizer) Walk 50ft with 2 Turns (QC): 6 (/c FWW and (L) knee immobilizer) Walk 150 ft (QC): 6 (/c FWW and (L) knee immobilizer) Does the Pt use WC or Scooter?: No Wheel 50 feet with 2 turns (QC: 9 Wheel 150 feet: 9 1 Step (curb) (QC): 4 (/c FWW and (L) knee immobilizer) 4 Steps (QC): 4 ((B) rails) 12 Steps (QC): 4 ((B)rails) Picking up an Object (QC): 6 (/c service porter.) OT Web Consultant Goals Mcc Goals Time Frame: May 23, 2023 Acute change in mental status: 0 Inattention: 0 Disorganized thinkin Altered level of consciousness: 0 Eating (QC): 6 (met) Oral Hygiene (QC): 6 (met) Toileting Hygiene (QC): 6 (met) Shower/Bathe Self (QC): 5 (met) Upper Body Dressing (QC): 6 (met) Lower Body Dressing (QC): 5 (not met) On/Off Footwear (QC): 5 (met) 1=Demonstrate adherence to instructed precautions during ADL tasks. 2=Patient will verbalize/demonstrate understanding of assistive devices/mo difications for ADL. 3=Patient will improve strength/tolerance for activity to enable patient to perform ADL's. DEIRDRE OWEN OT May 19, 2023 12:05
--- NOTE | 2023-05-21 13:25 | Therapy Team Discharge Summary ---
Therapy Discharge Summary Discharge Recommendations Date of Discharge May 17, 2023 at 11:50 Physical Therapy Patient was admitted to [facility] on 05/08/23 for (L) TKR. She discharged 05/17/23 with family (lives with grandson) and home health services. She was (I) with rolling and set-up for supine<>sit when provided with leg certified juvenile probation officer for (L) LE, with increased time to complete task. She was (I) for sit>stand, transfers and gait up to 90' /c FWW given increased time to complete the tasks. She was min (A) with 4 steps /c (B) hand rails and min (A) /c a curb step with the FWW. She was able to use a stenocaptioner (I) in standing to picking machine operator an object. Her KOOS JR score improved to a score of 10, which was her LTG for that functional outcome measure. She was discharged with (L) knee immobilizer locked at 0 - family was educated on how to position brace on (L) LE. Roll Left to Right (QC): 6 (with gait belt to assist with moving (L) leg & using bed rail.) Sit to Lying (QC): 5 (/c leg certified juvenile probation officer - patient prefers leg certified juvenile probation officer to gait belt. Increased time to complete.) Lying to Sitting/Side of Bed(Q: 5 (/c leg certified juvenile probation officer - patient prefers leg certified juvenile probation officer to gait belt. Increased time to complete.) Sit to Stand (QC): 6 Chair/Cln-jd-Kvvsj Xfer(QC): 6 (/c FWW) Toilet Transfer (QC): 6 Car Transfer (QC): 3 (Min (A) /c (L) leg -- will require seat of car to be moved back to max position prior to moving (L) leg into vehicle due to knee immobilizer. ) Does the Patient Walk: Yes Mode of Locomotion: Walk Anticipated Mode of Locomotion: Walk Walk 10 feet (QC): 6 (/c FWW) Walk 50 ft with 2 Turns(QC): 6 (/c FWW) Walk 150 ft (QC): 88 (unable to meet distance due to fatigue) Walking 10ft on uneven surface: 6 (/c FWW) Distance: 90 Gait Assistive Device: FWW Does the Pt Use a Wheelchair: Yes Wheel 50 ft with 2 turns (QC): 9 Wheel 150 ft (QC): 9 Type of Wheelchair: Manual 1 Step (curb) (QC): 3 (Min (A) /c Rails) 4 Steps (QC): 3 (min - CGA /c (B) hand rails, 1 cue for sequence, then patient able to complete without further cues. No LOB.) 12 Steps (QC): 88 (not safe, pain/fatigue) Walking Assistive Device: Walker Balance Sitting Static: Good Balance Sitting Dynamic: Fair Balance-Standing Static: Fair Picking up an Object (QC): 6 (with stenocaptioner and FWW) Occupational Therapy Decreased Activ Tolerance, Impaired Self-Care Skills Eating (QC): 6 (Pt. independent with eating. ) Oral Hygiene (QC): 6 (Pt. independent with grooming/oral hygiene while standing at sink. ) Shower/Bathe Self (QC): 6 (Pt. able to complete sponge bath at sink sitting to clean UE/LE using LH sponge, stands to clean buttocks and perineal area resting hand on counter to stabilize. ) Upper Body Dressing (QC): 6 (Pt. able to don/doff UB clothing. ) Lower Body Dressing (QC): 3 (Pt. needs assist with donning/doffing knee immobilizer. Pt. able to don/doff brief/pants using dressing stick/stenocaptioner then stands to hike brief/pants over hips. ) On/Off Footwear (QC): 6 (Pt. able to don/doff socks using dressing stick/sock aide. ) Toileting Hygiene (QC): 6 (Pt. able to complete clothing manipulation using FWW and grabbars and cleases areas by self. ) PT Senior Living Goals Client Solutions Director Goals PT Senior Living Goals Time Frame: May 22, 2023 Roll Left to Right (QC): 6 (/c bed rail) Sit to Lying (QC): 6 Lying-Sitting on Side/Bed(QC): 6 Sit to Stand (QC): 6 Chair/Xru-vu-Oixsw Xfer(QC): 6 (/c FWW and (L) knee immobilizer) Toilet/Commode Transfer (QC): 6 Car Transfer (QC): 6 Does the Patient Walk: Yes Walk 10 feet (QC): 6 (/c FWW and (L) knee immobilizer) Walk 10ft-Uneven Surface(QC): 6 (/c FWW and (L) knee immobilizer) Walk 50ft with 2 Turns (QC): 6 (/c FWW and (L) knee immobilizer) Walk 150 ft (QC): 6 (/c FWW and (L) knee immobilizer) Does the Pt use WC or Scooter?: No Wheel 50 feet with 2 turns (QC: 9 Wheel 150 feet: 9 1 Step (curb) (QC): 4 (/c FWW and (L) knee immobilizer) 4 Steps (QC): 4 ((B) rails) 12 Steps (QC): 4 ((B)rails) Picking up an Object (QC): 6 (/c stenocaptioner.) OT Client Solutions Director Goals Senior Living Goals Time Frame: May 23, 2023 Acute change in mental status: 0 Inattention: 0 Disorganized thinkin Altered level of consciousness: 0 Eating (QC): 6 (met) Oral Hygiene (QC): 6 (met) Toileting Hygiene (QC): 6 (met) Shower/Bathe Self (QC): 5 (met) Upper Body Dressing (QC): 6 (met) Lower Body Dressing (QC): 5 (not met) On/Off Footwear (QC): 5 (met) 1=Demonstrate adherence to instructed precautions during ADL tasks. 2=Patient will verbalize/demonstrate understanding of assistive devices/modifications for ADL. 3=Patient will improve strength/tolerance for activity to enable patient to perform ADL's. Bonnie Purcell PT May 21, 2023 13:24
== END 2023-05-17 11:50 | disposition home health service (06) | DRG 561 ==
PROVIDERS: ADMIT Internal Medicine; ATTEND Internal Medicine
DX: Z47.1 Aftercare following joint replacement surgery (principal); Z96.652 Presence of left artificial knee joint; I69.398 Other sequelae of cerebral infarction; R56.9 Unspecified convulsions; R33.9 Retention of urine, unspecified; Z91.81 History of falling; I12.9 Hypertensive chronic kidney disease with stage 1 through stage 4 chronic kidney disease, or unspecified chronic kidney disease; N18.30 Chronic kidney disease, stage 3 unspecified; D50.9 Iron deficiency anemia, unspecified; E78.00 Pure hypercholesterolemia, unspecified; Z79.1 Long term (current) use of non-steroidal anti-inflammatories (NSAID); Z79.899 Other long term (current) drug therapy; Z91.09 Other allergy status, other than to drugs and biological substances
CPT/HCPCS: 36415; 80053; 82607; 83540; 85007; 85025; 85027